=== PATIENT | female | born 1975 | race Hispanic/Latino ===

== ENCOUNTER → 2017-03-12 | Day surgery (SDC) | payer OTHER ==
[~2017-03-12] MED LIST: ACTOS15 MG PO; AMITRIPTYLINE100 MG PO; BENADRYL PO; BENADRYL25 M1 PO; CARAFATE1 GM PO; CARAFATE1 GM/10 ML PO; CLINDAMYCIN HC300 MG PO; COLACE100 MG PO; COLESTIPOL HCL1 GM PO; DIPHENHYDR12.5 MG/5 PO; ESTROGEL50 GM; FENTANYL CITRATE/PF 100MCG/2 ML INJ ONE; FLAGYL500 MG PO; GLIPIZIDE10 MG PO; GLIPIZIDE5 MG PO; HUMALOG100 UNITS/ SQ; HYDROCODON-ACE1 EAC3 PO; INSULIN REGULAR, HUMAN 100 UNIT/1 ML 3ML VIAL ONE; INVOKANA PO; JANUVIA100 MG PO; JARDANCE PO; JARDIANCE PO; LANTUS100 UNITS/ SC; LEVEMIR100 UNIT/1 SC; LEVEMIR100 UNIT/1 SQ; LIDOCAINE HCL 2% LOCAL INJ 5 ML SDV VIAL INJ ONE; LISINOPRIL10 MG PO; LYRICA75 MG PO; METFORMIN HCL500 MG PO; MIDAZOLAM HCL 2 MG/2 ML VIAL ONE; NORCO 7.5-3251 EACH PO; NOVOLOG100 UNITS/; PANTOPRAZOLE SO40 MG PO; PENTASA500 MG PO; PHENERGAN PO; PROMETHAZINE HC25 M1 PO; PROPOFOL IV EMULSION 10 MG/ML 50 ML VIAL ONE; PROTONIX40 MG PO; REGLAN10 MG PO; REGLAN5 MG PO; ROBAXIN500 MG PO; SPIRONOLACTONE100 MG PO; TOUJEO INJ; TOUJEO SC; TYLENOL # 31 EA PO; TYLENOL PM EX-1 EACH; TYLENOL PM EX-1 EACH PO; TYLENOL WITH C1 EACH PO; VICODIN HP 10-1 EACH PO; ZOFRAN ODT4 MG SL
--- NOTE | 2017-03-13 04:40 | Operative Report ---
DATE OF PROCEDURE: March 12, 2017 REFERRING PHYSICIAN: Dr. Jason Rolle PROCEDURES PERFORMED 1. Esophagogastroduodenoscopy with esophageal dilatation, polypectomy and biopsies. 2. Colonoscopy with polypectomy. INDICATIONS FOR EGD: Dysphagia to solids. INDICATIONS FOR COLONOSCOPY: History of ischemic colitis. MEDICATION: Patient was done under MAC. Please see anesthesiologist's note. PROCEDURE: With the patient in the left lateral decubitus position, the flexible fiberoptic Olympus gastroscope was introduced into the esophagus under direct visualization without any difficulty. The esophagus appeared to be within normal limits. There were some mild stricture noted at the GE junction that was dilated to size 52-[place] Citizen Fan. The scope was then advanced into the stomach, and mucosa overlying the antrum grossly appeared to be within normal limits. Mucosa overlying the body revealed some diffuse erythema and low-grade to moderate edema, and biopsies were obtained and sent to stain for H. pylori. Numerous polyps were noted in the body of the stomach. They were hyperplastic appearing. Approximately, 18 polyps were removed per snare electrocautery. Pylorus appeared to be within normal limits. The scope was then advanced with ease all the way to the 2nd portion of the duodenum. The scope was then withdrawn slowly. Mucosa overlying the proximal 2nd portion and the duodenal bulb appeared to be within normal limits. The scope was then withdrawn back into the stomach and retroflexed. The mucosa overlying the fundus and the cardia appeared to be within normal limits. The scope was then straightened out. The stomach was decompressed. The scope was subsequently withdrawn. Patient tolerated the procedure well. IMPRESSION 1. Normal esophagus. 2. Esophageal stricture at gastroesophageal junction dilated to a size 52-[place] Citizen Fan. 3. Gastric polyps, body, multiple, approximately 18 removed per snare electrocautery. 4. Gastritis, body. Biopsies obtained and sent to stain for Helicobacter pylori. PLAN: Follow up histology. Continue Protonix 40 mg 1 p.o. a.c. b.i.d. Add Carafate 1 g p.o. a.c. t.i.d. and at bedtime. Patient was then turned around. After adequate lubrication of the anal canal, a flexible fiberoptic Olympus colonoscope was inserted into the rectum with ease and advanced all the way to the cecum. Prep overall was suboptimal with retained stools in the cecum and ascending colon. Some scattered stool also. Whatever was visualized in the cecum, ascending, transverse, and descending appeared to be within normal limits. One minute polyp was hot biopsied from the sigmoid colon. There was some minimal diverticular disease noted in the descending and the sigmoid. Two polyps were hot biopsied from the sigmoid. Anastomosis was noted at approximately 20 cm from the anal verge. Rectum appeared to be within normal limits. The scope was then retroflexed into the distal rectum and small internal hemorrhoids were noted, none of which was actively bleeding. The scope was then straightened out. The rectosigmoid area, as well as the distal rectal area were decompressed. The scope was subsequently withdrawn. Patient tolerated the procedure well. IMPRESSION 1. Suboptimal prep. 2. Descending colon polyp, hot biopsied. 3. Diverticulosis. 4. Sigmoid colon polyps times 2, hot biopsied. 5. Internal hemorrhoids, none actively bleeding. PLAN: Follow up histology. Initiate high-fiber and low-fat diet. Initiate high-fiber supplement. Patient will need a followup colonoscopy in 3 years. Job#: [id number] RI cc:JASON ROLLE MD
== END | disposition home or self-care (01) ==
LOC: OR 09:44
PROVIDERS: ATTEND Internal Medicine Gastroenterology
DX: K22.2 Esophageal obstruction (principal); K63.5 Polyp of colon; K31.7 Polyp of stomach and duodenum; K29.70 Gastritis, unspecified, without bleeding; K63.89 Other specified diseases of intestine; K21.9 Gastro-esophageal reflux disease without esophagitis; K57.30 Diverticulosis of large intestine without perforation or abscess without bleeding; K64.8 Other hemorrhoids; K59.00 Constipation, unspecified; Z98.0 Intestinal bypass and anastomosis status; I10 Essential (primary) hypertension; E11.9 Type 2 diabetes mellitus without complications
CPT/HCPCS: 36415; 43251; 43450; 45384; 82948; J2001; J2250

== ENCOUNTER 2017-06-30 12:45 | Inpatient (IN) | payer OTHER ==
[~2017-06-30] VITALS: Ht 160 cm; Wt 93.9 kg
[~2017-06-30 12:45] MED LIST changes: -FENTANYL CITRATE/PF 100MCG/2 ML INJ ONE; -INSULIN REGULAR, HUMAN 100 UNIT/1 ML 3ML VIAL ONE; -LIDOCAINE HCL 2% LOCAL INJ 5 ML SDV VIAL INJ ONE; -MIDAZOLAM HCL 2 MG/2 ML VIAL ONE; -PROPOFOL IV EMULSION 10 MG/ML 50 ML VIAL ONE
--- OUTSIDE RECORDS SUMMARY | 2017-06-30 12:50 | XMS REPORT ---
Author Author [facility] Address Unknown Phone Unavailable Care Team Providers Care Plate Molder Name Role Phone THAI ROLLE Unavailable Unavailable BINA STEVENSON Unavailable Unavailable ALEC ROLLE Unavailable Unavailable Problems This patient has no known problems. Allergies, Adverse Reactions, Alerts This patient has no known allergies or adverse reactions. Medications This patient has no known medications. Results Test Description Test Time Test Comments Text Results Atomic Results Result Comments CT ABDOMEN/PELVIS W [place] [address] Patient Name: SAIRA DREW MR #: [id number] : 1975 Age/Sex: 41/F Req #: [id number] Adm Physician: THAI ROLLE MD Ordered by: VENTURA PICHARDO MD Report #: [id number] Location: [facility] Room/Bed: [place] [address] Procedure: [id number] CT/CT ABDOMEN/PELVIS W Exam Date: 12/11/16 Exam Time: 2100 REPORT STATUS: Signed EXAM: CT Abdomen and Pelvis WITH contrast INDICATION: Abdominal pain and rectal bleeding. COMPARISON: None. TECHNIQUE: Abdomen and pelvis were scanned utilizing a multidetector helical scanner from the lung base to the pubic symphysis after administration of IV contrast. Coronal and sagittal reformations were obtained. Routine protocol was performed. Scan was performed when during portal venous phase. IV CONTRAST: 100 mL of Isovue-370 ORAL CONTRAST: None RADIATION DOSE: Total DLP: 778.65 mGy*cm Estimated effective dose: (DLP x 0.015 x size factor) mSv COMPLICATIONS: None FINDINGS: LINES and TUBES: None. LOWER THORAX: Unremarkable HEPATOBILIARY: The liver is diffuse hypodense compared to the spleen, consistent with diffuse hepatic diffuse hepatic steatosis. No focal hepatic lesions. No biliary ductal dilation. GALLBLADDER: There are cholecystectomy clips. SPLEEN: No splenomegaly. PANCREAS: No focal masses or ductal dilatation. ADRENALS: No adrenal nodules KIDNEYS/URETERS: Kidneys enhance symmetrically. No hydronephrosis. No cystic or solid mass lesions. No stones. GI TRACT: No abnormal distention, wall thickening, or evidence of bowel obstruction. There are diverticula within the colon without evidence of diverticulitis. Appendix is not clearly identified. There is however no fat stranding or adenopathy in the right lower quadrant to suggest appendicitis. PELVIC ORGANS/BLADDER: Unremarkable. LYMPH NODES: No lymphadenopathy. VESSELS: Unremarkable. PERITONEUM / RETROPERITONEUM: No free air or fluid. BONES: Unremarkable. SOFT TISSUES: Unremarkable. IMPRESSION: 1. No acute intra-abdominal or pelvic abnormality. 2. Diffuse hepatic steatosis. 3. Cholecystectomy. Signed by: Dr. Vasquez Freeman M.D. on 2016 9:35 PM Dictated By: VASQUEZ RICH MD 34 COPY TO: VENTURA PICHARDO MD CT CHEST W [place] [address] Patient Name: SAIRA DREW MR #: [id number] : 1975 Age/Sex: 41/F Req #: [id number] Adm Physician: Ordered by: BINA STEVENSON MD Report #: [id number] Location: ER Room/Bed: Procedure: [id number] CT/CT CHEST W Exam Date: 12/11/16 Exam Time: 6 REPORT STATUS: Signed EXAM: CT Chest WITH contrast 2016 12:05 AM INDICATION: Shortness of breath, pulmonary embolism COMPARISON: None TECHNIQUE: Chest was scanned utilizing a multidetector helical scanner from the lung apex through the level of the adrenal glands without administration of IV contrast. Coronal and sagittal reformations were obtained. Routine protocol was performed. IV CONTRAST: 100 mL of Isovue-370 RADIATION DOSE: Total DLP: 482.19 mGy*cm Estimated effective dose: (DLP x 0.014 x size factor) mSv COMPLICATIONS: None FINDINGS: LINES/ TUBES: None. LUNGS AND AIRWAYS: The lungs are unremarkable. Airways are normal. PLEURA: The pleural spaces are clear. HEART AND MEDIASTINUM: The thyroid gland is normal. No mediastinal , hilar or axillary lymphadenopathy. The heart is normal in size.. There is no pericardial effusion. UPPER ABDOMEN: Limited non-contrast views of the upper abdomen show no abnormality within the visualized liver, spleen, pancreas, or kidneys. The adrenal glands are normal. Diffuse hepatic steatosis. Cholecystectomy clips are present BONES: The visualized bony thorax is within normal limits. SOFT TISSUES: Unremarkable. IMPRESSION : 1. No acute pulmonary embolism. 2. No evidence of acute intrathoracic abnormality. 3. Diffuse hepatic steatosis. Signed by: Dr. Vasquez Freeman M.D. on 2016 1:26 AM Dictated By: VASQUEZ RICH MD 5 Transcribed By: JUAQUIN on 12/11/16125 COPY TO: BINA STEVENSON MD GASTRIC EMPTYING [place] [address] Patient Name: SAIRA DREW MR #: [id number] : 1975 Age/Sex: 40/F Req #: [id number] Adm Physician: Ordered by: ALEC ROLLE MD Report #: [id number] Location: [place] Room/Bed: Procedure: [id number] NM/GASTRIC EMPTYING Exam Date: Exam Time: REPORT STATUS: Signed Solid-phase gastric emptying study Reason for examination: 40 F with dysphagia The protocol used for this study is based on the Consensus Recommendations for Gastric Scintigraphy by the [employer] Society and the Society of Nuclear Medicine. Clinical information: The patient is diabetic; blood glucose this morning was 158. The patient had colon reduction in 2009 for diverticulitis and cholecystectomy in 2009. The patient uses Reglan. The patient has been fasting for at least 6 hours prior to this exam. Radiopharmaceutical: Tc-99m sulfur colloid 1 mCi Report: The radiopharmaceutical was added to Ensure Enlive 8 ounces. The patient took the meal orally without difficulty. Images were obtained of the abdomen in the anterior and posterior projections at 10 minutes post the meal and at 1, 2, 3 , and 4 hours. Uptake was determined from the geometric mean of the anterior and posterior counts and the counts were corrected for decay of the radiolabel. The percent gastric retention of the labeled meal at: 1 hour was 58% (normal 30-90%) 2 hours was 35% (normal <60%) 3 hours was 27% (normal <30%) 4 hours was 14% (normal <10%) Impression: Mildly delayed gastric emptying at 4 hours. The findings support the clinical diagnosis of gastroparesis. Signed by: Dr. Alejandra Mcfarland M.D. on 2016 2:36 PM Dictated By: ALEJANDRA MCFARLAND MD 0060 Transcribed By: JUAQUIN on 12/07/16 1437 COPY TO: ALEC ROLLE MD
[2017-06-30 13:30] LABS: BASOPHILS % 0.4 % (0.0-1.0); EOSINOPHILS # (AUTO) 0.3 (0.0-0.4); EOSINOPHILS % 2.5 % (0.0-6.0); HEMATOCRIT 41.7 % (34.2-44.1); HEMOGLOBIN 14.4 g/dL (12.0-16.0); LYMPHOCYTES # (AUTO) 2.9 (1.0-3.2); LYMPHOCYTES % 28.3 % (18.0-39.1); MEAN CORPUSCULAR HEMOGLOBIN 26.4 pg (28-32); MEAN CORPUSCULAR HGB CONC 34.5 g/dL (31-35); MEAN CORPUSCULAR VOLUME 76.4 fL (81-99); MONOCYTES # (AUTO) 0.7 (0.2-0.8); MONOCYTES % 7.1 % (4.4-11.3); NEUTROPHILS # (AUTO) 6.2 (2.1-6.9); NEUTROPHILS % 61.3 % (38.7-80.0); PLATELET COUNT 222 x10e3/uL (140-360); RED BLOOD COUNT 5.46 x10e6/uL (3.6-5.1); RED CELL DISTRIBUTION WIDTH 14.4 % (11.7-14.4)
[2017-06-30 13:48] LABS: ALANINE AMINOTRANSFERASE 48 IU/L (0-55); ALBUMIN 4.1 g/dL (3.5-5.0); ALKALINE PHOSPHATASE 85 IU/L (40-150); BLOOD UREA NITROGEN 16 mg/dL (7-26); BUN/CREATININE RATIO 17 (6-25); CALCIUM 9.4 mg/dL (8.4-10.2); CARBON DIOXIDE 25 mmol/L (22-29); CHLORIDE 101 mmol/L (98-107); CREATINE KINASE 140 IU/L (29-168); CREATININE, SERUM 0.93 mg/dL (0.57-1.11); EST GLOMERULAR FILTRATION RATE > 60 ML/MIN (60-); GLUCOSE 169 mg/dL (74-118); SODIUM 137 mmol/L (136-145)
[2017-06-30] MEDS ORDERED: SODIUM CHLORIDE 0.9% 1000ML 1,000 ML IV STA (14:24)
[2017-06-30] MEDS: MORPHINE SULFATE 2 MG/ML SYR IV PRN ×3 (14:51→22:26)
[2017-06-30] MEDS: ONDANSETRON HCL INJ 2 MG/ML VIAL IV PRN ×2 (14:51→21:03)
--- NOTE | 2017-06-30 15:07 | Diagnostic Imaging Report ---
PROCEDURE: A single AP view of the chest. COMPARISON: Patients [facility], , CHEST 2 VIEWS, 05/16/2016, 11:42. INDICATIONS: CHEST PAIN, DIFFICULTY SWALLOWING FINDINGS: Lines/tubes: None. Lungs: The lungs are well inflated and grossly clear. There is no evidence of pneumonia or pulmonary edema. Pleura: There is no pleural effusion or pneumothorax. Heart and mediastinum: Cardiac silhouette is unremarkable. Pulmonary vasculature is normal. Bones: No acute bony abnormality. IMPRESSION: 1. No acute cardiopulmonary abnormalities. Michel Plunkett M.D. Dictated by: Michel Plunkett M.D. on 06/30/2017 at 15:08 Electronically approved by: Michel Plunkett M.D. on 06/30/2017 at 15:08
[2017-06-30 16:10] VITALS: BP 139/82
[2017-06-30] MEDS: SODIUM CHLORIDE 0.9% 1000ML 1,000 ML IV SCH ×2 (16:29→22:27)
[2017-06-30 16:36] VITALS: BP 139/82
[2017-06-30] MEDS ORDERED: DIPHENHYDRAMINE HCL 25 MG CAP PO PRN (17:30)
[2017-06-30] MEDS ORDERED: COLESTIPOL HCL 1 G TAB PO PRN (17:30)
[2017-06-30] MEDS ORDERED: NON-FORMULARY MEDICATION ([Phenergan] 25 MG) PO SCH (17:30)
[2017-06-30] MEDS ORDERED: DEXTROSE 50% SYRINGE 50 ML IV PRN (17:30)
[2017-06-30] MEDS ORDERED: COLESTIPOL HCL 1 G TAB PO SCH (17:30)
[2017-06-30] MEDS ORDERED: DIPHENHYDRAMINE HCL INJ 50 MG/ML VIAL IV PRN (17:45)
[2017-06-30] MEDS ORDERED: PROMETHAZINE HCL 25 MG TAB PO PRN (17:45)
[2017-06-30 20:00] VITALS: BP 112/68
[2017-06-30] MEDS: METOCLOPRAMIDE HCL 10 MG TAB PO SCH (21:00)
[2017-06-30] MEDS: INSULIN LISPRO 100 UNIT/1 ML 3ML VIAL SQ SCH (21:00)
[2017-06-30] MEDS: INSULIN DETEMIR 100 UNIT/ML PEN SQ SCH (21:00)
[2017-06-30] MEDS ORDERED: NON-FORMULARY MEDICATION (Amitriptyline Hcl 100 MG) PO SCH (21:00)
[2017-06-30] MEDS: AMITRIPTYLINE HCL 25 MG TAB PO SCH (21:00)
[2017-06-30] MEDS: LISINOPRIL 10 MG TAB PO SCH (21:00)
[2017-06-30] MEDS: METHOCARBAMOL 500 MG TAB PO SCH (21:00)
[2017-06-30 21:03] VITALS: BP 112/68
[2017-07-01] VITALS (7 sets, daily range): BP systolic 95–163; BP diastolic 57–86
[2017-07-01] MEDS: MORPHINE SULFATE 2 MG/ML SYR IV PRN ×2 (02:32→06:38)
[2017-07-01] MEDS: SODIUM CHLORIDE 0.9% 1000ML 1,000 ML IV SCH ×3 (02:32→22:28)
[2017-07-01] MEDS: ONDANSETRON HCL INJ 2 MG/ML VIAL IV PRN ×2 (02:32→06:38)
[2017-07-01] MEDS ORDERED: MORPHINE SULFATE 2 MG/ML SYR IV PRN (07:15)
[2017-07-01] MEDS: INSULIN LISPRO 100 UNIT/1 ML 3ML VIAL SQ SCH ×4 (07:30→21:00)
[2017-07-01] MEDS: GLIPIZIDE 5 MG TAB PO SCH ×2 (07:30→16:30)
[2017-07-01] MEDS: METOCLOPRAMIDE HCL 10 MG TAB PO SCH ×4 (07:30→21:13)
[2017-07-01] MEDS ORDERED: HYDROMORPHONE 2MG/ML INJ IV PRN (08:30)
[2017-07-01] MEDS: PANTOPRAZOLE 40 MG 10ML VIAL IV SCH (08:52)
[2017-07-01] MEDS: METHOCARBAMOL 500 MG TAB PO SCH ×3 (09:00→21:13)
[2017-07-01] MEDS: INSULIN DETEMIR 100 UNIT/ML PEN SQ SCH ×2 (09:00→16:34)
[2017-07-01] MEDS ORDERED: PANTOPRAZOLE SODIUM 40 MG SUSPDR.PKT PO SCH (09:00)
[2017-07-01] MEDS ORDERED: NON-FORMULARY MEDICATION (Glipizide 20 MG) PO SCH (09:00)
[2017-07-01] MEDS: HYDROMORPHONE 2MG/ML INJ IV PRN ×4 (10:00→22:28)
[2017-07-01] MEDS: SITAGLIPTIN 100 MG TAB PO SCH (10:33)
[2017-07-01] MEDS ORDERED: PANTOPRAZOLE 40 MG 10ML VIAL IV STA (13:22)
[2017-07-01] MEDS ORDERED: PANTOPRAZOLE INJ 40 MG in SODIUM CHLORIDE 0.9% 50ML 50 ML IV SCH (13:30)
[2017-07-01] MEDS: PROMETHAZINE 12.5MG/ NACL 0.9% 12.5 MG/50 ML BAG IV PRN ×2 (13:50→22:28)
[2017-07-01] MEDS: PANTOPRAZOL 40MG/SOD CHL 0.9% 50 ML IV SCH ×3 (13:50→23:30)
[2017-07-01] MEDS ORDERED: PROPOFOL IV EMULSION 10 MG/ML 50 ML VIAL ONE (15:07)
[2017-07-01] MEDS ORDERED: LIDOCAINE HCL 2% LOCAL INJ 5 ML SDV VIAL INJ ONE (15:07)
[2017-07-01] MEDS ORDERED: FENTANYL CITRATE/PF 100MCG/2 ML INJ ONE (15:27)
[2017-07-01] MEDS ORDERED: MIDAZOLAM HCL 2 MG/2 ML VIAL ONE (15:27)
[2017-07-01] MEDS: LISINOPRIL 10 MG TAB PO SCH (21:13)
[2017-07-01] MEDS: AMITRIPTYLINE HCL 25 MG TAB PO SCH (21:13)
[2017-07-02] VITALS (7 sets, daily range): BP systolic 102–124; BP diastolic 55–73
[2017-07-02] MEDS: PANTOPRAZOL 40MG/SOD CHL 0.9% 50 ML IV SCH ×3 (04:27→15:42)
[2017-07-02] MEDS: HYDROMORPHONE 2MG/ML INJ IV PRN ×3 (04:33→13:11)
[2017-07-02] MEDS: SODIUM CHLORIDE 0.9% 1000ML 1,000 ML IV SCH ×2 (06:06→15:42)
[2017-07-02] MEDS: GLIPIZIDE 5 MG TAB PO SCH (07:30)
[2017-07-02] MEDS: METOCLOPRAMIDE HCL 10 MG TAB PO SCH ×2 (07:30→11:30)
[2017-07-02] MEDS: INSULIN LISPRO 100 UNIT/1 ML 3ML VIAL SQ SCH ×2 (07:30→11:30)
[2017-07-02] MEDS: PROMETHAZINE 12.5MG/ NACL 0.9% 12.5 MG/50 ML BAG IV PRN (08:44)
[2017-07-02] MEDS: SITAGLIPTIN 100 MG TAB PO SCH (09:00)
[2017-07-02] MEDS: INSULIN DETEMIR 100 UNIT/ML PEN SQ SCH (09:00)
[2017-07-02] MEDS: METHOCARBAMOL 500 MG TAB PO SCH (09:00)
[2017-07-02] MEDS: PANTOPRAZOLE 40 MG 10ML VIAL IV SCH (09:00)
--- NOTE | 2017-07-02 13:01 | Operative Report ---
DATE OF PROCEDURE: July 01, 2017 PROCEDURE PERFORMED: Esophagogastroduodenoscopy with esophageal dilatation. REFERRING PHYSICIAN: Dr. Jason Rolle INDICATIONS FOR EGD: Dysphagia to solids. MEDICATION: Patient was done under MAC. Please see anesthesiologist note. PROCEDURE IN DETAIL: With the patient in left lateral decubitus position, the flexible fiberoptic Olympus gastroscope was introduced into the esophagus under direct visualization without any difficulty. There was some patchy erythema noted in distal esophagus. Mild stricture was noted at the GE junction that was dilated to size 56-[place] Fan. The scope was then advanced with ease into her stomach. Mucosa overlying the antrum and the body revealed some diffuse erythema, low-grade edema, and biopsies were obtained and sent to stain for H. pylori. Several hyperplastic-appearing polyps were noted in the body of the stomach and some were partially excised with the cold biopsy forceps. The pylorus was of normal contour and shape, was intubated with ease, and the scope was advanced all the way to the second portion of the duodenum. The scope was then withdrawn slowly. Mucosa overlying the proximal second portion and the duodenal bulb appeared to be within normal limits. The scope was then withdrawn back into the stomach and retroflexed, and the mucosa overlying the fundus and the cardia appeared to be within normal limits. The scope was then straightened out. The stomach was decompressed. The scope was subsequently withdrawn. Patient tolerated the procedure well. IMPRESSION: 1. Distal esophagitis. 2. Esophageal stricture, gastroesophageal junction, dilated to size 56-[place] Fan. 3. Gastritis, biopsied. Biopsy sent to stain for Helicobacter pylori. 4. Gastric polyps, hyperplastic appearing, some were partially excised with the cold biopsy forceps. PLAN: Follow up histology. Continue PPI therapy. Initiate full liquid diet. Job#: [id number] cc:JASON ROLLE MD
[2017-07-02] MEDS: ONDANSETRON HCL INJ 2 MG/ML VIAL IV PRN (13:11)
--- NOTE | 2017-07-02 15:07 | Progress Note ---
DATE: INTERNAL MEDICINE PROGRESS NOTE NO DICTATION, LENGTH 0:5 Job#: [id number] RI
--- NOTE | 2017-07-02 16:08 | Discharge Summary ---
A 41-year-old female with a history of gastroesophageal reflux disease, diabetes, rheumatoid arthritis, hypertension came with difficulty swallowing. Patient was seen by Dr. Evelio Olvera. He did an EGD and dilatation of the esophagus. The patient is feeling a lot better right now. She is going home if okay with Dr. Evelio Olvera. PHYSICAL EXAMINATION HEART: Shows regular rhythm. Normal S1 and S2 sounds. LUNGS: Clear bilaterally. ABDOMEN: Soft. EXTREMITIES: Shows no evidence of cyanosis or trauma. LABORATORY STUDIES: We have a BMP with a sodium of 137, potassium 4, chloride 101, CO2 25, BUN 16, creatinine 0.83, glucose 169. CBC showed a white blood count 10, hemoglobin 14.4, hematocrit 41.7, and platelet count 232,000. AST 29, ALT 48, total bilirubin 0.4, alkaline phosphatase 85. FINAL IMPRESSION 1. Esophageal stenosis. 2. Hypertension. 3. Diabetes. Patient going to be discharged home with: 1. Protonix 40 mg p.o. twice a day. 2. Lisinopril 5 mg daily. 3. Glipizide 20 mg twice a day. 4. Protonix 40 mg daily. 5. Colestipol 1 g daily. 6. Methocarbamol 500 mg 3 times a day. 7. Promethazine 25 mg q.6 h. as needed. 8. Levemir 30 units twice a day. 9. Metoclopramide 20 mg before meals. 10. Januvia 100 mg daily. 11. Elavil 100 mg daily. 12. Benadryl 25 mg q.4 h. as needed. ANNELIESE QUINN MD Job#: [id number] RI
== END 2017-07-02 15:42 | disposition home or self-care (01) | DRG 392 ==
LOC: ER 12:49 → ERHOLD 14:41 → MED/SURG 15:40
PROC: 0D748ZZ Dilation of Esophagogastric Junction, Via Natural or Artificial Opening Endoscopic (ICD-10-PCS; principal; 2017-07-01 16:30)
PROC: 0DB68ZX Excision of Stomach, Via Natural or Artificial Opening Endoscopic, Diagnostic (ICD-10-PCS; 2017-07-01 16:30)
DX: K22.2 Esophageal obstruction (principal); R13.14 Dysphagia, pharyngoesophageal phase; I10 Essential (primary) hypertension; K21.0 Gastro-esophageal reflux disease with esophagitis; K29.70 Gastritis, unspecified, without bleeding; K31.7 Polyp of stomach and duodenum; E11.9 Type 2 diabetes mellitus without complications; M06.9 Rheumatoid arthritis, unspecified; R07.9 Chest pain, unspecified; Z88.1 Allergy status to other antibiotic agents; Z88.2 Allergy status to sulfonamides; Z88.8 Allergy status to other drugs, medicaments and biological substances; F41.9 Anxiety disorder, unspecified
CPT/HCPCS: 36415; 43239; 43450; 71045; 80053; 82550; 82553; 82948; 84484; 85025; 88305; 88312; 93005; 99284; J1200; J2001; J2250; J2270; J2405; J2550; J7030

== ENCOUNTER → 2017-07-11 | Outpatient (CLI) | payer OTHER ==
[~2017-07-11] MED LIST changes: +DIATRIZOATE MEGL/DIATRIZOA SOD 30 ML BTL PO ONE; +IOPAMIDOL 370 MG/ML 200 ML INFUS..BTL INJ ONE; +SODIUM CHLORIDE 0.9% 50ML 50 ML ONE
[2017-07-11 18:26] LABS: CREATININE, SERUM 1.2 mg/dL (0.57-1.11)
--- NOTE | 2017-07-11 19:25 | Diagnostic Imaging Report ---
EXAM: CT Abdomen and Pelvis WITH contrast INDICATION: \[id number] \[id number] COMPARISON: 10/30/2009 TECHNIQUE: Abdomen and pelvis were scanned utilizing a multidetector helical scanner from the lung base to the pubic symphysis after administration of IV contrast. Coronal and sagittal reformations were obtained. Routine protocol was performed. Scan was performed when during portal venous phase. IV CONTRAST: 150 mL of Omnipaque 300 ORAL CONTRAST: Water COMPLICATIONS: None RADIATION DOSE: Total DLP: 747.9 mGy*cm Estimated effective dose: (DLP x 0.015 x size factor) mSv CTDIvol has been reviewed. It is below the limits set by the Radiation Protocol Committee (RPC). FINDINGS: LINES and TUBES: None. LOWER THORAX: Unremarkable HEPATOBILIARY: The liver is enlarged and diffuse hypodense compared to the spleen, consistent with diffuse hepatic diffuse hepatic steatosis. No focal hepatic lesions. No biliary ductal dilation. GALLBLADDER: There are cholecystectomy clips. SPLEEN: No splenomegaly. PANCREAS: No focal masses or ductal dilatation. ADRENALS: No adrenal nodules KIDNEYS/URETERS: Kidneys enhance symmetrically. No hydronephrosis. No cystic or solid mass lesions. No stones. GI TRACT: No abnormal distention, wall thickening, or evidence of bowel obstruction. There are diverticula within the colon without evidence of diverticulitis. Appendix is not clearly identified. There is however no fat stranding or adenopathy in the right lower quadrant to suggest appendicitis. PELVIC ORGANS/BLADDER: The uterus is absent. Bladder is unremarkable. LYMPH NODES: Nonspecific gisela hepatis lymph nodes measuring up to 1.4 cm. VESSELS: Unremarkable. PERITONEUM / RETROPERITONEUM: No free air or fluid. BONES: Unremarkable. SOFT TISSUES: Midline laparotomy scar. Foci of subcutaneous stranding in the anterior abdominal wall fat may be related to subcutaneous injections. IMPRESSION: 1. No acute abnormalities in the abdomen and pelvis. 2. Hepatic steatosis and hepatomegaly. 3. Cholecystectomy. Signed by: DR. Prashant Downs MD on 07/11/2017 7:21 PM
== END ==
LOC: CT 17:23
DX: R10.9 Unspecified abdominal pain (principal); K76.0 Fatty (change of) liver, not elsewhere classified; R16.0 Hepatomegaly, not elsewhere classified
CPT/HCPCS: 36415; 74177; 82565; 84520; Q9967

== ENCOUNTER 2017-10-17 05:28 | Observation (INO) | payer OTHER ==
[2017-10-11 09:15] LABS: BASOPHILS % 0.5 % (0.0-1.0); EOSINOPHILS # (AUTO) 0.4 (0.0-0.4); EOSINOPHILS % 4.2 % (0.0-6.0); HEMATOCRIT 43.3 % (34.2-44.1); HEMOGLOBIN 14.4 g/dL (12.0-16.0); LYMPHOCYTES # (AUTO) 2.6 (1.0-3.2); MEAN CORPUSCULAR HEMOGLOBIN 25.9 pg (28-32); MEAN CORPUSCULAR HGB CONC 33.3 g/dL (31-35); MEAN CORPUSCULAR VOLUME 77.9 fL (81-99); MONOCYTES # (AUTO) 0.7 (0.2-0.8); MONOCYTES % 7.5 % (4.4-11.3); NEUTROPHILS % 57.5 % (38.7-80.0); PLATELET COUNT 238 x10e3/uL (140-360); RED BLOOD COUNT 5.56 x10e6/uL (3.6-5.1); RED CELL DISTRIBUTION WIDTH 14.5 % (11.7-14.4)
[2017-10-11 09:31] LABS: ANION GAP 14.8 mmol/L (8-16); BLOOD UREA NITROGEN 16 mg/dL (7-26); BUN/CREATININE RATIO 20 (6-25); CALCIUM 9.4 mg/dL (8.4-10.2); CARBON DIOXIDE 27 mmol/L (22-29); CHLORIDE 102 mmol/L (98-107); CREATININE, SERUM 0.79 mg/dL (0.57-1.11); EST GLOMERULAR FILTRATION RATE > 60 ML/MIN (60-); GLUCOSE 201 mg/dL (74-118); POTASSIUM 3.8 mmol/L (3.5-5.1); SODIUM 140 mmol/L (136-145)
[~2017-10-17] VITALS: Ht 160 cm; Wt 93.9 kg
[2017-10-17 02:00] VITALS: BP 115/58
[~2017-10-17 05:28] MED LIST changes: -DIATRIZOATE MEGL/DIATRIZOA SOD 30 ML BTL PO ONE; -IOPAMIDOL 370 MG/ML 200 ML INFUS..BTL INJ ONE; +METOPROLOL SUCC25 MG PO; -SODIUM CHLORIDE 0.9% 50ML 50 ML ONE
[2017-10-17] MEDS ORDERED: TUJEO SQ (05:46)
[2017-10-17] MEDS ORDERED: BUPIVACAINE 0.25%/EPI 30ML SDV INJ ONE (08:09)
[2017-10-17] MEDS: SODIUM CHLORIDE 0.9% 1000ML 1,000 ML IV SCH (10:41)
[2017-10-17] MEDS: PANTOPRAZOLE 40 MG 10ML VIAL IV SCH (10:45)
[2017-10-17] MEDS ORDERED: KETOROLAC TROMETHAMINE 30 MG/ML VIAL IV PRN (10:45)
[2017-10-17] MEDS ORDERED: ACETAMINOPHEN 1000 MG/100 ML IV PRN (10:45)
[2017-10-17] MEDS ORDERED: ONDANSETRON HCL INJ 2 MG/ML VIAL IV PRN (10:45)
[2017-10-17] MEDS ORDERED: FENTANYL CITRATE/PF 100MCG/2 ML INJ ONE ×2 (11:11→14:52)
[2017-10-17] MEDS: INSULIN REGULAR, HUMAN 100 UNIT/1 ML 3ML VIAL SQ SCH ×2 (12:00→18:07)
--- NOTE | 2017-10-17 12:03 | Operative Report ---
DATE OF PROCEDURE: October 17, 2017 PREOPERATIVE DIAGNOSIS: Partial small bowel obstruction from adhesions. POSTOPERATIVE DIAGNOSIS: Partial small bowel obstruction from adhesions. OPERATION PERFORMED: Laparoscopic lysis of adhesions. ANESTHESIA: General. COMPLICATIONS: None. ESTIMATED BLOOD LOSS: Minimal. DESCRIPTION OF PROCEDURE: With the patient lying in bed in the supine position under good general endotracheal anesthesia, the abdomen was prepped with Betadine solution and draped in the usual manner. A Veress needle was introduced into the right upper quadrant and pneumoperitoneum was established without any difficulty. A 5 mm trocar was placed in the right subcostal region and a 5 mm video laparoscope was introduced into the intra-abdominal cavity. Video laparoscopy at this point immediately revealed extensive adhesions to the anterior abdominal wall. Another 5 mm trocar was then placed in the left upper quadrant and another 5 mm trocar was placed in the right subcostal region. We then slowly and carefully started taking down all of the extensive adhesions to the anterior abdominal wall from the patient's previous surgeries. We were slowly and carefully able to take them down all the way from the upper abdomen all the way down to the pelvis and all of the omentum was from the anterior abdominal wall and we were able to get a more free access to the intra-abdominal cavity. Laparoscopy also revealed the patient to have some fatty infiltration of the liver. There were some adhesions to the dome of the liver which were also slowly and carefully lysed. The bowel was then slowly and carefully run and all adhesions were taken down. Examination of the pelvis did not reveal any deep pelvic adhesions. There was however a small deposit consistent with endometriosis in the pelvis, which was resected. After the bowel was run and all of the adhesions were slowly and carefully taken down, the whole abdomen was then copiously irrigated and perfect hemostasis was ascertained. All of the excess fluid was aspirated. The only other positive finding was the colon was somewhat distended from feces. The pneumoperitoneum was evacuated and all the trocars were removed under direct vision. All of the 5 mm trocars sites were then closed with subcuticular 5-0 Vicryl. Benzoin, Steri-Strips and Band-Aids were applied. The sponge, lap and needle count was correct. The patient tolerated the procedure well and returned to the recovery room in stable condition. Job#: [id number] LUIS A
[2017-10-17] MEDS ORDERED: HYDROMORPHONE 2MG/ML 2 MG/ML ML ONE (12:41)
[2017-10-17 14:48] VITALS: BP 120/59
[2017-10-17] MEDS ORDERED: MIDAZOLAM HCL 2 MG/2 ML VIAL ONE (14:52)
[2017-10-17 16:03] VITALS: BP 120/59
[2017-10-17] MEDS: HYDROMORPHONE 1MG/1ML INJ IV PRN ×3 (16:08→22:15)
[2017-10-17] MEDS: METOPROLOL SUCCINATE 25 MG TAB XL PO SCH (17:12)
[2017-10-17 20:00] VITALS: BP 121/69
[2017-10-17] MEDS: LISINOPRIL 10 MG TAB PO SCH (20:29)
[2017-10-17] MEDS: DIPHENHYDRAMINE HCL INJ 50 MG/ML VIAL IV PRN (22:15)
[2017-10-18] VITALS (7 sets, daily range): BP systolic 97–123; BP diastolic 52–74
[2017-10-18] MEDS: INSULIN REGULAR, HUMAN 100 UNIT/1 ML 3ML VIAL SQ SCH ×4 (01:00→18:00)
[2017-10-18] MEDS: DIPHENHYDRAMINE HCL INJ 50 MG/ML VIAL IV PRN (01:20)
[2017-10-18] MEDS: HYDROMORPHONE 1MG/1ML INJ IV PRN ×5 (01:20→14:02)
[2017-10-18] MEDS: SODIUM CHLORIDE 0.9% 1000ML 1,000 ML IV SCH ×4 (01:44→23:30)
[2017-10-18 04:56] LABS: BASOPHILS % 0.3 % (0.0-1.0); EOSINOPHILS # (AUTO) 0.1 (0.0-0.4); EOSINOPHILS % 0.6 % (0.0-6.0); HEMATOCRIT 37.5 % (34.2-44.1); HEMOGLOBIN 12.5 g/dL (12.0-16.0); LYMPHOCYTES # (AUTO) 2.2 (1.0-3.2); LYMPHOCYTES % 18.4 % (18.0-39.1); MEAN CORPUSCULAR HEMOGLOBIN 25.8 pg (28-32); MEAN CORPUSCULAR HGB CONC 33.3 g/dL (31-35); MEAN CORPUSCULAR VOLUME 77.5 fL (81-99); MONOCYTES # (AUTO) 1.1 (0.2-0.8); MONOCYTES % 9.1 % (4.4-11.3); NEUTROPHILS # (AUTO) 8.6 (2.1-6.9); NEUTROPHILS % 71.3 % (38.7-80.0); PLATELET COUNT 210 x10e3/uL (140-360); RED BLOOD COUNT 4.84 x10e6/uL (3.6-5.1); RED CELL DISTRIBUTION WIDTH 14.7 % (11.7-14.4)
[2017-10-18 05:47] LABS: ANION GAP 13.3 mmol/L (8-16); BLOOD UREA NITROGEN 15 mg/dL (7-26); BUN/CREATININE RATIO 22 (6-25); CALCIUM 8.9 mg/dL (8.4-10.2); CARBON DIOXIDE 26 mmol/L (22-29); CHLORIDE 104 mmol/L (98-107); CREATININE, SERUM 0.69 mg/dL (0.57-1.11); EST GLOMERULAR FILTRATION RATE > 60 ML/MIN (60-); GLUCOSE 175 mg/dL (74-118); POTASSIUM 4.3 mmol/L (3.5-5.1); SODIUM 139 mmol/L (136-145)
[2017-10-18] MEDS: METOPROLOL SUCCINATE 25 MG TAB XL PO SCH ×2 (08:01→17:50)
[2017-10-18] MEDS: PANTOPRAZOLE 40 MG 10ML VIAL IV SCH (10:02)
[2017-10-18] MEDS ORDERED: LIDOCAINE HCL 2% LOCAL INJ 5 ML SDV VIAL INJ ONE (14:01)
[2017-10-18] MEDS ORDERED: ONDANSETRON HCL INJ 2 MG/ML VIAL IV ONE (14:01)
[2017-10-18] MEDS ORDERED: ROCURONIUM BROMIDE 10 MG/ML 5ML VIAL IV ONE (14:01)
[2017-10-18] MEDS ORDERED: NEOSTIGMINE 5 MG/5ML SYR IV ONE (14:01)
[2017-10-18] MEDS ORDERED: DEXAMETHASONE SOD PHOS INJ 4 MG/ML VIAL IV ONE (14:01)
[2017-10-18] MEDS ORDERED: LABETALOL HCL 5 MG/ML 20ML VIAL IV ONE (14:01)
[2017-10-18] MEDS ORDERED: SEVOFLURANE INHAL SOLN 250 ML PEN BTL INH ONE (14:01)
[2017-10-18] MEDS ORDERED: GLYCOPYRROLATE INJ 0.2 MG/ML VIAL IV ONE (14:01)
[2017-10-18] MEDS ORDERED: PROPOFOL IV EMULSION 10 MG/ML 20 ML VIAL IV ONE (14:01)
[2017-10-18] MEDS: HYDROCODONE/APAP 7.5MG-325MG 1 EA TAB PO PRN (20:11)
[2017-10-18] MEDS: BISACODYL 10 MG SUPP PR SCH (20:11)
[2017-10-18] MEDS: LISINOPRIL 10 MG TAB PO SCH (21:00)
[2017-10-19] VITALS: BP 100/56
[2017-10-19] MEDS: INSULIN REGULAR, HUMAN 100 UNIT/1 ML 3ML VIAL SQ SCH ×4 (00:28→16:58)
[2017-10-19] MEDS: HYDROCODONE/APAP 7.5MG-325MG 1 EA TAB PO PRN ×3 (05:11→16:26)
[2017-10-19 05:23] VITALS: BP 108/66
[2017-10-19 05:52] LABS: BASOPHILS % 0.4 % (0.0-1.0); EOSINOPHILS # (AUTO) 0.5 (0.0-0.4); EOSINOPHILS % 5.1 % (0.0-6.0); HEMATOCRIT 37.3 % (34.2-44.1); HEMOGLOBIN 12.4 g/dL (12.0-16.0); LYMPHOCYTES # (AUTO) 2.7 (1.0-3.2); LYMPHOCYTES % 25.3 % (18.0-39.1); MEAN CORPUSCULAR HEMOGLOBIN 26.1 pg (28-32); MEAN CORPUSCULAR HGB CONC 33.2 g/dL (31-35); MEAN CORPUSCULAR VOLUME 78.5 fL (81-99); MONOCYTES # (AUTO) 1.1 (0.2-0.8); MONOCYTES % 10.8 % (4.4-11.3); NEUTROPHILS # (AUTO) 6.1 (2.1-6.9); NEUTROPHILS % 57.9 % (38.7-80.0); PLATELET COUNT 198 x10e3/uL (140-360); RED BLOOD COUNT 4.75 x10e6/uL (3.6-5.1); RED CELL DISTRIBUTION WIDTH 14.9 % (11.7-14.4)
[2017-10-19 06:17] LABS: ANION GAP 12.9 mmol/L (8-16); BLOOD UREA NITROGEN 10 mg/dL (7-26); BUN/CREATININE RATIO 15 (6-25); CALCIUM 8.4 mg/dL (8.4-10.2); CARBON DIOXIDE 25 mmol/L (22-29); CHLORIDE 102 mmol/L (98-107); CREATININE, SERUM 0.66 mg/dL (0.57-1.11); EST GLOMERULAR FILTRATION RATE > 60 ML/MIN (60-); GLUCOSE 137 mg/dL (74-118); POTASSIUM 3.9 mmol/L (3.5-5.1); SODIUM 136 mmol/L (136-145)
[2017-10-19] MEDS: BISACODYL 10 MG SUPP PR SCH (08:00)
[2017-10-19 08:15] VITALS: BP 107/65
[2017-10-19 08:35] VITALS: BP 107/65
[2017-10-19] MEDS: METOPROLOL SUCCINATE 25 MG TAB XL PO SCH ×2 (09:28→16:21)
[2017-10-19] MEDS: PANTOPRAZOLE 40 MG 10ML VIAL IV SCH (09:34)
[2017-10-19] MEDS: SODIUM CHLORIDE 0.9% 1000ML 1,000 ML IV SCH (09:34)
[2017-10-19] MEDS: HYDROMORPHONE 1MG/1ML INJ IV PRN (11:28)
[2017-10-19 12:00] VITALS: BP 112/61
[2017-10-19 16:24] VITALS: BP 102/65
== END 2017-10-19 20:20 | disposition home or self-care (01) ==
LOC: OR 05:28 → PACU V 10:43 → MED/SURG 14:37
PROVIDERS: ADMIT Surgery; ATTEND Surgery
DX: K56.51 Intestinal adhesions [bands], with partial obstruction (principal); Z88.1 Allergy status to other antibiotic agents; Z88.0 Allergy status to penicillin; Z88.2 Allergy status to sulfonamides; Z88.8 Allergy status to other drugs, medicaments and biological substances; I10 Essential (primary) hypertension; K21.9 Gastro-esophageal reflux disease without esophagitis; K57.90 Diverticulosis of intestine, part unspecified, without perforation or abscess without bleeding; E11.9 Type 2 diabetes mellitus without complications
CPT/HCPCS: 36415 ×4; 44180; 80048 ×3; 82948 ×3; 85025 ×3; 93005; G0378 ×3; J1100; J1170 ×4; J1200 ×2; J2001; J2250; J2405; J3490; J7030 ×2

== ENCOUNTER → 2018-01-09 | Outpatient (CLI) | payer OTHER ==
[~2018-01-09] MED LIST changes: +TUJEO SQ
--- NOTE | 2018-01-25 08:45 | Diagnostic Imaging Report ---
#[id number] - [id number] #BILATERAL FIRST EVER DIGITAL SCREENING MAMMOGRAM WITH CAD: 01/09/2018 CLINICAL: Routine screening. Baseline examination. No prior exams were available for comparison. Current study contains 6 films. There are scattered fibroglandular elements in both breasts. Current study was also evaluated with a Computer Aided Detection (CAD) system. There are benign calcifications in both breasts. There also are benign lymph nodes in both breasts. No significant masses, calcifications, or other findings are seen in either breast. IMPRESSION: BENIGN There is no mammographic evidence of malignancy. A 1 year screening mammogram is recommended. The patient will be notified by letter of the results. Diego humphrey/peter:01/24/2018 13:09:02 Astrobiologist: Chloe GARCIA(R)(M), [facility] letter sent: Normal Exam Mammogram BI-RADS: 2 Benign
== END ==
LOC: MAMMO 09:52
PROVIDERS: ATTEND Obstetrics & Gynecology
DX: Z12.31 Encounter for screening mammogram for malignant neoplasm of breast (principal)
CPT/HCPCS: 77067

== ENCOUNTER 2018-01-12 15:58 | Observation (INO) | payer OTHER ==
[~2018-01-12] VITALS: Ht 160 cm; Wt 95.9 kg
--- OUTSIDE RECORDS SUMMARY | 2018-01-12 16:02 | XMS REPORT | Continuity of Care Document ---
Author Author [facility] Interface Address Unknown Phone Unavailable Problems Problem Status Onset Date Classification Date Reported Comments Source DYSPHAGIA Active 01/06/2017 [facility] TROUBLE SWALLOWING Active 01/06/2017 [facility] ESOPHAGEAL ISSUES Active 09/30/2016 [facility] UNK Active 09/29/2016 [facility] R10.12 - LEFT UPPER QUADRANT PAIN Active 02/10/2016 [facility] [place] [id number]/[id number] Active 01/17/2014 [facility] ABD PAIN Active 10/02/2012 [facility] Abdominal hernia Active Problem 10/05/2012 [facility] FH: Diabetes mellitus Active Problem 10/05/2012 [facility] HTN - Hypertension Active Problem 10/05/2012 [facility] Abdominal hernia Active Problem 01/11/2017 [facility] Diabetes mellitus Active Problem 01/11/2017 [facility] Dysphagia Active Problem 01/11/2017 [facility] FH: Diabetes mellitus Active Problem 01/11/2017 [facility] Diabetic gastroparesis Active Problem 01/11/2017 [facility] GERD - Gastro-esophageal reflux disease Resolved Problem 01/11/2017 [facility] Heartburn Active Problem 01/11/2017 [facility] HTN - Hypertension Active Problem 01/11/2017 [facility] Insomnia due to anxiety and fear Resolved Problem 01/11/2017 [facility] 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 [facility] Obesity Active Problem 01/11/2017 [facility] Osteoarthritis Active Problem 01/11/2017 [facility] RA (<span ID="[id number]">Confirmed</span>) Active Problem 01/11/2017 [facility] Heel spur Resolved Problem 01/11/2017 [facility] Acid reflux disease Resolved Problem 01/11/2017 [facility] Polyarthritis Active Diagnosis 10/28/2017 Jaquan Freedman DYSPHAGIA, UNSPECIFIED Active [facility] Medications Medication Details Route Status Patient Instructions Ordering Provider Order Date Source influenza virus vaccine, inactivated 0.5 mL, Route: IM, Drug Form: SUSP, Daily, Start date: 01/08/17 14:30:00 CDT, Duration: 1 doses or times, Stop date: 01/08/17 14:30:00 CDTNotes: (Same as: Fluzone Quadrivalent, Fluarix Quadrivalent) For 3 years of age and older (0.5 mL IM) Shake well before use Inactive 01/08/2017 [facility] Benadryl 25 mg, 1 cap, Route: PO, Drug form: CAP, Bedtime, Dosing Weight 95, kg, PRN Insomnia, Start date: 01/07/17 20:46:00 CDT, Duration: 30 day, Stop date: 02/06/17 20:45:00 CSTNotes: (Same as: Benadryl) No Longer Active 01/08/2017 [facility] Chloraseptic 1.4% spray 1 spray, Route: TOP, Daily, Drug form: SPRY, PRN Sore Throat, Start date: 01/07/17 20:46:00 CDT, Duration: 30 day, Stop date: 02/06/17 20:45:00 CSTNotes: Chloraseptic [place] (Same as: Chloraseptic, Sore Throat [place]) WASTE: F/P - Black; E - [employer] Trash Bin No Longer Active 01/08/2017 [facility] hydromorphone 0.5 mg, 0.25 mL, Route: IVP, Drug form: INJ, ONCE, Dosing Weight 95, kg, Priority: Routine, Start date: 01/07/17 13:03:00 CDT, Stop date: 01/07/17 13:03:00 CDTNotes: Same as: Dilaudid Inactive 01/07/2017 [facility] Phenergan 12.5 mg, 0.5 mL, Route: IVPB, Drug form: INJ, Q6H, Dosing Weight 95, kg, PRN Nausea & Vomiting, Start date: 01/07/17 9:58:00 CDT, Duration: 30 day, Stop date: 02/06/17 9:57:00 CSTNotes: Do not give IV push. (Same as: Phenergan) No Longer Active 01/07/2017 [facility] influenza virus vaccine, inactivated 0.5 mL, Route: IM, Drug Form: SUSP, Daily, Start date: 01/07/17 9:00:00 CDT, Duration: 1 doses or times, Stop date: 01/07/17 9:00:00 CDTNotes: (Same as: Fluzone Quadrivalent, Fluarix Quadrivalent) For 3 years of age and older (0.5 mL IM) Shake well before use No Longer Active 01/07/2017 [facility] Dextrose 50% Syringe 12.5 gm, 25 mL, Route: IVP, Drug Form: INJ, Dosing Weight 95, kg, PRN, PRN Blood Glucose Results, Start date: 01/07/17 6:54:00 CDT, Duration: 30 day, Stop date: 02/06/17 5:53:00 CLERICAL METHODS ANALYST No Longer Active 01/07/2017 [facility] glucagon 1 mg, Route: IM, Drug form: PDR/INJ, PRN, Dosing Weight 95, kg, PRN Blood Glucose Results, Start date: 01/07/17 6:54:00 CDT, Duration: 30 day, Stop date: 02/06/17 5:53:00 CLERICAL METHODS ANALYST No Longer Active 01/07/2017 [facility] insulin lispro 1 unit, 0.01 mL, Route: SUB-Q, Drug form: SOLN, TID-Before Meals, Dosing Weight 95, kg, PRN Blood Glucose Results, Start date: 01/07/17 6:54:00 CDT, Duration: 30 day, Stop date: 02/06/17 6:53:00 CSTN otes: (Same as: Humalog ) Roll in palms of hands gently; Do not shake `vigorously. "Single Patient Use Only " (Restricted to patients requiring a dose > 60 units) WASTE: F/P - Black; E - [employer] Trash Bin Stable for 28 days at room temperature. Expires in days from Date No Longer Active 01/07/2017 [facility] Phenergan 25 mg oral tablet 25 mg=1 tab, PO, Q6H, 0 Refill(s) Active 01/07/2017 [facility] Toujordan SoloStar 300 units/mL subcutaneous solution SUB- Q, Daily, 0 Refill(s) No Longer Active 01/07/2017 [facility] Dilaudid 0.5 mg, 0.25 mL, Route: IVP, Drug form: INJ, ONCE, Dosing Weight 95, kg, Priority: STAT, Start date: 01/07/17 6:28:00 CDT, Stop date: 01/07/17 6:28:00 CDTNotes: Same as: Dilaudid Inactive 01/07/2017 [facility] ondansetron 4 mg, 2 mL, Route: IVP, Drug form: INJ, ONCE, Dosing Weight 95, kg, Priority: STAT, Start date: 01/07/17 2:33:00 CDT, Stop date: 01/07/17 2:33:00 CDTNotes: (Same as: Zofran) MEDICATION WASTE Product Size: 4 mg Product Wasted: ___ mg Inactive 01/07/2017 [facility] ondansetron 4 mg, 2 mL, Route: IVP, Drug form: INJ, Q6H, Dosing Weight 95, kg, PRN Nausea & Vomiting, Start date: 01/07/17 1:50:00 CDT, Duration: 30 day, Stop date: 02/06/17 1:49:00 CSTNotes: (Same as: Zofran) MEDICATION WASTE Product Size: 4 mg Product Wasted: ___ mg No Longer Active 01/07/2017 [facility] docusate 100 mg, 1 cap, Route: PO, Drug form: CAP, BID, Dosing Weight 95, kg, PRN Constipation, Start date: 01/07/17 1:50:00 CDT, Duration: 30 day, Stop date: 02/06/17 1:49:00 CLERICAL METHODS ANALYST No Longer Active 01/07/2017 [facility] acetaminophen 650 mg, 2 tab, Route: PO, Drug form: TAB, Q4H, Dosing Weight 95, kg, PRN Pain 1-3/Temp > 100.4 F, Start date: 01/07/17 1:50:00 CDT, Duration: 30 day, Stop date: 02/06/17 1:49:00 CSTNotes: Do not exce ed 4 gm/day. (Same as: Tylenol) No Longer Active 01/07/2017 [facility] morphine Sulfate 6 mg, 1.5 mL, Route: IVP, Drug form: SOLN, ONCE, Dosing Weight 95, kg, Priority: STAT, Start date: 01/07/17 0:27:00 CDT, Stop date: 01/07/17 0:27:00 CDTNotes: (Same as:MORPhine Sulfate) Inactive 01/07/2017 [facility] Lactated Ringers 1,000 mL 1,000 mL, Rate: 100 ml/hr, Infuse over: 10 hr, Route: IV, Dosing Weight 95 kg, Total Volume: 1,000, Start date: 01/07/17 0:26:00 CDT, Duration: 30 day, Stop date: 02/06/17 0:25:00 CLERICAL METHODS ANALYST No Longer Active 01/07/2017 [facility] Sodium Chloride 0.9% (Bolus) IV 1,000 mL, 1000 ml/hr, Infuse Over: 1 hr, Route: IV, 1,000, Drug form: INJ, ONCE, Priority: STAT, Dosing Weight 95 kg, Start date: 01/06/17 22:06:00 CDT, Duration: 1 doses or times, Stop date: 01/06/17 22:06:00 CDT Inactive 01/07/2017 [facility] Phenergan 25 mg, 1 mL, Route: IVPB, Drug form: INJ, ONCE, Dosing Weight 95, kg, Priority: STAT, Start date: 01/06/17 21:52:00 CDT, Stop date: 01/06/17 21:52:00 CDTNotes: (Same as: Phenergan) Inactive 01/07/2017 [facility] hydromorphone 1 mg, 0.5 mL, Route: IVP, Drug form: INJ, ONCE, Dosing Weight 95, kg, Priority: STAT, Start date: 01/06/17 21:51:00 CDT, Stop date: 01/06/17 21:51:00 CDTNotes: Same as: Dilaudid Inactive 01/07/2017 [facility] Zofran 4 mg, Route: IVP, Drug form: INJ, ONCE, Dosing Weight 95, kg, Start date: 01/06/17 21:50:00 CDT, Stop date: 01/06/17 21:50:00 CDT Inactive 01/07/2017 [facility] morphine Sulfate 4 mg, Route: IVP, ONCE, Dosing Weight 95, kg, Start date: 01/06/17 21:50:00 CDT, Stop date: 01/06/17 21:50:00 CDT Inactive 01/07/2017 [facility] Omnipaque 350mg/ml 100 mL, Route: IVP, Drug Form: SOLN, Dosing Weight 95, kg, ONCALL, STAT, Start date: 01/06/17 20:53:00 CDT, Duration: 1 doses or times, Dose=2.2ml/kg, Max vscl=[id number] -- "To be infused by Radiology Staff ONLY"Notes: (same as:Omnipaque 350). WASTE: F/P - Black; E - [employer] Trash Bin Inactive 01/07/2017 [facility] dexamethasone 10 mg, 2.5 mL, Route: IVP, Drug form: INJ, ONCE, Dosing Weight 95, kg, Priority: STAT, Start date: 01/06/17 19:55:00 CDT, Stop date: 01/06/17 19:55:00 CDTNotes: Concentration: 4mg/ml No Longer Active 01/07/2017 [facility] clindamycin 600 mg, 4 mL, Route: IVPB, Drug form: INJ, ONCE, Dosing Weight 95, kg, Priority: STAT, Start date: 01/06/17 19:54:00 CDT, Duration: 1 doses or times, Stop date: 01/06/17 19:54:00 CDT, ABX Indication: Sk in/Soft Tissue InfectionNotes: (clindamycin 150 mg/1 ml (600 mg/4 ml VL) INJ) (Same As: Cleocin) No Longer Active 01/07/2017 [facility] Sodium Chloride 0.9% (Bolus) IV 1,000 mL, Infuse Over: 1 hr, Route: IV, ONCE, Priority: STAT, Dosing Weight 95 kg, Start date: 01/06/17 19:50:00 CDT, Duration: 1 doses or times, Stop date: 01/06/17 19:50:00 CDT Inactive 01/07/2017 [facility] Glipizide 10 MG Oral Tablet 20 mg=2 tab, PO, BID-Before Meals, # 180 tab, 1 Refill(s) Active 11/25/2016 [facility] sitagliptin 100 MG Oral Tablet [Januvia] 100 mg=1 tab, PO, Daily, # 30 tab, 0 Refill(s) Active 11/25/2016 [facility] canagliflozin 300 MG Oral Tablet [Invokana] 300 mg=1 tab, PO, Before Breakfast, # 30 tab, 5 Refill(s) Active 11/25/2016 [facility] 1.5 ML Insulin Glargine 300 UNT/ML Prefilled Syringe [Toujeo] 80 unit, SUB-Q, Bedtime, 0 Refill(s) Active 11/25/2016 [facility] Benadryl 50 mg, PO, Bedtime, 0 Refill(s) Active 01/22/2014 [facility] 3 ML Insulin Lispro 100 UNT/ML Prefilled Syringe [Humalog] 43 unit, SUB-Q, TID-Before Meals, 0 Refill(s) Active 01/22/2014 [facility] Amitriptyline 100 mg, PO, Bedtime, 0 Refill(s) Active 01/22/2014 [facility] insulin detemir 100 UNT/ML Injectable Solution [Levemir] 30 unit, SUB-Q, Daily, 0 Refill(s) Active 01/22/2014 [facility] lisinopril 10 mg oral tablet 10 mg=1 tab, PO, Daily, # 30 tab, 0 Refill(s) Active 01/22/2014 [facility] pantoprazole 40 MG Enteric Coated Tablet [Protonix] 40 mg=1 tab, PO, BID, # 30 tab, 0 Refill(s) Active 01/22/2014 [facility] Metoclopramide 10 MG Oral Tablet [Reglan] 20 mg=2 tab, PO, QID, # 360 tab, 0 Refill(s) Active 01/22/2014 [facility] Sucralfate 1000 MG Oral Tablet [Carafate] 1 gm=1 tab, PO, QID-Before Meals, # 120 tab, 0 Refill(s) Active 01/22/2014 [facility] Insulin regular 5 unit, Route: SUB-Q, ONCE, Dosing Weight 90.909, kg, Priority: STAT, Start date: 10/03/12 0:17:00, Stop date: 10/03/12 0:17:00 SUB-Q No Longer Active [place] 10/03/2012 [facility] Zofran 4 mg, Route: IVP, Drug form: INJ, ONCE, Dosing Weight 90.909, kg, Priority: STAT, Start date: 10/02/12 23:07:00, Stop date: 10/02/12 23:07:00 IVP No Longer Active [facility] 10/03/2012 [facility] morphine Sulfate 4 mg, Route: IVP, Drug form: INJ, ONCE, Dosing Weight 90.909, kg, Priority: STAT, Start date: 10/02/12 23:05:00, Stop date: 10/02/12 23:05:00 IVP No Longer Active [facility] 10/03/2012 [facility] Macrodantin 100 mg oral capsule 100 mg, 1 cap, PO, QID, 40 cap, Substitution Allowed, CAP PO Active [facility] 10/03/2012 [facility] Bentyl 10 mg oral capsule 10 mg, 1 cap, PO, QID, 28 cap, Substitution Allowed, CAP PO Active [facility] 10/03/2012 [facility] Zofran 4 mg oral tablet 4 mg, 1 tab, PO, BID, 10 tab, Substitution Allowed PO Active [facility] 10/03/2012 [facility] [place] 5/325 oral tablet 1-2 tab, PO, Q4-6H, PRN, 15 tab, Pain, Substitution Allowed, Maintenance PO Active [facility] 10/03/2012 [facility] NS (Bolus) IV 500 mL 500 mL, Rate: 500 ml/hr, Infuse over: 1 hr, Route: IV, Dosing Weight 90.909 kg, Total Volume: 500, Priority: STAT, Start date: 10/02/12 22:40:00, Duration: 1 doses or times, Stop date: 10/02/12 23:39:00, Bolus DoseBolus Dose IV No Longer Active [facility] 10/03/2012 [facility] Insulin regular 5 unit, Route: SUB-Q, ONCE, Dosing Weight 90.909, kg, Priority: STAT, Start date: 10/02/12 22:39:00, Stop date: 10/02/12 22:39:00 SUB-Q No Longer Active [facility] 10/03/2012 [facility] ceftriaxone + Sodium Chloride 0.9% IV 100 mL 1 gm, Route: IVPB, ONCE, Dosing Weight 90.909, kg, Priority: STAT, Start date: 10/02/12 21:13:00, Stop date: 10/02/12 21:13:00 IVPB No Longer Active [facility] 10/03/2012 [facility] NS 1,000 mL 1,000 mL, Rate: 150 ml/hr, Infuse over: 6.7 hr, Route: IV, Dosing Weight 90.909 kg, Total Volume: 1,000, Start date: 10/02/12 20:37:00, Duration: 30 day, Stop date: 11/01/12 20:36:00 IV No Longer Active [facility] 10/03/2012 [facility] NS (Bolus) IV 1000 mL 1,000 mL, Rate: 1,000 ml/hr, Infuse over: 1 hr, Route: IV, Dosing Weight 90.909 kg, Total Volume: 1,000, Priority: STAT, Start date: 10/02/12 20:37:00, Duration: 1 doses or times, Stop date: 10/02/12 21:36:00, Bolus DoseBolus Dose IV No Longer Active [facility] 10/03/2012 [facility] Saline Flush 0.9% 5 mL, Route: IVP, Drug Form: INJ, Dosing Weight 90.909, kg, PRN, PRN Line Flush, Start date: 10/02/12 20:24:00, Duration: 24 hr, Stop date: 10/03/12 20:23:00 IVP No Longer Active [facility] 10/03/2012 [facility] ondansetron 4 mg, 2 mL, Route: IVP, Drug form: INJ, ONCE, Dosing Weight 90.909, kg, Priority: STAT, Start date: 10/02/12 20:24:00, Stop date: 10/02/12 20:24:00 IVP No Longer Active [facility] 10/03/2012 [facility] morphine Sulfate 4 mg, 2 mL, Route: IVP, Drug form: INJ, ONCE, Dosing Weight 90.909, kg, Priority: STAT, Start date: 10/02/12 20:24:00, Stop date: 10/02/12 20:24:00 IVP No Longer Active [facility] 10/03/2012 [facility] Phenergan 1 tablet as needed Orally Active 12.5 MG Orally every 6 hrs Mari Jaquan Freedman Protonix 1 tablet Orally Active 40 MG Orally twice a day Mari Jaquan Freedman Toujeo SoloStar as directed Subcutaneous Active 300 UNIT/ML Subcutaneous Mari Jaquan Freedman Acetaminophen-Codeine #3 1 tablet as needed Orally Active 300- 30 MG Orally every 6 hrs Mari Jaquan Freedman GlipiZIDE 2 tablet Orally Active 10 MG Orally twice a day Mari Jaquan Freedman Reglan as directed Orally Active 5 MG Orally Mari Jaquan Freedman Januvia 1 tablet Orally Active 100 MG Orally Once a day Mari Jaquan Freedman Invokana 1 tablet Orally Active 100 MG Orally Once a day Mari Jaquan Freedman Allergies, Adverse Reactions, Alerts Substance Category Reaction Severity Reaction type Status Date Reported Comments Source tetracyclin Adverse Reaction swollen Adverse Reaction Active 10/10/2017 Jaquan Freedman bactrim Adverse Reaction rash Adverse Reaction Active 10/10/2017 Jaquan Freedman fentyl Adverse Reaction rash Adverse Reaction Active 10/10/2017 Jaquan Freedman levaquin Adverse Reaction rash,swell face Adverse Reaction Active 10/10/2017 Jaquan Freedman penicillin Adverse Reaction rash Adverse Reaction Active 10/10/2017 Jaquan Freedman Levaquin Assertion Drug allergy Active [facility] penicillins Assertion Drug allergy Active [facility] tetracyclines Assertion Drug allergy Active [facility] Bentyl<sup>1</sup> Assertion Drug allergy Active rash [facility] sulfa drugs<sup>2</sup> Assertion Drug allergy Active rash [facility] Immunizations Immunization Date Given Site Status Last Updated Comments Source influenza virus vaccine, inactivated 01/08/2017 Left deltoid completed Benim[facility] Results Order Name Results Value Reference Range Date Interpretation Comments Source CHEM PANEL Phosphorus 3.6 mg/dL 2.5 - 4.5 01/07/2017 [facility] CHEM PANEL B/C Ratio 15 6 - 25 01/07/2017 [facility] CHEM PANEL AGAP 13.0 meq/L 10.0 - 20.0 01/07/2017 [facility] CHEM PANEL Globulin 3.7 g/dL 2.7 - 4.2 01/07/2017 [facility] CHEM PANEL A/G Ratio 1.0 0.7 - 1.6 01/07/2017 [facility] CHEM PANEL Potassium Lvl 4.0 meq/L 3.5 - 5.1 01/07/2017 [facility] CHEM PANEL CO2 24 meq/L 24 - 32 01/07/2017 [facility] CHEM PANEL Chloride Lvl 105 meq/L 95 - 109 01/07/2017 [facility] CHEM PANEL Calcium Lvl 8.4 mg/dL 8.5 - 10.5 01/07/2017 [facility] CHEM PANEL Creatinine Lvl 0.89 mg/dL 0.50 - 1.40 01/07/2017 [facility] CHEM PANEL Sodium Lvl 138 meq/L 135 - 145 01/07/2017 [facility] CHEM PANEL BUN 13 mg/dL 7 - 22 01/07/2017 [facility] CHEM PANEL Glucose Lvl 170 mg/dL 70 - 99 01/07/2017 [facility] CHEM PANEL Albumin Lvl 3.7 g/dL 3.5 - 5.0 01/07/2017 [facility] CHEM PANEL Total Protein 7.4 g/dL 6.4 - 8.4 01/07/2017 [facility] CHEM PANEL Bili Total 0.4 mg/dL 0.2 - 1.3 01/07/2017 [facility] CHEM PANEL Alk Phos 65 unit/L 39 - 136 01/07/2017 [facility] CHEM PANEL AST 37 unit/L 0 - 37 01/07/2017 [facility] CHEM PANEL ALT 62 unit/L 0 - 65 01/07/2017 [facility] CHEM PANEL eGFR 82 mL/min/1.73m2 01/07/2017 Result Comment: The eGFR is calculated using the CKD-EPI formula. In most young, healthy individuals the eGFR will be >90 mL/min/1.73m2. The eGFR declines with age. An eGFR of 60-89 may be normal in some populations, particularly the elderly, for whom the CKD-EPI formula has not been extensively validated. Use of the eGFR is not recommended in the following populations: Individuals with unstable creatinine concentrations, including patients and those with serious co-morbid conditions. Patients with extremes in muscle mass or diet. The data above are obtained from the National Kidney Disease Education Program (NKDEP) which additionally recommends that when the eGFR is used in patients with extremes of body mass index for purposes of drug dosing, the eGFR should be multiplied by the estimated BMI. [facility] CHEM PANEL Magnesium Lvl 1.9 mg/dL 1.8 - 2.4 01/07/2017 [facility] CHEM PANEL Lactic Acid Lvl 1.0 mMol/L 0.5 - 2.2 01/07/2017 [facility] HEMATOLOGY Microcyte 1+ *ABN* (01/07/17 2:38 AM) None Seen 01/07/2017 [facility] HEMATOLOGY Monocytes 10.2 % 2.0 - 12.0 01/07/2017 [facility] HEMATOLOGY Lymphocytes 42.8 % 20.0 - 40.0 01/07/2017 [facility] HEMATOLOGY Basophils 0.7 % 0.0 - 1.0 01/07/2017 [facility] HEMATOLOGY Eosinophils 4.1 % 0.0 - 4.0 01/07/2017 [facility] HEMATOLOGY Segs 42.2 % 45.0 - 75.0 01/07/2017 [facility] HEMATOLOGY Eosinophils # 0.3 K/CMM 0.0 - 0.5 01/07/2017 [facility] HEMATOLOGY Monocytes # 0.8 K/CMM 0.0 - 0.8 01/07/2017 [facility] HEMATOLOGY Basophils # 0.1 K/CMM 0.0 - 0.2 01/07/2017 [facility] HEMATOLOGY Segs-Bands # 3.5 K/CMM 1.5 - 8.1 01/07/2017 [facility] HEMATOLOGY Lymphocytes # 3.5 K/CMM 1.0 - 5.5 01/07/2017 [facility] HEMATOLOGY MCHC 33.7 g/dL 32.0 - 36.0 01/07/2017 [facility] HEMATOLOGY Platelet 206 K/CMM 133 - 450 01/07/2017 [facility] HEMATOLOGY RDW 15.0 % 11.5 - 14.5 01/07/2017 [facility] HEMATOLOGY MPV 8.1 fL 7.4 - 10.4 01/07/2017 [facility] HEMATOLOGY MCH 25.6 pg 27.0 - 31.0 01/07/2017 [facility] HEMATOLOGY Hgb 13.0 g/dL 12.0 - 16.0 01/07/2017 [facility] HEMATOLOGY RBC 5.07 M/CMM 4.20 - 5.40 01/07/2017 [facility] HEMATOLOGY Hct 38.5 % 36.0 - 48.0 01/07/2017 [facility] HEMATOLOGY MCV 75.9 fL 80.0 - 98.0 01/07/2017 [facility] HEMATOLOGY WBC 8.2 K/CMM 3.7 - 10.4 01/07/2017 [facility] CARDIAC ENZYMES Troponin-I null 0.00 - 0.40 01/07/2017 [facility] CHEM PANEL Lactic Acid WB 2.5 mmol/L 0.5 - 2.2 01/07/2017 [facility] CHEM PANEL eGFR 78 mL/min/1.73m2 01/07/2017 Result Comment: The eGFR is calculated using the CKD-EPI formula. In most young, healthy individuals the eGFR will be >90 mL/min/1.73m2. The eGFR declines with age. An eGFR of 60-89 may be normal in some populations, particularly the elderly, for whom the CKD-EPI formula has not been extensively validated. Use of the eGFR is not recommended in the following populations: Individuals with unstable creatinine concentrations, including patients and those with serious co-morbid conditions. Patients with extremes in muscle mass or diet. The data above are obtained from the National Kidney Disease Education Program (NKDEP) which additionally recommends that when the eGFR is used in patients with extremes of body mass index for purposes of drug dosing, the eGFR should be multiplied by the estimated BMI. [facility] CHEM PANEL CO2 23 meq/L 24 - 32 01/07/2017 [facility] CHEM PANEL Calcium Lvl 9.2 mg/dL 8.5 - 10.5 01/07/2017 [facility] CHEM PANEL Chloride Lvl 100 meq/L 95 - 109 01/07/2017 [facility] CHEM PANEL Potassium Lvl 3.9 meq/L 3.5 - 5.1 01/07/2017 [facility] CHEM PANEL Sodium Lvl 137 meq/L 135 - 145 01/07/2017 [facility] CHEM PANEL Creatinine Lvl 0.93 mg/dL 0.50 - 1.40 01/07/2017 [facility] CHEM PANEL BUN 15 mg/dL 7 - 22 01/07/2017 [facility] CHEM PANEL Glucose Lvl 183 mg/dL 70 - 99 01/07/2017 [facility] CHEM PANEL AGAP 17.9 meq/L 10.0 - 20.0 01/07/2017 [facility] HEMATOLOGY MPV 8.7 fL 7.4 - 10.4 01/07/2017 [facility] HEMATOLOGY Platelet 235 K/CMM 133 - 450 01/07/2017 [facility] HEMATOLOGY RDW 15.2 % 11.5 - 14.5 01/07/2017 [facility] HEMATOLOGY MCHC 33.5 g/dL 32.0 - 36.0 01/07/2017 [facility] HEMATOLOGY MCH 25.6 pg 27.0 - 31.0 01/07/2017 [facility] HEMATOLOGY MCV 76.4 fL 80.0 - 98.0 01/07/2017 [facility] HEMATOLOGY Hct 43.2 % 36.0 - 48.0 01/07/2017 [facility] HEMATOLOGY WBC 9.6 K/CMM 3.7 - 10.4 01/07/2017 [facility] [facility] HEMATOLOGY RBC 5.65 M/CMM 4.20 - 5.40 01/07/2017 [facility] HEMATOLOGY Hgb 14.5 g/dL 12.0 - 16.0 01/07/2017 [facility] HEMATOLOGY Eosinophils 2.8 % 0.0 - 4.0 01/07/2017 [facility] HEMATOLOGY Microcyte 1+ *ABN* (01/06/17 7:55 PM) None Seen 01/07/2017 [facility] HEMATOLOGY Basophils # 0.1 K/CMM 0.0 - 0.2 01/07/2017 [facility] HEMATOLOGY Lymphocytes # 3.1 K/CMM 1.0 - 5.5 01/07/2017 [facility] HEMATOLOGY Monocytes # 1.0 K/CMM 0.0 - 0.8 01/07/2017 [facility] HEMATOLOGY Eosinophils # 0.3 K/CMM 0.0 - 0.5 01/07/2017 [facility] HEMATOLOGY Basophils 0.7 % 0.0 - 1.0 01/07/2017 [facility] HEMATOLOGY Segs-Bands # 5.1 K/CMM 1.5 - 8.1 01/07/2017 [facility] HEMATOLOGY Segs 53.3 % 45.0 - 75.0 01/07/2017 [facility] HEMATOLOGY Lymphocytes 32.7 % 20.0 - 40.0 01/07/2017 [facility] HEMATOLOGY Monocytes 10.5 % 2.0 - 12.0 01/07/2017 [facility] IMMUNOLOGY CDC HIV 4th GEN Negative *NA* (01/06/17 7:55 PM) Negative 01/07/2017 [facility] URINE AND STOOL UA Sq Epi Rare /LPF Few /LPF 01/07/2017 [facility] URINE AND STOOL UA WBC 0-2 /HPF None Seen /HPF 01/07/2017 [facility] URINE AND STOOL UA RBC None Seen (01/06/17 7:52 PM) 0 - 2 01/07/2017 [facility] URINE AND STOOL UA Nitrite Negative (01/06/17 7:52 PM) Negative 01/07/2017 [facility] URINE AND STOOL UA Leuk Est Negative (01/06/17 7:52 PM) Negative 01/07/2017 [facility] URINE AND STOOL UA Blood Negative (01/06/17 7:52 PM) Negative 01/07/2017 [facility] URINE AND STOOL UA Bili Negative *NA* (01/06/17 7:52 PM) Negative 01/07/2017 [facility] URINE AND STOOL UA Urobilinogen 0.2 EU/dL 0.1 - 1.0 01/07/2017 [facility] URINE AND STOOL UA Protein Negative (01/06/17 7:52 PM) Negative 01/07/2017 [facility] URINE AND STOOL UA pH 6.0 5.0 - 8.0 01/07/2017 [facility] URINE AND STOOL UA Ketones Negative *NA* (01/06/17 7:52 PM) Negative 01/07/2017 [facility] URINE AND STOOL UA Glucose >=1000 mg/dL Negative mg/dL 01/07/2017 [facility] URINE AND STOOL UA Turbidity Clear (01/06/17 7:52 PM) Clear 01/07/2017 [facility] URINE AND STOOL UA Spec Grav 1.020 <=1.030 01/07/2017 [facility] URINE AND STOOL UA Color Yellow *NA* (01/06/17 7:52 PM) Yellow 01/07/2017 [facility] URINE CHEM U Preg Negative (01/06/17 7:52 PM) Negative 01/07/2017 [facility] Neck soft tissue w contrast CT Neck soft tissue w contrast CT Exam: CT neck soft tissue with contrast. INDICATION: Evaluate for deep space neck abscess. COMPARISON: None. TECHNIQUE: Postcontrast axial imaging of the neck soft tissues is performed following the intravenous administration of 95 mL Omnipaque 350. Coronal and sagittal reconstructions are performed. Discussion: No drainable fluid collections are identified. No masses in the aerodigestive tract. Parotid and submandibular glands are unremarkable. Thyroid gland enhances homogeneously. Paranasal sinuses and mastoid air cells are clear. IMPRESSION: No abscess formation is identified. Unremarkable exam. 01/06/2017 - - Read by: Amanda Hughes MD Dictated Date/time: 01/07/17 00:02 Electronically Signed by: Amanda Hughes MD 01/07/17 00:06 FINAL REPORT [facility] BEDSIDE GLUCOSE TESTING Gluc POC Lifscn 309 mg/dL 70 - 99 10/03/2012 [place] 1Interpretive Data: Upper Reportable Limit: 200 mg/dL. [facility] BEDSIDE GLUCOSE TESTING Comment1 Notify MARCIANO 10/03/2012 [facility] BEDSIDE GLUCOSE TESTING Gluc POC Lifscn 325 mg/dL 70 - 99 10/03/2012 [place] 2Interpretive Data: Upper Reportable Limit: 200 mg/dL. [facility] BEDSIDE GLUCOSE TESTING Comment1 Notify MARCIANO 10/03/2012 NA [facility] BEDSIDE GLUCOSE TESTING Gluc POC Lifscn 309 mg/dL 70 - 99 10/03/2012 [place] 3Interpretive Data: Upper Reportable Limit: 200 mg/dL. [facility] CHEMISTRY Temp Michael 37.0 Khalida 10/03/2012 NA [facility] CHEMISTRY pO2 Michael 30 mm[Hg] 20 - 49 10/03/2012 Normal [facility] CHEMISTRY pH Michael 7.39 7.28 - 7.42 10/03/2012 Normal [facility] CHEMISTRY pCO2 Michael 48 mm[Hg] 38 - 52 10/03/2012 Normal [facility] CHEMISTRY BE Michael 3 mMol/L -2-2 - 2 10/03/2012 [facility] CHEMISTRY HCO3 Michael 29 mMol/L 22 - 26 10/03/2012 [facility] CHEMISTRY Site Michael Vein (10/02/2012 21:00:00) 10/03/2012 Normal [facility] CHEMISTRY O2 Sat Michael 56.6 % 40.0 - 70.0 10/03/2012 Normal [facility] URINALYSIS UA Urobilinogen <=1.0 mg/dL
*NA*
(10/02/2012 20:43:00) <sup> </sup> 0.1 - 1.0 10/03/2012 NA [facility] URINALYSIS UA Color Ltyellow 10/03/2012 [facility] URINALYSIS UA Bacteria Occasional /HPF *NA* (10/02/2012 20:43:00) None Seen 10/03/2012 [facility] URINALYSIS UA RBC 4 /HPF 0 - 2 10/03/2012 [facility] URINALYSIS UA Leuk Est Large *ABN* (10/02/2012 20:43:00) Negative 10/03/2012 ABN [facility] URINALYSIS UA WBC 84 /HPF 0 - 5 10/03/2012 [facility] URINALYSIS UA Nitrite Negative (10/02/2012 20:43:00) Negative 10/03/2012 Normal [facility] URINALYSIS UA Sq Epi Few /LPF *NA* (10/02/2012 20:43:00) Few 10/03/2012 [facility] URINALYSIS UA Turbidity Marked *ABN* (10/02/2012 20:43:00) Clear 10/03/2012 ABN [facility] URINALYSIS UA Spec Grav 1.016 <=1.030 10/03/2012 Normal [facility] URINALYSIS UA Protein Negative mg/dL (10/02/2012 20:43:00) Negative 10/03/2012 [facility] URINALYSIS UA pH 5.0 5.0 - 8.0 10/03/2012 Normal [facility] URINALYSIS UA Blood Small *ABN* (10/02/2012 20:43:00) Negative 10/03/2012 ABN [facility] URINALYSIS UA Bili Negative *NA* (10/02/2012 20:43:00) Negative 10/03/2012 [facility] URINALYSIS UA Glucose 500 mg/dL *ABN* (10/02/2012 20:43:00) Negative 10/03/2012 [facility] URINALYSIS UA Ketones Negative mg/dL *NA* (10/02/2012 20:43:00) Negative 10/03/2012 [facility] Microbiology Culture: Urine 10/03/2012 [facility] CHEMISTRY S Preg Negative *NA* (10/02/2012 20:41:00) Negative 10/03/2012 [facility] CHEMISTRY Phosphorus 3.1 mg/dL 2.5 - 4.5 10/03/2012 Normal [facility] CHEMISTRY Magnesium Lvl 1.8 mg/dL 1.8 - 2.4 10/03/2012 Normal [facility] CHEMISTRY Lipase Lvl 207 unit/L 73 - 393 10/03/2012 Normal [facility] CHEMISTRY eGFR 84 mL/min/1.73m2 10/03/2012 NA 4Result Comment: The eGFR is calculated using the CKD-EPI formula. In most young, healthy individuals the eGFR will be >90 mL/min/1.73m2. The eGFR declines with age. An eGFR of 60-89 may be normal in some populations, particularly the elderly, for whom the CKD-EPI formula has not been extensively validated. Use of the eGFR is not recommended in the following populations: Individuals with unstable creatinine concentrations, including patients and those with serious co-morbid conditions. Patients with extremes in muscle mass or diet. The data above are obtained from the National Kidney Disease Education Program (NKDEP) which additionally recommends that when the eGFR is used in patients with extremes of body mass index for purposes of drug dosing, the eGFR should be multiplied by the estimated BMI. [facility] CHEMISTRY Albumin Lvl 4.5 g/dL 3.5 - 5.0 10/03/2012 Normal [facility] CHEMISTRY Calcium Lvl 9.6 mg/dL 8.5 - 10.5 10/03/2012 Normal [facility] CHEMISTRY Total Protein 9.0 g/dL 6.4 - 8.4 10/03/2012 [facility] CHEMISTRY ALT 83 unit/L 0 - 65 10/03/2012 [facility] CHEMISTRY CO2 28 meq/L 24 - 32 10/03/2012 Normal [facility] CHEMISTRY Bili Total 0.5 mg/dL 0.2 - 1.3 10/03/2012 Normal [facility] CHEMISTRY AST 50 unit/L 0 - 37 10/03/2012 [facility] CHEMISTRY Alk Phos 95 unit/L 39 - 136 10/03/2012 Normal [facility] CHEMISTRY Chloride Lvl 99 meq/L 95 - 109 10/03/2012 Normal [facility] CHEMISTRY Potassium Lvl 4.0 meq/L 3.5 - 5.1 10/03/2012 Normal [facility] CHEMISTRY Sodium Lvl 136 meq/L 135 - 145 10/03/2012 Normal [facility] CHEMISTRY BUN 18 mg/dL 7 - 22 10/03/2012 Normal [facility] CHEMISTRY Creatinine Lvl 0.9 mg/dL 0.5 - 1.4 10/03/2012 Normal [facility] CHEMISTRY Glucose Lvl 353 mg/dL 70 - 99 10/03/2012 [place] 5Interpretive Data: Adult reference range values reflect the clinical guidelines of the [place] Diabetes Association. [facility] CHEMISTRY AGAP 13.0 meq/L 10.0 - 20.0 10/03/2012 Normal [facility] CHEMISTRY B/C Ratio 20 6 - 25 10/03/2012 Normal [facility] CHEMISTRY Globulin 4.5 g/dL 2.0 - 4.0 10/03/2012 [place] [facility] CHEMISTRY A/G Ratio 1.0 0.7 - 1.6 10/03/2012 Normal [facility] HEMATOLOGY Lymphocytes # 3.0 K/CMM 1.0 - 5.5 10/03/2012 Normal [facility] HEMATOLOGY Segs-Bands # 5.7 K/CMM 1.5 - 8.1 10/03/2012 Normal [facility] HEMATOLOGY Basophils # 0.0 K/CMM 0.0 - 0.2 10/03/2012 Normal [facility] HEMATOLOGY Eosinophils # 0.3 K/CMM 0.0 - 0.5 10/03/2012 Normal [facility] HEMATOLOGY Monocytes # 0.6 K/CMM 0.0 - 0.8 10/03/2012 Normal [facility] HEMATOLOGY Segs 59.4 % 45.0 - 75.0 10/03/2012 Normal [facility] HEMATOLOGY Basophils 0.3 % 0.0 - 1.0 10/03/2012 Normal [facility] HEMATOLOGY Eosinophils 3.5 % 0.0 - 4.0 10/03/2012 Normal [facility] HEMATOLOGY Monocytes 5.8 % 2.0 - 12.0 10/03/2012 Normal [facility] HEMATOLOGY Lymphocytes 31.0 % 20.0 - 40.0 10/03/2012 Normal [facility] HEMATOLOGY RBC 4.85 M/CMM 4.20 - 5.40 10/03/2012 Normal [facility] HEMATOLOGY Hct 37.3 % 36.0 - 48.0 10/03/2012 Normal [facility] HEMATOLOGY Hgb 12.5 g/dL 12.0 - 16.0 10/03/2012 Normal [facility] HEMATOLOGY MCH 25.7 pg 27.0 - 31.0 10/03/2012 LOW [facility] HEMATOLOGY RDW 14.3 % 11.5 - 14.5 10/03/2012 Normal [facility] HEMATOLOGY MCHC 33.4 g/dL 32.0 - 36.0 10/03/2012 Normal [facility] HEMATOLOGY MPV 9.0 fL 7.4 - 10.4 10/03/2012 Normal [facility] HEMATOLOGY Platelet 234 K/CMM 133 - 450 10/03/2012 Normal [facility] MCV 76.8 fL 81.0 - 99.0 10/03/2012 LOW [facility] WBC 9.7 K/CMM 3.7 - 10.4 10/03/2012 Normal [facility] PTT 31.6 s 22.9 - 35.8 10/03/2012 Normal 7Interpretive Data: Heparin Therapeutic Range: 57 - 92 Seconds [facility] PT 13.4 s 12.0 - 14.7 10/03/2012 Normal [facility] INR 1.00 0.85 - 1.17 10/03/2012 Normal 6Interpretive Data: RECOMMENDED RANGES FOR PROTIME INR: 2.0-3.0 for most medical and surgical thromboembolic states. 2.5-3.5 for artificial heart valves and recurrent embolism. INR SHOULD BE USED ONLY FOR PATIENTS ON STABLE ANTICOAGULANT THERAPY. [facility] BEDSIDE GLUCOSE TESTING Comment1 Notify RN/MD 10/02/2012 NA [facility] Abdomen/Pelvis w contrast CT Abdomen/Pelvis w contrast CT CT scan of the abdomen and pelvis with contrast: Exam reason: Abdominal pain, acute IV and Oral Contrast Multiple computerized axial tomograms of the abdomen and pelvis were obtained after administration of oral and intravenous contrast. Visualized lung bases are clear. Thoracic and lumbar spondylosis are noted associated with degenerative arthropathy of the lower lumbar apophyseal joints. Diffuse fatty infiltration of the liver is noted. Scattered colonic diverticula are noted associated with mild constipation. Focal areas of laxity and attenuation of the ventral abdominal wall are noted associated with multiple hernia defects. A small fat filled umbilical hernia is noted. Ventral right lateral hernia defect containing fat is noted. Liver, spleen, pancreas, kidneys and adrenal glands have an otherwise normal CT appearance. No adenopathy, abdominal mass or free fluid is noted. Postoperative changes are noted at the ventral abdominal wall in the midline at the pelvis. The uterus is surgically absent. Venous vascular calcifications are present. Mild constipation is noted at the pelvic colon. No free fluid is noted. There is no pneumoperitoneum noted. IMPRESSION: 1. 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 2. Status post cholecystectomy. 3. Diffuse fatty infiltration of the liver SL:10/02/2012 - - Read by: Oumar Banda Dictated Date/time: 07/22/13 22:04 Electronically Signed by: Oumar Banda MD 10/02/12 22:09 FINAL REPORT [facility] Vital Signs Vital Sign Value Date Comments Source Weight 210 10/10/2017 Jaquan Freedman Height 63 10/10/2017 Jaquan Freedman Temperature Oral (F) 98.8 F 10/10/2017 Jaquan Freedman Heart Rate 104 10/10/2017 Jaquan Freedman Diastolic (mm Hg) 62 10/10/2017 Jaquan Freedman Systolic (mm Hg) 108 10/10/2017 Jaquan Freedman Temperature Oral (F) 98 F 01/08/2017 [facility] Respitory Rate 18 01/08/2017 [facility] Systolic (mm Hg) 126 01/08/2017 [facility] Diastolic (mm Hg) 85 01/08/2017 [facility] Heart Rate 88 01/08/2017 [facility] Temperature Oral (F) 98.2 F 01/08/2017 [facility] Respitory Rate 18 01/08/2017 [facility] Heart Rate 92 01/08/2017 [facility] Systolic (mm Hg) 116 01/08/2017 [facility] Diastolic (mm Hg) 73 01/08/2017 [facility] Respitory Rate 18 01/08/2017 [facility] Heart Rate 90 01/08/2017 [facility] Temperature Oral (F) 97 F 01/08/2017 [facility] Systolic (mm Hg) 100 01/08/2017 [facility] Diastolic (mm Hg) 74 01/08/2017 [facility] BMI Calculated 37.1 01/07/2017 [facility] Weight 95 01/07/2017 [facility] Height 160.02 cm 01/07/2017 [facility] Height 160.02 cm 01/07/2017 [facility] Weight 95 01/07/2017 [facility] BMI Calculated 37.1 01/07/2017 [facility] Respitory Rate 16 12/20/2016 [facility] Systolic (mm Hg) 123 12/20/2016 [facility] Diastolic (mm Hg) 79 12/20/2016 [facility] BMI Calculated 37.1 12/20/2016 [facility] Weight 95 12/20/2016 [facility] Height 160.02 cm 12/20/2016 [facility] BMI Calculated 37.63 11/25/2016 [facility] Weight 96.364 11/25/2016 [facility] Height 160.02 cm 11/25/2016 [facility] Heart Rate 100 11/25/2016 [facility] Respitory Rate 16 11/25/2016 [facility] Systolic (mm Hg) 115 11/25/2016 [facility] Diastolic (mm Hg) 79 11/25/2016 [facility] Heart Rate 96 01/24/2014 [facility] Respitory Rate 18 01/24/2014 [facility] Systolic (mm Hg) 133 01/24/2014 [facility] Diastolic (mm Hg) 87 01/24/2014 [facility] Height 160.02 cm 01/22/2014 [facility] Weight 87.727 01/22/2014 [facility] BMI Calculated 34.26 01/22/2014 [facility] Weight 90.909 10/02/2012 [facility] Height 160.02 cm 10/02/2012 [facility] Encounters Location Location Details Encounter Type Encounter Number Reason For Visit Attending Provider ADM Date DC Date Status Source [facility] Emergency [id number] WILIAN DANIE 10/02/2012 10/03/2012 Active [facility] Bedded Outpatient [id number] Evelio Olvera 01/24/2014 01/24/2014 [facility] Bedded Outpatient [id number] Dru Pinon 11/25/2016 11/25/2016 [facility] Outpatient [id number] Vivek Peraza 12/20/2016 12/21/2016 [facility] [id number] Calvin Harris 01/07/2017 01/08/2017 [facility] Procedures Procedure Code Date Perfomer Comments Source Carpal tunnel release<sup>1</sup> [id number] 03/14/2016 bilateral 3 months apart [facility] Carpal tunnel release<sup>1</sup> [id number] 03/14/2016 bilateral 3 months apart [facility] Hysterectomy<sup>2</sup> [id number] 03/14/2012 also removal of abdominal scar tiissue with hyst [facility] Primary mesh repair of incisional hernia [id number] 03/14/2012 [facility] Hysterectomy<sup>2</sup> [id number] 03/14/2012 also removal of abdominal scar tiissue with hyst [facility] Primary mesh repair of incisional hernia [id number] 03/14/2012 [facility] Hysterectomy [id number] [facility] Tonsillectomy [id number] [facility] Appendectomy [id number] [facility] Esophagogastroduodenoscopy<sup>3</sup> [id number] with dilation of esophageal stricture [facility] Laparoscopic cholecystectomy [id number] [facility] Ligament repair<sup>4</sup> [id number] torn ligament repair of bilat ankles after a fall [facility] Operation<sup>5</sup> [id number] resection of colon for diverticulis [facility] Operation<sup>6</sup> [id number] heel spurs surgery, bilat [facility] Operation<sup>7</sup> [id number] removal of sweat glands from left armpit [facility] Operation<sup>8</sup> [id number] abdominal "repairs" x 3 [facility] Operation<sup>9</sup> [id number] removal of cyst from left upper thigh [facility] Appendectomy [id number] [facility] Esophagogastroduodenoscopy<sup>3</sup> [id number] with dilation of esophageal stricture [facility] Laparoscopic cholecystectomy [id number] [facility] Ligament repair<sup>4</sup> [id number] torn ligament repair of bilat ankles after a fall [facility] Operation<sup>5</sup> 737042971 resection of colon for diverticulis [facility] Operation<sup>6</sup> [id number] heel spurs surgery, bilat [facility] Operation<sup>7</sup> [id number] removal of sweat glands from left armpit [facility] Operation<sup>8</sup> [id number] abdominal "repairs" x 3 [facility] Operation<sup>9</sup> [id number] removal of cyst from left upper thigh [facility] Tonsillectomy [id number] [facility]
[2018-01-12] MEDS ORDERED: MORPHINE SULFATE 2 MG/ML SYR IV STA (17:03)
[2018-01-12] MEDS ORDERED: ONDANSETRON HCL INJ 2 MG/ML VIAL IV ONE (17:30)
[2018-01-12] MEDS ORDERED: MORPHINE SULFATE INJ 4 MG/ML INJ IV ONE (17:30)
[2018-01-12 17:31] LABS: BASOPHILS # (AUTO) 0.1 (0.0-0.1); BASOPHILS % 0.5 % (0.0-1.0); EOSINOPHILS # (AUTO) 0.4 (0.0-0.4); EOSINOPHILS % 3.1 % (0.0-6.0); HEMATOCRIT 43.5 % (34.2-44.1); HEMOGLOBIN 14.6 g/dL (12.0-16.0); LYMPHOCYTES # (AUTO) 3.5 (1.0-3.2); LYMPHOCYTES % 31.2 % (18.0-39.1); MEAN CORPUSCULAR HEMOGLOBIN 25.9 pg (28-32); MEAN CORPUSCULAR HGB CONC 33.6 g/dL (31-35); MEAN CORPUSCULAR VOLUME 77.1 fL (81-99); MONOCYTES % 8.9 % (4.4-11.3); NEUTROPHILS # (AUTO) 6.3 (2.1-6.9); NEUTROPHILS % 55.9 % (38.7-80.0); PLATELET COUNT 226 x10e3/uL (140-360); RED BLOOD COUNT 5.64 x10e6/uL (3.6-5.1); RED CELL DISTRIBUTION WIDTH 14.1 % (11.7-14.4)
[2018-01-12] MEDS ORDERED: SODIUM CHLORIDE 0.9% 1000ML 1,000 ML IV SCH (17:45)
[2018-01-12 17:59] LABS: ALANINE AMINOTRANSFERASE 77 IU/L (0-55); ALBUMIN 4.2 g/dL (3.5-5.0); ALBUMIN/GLOBULIN RATIO 1.1 (0.8-2.0); ALKALINE PHOSPHATASE 83 IU/L (40-150); ANION GAP 16.5 mmol/L (8-16); BLOOD UREA NITROGEN 13 mg/dL (7-26); BUN/CREATININE RATIO 18 (6-25); CALCIUM 9.7 mg/dL (8.4-10.2); CARBON DIOXIDE 25 mmol/L (22-29); CHLORIDE 100 mmol/L (98-107); CREATINE KINASE 307 IU/L (29-168); CREATININE, SERUM 0.72 mg/dL (0.57-1.11); EST GLOMERULAR FILTRATION RATE > 60 ML/MIN (60-); GLUCOSE 114 mg/dL (74-118); INR 0.9; POTASSIUM 3.5 mmol/L (3.5-5.1); SODIUM 138 mmol/L (136-145)
[2018-01-12] MEDS ORDERED: ONDANSETRON HCL INJ 2 MG/ML VIAL IV PRN (18:00)
[2018-01-12] MEDS ORDERED: HYDROMORPHONE 1MG/1ML INJ IV PRN (18:00)
[2018-01-12] MEDS: ONDANSETRON HCL INJ 2 MG/ML VIAL IV PRN ×2 (18:20→22:18)
[2018-01-12] MEDS: HYDROMORPHONE 2MG/ML 2 MG/ML ML IV PRN ×2 (18:22→22:18)
[2018-01-12 19:00] VITALS: BP 123/67
[2018-01-12] MEDS: SODIUM CHLORIDE 0.9% 1000ML 1,000 ML IV SCH (19:22)
[2018-01-13] VITALS (8 sets, daily range): BP systolic 113–139; BP diastolic 70–89
[2018-01-13] MEDS: SODIUM CHLORIDE 0.9% 1000ML 1,000 ML IV SCH ×3 (00:52→17:21)
[2018-01-13] MEDS: HYDROMORPHONE 2MG/ML 2 MG/ML ML IV PRN ×4 (02:12→22:59)
[2018-01-13] MEDS: ONDANSETRON HCL INJ 2 MG/ML VIAL IV PRN (02:13)
[2018-01-13] MEDS ORDERED: PANTOPRAZOLE 40 MG 10ML VIAL ONE ×2 (02:52→06:56)
[2018-01-13] MEDS ORDERED: PANTOPRAZOLE INJ 40 MG in SODIUM CHLORIDE 0.9% 50ML 50 ML IV SCH ×2 (03:00→08:15)
[2018-01-13] MEDS ORDERED: SODIUM CHLORIDE 0.9% 50ML 50 ML IV ONE (07:00)
[2018-01-13] MEDS ORDERED: DIPHENHYDRAMINE HCL INJ 50 MG/ML VIAL IV NR ×2 (07:15→08:00)
[2018-01-13] MEDS ORDERED: PROMETHAZINE 25MG/ NS 50ML (IV) IV PRN (07:45)
[2018-01-13] MEDS ORDERED: DEXTROSE 50% SYRINGE 50 ML IV PRN (11:45)
[2018-01-13] MEDS: METOCLOPRAMIDE HCL 10 MG/2ML VIAL IV SCH ×2 (12:20→17:23)
[2018-01-13] MEDS: PANTOPRAZOL 40MG/SOD CHL 0.9% 50 ML IV SCH ×2 (12:21→17:21)
[2018-01-13] MEDS: INSULIN LISPRO 100 UNIT/1 ML 3ML VIAL SQ SCH ×2 (16:30→20:12)
[2018-01-13] MEDS ORDERED: METOCLOPRAMIDE HCL 10 MG/2ML VIAL IV ONE (19:15)
[2018-01-13] MEDS ORDERED: FENTANYL CITRATE/PF 100MCG/2 ML INJ ONE ×2 (19:18→19:39)
[2018-01-13] MEDS ORDERED: MIDAZOLAM HCL 2 MG/2 ML VIAL ONE (19:18)
[2018-01-13] MEDS ORDERED: METOCLOPRAMIDE HCL 10 MG/2ML VIAL ONE (19:29)
[2018-01-13] MEDS ORDERED: LIDOCAINE HCL 2% LOCAL INJ 5 ML SDV VIAL INJ ONE (19:55)
[2018-01-13] MEDS ORDERED: PROPOFOL IV EMULSION 10 MG/ML 50 ML VIAL ONE (19:55)
[2018-01-13] MEDS ORDERED: GLYCOPYRROLATE INJ 1MG/ 5 ML SYR ONE (19:55)
[2018-01-13] MEDS: SUCRALFATE 1 GM TAB PO SCH (20:13)
[2018-01-14] VITALS: BP 124/63
[2018-01-14] MEDS ORDERED: METOCLOPRAMIDE HCL 10 MG/2ML VIAL IV SCH
[2018-01-14] MEDS ORDERED: METOCLOPRAMIDE HCL 10 MG/2ML VIAL ONE ×2 (00:18→12:06)
[2018-01-14] MEDS: SODIUM CHLORIDE 0.9% IV SCH ×3 (00:26→12:11)
[2018-01-14] MEDS: METOCLOPRAMIDE IV SCH ×3 (00:26→12:11)
[2018-01-14] MEDS: PANTOPRAZOL 40MG/SOD CHL 0.9% 50 ML IV SCH ×3 (01:26→12:11)
--- NOTE | 2018-01-14 01:29 | Operative Report ---
REFERRING PHYSICIAN: Lilliam Olvera MD INDICATIONS FOR ESOPHAGOGASTRODUODENOSCOPY: Dysphagia. MEDICATION: Patient was done under MAC. Please see anesthesiologist's note. PROCEDURE: With the patient in a left lateral decubitus position, the flexible fiberoptic Olympus gastroscope was introduced into the esophagus under direct visualization without any difficulty. There was some patchy erythema noted in distal esophagus. Questionable mild stricture noted at the GE junction that was dilated to size 56-Arabic Fan. The scope was then advanced with ease into the stomach. Mucosa overlying the antrum and the body revealed some patchy intense erythema, and there were some scattered polyps in the body of the stomach, hyperplastic appearing. Pylorus appeared to be of normal contour and shape, was intubated with ease and the scope was advanced all the way to the 2nd portion of the duodenum. The scope was then withdrawn slowly. Mucosa overlying the proximal 2nd portion and the duodenal bulb appeared to be within normal limits. The scope was then withdrawn back into the stomach and retroflexed. Mucosa overlying the fundus and the cardia revealed similar findings of inflammatory changes as the rest of the stomach. The scope was then straightened out. The scope was subsequently withdrawn. Patient tolerated the procedure well. IMPRESSION 1. Distal esophagitis. 2. Esophagus dilated to size 56-Arabic Fan. 3. Gastritis. 4. Gastric polyps. PLAN: Continue PPI therapy. Increase Reglan to 20 mg IV piggyback every 6 hours. Add Carafate 1 gm p.o. a.c. t.i.d. and q.h.s. Job#: [id number] RTY cc:Lilliam Olvera MD
[2018-01-14] MEDS ORDERED: DIPHENHYDRAMINE HCL INJ 50 MG/ML VIAL IV PRN (02:00)
[2018-01-14 04:00] VITALS: BP 125/75
[2018-01-14] MEDS: SODIUM CHLORIDE 0.9% 1000ML 1,000 ML IV SCH (05:10)
[2018-01-14] MEDS: INSULIN LISPRO 100 UNIT/1 ML 3ML VIAL SQ SCH ×2 (08:02→12:12)
[2018-01-14] MEDS: SUCRALFATE 1 GM TAB PO SCH ×2 (08:02→12:11)
[2018-01-14 08:15] VITALS: BP 118/70
[2018-01-14 11:48] VITALS: BP 131/71
--- NOTE | 2018-03-11 05:26 | Discharge Summary ---
CHIEF COMPLAINT: Esophageal stricture. FINAL DIAGNOSES 1. Dysphagia to solids and liquids. 2. Rheumatoid arthritis. 3. Esophageal stricture. PROCEDURE Esophagogastroduodenoscopy with dilatation. DISPOSITION: Home. HOSPITAL COURSE: A 42-year-old female with known history of rheumatoid arthritis, diabetes type 2, hypertension, hyperlipidemia, severe GERD, requiring frequent esophageal dilatations, brought to the ER with progressive dysphagia to solids and liquids for the last 1 to 2 weeks. Last EGD with dilatation was in November 2017. She underwent evaluation in the emergency room. She was demonstrating moderate epigastric tenderness and with further review, she was admitted to the facility for continued care regarding issues of dysphagia to solids and liquids, esophageal stricture, diabetes type 2, hypertension, rheumatoid arthritis. With admission, she will be placed NPO, requested GI review. She will be scheduled for an EGD with dilatation. Blood sugar has been monitored. With admission, she was seen by Dr. Evelio Olvera from a GI standpoint and with his review, his findings are history of dysphagia, history of EGD with dilatation; last procedure in November 2017. Patient will be scheduled for EGD with dilatation. With her early admission, she was noted to demonstrate the inability to swallow very well. Continued on the NPO status. She was started on PPIs. Given hydromorphone for pain management. She is being scheduled up for the EGD. Her laboratory studies were showing a borderline potassium of 3.5. Kidney functions stable. Glucose 114. CBC was showing a stable hemoglobin. White cell count of 11,000. She underwent the GI procedure, resting comfortably post procedure. Scheduled for discharge. Cleared for discharge by GI. She was able to be released home on January 14, 2018 in good condition. Procedure as mentioned was the EGD with dilatation, conducted on January 13, 2018. The preoperative diagnosis was dysphagia. Postoperative diagnosis was distal esophagitis. This was dilated with a 56-[place] using Fan dilators. Gastritis was also noted. Gastric nodules were noted, gastric polyps. She will continue on her PPI treatment. She will also be placed on Reglan 20 mg IV q.6 and also on Carafate. DISCHARGE INSTRUCTIONS: With discharge home, she will continue on her GI soft diet until cleared by Dr. Evelio Olvera, instructed to call on Tuesday at his office to schedule a followup appointment. No equipments or supplies necessary. No drains or Foleys needed. Activity level as directed by me as well as by Dr. Evelio Olvera. She will follow back up with me in my office within 2 to 3 weeks. She will continue on amitriptyline 150 mg at bedtime, glipizide 20 mg twice a day, Invokana 100 mg daily, lisinopril 5 mg at bedtime, Reglan 20 mg before meals and at bedtime, metoprolol succinate 25 mg twice a day, Protonix 40 mg twice a day, Phenergan 25 mg as needed, Januvia 100 mg daily, Toujeo 100 units subcutaneous a.m. Dictated By: LORENA Murillo Job#: [id number] ESTELLA
== END 2018-01-14 13:45 | disposition home or self-care (01) ==
LOC: ER 15:58 → ERHOLD 17:53 → IMCU 18:35
DX: K22.2 Esophageal obstruction (principal); R13.10 Dysphagia, unspecified; K21.0 Gastro-esophageal reflux disease with esophagitis; I10 Essential (primary) hypertension; E11.9 Type 2 diabetes mellitus without complications; E78.5 Hyperlipidemia, unspecified; M06.9 Rheumatoid arthritis, unspecified; E66.9 Obesity, unspecified; E78.00 Pure hypercholesterolemia, unspecified; K29.70 Gastritis, unspecified, without bleeding; K31.7 Polyp of stomach and duodenum; Z88.1 Allergy status to other antibiotic agents; Z88.0 Allergy status to penicillin; Z88.8 Allergy status to other drugs, medicaments and biological substances; Z68.37 Body mass index [BMI] 37.0-37.9, adult
CPT/HCPCS: 36415 ×3; 43249; 80053; 82550; 82553; 82948 ×3; 84484; 85025; 85610; 85730; 99284; G0378 ×3; J1170 ×2; J1200; J2001; J2250; J2270; J2405 ×2; J2550; J2765 ×2; J3490; J7030 ×3; 43450

== ENCOUNTER 2018-03-27 15:25 | Observation (INO) | payer OTHER ==
[~2018-03-27] VITALS: Ht 160 cm; Wt 92.5 kg
--- OUTSIDE RECORDS SUMMARY | 2018-03-27 15:30 | XMS REPORT | Continuity of Care Document ---
Author Author [facility] Interface Address Unknown Phone Unavailable Problems Problem Status Onset Date Classification Date Reported Comments Source DYSPHAGIA Active 01/06/2017 [facility] TROUBLE SWALLOWING Active 01/06/2017 [facility] ESOPHAGEAL ISSUES Active 09/30/2016 [facility] UNK Active 09/29/2016 [facility] R10.12 - LEFT UPPER QUADRANT PAIN Active 02/10/2016 [facility] [place] 787.20/789.07 Active 01/17/2014 [facility] ABD PAIN Active 10/02/2012 [facility] Abdominal hernia Active Problem 10/05/2012 [facility] FH: Diabetes mellitus Active Problem 10/05/2012 [facility] HTN - Hypertension Active Problem 10/05/2012 [facility] Abdominal hernia Active Problem 01/11/2017 [facility] Diabetes mellitus Active Problem 01/11/2017 [facility] Dysphagia Active Problem 01/11/2017 [facility] FH: Diabetes mellitus Active Problem 01/11/2017 [facility] Diabetic gastroparesis Active Problem 01/11/2017 [facility] GERD - Gastro-esophageal reflux disease Resolved Problem 01/11/2017 [facility] Heartburn Active Problem 01/11/2017 [facility] HTN - Hypertension Active Problem 01/11/2017 [facility] Insomnia due to anxiety and fear Resolved Problem 01/11/2017 [facility] 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 [facility] Obesity Active Problem 01/11/2017 [facility] Osteoarthritis Active Problem 01/11/[facility] RA (<span ID="[id number]">Confirmed</span>) Active Problem 01/11/2017 [facility] Heel spur Resolved Problem 01/11/2017 [facility] Acid reflux disease Resolved Problem 01/11/2017 [facility] Polyarthritis Active Diagnosis 10/28/2017 Jaquan Freedman DYSPHAGIA, UNSPECIFIED Active [facility] Medications Medication Details Route Status Patient Instructions Ordering Provider Order Date Source influenza virus vaccine, inactivated 0.5 mL, Route: IM, Drug Form: SUSP, Daily, Start date: 01/08/17 14:30:00 CDT, Duration: 1 doses or times, Stop date: 01/08/17 14:30:00 CDTNotes: (Same as: Fluzone Quadrivalent, Fluarix Quadrivalent) For 3 years of age and older (0.5 mL IM) Shake well before use Inactive 01/08/2017 [facility] Benadryl 25 mg, 1 cap, Route: PO, Drug form: CAP, Bedtime, Dosing Weight 95, kg, PRN Insomnia, Start date: 01/07/17 20:46:00 CDT, Duration: 30 day, Stop date: 02/06/17 20:45:00 CSTNotes: (Same as: Benadryl) No Longer Active 01/08/2017 [facility] Chloraseptic 1.4% spray 1 spray, Route: TOP, Daily, Drug form: SPRY, PRN Sore Throat, Start date: 01/07/17 20:46:00 CDT, Duration: 30 day, Stop date: 02/06/17 20:45:00 CSTNotes: Chloraseptic [place] (Same as: Chloraseptic, Sore Throat [place]) WASTE: F/P - Black; E - [email or web address] Trash Bin No Longer Active 01/08/2017 [facility] hydromorphone 0.5 mg, 0.25 mL, Route: IVP, Drug form: INJ, ONCE, Dosing Weight 95, kg, Priority: Routine, Start date: 01/07/17 13:03:00 CDT, Stop date: 01/07/17 13:03:00 CDTNotes: Same as: Dilaudid Inactive 01/07/2017 [facility] Phenergan 12.5 mg, 0.5 mL, Route: IVPB, Drug form: INJ, Q6H, Dosing Weight 95, kg, PRN Nausea & Vomiting, Start date: 01/07/17 9:58:00 CDT, Duration: 30 day, Stop date: 02/06/17 9:57:00 CSTNotes: Do not give IV push. (Same as: Phenergan) No Longer Active 01/07/2017 [facility] influenza virus vaccine, inactivated 0.5 mL, Route: IM, Drug Form: SUSP, Daily, Start date: 01/07/17 9:00:00 CDT, Duration: 1 doses or times, Stop date: 01/07/17 9:00:00 CDTNotes: (Same as: Fluzone Quadrivalent, Fluarix Quadrivalent) For 3 years of age and older (0.5 mL IM) Shake well before use No Longer Active 01/07/2017 [facility] Dextrose 50% Syringe 12.5 gm, 25 mL, Route: IVP, Drug Form: INJ, Dosing Weight 95, kg, PRN, PRN Blood Glucose Results, Start date: 01/07/17 6:54:00 CDT, Duration: 30 day, Stop date: 02/06/17 5:53:00 CAT SWAMPER No Longer Active 01/07/2017 [facility] glucagon 1 mg, Route: IM, Drug form: PDR/INJ, PRN, Dosing Weight 95, kg, PRN Blood Glucose Results, Start date: 01/07/17 6:54:00 CDT, Duration: 30 day, Stop date: 02/06/17 5:53:00 CAT SWAMPER No Longer Active 01/07/2017 [facility] insulin lispro 1 unit, 0.01 mL, [...] days from Date No Longer Active 01/07/2017 [facility] Phenergan 25 mg oral tablet 25 mg=1 tab, PO, Q6H, 0 Refill(s) Active 01/07/2017 [facility] Toujordan SoloStar 300 units/mL subcutaneous solution SUB- Q, Daily, 0 Refill(s) No Longer Active 01/07/2017 [facility] Dilaudid 0.5 mg, 0.25 mL, Route: IVP, Drug form: INJ, ONCE, Dosing Weight 95, kg, Priority: STAT, Start date: 01/07/17 6:28:00 CDT, Stop date: 01/07/17 6:28:00 CDTNotes: Same as: Dilaudid Inactive 01/07/2017 [facility] ondansetron 4 mg, 2 mL, Route: IVP, Drug form: INJ, ONCE, Dosing Weight 95, kg, Priority: STAT, Start date: 01/07/17 2:33:00 CDT, Stop date: 01/07/17 2:33:00 CDTNotes: (Same as: Zofran) MEDICATION WASTE Product Size: 4 mg Product Wasted: ___ mg Inactive 01/07/2017 [facility] ondansetron 4 mg, 2 mL, Route: IVP, Drug form: INJ, Q6H, Dosing Weight 95, kg, PRN Nausea & Vomiting, Start date: 01/07/17 1:50:00 CDT, Duration: 30 day, Stop date: 02/06/17 1:49:00 CSTNotes: (Same as: Zofran) MEDICATION WASTE Product Size: 4 mg Product Wasted: ___ mg No Longer Active 01/07/2017 [facility] docusate 100 mg, 1 cap, Route: PO, Drug form: CAP, BID, Dosing Weight 95, kg, PRN Constipation, Start date: 01/07/17 1:50:00 CDT, Duration: 30 day, Stop date: 02/06/17 1:49:00 CAT SWAMPER No Longer Active 01/07/2017 [facility] acetaminophen 650 mg, 2 tab, Route: PO, Drug form: TAB, Q4H, Dosing Weight 95, kg, PRN Pain 1-3/Temp > 100.4 F, Start date: 01/07/17 1:50:00 CDT, Duration: 30 day, Stop date: 02/06/17 1:49:00 CSTNotes: Do not exce ed 4 gm/day. (Same as: Tylenol) No Longer Active 01/07/2017 [facility] morphine Sulfate 6 mg, 1.5 mL, Route: IVP, Drug form: SOLN, ONCE, Dosing Weight 95, kg, Priority: STAT, Start date: 01/07/17 0:27:00 CDT, Stop date: 01/07/17 0:27:00 CDTNotes: (Same as:MORPhine Sulfate) Inactive 01/07/2017 [facility] Lactated Ringers 1,000 mL 1,000 mL, Rate: 100 ml/hr, Infuse over: 10 hr, Route: IV, Dosing Weight 95 kg, Total Volume: 1,000, Start date: 01/07/17 0:26:00 CDT, Duration: 30 day, Stop date: 02/06/17 0:25:00 CAT SWAMPER No Longer Active 01/07/2017 [facility] Sodium Chloride 0.9% (Bolus) IV 1,000 mL, 1000 ml/hr, Infuse Over: 1 hr, Route: IV, 1,000, Drug form: INJ, ONCE, Priority: STAT, Dosing Weight 95 kg, Start date: 01/06/17 22:06:00 CDT, Duration: 1 doses or times, Stop date: 01/06/17 22:06:00 CDT Inactive 01/07/2017 [facility] Phenergan 25 mg, 1 mL, Route: IVPB, Drug form: INJ, ONCE, Dosing Weight 95, kg, Priority: STAT, Start date: 01/06/17 21:52:00 CDT, Stop date: 01/06/17 21:52:00 CDTNotes: (Same as: Phenergan) Inactive 01/07/2017 [facility] hydromorphone 1 mg, 0.5 mL, Route: IVP, Drug form: INJ, ONCE, Dosing Weight 95, kg, Priority: STAT, Start date: 01/06/17 21:51:00 CDT, Stop date: 01/06/17 21:51:00 CDTNotes: Same as: Dilaudid Inactive 01/07/2017 [facility] Zofran 4 mg, Route: IVP, Drug form: INJ, ONCE, Dosing Weight 95, kg, Start date: 01/06/17 21:50:00 CDT, Stop date: 01/06/17 21:50:00 CDT Inactive 01/07/2017 [facility] morphine Sulfate 4 mg, Route: IVP, ONCE, Dosing Weight 95, kg, Start date: 01/06/17 21:50:00 CDT, Stop date: 01/06/17 21:50:00 CDT Inactive 01/07/2017 [facility] Omnipaque 350mg/ml 100 mL, Route: IVP, Drug Form: SOLN, Dosing Weight 95, kg, ONCALL, STAT, Start date: 01/06/17 20:53:00 CDT, Duration: 1 doses or times, Dose=2.2ml/kg, Max [id number] -- "To be infused by Radiology Staff ONLY"Notes: (same as:Omnipaque 350). WASTE: F/P - Black; E - [employer] Trash Bin Inactive 01/07/2017 [facility] dexamethasone 10 mg, 2.5 mL, Route: IVP, Drug form: INJ, ONCE, Dosing Weight 95, kg, Priority: STAT, Start date: 01/06/17 19:55:00 CDT, Stop date: 01/06/17 19:55:00 CDTNotes: Concentration: 4mg/ml No Longer Active 01/07/2017 [facility] clindamycin 600 mg, 4 mL, Route: IVPB, Drug form: INJ, ONCE, Dosing Weight 95, kg, Priority: STAT, Start date: 01/06/17 19:54:00 CDT, Duration: 1 doses or times, Stop date: 01/06/17 19:54:00 CDT, ABX Indication: Sk in/Soft Tissue InfectionNotes: (clindamycin 150 mg/1 ml (600 mg/4 ml VL) INJ) (Same As: Cleocin) No Longer Active 01/07/2017 [facility] Sodium Chloride 0.9% (Bolus) IV 1,000 mL, Infuse Over: 1 hr, Route: IV, ONCE, Priority: STAT, Dosing Weight 95 kg, Start date: 01/06/17 19:50:00 CDT, Duration: 1 doses or times, Stop date: 01/06/17 19:50:00 CDT Inactive 01/07/2017 [facility] Glipizide 10 MG Oral Tablet 20 mg=2 tab, PO, BID-Before Meals, # 180 tab, 1 Refill(s) Active 11/25/2016 [facility] sitagliptin 100 MG Oral Tablet [Januvia] 100 mg=1 tab, PO, Daily, # 30 tab, 0 Refill(s) Active 11/25/2016 [facility] canagliflozin 300 MG Oral Tablet [Invokana] 300 mg=1 tab, PO, Before Breakfast, # 30 tab, 5 Refill(s) Active 11/25/2016 [facility] 1.5 ML Insulin Glargine 300 UNT/ML Prefilled Syringe [Toujeo] 80 unit, SUB-Q, Bedtime, 0 Refill(s) Active 11/25/2016 [facility] Benadryl 50 mg, PO, Bedtime, 0 Refill(s) Active 01/22/2014 [facility] 3 ML Insulin Lispro 100 UNT/ML Prefilled Syringe [Humalog] 43 unit, SUB-Q, TID-Before Meals, 0 Refill(s) Active 01/22/2014 [facility] Amitriptyline 100 mg, PO, Bedtime, 0 Refill(s) Active 01/22/2014 [facility] insulin detemir 100 UNT/ML Injectable Solution [Levemir] 30 unit, SUB-Q, Daily, 0 Refill(s) Active 01/22/2014 [facility] lisinopril 10 mg oral tablet 10 mg=1 tab, PO, Daily, # 30 tab, 0 Refill(s) Active 01/22/2014 [facility] pantoprazole 40 MG Enteric Coated Tablet [Protonix] 40 mg=1 tab, PO, BID, # 30 tab, 0 Refill(s) Active 01/22/2014 [facility] Metoclopramide 10 MG Oral Tablet [Reglan] 20 mg=2 tab, PO, QID, # 360 tab, 0 Refill(s) Active 01/22/2014 [facility] Sucralfate 1000 MG Oral Tablet [Carafate] 1 gm=1 tab, PO, QID-Before Meals, # 120 tab, 0 Refill(s) Active 01/22/2014 [facility] Insulin regular 5 unit, Route: SUB-Q, ONCE, Dosing Weight 90.909, kg, Priority: STAT, Start date: 10/03/12 0:17:00, Stop date: 10/03/12 0:17:00 SUB-Q No Longer Active [place] 10/03/2012 [facility] Zofran 4 mg, Route: IVP, Drug form: INJ, ONCE, Dosing Weight 90.909, kg, Priority: STAT, Start date: 10/02/12 23:07:00, Stop date: 10/02/12 23:07:00 IVP No Longer Active [facility] 10/03/2012 [facility] morphine Sulfate 4 mg, Route: IVP, Drug form: INJ, ONCE, Dosing Weight 90.909, kg, Priority: STAT, Start date: 10/02/12 23:05:00, Stop date: 10/02/12 23:05:00 IVP No Longer Active [facility] 10/03/2012 [facility] Macrodantin 100 mg oral capsule 100 mg, 1 cap, PO, QID, 40 cap, Substitution Allowed, CAP PO Active [facility] 10/03/2012 [facility] Bentyl 10 mg oral capsule 10 mg, 1 cap, PO, QID, 28 cap, Substitution Allowed, CAP PO Active [facility] 10/03/2012 [facility] Zofran 4 mg oral tablet 4 mg, 1 tab, PO, BID, 10 tab, Substitution Allowed PO Active [facility] 10/03/2012 [facility] [place] 5/325 oral tablet 1-2 tab, PO, Q4-6H, PRN, 15 tab, Pain, Substitution Allowed, Maintenance PO Active [facility] 10/03/2012 [facility] NS (Bolus) IV 500 mL 500 mL, Rate: 500 ml/hr, Infuse over: 1 hr, Route: IV, Dosing Weight 90.909 kg, Total Volume: 500, Priority: STAT, Start date: 10/02/12 22:40:00, Duration: 1 doses or times, Stop date: 10/02/12 23:39:00, Bolus DoseBolus Dose IV No Longer Active [facility] 10/03/2012 [facility] Insulin regular 5 unit, Route: SUB-Q, ONCE, Dosing Weight 90.909, kg, Priority: STAT, Start date: 10/02/12 22:39:00, Stop date: 10/02/12 22:39:00 SUB-Q No Longer Active [facility] 10/03/2012 [facility] ceftriaxone + Sodium Chloride 0.9% IV 100 mL 1 gm, Route: IVPB, ONCE, Dosing Weight 90.909, kg, Priority: STAT, Start date: 10/02/12 21:13:00, Stop date: 10/02/12 21:13:00 IVPB No Longer Active [facility] 10/03/2012 [facility] NS 1,000 mL 1,000 mL, Rate: 150 ml/hr, Infuse over: 6.7 hr, Route: IV, Dosing Weight 90.909 kg, Total Volume: 1,000, Start date: 10/02/12 20:37:00, Duration: 30 day, Stop date: 11/01/12 20:36:00 IV No Longer Active [facility] 10/03/2012 [facility] NS (Bolus) IV 1000 mL 1,000 mL, Rate: 1,000 ml/hr, Infuse over: 1 hr, Route: IV, Dosing Weight 90.909 kg, Total Volume: 1,000, Priority: STAT, Start date: 10/02/12 20:37:00, Duration: 1 doses or times, Stop date: 10/02/12 21:36:00, Bolus DoseBolus Dose IV No Longer Active [facility] 10/03/2012 [facility] Saline Flush 0.9% 5 mL, Route: IVP, Drug Form: INJ, Dosing Weight 90.909, kg, PRN, PRN Line Flush, Start date: 10/02/12 20:24:00, Duration: 24 hr, Stop date: 10/03/12 20:23:00 IVP No Longer Active [facility] 10/03/2012 [facility] ondansetron 4 mg, 2 mL, Route: IVP, Drug form: INJ, ONCE, Dosing Weight 90.909, kg, Priority: STAT, Start date: 10/02/12 20:24:00, Stop date: 10/02/12 20:24:00 IVP No Longer Active [facility] 10/03/2012 [facility] morphine Sulfate 4 mg, 2 mL, Route: IVP, Drug form: INJ, ONCE, Dosing Weight 90.909, kg, Priority: STAT, Start date: 10/02/12 20:24:00, Stop date: 10/02/12 20:24:00 IVP No Longer Active [facility] 10/03/2012 [facility] Phenergan 1 tablet as needed Orally Active [...] Jaquan Freedman Levaquin Assertion Drug allergy Active [facility] penicillins Assertion Drug allergy Active [facility] tetracyclines Assertion Drug allergy Active [facility] Bentyl<sup>1</sup> Assertion Drug allergy Active rash [facility] sulfa drugs<sup>2</sup> Assertion Drug allergy Active rash [facility] Immunizations Immunization Date Given Site Status Last Updated Comments Source influenza virus vaccine, inactivated 01/08/2017 Left deltoid completed Benimana [facility] Results Order Name Results Value Reference Range Date Interpretation Comments Source CHEM PANEL Phosphorus 3.6 mg/dL 2.5 - 4.5 01/07/2017 [facility] CHEM PANEL B/C Ratio 15 6 - 25 01/07/2017 [facility] CHEM PANEL AGAP 13.0 meq/L 10.0 - 20.0 01/07/2017 [facility] CHEM PANEL Globulin 3.7 g/dL 2.7 - 4.2 01/07/2017 [facility] CHEM PANEL A/G Ratio 1.0 0.7 - 1.6 01/07/2017 [facility] CHEM PANEL Potassium Lvl 4.0 meq/L 3.5 - 5.1 01/07/2017 [facility] CHEM PANEL CO2 24 meq/L 24 - 32 01/07/2017 [facility] CHEM PANEL Chloride Lvl 105 meq/L 95 - 109 01/07/2017 [facility] CHEM PANEL Calcium Lvl 8.4 mg/dL 8.5 - 10.5 01/07/2017 [facility] CHEM PANEL Creatinine Lvl 0.89 mg/dL 0.50 - 1.40 01/07/2017 [facility] CHEM PANEL Sodium Lvl 138 meq/L 135 - 145 01/07/2017 [facility] CHEM PANEL BUN 13 mg/dL 7 - 22 01/07/2017 [facility] CHEM PANEL Glucose Lvl 170 mg/dL 70 - 99 01/07/2017 [facility] CHEM PANEL Albumin Lvl 3.7 g/dL 3.5 - 5.0 01/07/2017 [facility] CHEM PANEL Total Protein 7.4 g/dL 6.4 - 8.4 01/07/2017 [facility] CHEM PANEL Bili Total 0.4 mg/dL 0.2 - 1.3 01/07/2017 [facility] CHEM PANEL Alk Phos 65 unit/L 39 - 136 01/07/2017 [facility] CHEM PANEL AST 37 unit/L 0 - 37 01/07/2017 [facility] CHEM PANEL ALT 62 unit/L 0 - 65 01/07/2017 [facility] CHEM PANEL eGFR 82 mL/min/1.73m2 01/07/2017 [...] should be multiplied by the estimated BMI. [facility] CHEM PANEL Magnesium Lvl 1.9 mg/dL 1.8 - 2.4 01/07/2017 [facility] CHEM PANEL Lactic Acid Lvl 1.0 mMol/L 0.5 - 2.2 01/07/2017 [facility] HEMATOLOGY Microcyte 1+ *ABN* (01/07/17 2:38 AM) None Seen 01/07/2017 [facility] HEMATOLOGY Monocytes 10.2 % 2.0 - 12.0 01/07/2017 [facility] HEMATOLOGY Lymphocytes 42.8 % 20.0 - 40.0 01/07/2017 [facility] HEMATOLOGY Basophils 0.7 % 0.0 - 1.0 01/07/2017 [facility] HEMATOLOGY Eosinophils 4.1 % 0.0 - 4.0 01/07/2017 [facility] HEMATOLOGY Segs 42.2 % 45.0 - 75.0 01/07/2017 [facility] HEMATOLOGY Eosinophils # 0.3 K/CMM 0.0 - 0.5 01/07/2017 [facility] HEMATOLOGY Monocytes # 0.8 K/CMM 0.0 - 0.8 01/07/2017 [facility] HEMATOLOGY Basophils # 0.1 K/CMM 0.0 - 0.2 01/07/2017 [facility] HEMATOLOGY Segs-Bands # 3.5 K/CMM 1.5 - 8.1 01/07/2017 [facility] HEMATOLOGY Lymphocytes # 3.5 K/CMM 1.0 - 5.5 01/07/2017 [facility] HEMATOLOGY MCHC 33.7 g/dL 32.0 - 36.0 01/07/2017 [facility] HEMATOLOGY Platelet 206 K/CMM 133 - 450 01/07/2017 [facility] HEMATOLOGY RDW 15.0 % 11.5 - 14.5 01/07/2017 [facility] HEMATOLOGY MPV 8.1 fL 7.4 - 10.4 01/07/2017 [facility] HEMATOLOGY MCH 25.6 pg 27.0 - 31.0 01/07/2017 [facility] HEMATOLOGY Hgb 13.0 g/dL 12.0 - 16.0 01/07/2017 [facility] HEMATOLOGY RBC 5.07 M/CMM 4.20 - 5.40 01/07/2017 [facility] HEMATOLOGY Hct 38.5 % 36.0 - 48.0 01/07/2017 [facility] HEMATOLOGY MCV 75.9 fL 80.0 - 98.0 01/07/2017 [facility] HEMATOLOGY WBC 8.2 K/CMM 3.7 - 10.4 01/07/2017 [facility] CARDIAC ENZYMES Troponin-I null 0.00 - 0.40 01/07/2017 [facility] CHEM PANEL Lactic Acid WB 2.5 mmol/L 0.5 - 2.2 01/07/2017 [facility] CHEM PANEL eGFR 78 mL/min/1.73m2 01/07/2017 [...] should be multiplied by the estimated BMI. [facility] CHEM PANEL CO2 23 meq/L 24 - 32 01/07/2017 [facility] CHEM PANEL Calcium Lvl 9.2 mg/dL 8.5 - 10.5 01/07/2017 [facility] CHEM PANEL Chloride Lvl 100 meq/L 95 - 109 01/07/2017 [facility] CHEM PANEL Potassium Lvl 3.9 meq/L 3.5 - 5.1 01/07/2017 [facility] CHEM PANEL Sodium Lvl 137 meq/L 135 - 145 01/07/2017 [facility] CHEM PANEL Creatinine Lvl 0.93 mg/dL 0.50 - 1.40 01/07/2017 [facility] CHEM PANEL BUN 15 mg/dL 7 - 22 01/07/2017 [facility] CHEM PANEL Glucose Lvl 183 mg/dL 70 - 99 01/07/2017 [facility] CHEM PANEL AGAP 17.9 meq/L 10.0 - 20.0 01/07/2017 [facility] HEMATOLOGY MPV 8.7 fL 7.4 - 10.4 01/07/2017 [facility] HEMATOLOGY Platelet 235 K/CMM 133 - 450 01/07/2017 [facility] HEMATOLOGY RDW 15.2 % 11.5 - 14.5 01/07/2017 [facility] HEMATOLOGY MCHC 33.5 g/dL 32.0 - 36.0 01/07/2017 [facility] HEMATOLOGY MCH 25.6 pg 27.0 - 31.0 01/07/2017 [facility] HEMATOLOGY MCV 76.4 fL 80.0 - 98.0 01/07/2017 [facility] HEMATOLOGY Hct 43.2 % 36.0 - 48.0 01/07/2017 [facility] HEMATOLOGY WBC 9.6 K/CMM 3.7 - 10.4 01/07/2017 [facility] HEMATOLOGY RBC 5.65 M/CMM 4.20 - 5.40 01/07/2017 [facility] HEMATOLOGY Hgb 14.5 g/dL 12.0 - 16.0 01/07/2017 [facility] HEMATOLOGY Eosinophils 2.8 % 0.0 - 4.0 01/07/2017 [facility] HEMATOLOGY Microcyte 1+ *ABN* (01/06/17 7:55 PM) None Seen 01/07/2017 [facility] HEMATOLOGY Basophils # 0.1 K/CMM 0.0 - 0.2 01/07/2017 [facility] HEMATOLOGY Lymphocytes # 3.1 K/CMM 1.0 - 5.5 01/07/2017 [facility] HEMATOLOGY Monocytes # 1.0 K/CMM 0.0 - 0.8 01/07/2017 [facility] HEMATOLOGY Eosinophils # 0.3 K/CMM 0.0 - 0.5 01/07/2017 [facility] HEMATOLOGY Basophils 0.7 % 0.0 - 1.0 01/07/2017 [facility] HEMATOLOGY Segs-Bands # 5.1 K/CMM 1.5 - 8.1 01/07/2017 [facility] HEMATOLOGY Segs 53.3 % 45.0 - 75.0 01/07/2017 [facility] HEMATOLOGY Lymphocytes 32.7 % 20.0 - 40.0 01/07/2017 [facility] HEMATOLOGY Monocytes 10.5 % 2.0 - 12.0 01/07/2017 [facility] IMMUNOLOGY CDC HIV 4th GEN Negative *NA* (01/06/17 7:55 PM) Negative 01/07/2017 [facility] URINE AND STOOL UA Sq Epi Rare /LPF Few /LPF 01/07/2017 [facility] URINE AND STOOL UA WBC 0-2 /HPF None Seen /HPF 01/07/2017 [facility] URINE AND STOOL UA RBC None Seen (01/06/17 7:52 PM) 0 - 2 01/07/2017 [facility] URINE AND STOOL UA Nitrite Negative (01/06/17 7:52 PM) Negative 01/07/2017 [facility] URINE AND STOOL UA Leuk Est Negative (01/06/17 7:52 PM) Negative 01/07/2017 [facility] URINE AND STOOL UA Blood Negative (01/06/17 7:52 PM) Negative 01/07/2017 [facility] URINE AND STOOL UA Bili Negative *NA* (01/06/17 7:52 PM) Negative 01/07/2017 [facility] URINE AND STOOL UA Urobilinogen 0.2 EU/dL 0.1 - 1.0 01/07/2017 [facility] URINE AND STOOL UA Protein Negative (01/06/17 7:52 PM) Negative 01/07/2017 [facility] URINE AND STOOL UA pH 6.0 5.0 - 8.0 01/07/2017 [facility] URINE AND STOOL UA Ketones Negative *NA* (01/06/17 7:52 PM) Negative 01/07/2017 [facility] URINE AND STOOL UA Glucose >=1000 mg/dL Negative mg/dL 01/07/2017 [facility] URINE AND STOOL UA Turbidity Clear (01/06/17 7:52 PM) Clear 01/07/2017 [facility] URINE AND STOOL UA Spec Grav 1.020 <=1.030 01/07/2017 [facility] URINE AND STOOL UA Color Yellow *NA* (01/06/17 7:52 PM) Yellow 01/07/2017 [facility] URINE CHEM U Preg Negative (01/06/17 7:52 PM) Negative 01/07/2017 [facility] Neck soft tissue w contrast CT [...] Amanda Hughes MD 01/07/17 00:06 FINAL REPORT [facility] BEDSIDE GLUCOSE TESTING Gluc POC Lifscn 309 mg/dL 70 - 99 10/03/2012 [place] 1Interpretive Data: Upper Reportable Limit: 200 mg/dL. [facility] BEDSIDE GLUCOSE TESTING Comment1 Notify MARCIANO 10/03/2012 [facility] BEDSIDE GLUCOSE TESTING Gluc POC Lifscn 325 mg/dL 70 - 99 10/03/2012 [place] 2Interpretive Data: Upper Reportable Limit: 200 mg/dL. [facility] BEDSIDE GLUCOSE TESTING Comment1 Notify MARCIANO 10/03/2012 NA [facility] BEDSIDE GLUCOSE TESTING Gluc POC Lifscn 309 mg/dL 70 - 99 10/03/2012 [place] 3Interpretive Data: Upper Reportable Limit: 200 mg/dL. [facility] CHEMISTRY Temp Michael 37.0 Khalida 10/03/2012 NA [facility] CHEMISTRY pO2 Michael 30 mm[Hg] 20 - 49 10/03/2012 Normal [facility] CHEMISTRY pH Michael 7.39 7.28 - 7.42 10/03/2012 Normal [facility] CHEMISTRY pCO2 Michael 48 mm[Hg] 38 - 52 10/03/2012 Normal [facility] CHEMISTRY BE Michael 3 mMol/L -2-2 - 2 10/03/2012 [facility] CHEMISTRY HCO3 Michael 29 mMol/L 22 - 26 10/03/2012 [facility] CHEMISTRY Site Michael Vein (10/02/2012 21:00:00) 10/03/2012 Normal [facility] CHEMISTRY O2 Sat Michael 56.6 % 40.0 - 70.0 10/03/2012 Normal [facility] URINALYSIS UA Urobilinogen <=1.0 mg/dL
*NA*
(10/02/2012 [...] Few /LPF *NA* (10/02/2012 20:43:00) Few 10/03/2012 [facility] URINALYSIS UA Turbidity Marked *ABN* (10/02/2012 20:43:00) Clear 10/03/2012 ABN [facility] URINALYSIS UA Spec Grav 1.016 <=1.030 10/03/2012 Normal [facility] URINALYSIS UA Protein Negative mg/dL (10/02/2012 20:43:00) Negative 10/03/2012 Normal [facility] URINALYSIS UA pH 5.0 5.0 - 8.0 10/03/2012 Normal [facility] URINALYSIS UA Blood Small *ABN* (10/02/2012 20:43:00) Negative 10/03/2012 [facility]N [facility] URINALYSIS UA Bili Negative *NA* (10/02/2012 20:43:00) Negative 10/03/2012 [facility] URINALYSIS UA Glucose 500 mg/dL *ABN* (10/02/2012 20:43:00) Negative 10/03/2012 [facility] URINALYSIS UA Ketones Negative mg/dL *NA* (10/02/2012 20:43:00) Negative 10/03/2012 [facility] Microbiology Culture: Urine 10/03/2012 [facility] CHEMISTRY S Preg Negative *NA* (10/02/2012 20:41:00) Negative 10/03/2012 [facility] CHEMISTRY Phosphorus 3.1 mg/dL 2.5 - 4.5 10/03/2012 Normal [facility] CHEMISTRY Magnesium Lvl 1.8 mg/dL 1.8 - 2.4 10/03/2012 Normal [facility] CHEMISTRY Lipase Lvl 207 unit/L 73 - 393 10/03/2012 Normal [facility] CHEMISTRY eGFR 84 mL/min/1.73m2 10/03/2012 NA 4Result [...] should be multiplied by the estimated BMI. [facility] CHEMISTRY Albumin Lvl 4.5 g/dL 3.5 - 5.0 10/03/2012 Normal [facility] CHEMISTRY Calcium Lvl 9.6 mg/dL 8.5 - 10.5 10/03/2012 Normal [facility] CHEMISTRY Total Protein 9.0 g/dL 6.4 - 8.4 10/03/2012 [facility] CHEMISTRY ALT 83 unit/L 0 - 65 10/03/2012 [facility] CHEMISTRY CO2 28 meq/L 24 - 32 10/03/2012 Normal [facility] CHEMISTRY Bili Total 0.5 mg/dL 0.2 - 1.3 10/03/2012 Normal [facility] CHEMISTRY AST 50 unit/L 0 - 37 10/03/2012 [facility] CHEMISTRY Alk Phos 95 unit/L 39 - 136 10/03/2012 Normal [facility] CHEMISTRY Chloride Lvl 99 meq/L 95 - 109 10/03/2012 Normal [facility] CHEMISTRY Potassium Lvl 4.0 meq/L 3.5 - 5.1 10/03/2012 Normal [facility] CHEMISTRY Sodium Lvl 136 meq/L 135 - 145 10/03/2012 Normal [facility] CHEMISTRY BUN 18 mg/dL 7 - 22 10/03/2012 Normal [facility] CHEMISTRY Creatinine Lvl 0.9 mg/dL 0.5 - 1.4 10/03/2012 Normal [facility] CHEMISTRY Glucose Lvl 353 mg/dL 70 - 99 10/03/2012 [place] 5Interpretive Data: Adult reference range values reflect the clinical guidelines of the [place] [employer]. [facility] CHEMISTRY AGAP 13.0 meq/L 10.0 - 20.0 10/03/2012 Normal [facility] CHEMISTRY B/C Ratio 20 6 - 25 10/03/2012 Normal [facility] CHEMISTRY Globulin 4.5 g/dL 2.0 - 4.0 10/03/2012 HI [facility] CHEMISTRY A/G Ratio 1.0 0.7 - 1.6 10/03/2012 Normal [facility] HEMATOLOGY Lymphocytes # 3.0 K/CMM 1.0 - 5.5 10/03/2012 Normal [facility] HEMATOLOGY Segs-Bands # 5.7 K/CMM 1.5 - 8.1 10/03/2012 Normal [facility] HEMATOLOGY Basophils # 0.0 K/CMM 0.0 - 0.2 10/03/2012 Normal [facility] HEMATOLOGY Eosinophils # 0.3 K/CMM 0.0 - 0.5 10/03/2012 Normal [facility] HEMATOLOGY Monocytes # 0.6 K/CMM 0.0 - 0.8 10/03/2012 Normal [facility] HEMATOLOGY Segs 59.4 % 45.0 - 75.0 10/03/2012 Normal [facility] HEMATOLOGY Basophils 0.3 % 0.0 - 1.0 10/03/2012 Normal [facility] HEMATOLOGY Eosinophils 3.5 % 0.0 - 4.0 10/03/2012 Normal [facility] HEMATOLOGY Monocytes 5.8 % 2.0 - 12.0 10/03/2012 Normal [facility] HEMATOLOGY Lymphocytes 31.0 % 20.0 - 40.0 10/03/2012 Normal [facility] HEMATOLOGY RBC 4.85 M/CMM 4.20 - 5.40 10/03/2012 Normal [facility] HEMATOLOGY Hct 37.3 % 36.0 - 48.0 10/03/2012 Normal [facility] HEMATOLOGY Hgb 12.5 g/dL 12.0 - 16.0 10/03/2012 Normal [facility] HEMATOLOGY MCH 25.7 pg 27.0 - 31.0 10/03/2012 LOW [facility] HEMATOLOGY RDW 14.3 % 11.5 - 14.5 10/03/2012 Normal [facility] HEMATOLOGY MCHC 33.4 g/dL 32.0 - 36.0 10/03/2012 Normal [facility] HEMATOLOGY MPV 9.0 fL 7.4 - 10.4 10/03/2012 Normal [facility] HEMATOLOGY Platelet 234 K/CMM 133 - 450 10/03/2012 Normal [facility] MCV 76.8 fL 81.0 - 99.0 10/03/2012 LOW [facility] WBC 9.7 K/CMM 3.7 - 10.4 10/03/2012 Normal [facility] PTT 31.6 s 22.9 - 35.8 10/03/2012 Normal 7Interpretive Data: Heparin Therapeutic Range: 57 - 92 Seconds [facility] PT 13.4 s 12.0 - 14.7 10/03/2012 Normal [facility] INR 1.00 0.85 - 1.17 10/03/2012 Normal 6Interpretive Data: RECOMMENDED RANGES FOR PROTIME INR: 2.0-3.0 for most medical and surgical thromboembolic states. 2.5-3.5 for artificial heart valves and recurrent embolism. INR SHOULD BE USED ONLY FOR PATIENTS ON STABLE ANTICOAGULANT THERAPY. [facility] BEDSIDE GLUCOSE TESTING Comment1 Notify RN/MD 10/02/2012 NA [facility] Abdomen/Pelvis w contrast CT Abdomen/Pelvis w contrast [...] Oumar Banda MD 10/02/12 22:09 FINAL REPORT [facility] Vital Signs Vital Sign Value Date Comments Source Weight 210 10/10/2017 Jaquan Freedman Height 63 10/10/2017 Jaquan Freedman Temperature Oral (F) 98.8 F 10/10/2017 Jaquan Freedman Heart Rate 104 10/10/2017 Jaquan Freedman Diastolic (mm Hg) 62 10/10/2017 Jaqu[facility] Freedman Systolic (mm Hg) 108 10/10/2017 Jaquan Freedman Temperature Oral (F) 98 F 01/08/2017 [facility] Respitory Rate 18 01/08/2017 [facility] Systolic (mm Hg) 126 01/08/2017 [facility] Diastolic (mm Hg) 85 01/08/2017 [facility] Heart Rate 88 01/08/2017 [facility] Temperature Oral (F) 98.2 F 01/08/2017 [facility] Respitory Rate 18 01/08/2017 [facility] Heart Rate 92 01/08/2017 [facility] Systolic (mm Hg) 116 01/08/2017 [facility] Diastolic (mm Hg) 73 01/08/2017 [facility] Respitory Rate 18 01/08/2017 [facility] Heart Rate 90 01/08/2017 [facility] Temperature Oral (F) 97 F 01/08/2017 [facility] Systolic (mm Hg) 100 01/08/2017 [facility] Diastolic (mm Hg) 74 01/08/2017 [facility] BMI Calculated 37.1 01/07/2017 [facility] Weight 95 01/07/2017 [facility] Height 160.02 cm 01/07/2017 [facility] Height 160.02 cm 01/07/2017 [facility] Weight 95 01/07/2017 [facility] BMI Calculated 37.1 01/07/2017 [facility] Respitory Rate 16 12/20/2016 [facility] Systolic (mm Hg) 123 12/20/2016 [facility] Diastolic (mm Hg) 79 12/20/2016 [facility] BMI Calculated 37.1 12/20/2016 [facility] Weight 95 12/20/2016 [facility] Height 160.02 cm 12/20/2016 [facility] BMI Calculated 37.63 11/25/2016 [facility] Weight 96.364 11/25/2016 [facility] Height 160.02 cm 11/25/2016 [facility] Heart Rate 100 11/25/2016 [facility] Respitory Rate 16 11/25/2016 [facility] Systolic (mm Hg) 115 11/25/2016 [facility] Diastolic (mm Hg) 79 11/25/2016 [facility] Heart Rate 96 01/24/2014 [facility] Respitory Rate 18 01/24/2014 [facility] Systolic (mm Hg) 133 01/24/2014 [facility] Diastolic (mm Hg) 87 01/24/2014 [facility] Height 160.02 cm 01/22/2014 [facility] Weight 87.727 01/22/2014 [facility] BMI Calculated 34.26 01/22/2014 [facility] Weight 90.909 10/02/2012 [facility] Height 160.02 cm 10/02/2012 [facility] Encounters Location Location Details Encounter Type Encounter Number Reason For Visit Attending Provider ADM Date DC Date Status Source [facility] Emergency [id number] WILIAN DANIE 10/02/2012 10/03/2012 Active [facility] Bedded Outpatient [id number] Evelio Olvera 01/24/2014 01/24/2014 [facility] Bedded Outpatient [id number] Dru Pinon 11/25/2016 11/25/2016 [facility] Outpatient [id number] Vivek Peraza 12/20/2016 12/21/2016 [facility] Observation [id number] Calvin Harris 01/07/2017 01/08/2017 [facility] Procedures Procedure Code Date Perfomer Comments Source Carpal tunnel release<sup>1</sup> 53633221 03/14/2016 bilateral 3 months apart [facility] Carpal tunnel release<sup>1</sup> [id number] 03/14/2016 bilateral 3 months apart [facility] Hysterectomy<sup>2</sup> [id number] 03/14/2012 also removal of abdominal scar tiissue with hyst [facility] Primary mesh repair of incisional hernia [id number] 03/14/2012 [facility] Hysterectomy<sup>2</sup> [id number] 03/14/2012 also removal of abdominal scar tiissue with hyst [facility] Primary mesh repair of incisional hernia [id number] 03/14/2012 [facility] Tonsillectomy [id number] [facility] Hysterectomy [id number] [facility] Appendectomy [id number] [facility] Esophagogastroduodenoscopy<sup>3</sup> [id number] with dilation of esophageal stricture [facility] Laparoscopic cholecystectomy [id number] [facility] Ligament repair<sup>4</sup> [id number] torn ligament repair of bilat ankles after a fall [facility] Operation<sup>5</sup> [id number] resection of colon for diverticulis [facility] Operation<sup>6</sup> [id number] heel spurs surgery, bilat [facility] Operation<sup>7</sup> [id number] removal of sweat glands from left armpit [facility] Operation<sup>8</sup> [id number] abdominal "repairs" x 3 [facility] Operation<sup>9</sup> [id number] removal of cyst from left upper thigh [facility] Tonsillectomy [id number] [facility] Appendectomy [id number] [facility] Esophagogastroduodenoscopy<sup>3</sup> [id number] with dilation of esophageal stricture [facility] Laparoscopic cholecystectomy [id number] [facility] Ligament repair<sup>4</sup> 07480778 torn ligament repair of bilat ankles after a fall [facility] Operation<sup>5</sup> 893714107 resection of colon for diverticulis [facility] Operation<sup>6</sup> [id number] heel spurs surgery, bilat [facility] Operation<sup>7</sup> [id number] removal of sweat glands from left armpit [facility] Operation<sup>8</sup> 411147549 abdominal "repairs" x 3 [facility] Operation<sup>9</sup> [id number] removal of cyst from left upper thigh [facility]
[2018-03-27] MEDS ORDERED: SODIUM CHLORIDE 0.9% 1000ML 1,000 ML IV STA (15:38)
[2018-03-27] MEDS ORDERED: ONDANSETRON HCL INJ 2 MG/ML VIAL IV ONE (16:00)
[2018-03-27] MEDS ORDERED: PANTOPRAZOLE 40 MG 10ML VIAL IV ONE (16:00)
[2018-03-27 16:22] LABS: CLARITY,URINE SL CLOUDY (CLEAR); COLOR,URINE YELLOW (YELLOW)
[2018-03-27 16:23] LABS: BILIRUBIN,URINE NEGATIVE (NEGATIVE); KETONES,URINE NEGATIVE (NEGATIVE); LEUKOCYTE ESTERASE ,URINE TRACE (NEGATIVE); NITRITE,URINE NEGATIVE (NEGATIVE); PREGNANCY TEST, URINE NEGATIVE (NEGATIVE); PROTEIN,URINE DIPSTICK NEGATIVE (NEGATIVE); URINE UROBILINOGEN 0.2 mg/dL (0.2 - 1)
[2018-03-27 16:34] LABS: BACTERIA,URINE MODERATE /HPF; EPITHELIAL CELLS,URINE MANY /LPF
--- NOTE | 2018-03-27 16:42 | NUR ---
Pt reports taking "my protonix this morning, I generally take it twice a day."
[2018-03-27 16:50] LABS: BASOPHILS % 0.3 % (0.0-1.0); EOSINOPHILS # (AUTO) 0.2 (0.0-0.4); EOSINOPHILS % 1.6 % (0.0-6.0); HEMATOCRIT 41.8 % (34.2-44.1); HEMOGLOBIN 14.3 g/dL (12.0-16.0); LYMPHOCYTES # (AUTO) 2.9 (1.0-3.2); LYMPHOCYTES % 27.4 % (18.0-39.1); MEAN CORPUSCULAR HEMOGLOBIN 25.9 pg (28-32); MEAN CORPUSCULAR HGB CONC 34.2 g/dL (31-35); MEAN CORPUSCULAR VOLUME 75.7 fL (81-99); MONOCYTES # (AUTO) 1.1 (0.2-0.8); MONOCYTES % 10.1 % (4.4-11.3); NEUTROPHILS # (AUTO) 6.4 (2.1-6.9); NEUTROPHILS % 60.2 % (38.7-80.0); PLATELET COUNT 272 x10e3/uL (140-360); RED BLOOD COUNT 5.52 x10e6/uL (3.6-5.1); RED CELL DISTRIBUTION WIDTH 14.7 % (11.7-14.4)
[2018-03-27 17:08] LABS: ALANINE AMINOTRANSFERASE 57 IU/L (0-55); ALBUMIN 3.9 g/dL (3.5-5.0); ALBUMIN/GLOBULIN RATIO 1.2 (0.8-2.0); ALKALINE PHOSPHATASE 85 IU/L (40-150); BLOOD UREA NITROGEN 15 mg/dL (7-26); BUN/CREATININE RATIO 19 (6-25); CALCIUM 9.3 mg/dL (8.4-10.2); CARBON DIOXIDE 21 mmol/L (22-29); CHLORIDE 103 mmol/L (98-107); CREATININE, SERUM 0.79 mg/dL (0.57-1.11); EST GLOMERULAR FILTRATION RATE > 60 ML/MIN (60-); GLUCOSE 154 mg/dL (74-118); LIPASE 74 U/L (8-78); SODIUM 136 mmol/L (136-145)
[2018-03-27 17:24] LABS: PLATELET ESTIMATE ADEQUATE; PLATELET MORPHOLOGY COMMENT FEW EDTA CLUMPING; RBC MORPHOLOGY COMMENT NORMAL
[2018-03-27] MEDS ORDERED: MORPHINE SULFATE 2 MG/ML SYR IV PRN (19:15)
[2018-03-27] MEDS ORDERED: HYDROMORPHONE 2MG/ML 2 MG/ML ML IV ONE (19:15)
[2018-03-27] MEDS ORDERED: DEXTROSE 50% SYRINGE 50 ML IV PRN (19:15)
--- OUTSIDE RECORDS SUMMARY | 2018-03-27 19:28 | XMS REPORT | Continuity of Care Document ---
Author Author [facility] Interface Address Unknown Phone Unavailable Problems Problem Status Onset Date Classification Date Reported Comments Source TROUBLE SWALLOWING Active 01/06/2017 [facility] DYSPHAGIA Active 01/06/2017 [facility] ESOPHAGEAL ISSUES Active 09/30/2016 [facility] UNK Active 09/29/2016 [facility] R10.12 - LEFT UPPER QUADRANT PAIN Active 02/10/2016 [facility] [place] 787.20/789.07 Active 01/17/2014 [facility] ABD PAIN Active 10/02/2012 [facility] Abdominal hernia Active Problem 10/05/2012 [facility] FH: Diabetes mellitus Active Problem 10/05/2012 [facility] HTN - Hypertension Active Problem 10/05/2012 [facility] Abdominal hernia Active Problem 01/11/2017 [facility] Diabetes mellitus Active Problem 01/11/2017 [facility] Dysphagia Active Problem 01/11/2017 [facility] FH: Diabetes mellitus Active Problem 01/11/2017 [facility] Diabetic gastroparesis Active Problem 01/11/2017 [facility] GERD - Gastro-esophageal reflux disease Resolved Problem 01/11/2017 [facility] Heartburn Active Problem 01/11/2017 [facility] HTN - Hypertension Active Problem 01/11/2017 [facility] Insomnia due to anxiety and fear Resolved Problem 01/11/2017 [facility] 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 [facility] Obesity Active Problem 01/11/2017 [facility] Osteoarthritis Active Problem 01/11/2017 [facility] RA (<span ID="[id number]">Confirmed</span>) Active Problem 01/11/2017 [facility] Heel spur Resolved Problem 01/11/2017 [facility] Acid reflux disease Resolved Problem 01/11/2017 [facility] Polyarthritis Active Diagnosis 10/28/2017 Jaquan Freedman DYSPHAGIA, UNSPECIFIED Active [facility] Medications Medication Details Route Status Patient Instructions Ordering Provider Order Date Source influenza virus vaccine, inactivated 0.5 mL, Route: IM, Drug Form: SUSP, Daily, Start date: 01/08/17 14:30:00 CDT, Duration: 1 doses or times, Stop date: 01/08/17 14:30:00 CDTNotes: (Same as: Fluzone Quadrivalent, Fluarix Quadrivalent) For 3 years of age and older (0.5 mL IM) Shake well before use Inactive 01/08/2017 [facility] Benadryl 25 mg, 1 cap, Route: PO, Drug form: CAP, Bedtime, Dosing Weight 95, kg, PRN Insomnia, Start date: 01/07/17 20:46:00 CDT, Duration: 30 day, Stop date: 02/06/17 20:45:00 CSTNotes: (Same as: Benadryl) No Longer Active 01/08/2017 [facility] Chloraseptic 1.4% spray 1 spray, Route: TOP, Daily, Drug form: SPRY, PRN Sore Throat, Start date: 01/07/17 20:46:00 CDT, Duration: 30 day, Stop date: 02/06/17 20:45:00 CSTNotes: Chloraseptic [place] (Same as: Chloraseptic, Sore Throat [place]) WASTE: F/P - Black; E - [email or web address] Trash Bin No Longer Active 01/08/2017 [facility] hydromorphone 0.5 mg, 0.25 mL, Route: IVP, Drug form: INJ, ONCE, Dosing Weight 95, kg, Priority: Routine, Start date: 01/07/17 13:03:00 CDT, Stop date: 01/07/17 13:03:00 CDTNotes: Same as: Dilaudid Inactive 01/07/2017 [facility] Phenergan 12.5 mg, 0.5 mL, Route: IVPB, Drug form: INJ, Q6H, Dosing Weight 95, kg, PRN Nausea & Vomiting, Start date: 01/07/17 9:58:00 CDT, Duration: 30 day, Stop date: 02/06/17 9:57:00 CSTNotes: Do not give IV push. (Same as: Phenergan) No Longer Active 01/07/2017 [facility] influenza virus vaccine, inactivated 0.5 mL, Route: IM, Drug Form: SUSP, Daily, Start date: 01/07/17 9:00:00 CDT, Duration: 1 doses or times, Stop date: 01/07/17 9:00:00 CDTNotes: (Same as: Fluzone Quadrivalent, Fluarix Quadrivalent) For 3 years of age and older (0.5 mL IM) Shake well before use No Longer Active 01/07/2017 [facility] Dextrose 50% Syringe 12.5 gm, 25 mL, Route: IVP, Drug Form: INJ, Dosing Weight 95, kg, PRN, PRN Blood Glucose Results, Start date: 01/07/17 6:54:00 CDT, Duration: 30 day, Stop date: 02/06/17 5:53:[address] [employer] No Longer Active 01/07/2017 [facility] glucagon 1 mg, Route: IM, Drug form: PDR/INJ, PRN, Dosing Weight 95, kg, PRN Blood Glucose Results, Start date: 01/07/17 6:54:00 CDT, Duration: 30 day, Stop date: 02/06/17 5:53:[address] [employer] No Longer Active 01/07/2017 [facility] insulin lispro 1 unit, 0.01 mL, [...] days from Date No Longer Active 01/07/2017 [facility] Phenergan 25 mg oral tablet 25 mg=1 tab, PO, Q6H, 0 Refill(s) Active 01/07/2017 [facility] Toujordan SoloStar 300 units/mL subcutaneous solution SUB- Q, Daily, 0 Refill(s) No Longer Active 01/07/2017 [facility] Dilaudid 0.5 mg, 0.25 mL, Route: IVP, Drug form: INJ, ONCE, Dosing Weight 95, kg, Priority: STAT, Start date: 01/07/17 6:28:00 CDT, Stop date: 01/07/17 6:28:00 CDTNotes: Same as: Dilaudid Inactive 01/07/2017 [facility] ondansetron 4 mg, 2 mL, Route: IVP, Drug form: INJ, ONCE, Dosing Weight 95, kg, Priority: STAT, Start date: 01/07/17 2:33:00 CDT, Stop date: 01/07/17 2:33:00 CDTNotes: (Same as: Zofran) MEDICATION WASTE Product Size: 4 mg Product Wasted: ___ mg Inactive 01/07/2017 [facility] ondansetron 4 mg, 2 mL, Route: IVP, Drug form: INJ, Q6H, Dosing Weight 95, kg, PRN Nausea & Vomiting, Start date: 01/07/17 1:50:00 CDT, Duration: 30 day, Stop date: 02/06/17 1:49:00 CSTNotes: (Same as: Zofran) MEDICATION WASTE Product Size: 4 mg Product Wasted: ___ mg No Longer Active 01/07/2017 [facility] docusate 100 mg, 1 cap, Route: PO, Drug form: CAP, BID, Dosing Weight 95, kg, PRN Constipation, Start date: 01/07/17 1:50:00 CDT, Duration: 30 day, Stop date: 02/06/17 1:49:[address] [employer] No Longer Active 01/07/2017 [facility] acetaminophen 650 mg, 2 tab, Route: PO, Drug form: TAB, Q4H, Dosing Weight 95, kg, PRN Pain 1-3/Temp > 100.4 F, Start date: 01/07/17 1:50:00 CDT, Duration: 30 day, Stop date: 02/06/17 1:49:00 CSTNotes: Do not exce ed 4 gm/day. (Same as: Tylenol) No Longer Active 01/07/2017 [facility] morphine Sulfate 6 mg, 1.5 mL, Route: IVP, Drug form: SOLN, ONCE, Dosing Weight 95, kg, Priority: STAT, Start date: 01/07/17 0:27:00 CDT, Stop date: 01/07/17 0:27:00 CDTNotes: (Same as:MORPhine Sulfate) Inactive 01/07/2017 [facility] Lactated Ringers 1,000 mL 1,000 mL, Rate: 100 ml/hr, Infuse over: 10 hr, Route: IV, Dosing Weight 95 kg, Total Volume: 1,000, Start date: 01/07/17 0:26:00 CDT, Duration: 30 day, Stop date: 02/06/17 0:25:[address] [employer] No Longer Active 01/07/2017 [facility] Sodium Chloride 0.9% (Bolus) IV 1,000 mL, 1000 ml/hr, Infuse Over: 1 hr, Route: IV, 1,000, Drug form: INJ, ONCE, Priority: STAT, Dosing Weight 95 kg, Start date: 01/06/17 22:06:00 CDT, Duration: 1 doses or times, Stop date: 01/06/17 22:06:00 CDT Inactive 01/07/2017 [facility] Phenergan 25 mg, 1 mL, Route: IVPB, Drug form: INJ, ONCE, Dosing Weight 95, kg, Priority: STAT, Start date: 01/06/17 21:52:00 CDT, Stop date: 01/06/17 21:52:00 CDTNotes: (Same as: Phenergan) Inactive 01/07/2017 [facility] hydromorphone 1 mg, 0.5 mL, Route: IVP, Drug form: INJ, ONCE, Dosing Weight 95, kg, Priority: STAT, Start date: 01/06/17 21:51:00 CDT, Stop date: 01/06/17 21:51:00 CDTNotes: Same as: Dilaudid Inactive 01/07/2017 [facility] Zofran 4 mg, Route: IVP, Drug form: INJ, ONCE, Dosing Weight 95, kg, Start date: 01/06/17 21:50:00 CDT, Stop date: 01/06/17 21:50:00 CDT Inactive 01/07/2017 [facility] morphine Sulfate 4 mg, Route: IVP, ONCE, Dosing Weight 95, kg, Start date: 01/06/17 21:50:00 CDT, Stop date: 01/06/17 21:50:00 CDT Inactive 01/07/2017 [facility] Omnipaque 350mg/ml 100 mL, Route: IVP, Drug Form: SOLN, Dosing Weight 95, kg, ONCALL, STAT, Start date: 01/06/17 20:53:00 CDT, Duration: 1 doses or times, Dose=2.2ml/kg, Max emvp=957nf -- "To be infused by Radiology Staff ONLY"Notes: (same as:Omnipaque 350). WASTE: F/P - Black; E - [place] Trash Bin Inactive 01/07/2017 [facility] dexamethasone 10 mg, 2.5 mL, Route: IVP, Drug form: INJ, ONCE, Dosing Weight 95, kg, Priority: STAT, Start date: 01/06/17 19:55:00 CDT, Stop date: 01/06/17 19:55:00 CDTNotes: Concentration: 4mg/ml No Longer Active 01/07/2017 [facility] clindamycin 600 mg, 4 mL, Route: IVPB, Drug form: INJ, ONCE, Dosing Weight 95, kg, Priority: STAT, Start date: 01/06/17 19:54:00 CDT, Duration: 1 doses or times, Stop date: 01/06/17 19:54:00 CDT, ABX Indication: Sk in/Soft Tissue InfectionNotes: (clindamycin 150 mg/1 ml (600 mg/4 ml VL) INJ) (Same As: Cleocin) No Longer Active 01/07/2017 [facility] Sodium Chloride 0.9% (Bolus) IV 1,000 mL, Infuse Over: 1 hr, Route: IV, ONCE, Priority: STAT, Dosing Weight 95 kg, Start date: 01/06/17 19:50:00 CDT, Duration: 1 doses or times, Stop date: 01/06/17 19:50:00 CDT Inactive 01/07/2017 [facility] Glipizide 10 MG Oral Tablet 20 mg=2 tab, PO, BID-Before Meals, # 180 tab, 1 Refill(s) Active 11/25/2016 [facility] sitagliptin 100 MG Oral Tablet [Januvia] 100 mg=1 tab, PO, Daily, # 30 tab, 0 Refill(s) Active 11/25/2016 [facility] canagliflozin 300 MG Oral Tablet [Invokana] 300 mg=1 tab, PO, Before Breakfast, # 30 tab, 5 Refill(s) Active 11/25/2016 [facility] 1.5 ML Insulin Glargine 300 UNT/ML Prefilled Syringe [Toujeo] 80 unit, SUB-Q, Bedtime, 0 Refill(s) Active 11/25/2016 [facility] Benadryl 50 mg, PO, Bedtime, 0 Refill(s) Active 01/22/2014 [facility] 3 ML Insulin Lispro 100 UNT/ML Prefilled Syringe [Humalog] 43 unit, SUB-Q, TID-Before Meals, 0 Refill(s) Active 01/22/2014 [facility] Amitriptyline 100 mg, PO, Bedtime, 0 Refill(s) Active 01/22/2014 [facility] insulin detemir 100 UNT/ML Injectable Solution [Levemir] 30 unit, SUB-Q, Daily, 0 Refill(s) Active 01/22/2014 [facility] lisinopril 10 mg oral tablet 10 mg=1 tab, PO, Daily, # 30 tab, 0 Refill(s) Active 01/22/2014 [facility] pantoprazole 40 MG Enteric Coated Tablet [Protonix] 40 mg=1 tab, PO, BID, # 30 tab, 0 Refill(s) Active 01/22/2014 [facility] Metoclopramide 10 MG Oral Tablet [Reglan] 20 mg=2 tab, PO, QID, # 360 tab, 0 Refill(s) Active 01/22/2014 [facility] Sucralfate 1000 MG Oral Tablet [Carafate] 1 gm=1 tab, PO, QID-Before Meals, # 120 tab, 0 Refill(s) Active 01/22/2014 [facility] Insulin regular 5 unit, Route: SUB-Q, ONCE, Dosing Weight 90.909, kg, Priority: STAT, Start date: 10/03/12 0:17:00, Stop date: 10/03/12 0:17:00 SUB-Q No Longer Active [place] 10/03/2012 [facility] Zofran 4 mg, Route: IVP, Drug form: INJ, ONCE, Dosing Weight 90.909, kg, Priority: STAT, Start date: 10/02/12 23:07:00, Stop date: 10/02/12 23:07:00 IVP No Longer Active [facility] 10/03/2012 [facility] morphine Sulfate 4 mg, Route: IVP, Drug form: INJ, ONCE, Dosing Weight 90.909, kg, Priority: STAT, Start date: 10/02/12 23:05:00, Stop date: 10/02/12 23:05:00 IVP No Longer Active [facility] 10/03/2012 [facility] Macrodantin 100 mg oral capsule 100 mg, 1 cap, PO, QID, 40 cap, Substitution Allowed, CAP PO Active [facility] 10/03/2012 [facility] Bentyl 10 mg oral capsule 10 mg, 1 cap, PO, QID, 28 cap, Substitution Allowed, CAP PO Active [facility] 10/03/2012 [facility] Zofran 4 mg oral tablet 4 mg, 1 tab, PO, BID, 10 tab, Substitution Allowed PO Active [facility] 10/03/2012 [facility] Gridley 5/325 oral tablet 1-2 tab, PO, Q4-6H, PRN, 15 tab, Pain, Substitution Allowed, Maintenance PO Active [facility] 10/03/2012 [facility] NS (Bolus) IV 500 mL 500 mL, Rate: 500 ml/hr, Infuse over: 1 hr, Route: IV, Dosing Weight 90.909 kg, Total Volume: 500, Priority: STAT, Start date: 10/02/12 22:40:00, Duration: 1 doses or times, Stop date: 10/02/12 23:39:00, Bolus DoseBolus Dose IV No Longer Active [facility] 10/03/2012 [facility] Insulin regular 5 unit, Route: SUB-Q, ONCE, Dosing Weight 90.909, kg, Priority: STAT, Start date: 10/02/12 22:39:00, Stop date: 10/02/12 22:39:00 SUB-Q No Longer Active [facility] 10/03/2012 [facility] ceftriaxone + Sodium Chloride 0.9% IV 100 mL 1 gm, Route: IVPB, ONCE, Dosing Weight 90.909, kg, Priority: STAT, Start date: 10/02/12 21:13:00, Stop date: 10/02/12 21:13:00 IVPB No Longer Active [facility] 10/03/2012 [facility] NS 1,000 mL 1,000 mL, Rate: 150 ml/hr, Infuse over: 6.7 hr, Route: IV, Dosing Weight 90.909 kg, Total Volume: 1,000, Start date: 10/02/12 20:37:00, Duration: 30 day, Stop date: 11/01/12 20:36:00 IV No Longer Active [facility] 10/03/2012 [facility] NS (Bolus) IV 1000 mL 1,000 mL, Rate: 1,000 ml/hr, Infuse over: 1 hr, Route: IV, Dosing Weight 90.909 kg, Total Volume: 1,000, Priority: STAT, Start date: 10/02/12 20:37:00, Duration: 1 doses or times, Stop date: 10/02/12 21:36:00, Bolus DoseBolus Dose IV No Longer Active [facility] 10/03/2012 [facility] Saline Flush 0.9% 5 mL, Route: IVP, Drug Form: INJ, Dosing Weight 90.909, kg, PRN, PRN Line Flush, Start date: 10/02/12 20:24:00, Duration: 24 hr, Stop date: 10/03/12 20:23:00 IVP No Longer Active [facility] 10/03/2012 [facility] ondansetron 4 mg, 2 mL, Route: IVP, Drug form: INJ, ONCE, Dosing Weight 90.909, kg, Priority: STAT, Start date: 10/02/12 20:24:00, Stop date: 10/02/12 20:24:00 IVP No Longer Active [facility] 10/03/2012 [facility] morphine Sulfate 4 mg, 2 mL, Route: IVP, Drug form: INJ, ONCE, Dosing Weight 90.909, kg, Priority: STAT, Start date: 10/02/12 20:24:00, Stop date: 10/02/12 20:24:00 IVP No Longer Active [facility] 10/03/2012 [facility] Phenergan 1 tablet as needed Orally [...] Jaquan Freedman Levaquin Assertion Drug allergy Active [facility] penicillins Assertion Drug allergy Active [facility] tetracyclines Assertion Drug allergy Active [facility] Bentyl<sup>1</sup> Assertion Drug allergy Active rash [facility] sulfa drugs<sup>2</sup> Assertion Drug allergy Active rash [facility] Immunizations Immunization Date Given Site Status Last Updated Comments Source influenza virus vaccine, inactivated 01/08/2017 Left deltoid completed Benimana [facility] Results Order Name Results Value Reference Range Date Interpretation Comments Source CHEM PANEL Phosphorus 3.6 mg/dL 2.5 - 4.5 01/07/2017 [facility] CHEM PANEL B/C Ratio 15 6 - 25 01/07/2017 [facility] CHEM PANEL AGAP 13.0 meq/L 10.0 - 20.0 01/07/2017 [facility] CHEM PANEL Globulin 3.7 g/dL 2.7 - 4.2 01/07/2017 [facility] CHEM PANEL A/G Ratio 1.0 0.7 - 1.6 01/07/2017 [facility] CHEM PANEL Potassium Lvl 4.0 meq/L 3.5 - 5.1 01/07/2017 [facility] CHEM PANEL CO2 24 meq/L 24 - 32 01/07/2017 [facility] CHEM PANEL Chloride Lvl 105 meq/L 95 - 109 01/07/2017 [facility] CHEM PANEL Calcium Lvl 8.4 mg/dL 8.5 - 10.5 01/07/2017 [facility] CHEM PANEL Creatinine Lvl 0.89 mg/dL 0.50 - 1.40 01/07/2017 [facility] CHEM PANEL Sodium Lvl 138 meq/L 135 - 145 01/07/2017 [facility] CHEM PANEL BUN 13 mg/dL 7 - 22 01/07/2017 [facility] CHEM PANEL Glucose Lvl 170 mg/dL 70 - 99 01/07/2017 [facility] CHEM PANEL Albumin Lvl 3.7 g/dL 3.5 - 5.0 01/07/2017 [facility] CHEM PANEL Total Protein 7.4 g/dL 6.4 - 8.4 01/07/2017 [facility] CHEM PANEL Bili Total 0.4 mg/dL 0.2 - 1.3 01/07/2017 [facility] CHEM PANEL Alk Phos 65 unit/L 39 - 136 01/07/2017 [facility] CHEM PANEL AST 37 unit/L 0 - 37 01/07/2017 [facility] CHEM PANEL ALT 62 unit/L 0 - 65 01/07/2017 [facility] CHEM PANEL eGFR 82 mL/min/1.73m2 01/07/2017 [...] should be multiplied by the estimated BMI. [facility] CHEM PANEL Magnesium Lvl 1.9 mg/dL 1.8 - 2.4 01/07/2017 [facility] CHEM PANEL Lactic Acid Lvl 1.0 mMol/L 0.5 - 2.2 01/07/2017 [facility] HEMATOLOGY Microcyte 1+ *ABN* (01/07/17 2:38 AM) None Seen 01/07/2017 [facility] HEMATOLOGY Monocytes 10.2 % 2.0 - 12.0 01/07/2017 [facility] HEMATOLOGY Lymphocytes 42.8 % 20.0 - 40.0 01/07/2017 [facility] HEMATOLOGY Basophils 0.7 % 0.0 - 1.0 01/07/2017 [facility] HEMATOLOGY Eosinophils 4.1 % 0.0 - 4.0 01/07/2017 [facility] HEMATOLOGY Segs 42.2 % 45.0 - 75.0 01/07/2017 [facility] HEMATOLOGY Eosinophils # 0.3 K/CMM 0.0 - 0.5 01/07/2017 [facility] HEMATOLOGY Monocytes # 0.8 K/CMM 0.0 - 0.8 01/07/2017 [facility] HEMATOLOGY Basophils # 0.1 K/CMM 0.0 - 0.2 01/07/2017 [facility] HEMATOLOGY Segs-Bands # 3.5 K/CMM 1.5 - 8.1 01/07/2017 [facility] HEMATOLOGY Lymphocytes # 3.5 K/CMM 1.0 - 5.5 01/07/2017 [facility] HEMATOLOGY MCHC 33.7 g/dL 32.0 - 36.0 01/07/2017 [facility] HEMATOLOGY Platelet 206 K/CMM 133 - 450 01/07/2017 [facility] HEMATOLOGY RDW 15.0 % 11.5 - 14.5 01/07/2017 [facility] HEMATOLOGY MPV 8.1 fL 7.4 - 10.4 01/07/2017 [facility] HEMATOLOGY MCH 25.6 pg 27.0 - 31.0 01/07/2017 [facility] HEMATOLOGY Hgb 13.0 g/dL 12.0 - 16.0 01/07/2017 [facility] HEMATOLOGY RBC 5.07 M/CMM 4.20 - 5.40 01/07/2017 [facility] HEMATOLOGY Hct 38.5 % 36.0 - 48.0 01/07/2017 [facility] HEMATOLOGY MCV 75.9 fL 80.0 - 98.0 01/07/2017 [facility] HEMATOLOGY WBC 8.2 K/CMM 3.7 - 10.4 01/07/2017 [facility] CARDIAC ENZYMES Troponin-I null 0.00 - 0.40 01/07/2017 [facility] CHEM PANEL Lactic Acid WB 2.5 mmol/L 0.5 - 2.2 01/07/2017 [facility] CHEM PANEL eGFR 78 mL/min/1.73m2 01/07/2017 [...] should be multiplied by the estimated BMI. [facility] CHEM PANEL CO2 23 meq/L 24 - 32 01/07/2017 [facility] CHEM PANEL Calcium Lvl 9.2 mg/dL 8.5 - 10.5 01/07/2017 [facility] CHEM PANEL Chloride Lvl 100 meq/L 95 - 109 01/07/2017 [facility] CHEM PANEL Potassium Lvl 3.9 meq/L 3.5 - 5.1 01/07/2017 [facility] CHEM PANEL Sodium Lvl 137 meq/L 135 - 145 01/07/2017 [facility] CHEM PANEL Creatinine Lvl 0.93 mg/dL 0.50 - 1.40 01/07/2017 [facility] CHEM PANEL BUN 15 mg/dL 7 - 22 01/07/2017 [facility] CHEM PANEL Glucose Lvl 183 mg/dL 70 - 99 01/07/2017 [facility] CHEM PANEL AGAP 17.9 meq/L 10.0 - 20.0 01/07/2017 [facility] HEMATOLOGY MPV 8.7 fL 7.4 - 10.4 01/07/2017 [facility] HEMATOLOGY Platelet 235 K/CMM 133 - 450 01/07/2017 [facility] HEMATOLOGY RDW 15.2 % 11.5 - 14.5 01/07/2017 [facility] HEMATOLOGY MCHC 33.5 g/dL 32.0 - 36.0 01/07/2017 [facility] HEMATOLOGY MCH 25.6 pg 27.0 - 31.0 01/07/2017 [facility] HEMATOLOGY MCV 76.4 fL 80.0 - 98.0 01/07/2017 [facility] HEMATOLOGY Hct 43.2 % 36.0 - 48.0 01/07/2017 [facility] HEMATOLOGY WBC 9.6 K/CMM 3.7 - 10.4 01/07/2017 [facility] HEMATOLOGY RBC 5.65 M/CMM 4.20 - 5.40 01/07/2017 [facility] HEMATOLOGY Hgb 14.5 g/dL 12.0 - 16.0 01/07/2017 [facility] HEMATOLOGY Eosinophils 2.8 % 0.0 - 4.0 01/07/2017 [facility] HEMATOLOGY Microcyte 1+ *ABN* (01/06/17 7:55 PM) None Seen 01/07/2017 [facility] HEMATOLOGY Basophils # 0.1 K/CMM 0.0 - 0.2 01/07/2017 [facility] HEMATOLOGY Lymphocytes # 3.1 K/CMM 1.0 - 5.5 01/07/2017 [facility] HEMATOLOGY Monocytes # 1.0 K/CMM 0.0 - 0.8 01/07/2017 [facility] HEMATOLOGY Eosinophils # 0.3 K/CMM 0.0 - 0.5 01/07/2017 [facility] HEMATOLOGY Basophils 0.7 % 0.0 - 1.0 01/07/2017 [facility] HEMATOLOGY Segs-Bands # 5.1 K/CMM 1.5 - 8.1 01/07/2017 [facility] HEMATOLOGY Segs 53.3 % 45.0 - 75.0 01/07/2017 [facility] HEMATOLOGY Lymphocytes 32.7 % 20.0 - 40.0 01/07/2017 [facility] HEMATOLOGY Monocytes 10.5 % 2.0 - 12.0 01/07/2017 [facility] IMMUNOLOGY CDC HIV 4th GEN Negative *NA* (01/06/17 7:55 PM) Negative 01/07/2017 [facility] URINE AND STOOL UA Sq Epi Rare /LPF Few /LPF 01/07/2017 [facility] URINE AND STOOL UA WBC 0-2 /HPF None Seen /HPF 01/07/2017 [facility] URINE AND STOOL UA RBC None Seen (01/06/17 7:52 PM) 0 - 2 01/07/2017 [facility] URINE AND STOOL UA Nitrite Negative (01/06/17 7:52 PM) Negative 01/07/2017 [facility] URINE AND STOOL UA Leuk Est Negative (01/06/17 7:52 PM) Negative 01/07/2017 [facility] URINE AND STOOL UA Blood Negative (01/06/17 7:52 PM) Negative 01/07/2017 [facility] URINE AND STOOL UA Bili Negative *NA* (01/06/17 7:52 PM) Negative 01/07/2017 [facility] URINE AND STOOL UA Urobilinogen 0.2 EU/dL 0.1 - 1.0 01/07/2017 [facility] URINE AND STOOL UA Protein Negative (01/06/17 7:52 PM) Negative 01/07/2017 [facility] URINE AND STOOL UA pH 6.0 5.0 - 8.0 01/07/2017 [facility] URINE AND STOOL UA Ketones Negative *NA* (01/06/17 7:52 PM) Negative 01/07/2017 [facility] URINE AND STOOL UA Glucose >=1000 mg/dL Negative mg/dL 01/07/2017 [facility] URINE AND STOOL UA Turbidity Clear (01/06/17 7:52 PM) Clear 01/07/2017 [facility] URINE AND STOOL UA Spec Grav 1.020 <=1.030 01/07/2017 [facility] URINE AND STOOL UA Color Yellow *NA* (01/06/17 7:52 PM) Yellow 01/07/2017 [facility] URINE CHEM U Preg Negative (01/06/17 7:52 PM) Negative 01/07/2017 [facility] Neck soft tissue w contrast CT [...] Amanda Hughes MD 01/07/17 00:06 FINAL REPORT [facility] BEDSIDE GLUCOSE TESTING Gluc POC Lif[place]n 309 mg/dL 70 - 99 10/03/2012 [place] 1Interpretive Data: Upper Reportable Limit: 200 mg/dL. [facility] BEDSIDE GLUCOSE TESTING Comment1 Notify MARCIANO 10/03/2012 [facility] BEDSIDE GLUCOSE TESTING Gluc POC [place] 325 mg/dL 70 - 99 10/03/2012 [place] 2Interpretive Data: Upper Reportable Limit: 200 mg/dL. [facility] BEDSIDE GLUCOSE TESTING Comment1 Notify MARCIANO 10/03/2012 NA [facility] BEDSIDE GLUCOSE TESTING Gluc POC Lif[place]n 309 mg/dL 70 - 99 10/03/2012 [place] 3Interpretive Data: Upper Reportable Limit: 200 mg/dL. [facility] CHEMISTRY Temp Michael 37.0 Khalida 10/03/2012 NA [facility] CHEMISTRY pO2 Michael 30 mm[Hg] 20 - 49 10/03/2012 Normal [facility] CHEMISTRY pH Michael 7.39 7.28 - 7.42 10/03/2012 Normal [facility] CHEMISTRY pCO2 Michael 48 mm[Hg] 38 - 52 10/03/2012 Normal [facility] CHEMISTRY BE Michael 3 mMol/L -2-2 - 2 10/03/2012 [facility] CHEMISTRY HCO3 Michael 29 mMol/L 22 - 26 10/03/2012 [facility] CHEMISTRY Site Michael Vein (10/02/2012 21:00:00) 10/03/2012 Normal [facility] CHEMISTRY O2 Sat Michael 56.6 % 40.0 - 70.0 10/03/2012 Normal [facility] URINALYSIS UA Urobilinogen <=1.0 mg/dL
*NA*
[...] Few /LPF *NA* (10/02/2012 20:43:00) Few 10/03/2012 [facility] URINALYSIS UA Turbidity Marked *ABN* (10/02/2012 20:43:00) Clear 10/03/2012 ABN [facility] URINALYSIS UA Spec Grav 1.016 <=1.030 10/03/2012 Normal [facility] URINALYSIS UA Protein Negative mg/dL (10/02/2012 20:43:00) Negative 10/03/2012 Normal [facility] URINALYSIS UA pH 5.0 5.0 - 8.0 10/03/2012 Normal [facility] URINALYSIS UA Blood Small *ABN* (10/02/2012 20:43:00) Negative 10/03/2012 ABN [facility] URINALYSIS UA Bili Negative *NA* (10/02/2012 20:43:00) Negative 10/03/2012 [facility] URINALYSIS UA Glucose 500 mg/dL *ABN* (10/02/2012 20:43:00) Negative 10/03/2012 ABN [facility] URINALYSIS UA Ketones Negative mg/dL *NA* (10/02/2012 20:43:00) Negative 10/03/2012 [facility] Microbiology Culture: Urine 10/03/2012 [facility] CHEMISTRY S Preg Negative *NA* (10/02/2012 20:41:00) Negative 10/03/2012 [facility] CHEMISTRY Phosphorus 3.1 mg/dL 2.5 - 4.5 10/03/2012 Normal [facility] CHEMISTRY Magnesium Lvl 1.8 mg/dL 1.8 - 2.4 10/03/2012 Normal [facility] CHEMISTRY Lipase Lvl 207 unit/L 73 - 393 10/03/2012 Normal [facility] CHEMISTRY eGFR 84 mL/min/1.73m2 10/03/2012 NA [...] should be multiplied by the estimated BMI. [facility] CHEMISTRY Albumin Lvl 4.5 g/dL 3.5 - 5.0 10/03/2012 Normal [facility] CHEMISTRY Calcium Lvl 9.6 mg/dL 8.5 - 10.5 10/03/2012 Normal [facility] CHEMISTRY Total Protein 9.0 g/dL 6.4 - 8.4 10/03/2012 [facility] CHEMISTRY ALT 83 unit/L 0 - 65 10/03/2012 [facility] CHEMISTRY CO2 28 meq/L 24 - 32 10/03/2012 Normal [facility] CHEMISTRY Bili Total 0.5 mg/dL 0.2 - 1.3 10/03/2012 Normal [facility] CHEMISTRY AST 50 unit/L 0 - 37 10/03/2012 [facility] CHEMISTRY Alk Phos 95 unit/L 39 - 136 10/03/2012 Normal [facility] CHEMISTRY Chloride Lvl 99 meq/L 95 - 109 10/03/2012 Normal [facility] CHEMISTRY Potassium Lvl 4.0 meq/L 3.5 - 5.1 10/03/2012 Normal [facility] CHEMISTRY Sodium Lvl 136 meq/L 135 - 145 10/03/2012 Normal [facility] CHEMISTRY BUN 18 mg/dL 7 - 22 10/03/2012 Normal [facility] CHEMISTRY Creatinine Lvl 0.9 mg/dL 0.5 - 1.4 10/03/2012 Normal [facility] CHEMISTRY Glucose Lvl 353 mg/dL 70 - 99 10/03/2012 [place] 5Interpretive Data: Adult reference range values reflect the clinical guidelines of the [employer]. [facility] CHEMISTRY AGAP 13.0 meq/L 10.0 - 20.0 10/03/2012 Normal [facility] CHEMISTRY B/C Ratio 20 6 - 25 10/03/2012 Normal [facility] CHEMISTRY Globulin 4.5 g/dL 2.0 - 4.0 10/03/2012 HI [facility] CHEMISTRY A/G Ratio 1.0 0.7 - 1.6 10/03/2012 Normal [facility] HEMATOLOGY Lymphocytes # 3.0 K/CMM 1.0 - 5.5 10/03/2012 Normal [facility] HEMATOLOGY Segs-Bands # 5.7 K/CMM 1.5 - 8.1 10/03/2012 Normal [facility] HEMATOLOGY Basophils # 0.0 K/CMM 0.0 - 0.2 10/03/2012 Normal [facility] HEMATOLOGY Eosinophils # 0.3 K/CMM 0.0 - 0.5 10/03/2012 Normal [facility] HEMATOLOGY Monocytes # 0.6 K/CMM 0.0 - 0.8 10/03/2012 Normal [facility] HEMATOLOGY Segs 59.4 % 45.0 - 75.0 10/03/2012 Normal [facility] HEMATOLOGY Basophils 0.3 % 0.0 - 1.0 10/03/2012 Normal [facility] HEMATOLOGY Eosinophils 3.5 % 0.0 - 4.0 10/03/2012 Normal [facility] HEMATOLOGY Monocytes 5.8 % 2.0 - 12.0 10/03/2012 Normal [facility] HEMATOLOGY Lymphocytes 31.0 % 20.0 - 40.0 10/03/2012 Normal [facility] HEMATOLOGY RBC 4.85 M/CMM 4.20 - 5.40 10/03/2012 Normal [facility] HEMATOLOGY Hct 37.3 % 36.0 - 48.0 10/03/2012 Normal [facility] HEMATOLOGY Hgb 12.5 g/dL 12.0 - 16.0 10/03/2012 Normal [facility] HEMATOLOGY MCH 25.7 pg 27.0 - 31.0 10/03/2012 LOW [facility] HEMATOLOGY RDW 14.3 % 11.5 - 14.5 10/03/2012 Normal [facility] HEMATOLOGY MCHC 33.4 g/dL 32.0 - 36.0 10/03/2012 Normal [facility] HEMATOLOGY MPV 9.0 fL 7.4 - 10.4 10/03/2012 Normal [facility] HEMATOLOGY Platelet 234 K/CMM 133 - 450 10/03/2012 Normal [facility] MCV 76.8 fL 81.0 - 99.0 10/03/2012 LOW [facility] WBC 9.7 K/CMM 3.7 - 10.4 10/03/2012 Normal [facility] PTT 31.6 s 22.9 - 35.8 10/03/2012 Normal 7Interpretive Data: Heparin Therapeutic Range: 57 - 92 Seconds [facility] PT 13.4 s 12.0 - 14.7 10/03/2012 Normal [facility] INR 1.00 0.85 - 1.17 10/03/2012 Normal 6Interpretive Data: RECOMMENDED RANGES FOR PROTIME INR: 2.0-3.0 for most medical and surgical thromboembolic states. 2.5-3.5 for artificial heart valves and recurrent embolism. INR SHOULD BE USED ONLY FOR PATIENTS ON STABLE ANTICOAGULANT THERAPY. [facility] BEDSIDE GLUCOSE TESTING Comment1 Notify RN/MD 10/02/2012 NA [facility] Abdomen/Pelvis w contrast CT Abdomen/Pelvis w [...] Oumar Banda MD 10/02/12 22:09 FINAL REPORT [facility] Vital Signs Vital Sign Value Date Comments Source Weight 210 10/10/2017 Jaquan Freedman Height 63 10/10/2017 Jaquan Freedman Temperature Oral (F) 98.8 F 10/10/2017 Jaquan Freedman Heart Rate 104 10/10/2017 Jaquan Freedman Diastolic (mm Hg) 62 10/10/2017 Jaquan Freedman Systolic (mm Hg) 108 10/10/2017 Jaquan Freedman Temperature Oral (F) 98 F 01/08/2017 [facility] Respitory Rate 18 01/08/2017 [facility] Systolic (mm Hg) 126 01/08/2017 [facility] Diastolic (mm Hg) 85 01/08/2017 [facility] Heart Rate 88 01/08/2017 [facility] Temperature Oral (F) 98.2 F 01/08/2017 [facility] Respitory Rate 18 01/08/2017 [facility] Heart Rate 92 01/08/2017 [facility] Systolic (mm Hg) 116 01/08/2017 [facility] Diastolic (mm Hg) 73 01/08/2017 [facility] Respitory Rate 18 01/08/2017 [facility] Heart Rate 90 01/08/2017 [facility] Temperature Oral (F) 97 F 01/08/2017 [facility] Systolic (mm Hg) 100 01/08/2017 [facility] Diastolic (mm Hg) 74 01/08/2017 [facility] BMI Calculated 37.1 01/07/2017 [facility] Weight 95 01/07/2017 [facility] Height 160.02 cm 01/07/2017 [facility] Height 160.02 cm 01/07/2017 [facility] Weight 95 01/07/2017 [facility] BMI Calculated 37.1 01/07/2017 [facility] Respitory Rate 16 12/20/2016 [facility] Systolic (mm Hg) 123 12/20/2016 [facility] Diastolic (mm Hg) 79 12/20/2016 [facility] BMI Calculated 37.1 12/20/2016 [facility] Weight 95 12/20/2016 [facility] Height 160.02 cm 12/20/2016 [facility] BMI Calculated 37.63 11/25/2016 [facility] Weight 96.364 11/25/2016 [facility] Height 160.02 cm 11/25/2016 [facility] Heart Rate 100 11/25/2016 [facility] Respitory Rate 16 11/25/2016 [facility] Systolic (mm Hg) 115 11/25/2016 [facility] Diastolic (mm Hg) 79 11/25/2016 [facility] Heart Rate 96 01/24/2014 [facility] Respitory Rate 18 01/24/2014 [facility] Systolic (mm Hg) 133 01/24/2014 [facility] Diastolic (mm Hg) 87 01/24/2014 [facility] Height 160.02 cm 01/22/2014 [facility] Weight 87.727 01/22/2014 [facility] BMI Calculated 34.26 01/22/2014 [facility] Weight 90.909 10/02/2012 [facility] Height 160.02 cm 10/02/2012 [facility] Encounters Location Location Details Encounter Type Encounter Number Reason For Visit Attending Provider ADM Date DC Date Status Source [facility] Emergency [id number] WILIAN DANIE 10/02/2012 10/03/2012 Active [facility] Bedded Outpatient [id number] Evelio Olvera 01/24/2014 01/24/2014 [facility] Bedded Outpatient [id number] Dru Pinon 11/25/2016 11/25/2016 [facility] Outpatient [id number] Vivek Peraza 12/20/2016 12/21/2016 [facility] Observation [id number] Calvin Harris 01/07/2017 01/08/2017 [facility] Procedures Procedure Code Date Perfomer Comments Source Carpal tunnel release<sup>1</sup> [id number] 03/14/2016 bilateral 3 months apart [facility] Carpal tunnel release<sup>1</sup> [id number] 03/14/2016 bilateral 3 months apart [facility] Hysterectomy<sup>2</sup> [id number] 03/14/2012 also removal of abdominal scar tiissue with hyst [facility] Primary mesh repair of incisional hernia [id number] 03/14/2012 [facility] Hysterectomy<sup>2</sup> [id number] 03/14/2012 also removal of abdominal scar tiissue with hyst [facility] Primary mesh repair of incisional hernia [id number] 03/14/2012 [facility] Tonsillectomy [id number] [facility] Hysterectomy [id number] [facility] Appendectomy [id number] [facility] Esophagogastroduodenoscopy<sup>3</sup> [id number] with dilation of esophageal stricture [facility] Laparoscopic cholecystectomy [id number] [facility] Ligament repair<sup>4</sup> 12681774 torn ligament repair of bilat ankles after a fall [facility] Operation<sup>5</sup> [id number] resection of colon for diverticulis [facility] Operation<sup>6</sup> 544191284 heel spurs surgery, bilat [facility] Operation<sup>7</sup> [id number] removal of sweat glands from left armpit [facility] Operation<sup>8</sup> 668884995 abdominal "repairs" x 3 [facility] Operation<sup>9</sup> 793680650 removal of cyst from left upper thigh [facility] Appendectomy [id number] [facility] Esophagogastroduodenoscopy<sup>3</sup> [id number] with dilation of esophageal stricture [facility] Laparoscopic cholecystectomy [id number] [facility] Ligament repair<sup>4</sup> 01915094 torn ligament repair of bilat ankles after a fall [facility] Operation<sup>5</sup> 932612137 resection of colon for diverticulis [facility] Operation<sup>6</sup> [id number] heel spurs surgery, bilat [facility] Operation<sup>7</sup> 206204861 removal of sweat glands from left armpit [facility] Operation<sup>8</sup> 161752375 abdominal "repairs" x 3 [facility] Operation<sup>9</sup> 146791745 removal of cyst from left upper thigh [facility] Tonsillectomy [id number] [facility]
[2018-03-27] MEDS: SODIUM CHLORIDE 0.9% 1000ML 1,000 ML IV SCH (21:38)
[2018-03-27] MEDS: INSULIN REGULAR, HUMAN 100 UNIT/1 ML 3ML VIAL SQ SCH (22:52)
[2018-03-27 23:24] VITALS: BP 132/68
[2018-03-28] VITALS (7 sets, daily range): BP systolic 108–138; BP diastolic 60–80
[2018-03-28] MEDS: MORPHINE SULFATE INJ 4 MG/ML INJ IV PRN ×5 (00:23→22:51)
[2018-03-28] MEDS: ONDANSETRON HCL INJ 2 MG/ML VIAL IV PRN ×2 (00:23→05:00)
[2018-03-28] MEDS: INSULIN REGULAR, HUMAN 100 UNIT/1 ML 3ML VIAL SQ SCH ×4 (07:30→21:00)
[2018-03-28] MEDS ORDERED: PROMETHAZINE 25MG/ NS 50ML (IV) IV PRN (07:30)
--- NOTE | 2018-03-28 09:26 | NUR ---
SOCIAL WORK INITIAL ASSESSMENT Ash Collector to bedside to discuss plan of care with patient/family. CM/SW role and care transitions discussed. Anticipated discharge plan discussed along with duration of care. CM/SW discussed patients right to make decisions in care. CM/SW work hours given. 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 Name and number was also written on the patients whiteboard. Patient verbalized understanding of discussion. CM will follow-up with ongoing discharge and transition of care needs.
[2018-03-28] MEDS ORDERED: NON-FORMULARY MEDICATION ([Phenergan] 25 MG) PO SCH (11:00)
[2018-03-28] MEDS ORDERED: INSULIN GLARGINE SQ SCH (11:00)
--- NOTE | 2018-03-28 11:13 | Diagnostic Imaging Report ---
EXAM: Double contrast barium swallow INDICATION: Dysphagia, history of esophageal strictures status post multiple balloon dilatations, most recently in December 31, 2017 COMPARISON: None available. Technique: Effervescent crystals and barium were ingested by mouth and multiple fluoroscopic spot images of the esophagus and stomach were obtained. A solid barium tablet was administered at the conclusion of the examination. FINDINGS: ESOPHAGUS: Motility: Multiple tertiary nonperistaltic contractions incidentally noted. Mucosa: Unremarkable. Distensibility: Unremarkable. No distal esophageal stricture is appreciated. Brisk passage of liquid contrast material into the stomach. Solid barium tablet passed easily across the gastroesophageal junction. GASTROESOPHAGEAL JUNCTION: No evidence of hiatal hernia. GASTROESOPHAGEAL REFLUX: None observed. STOMACH: Limited views show unremarkable rugal pattern. The distal stomach is not included on the examination. Fluoroscopy Time: 0.7 minutes. Air Kerma: 93.5 mGy IMPRESSION: No evidence of recurrent esophageal stricture in this patient with reported history of multiple endoscopic balloon dilatation procedures. Signed by: Dr. Gilberto Álvarez M.D. on 03/28/2018 11:10 AM
[2018-03-28] MEDS: SODIUM CHLORIDE 0.9% 1000ML 1,000 ML IV SCH ×2 (11:19→22:39)
[2018-03-28] MEDS ORDERED: PROMETHAZINE HCL 25 MG TAB PO PRN (11:30)
[2018-03-28] MEDS: METOCLOPRAMIDE HCL 10 MG TAB PO SCH ×3 (11:30→22:32)
--- NOTE | 2018-03-28 13:54 | NUR ---
Call recvd from Dr Purnima Olvera to get consent for EGD this afternoon, On Consent patient refused to sign for Blood and blood product administration, Form for Refusal Blood and Blood product has signed by patient
--- NOTE | 2018-03-28 14:42 | NUR ---
PATIENT OFF THE UNIT FOR PROCEDURE , STABLE
[2018-03-28] MEDS ORDERED: SIMETHICONE 40 MG/0.6 ML BTL ONE (14:48)
--- NOTE | 2018-03-28 15:05 | NUR ---
Visit made by the Spiritual Care Department Pastoral Visitor, Viviana Flores. PV provided pastoral presence, hospitality, and supportive listening. Pastoral Visitor informed pt/family of the scope of [employer] and availability. FAYE MCGARRY Admissions Nurse Spiritual Care Department O: [phone] Pager: [phone] ([phone] number calling from)
[2018-03-28] MEDS ORDERED: PANTOPRAZOLE 40 MG 10ML VIAL IV NR (16:00)
--- NOTE | 2018-03-28 16:05 | NUR ---
Patient back to room from EGD, stable, vitals stable, no distress noted
--- NOTE | 2018-03-28 16:20 | Operative Report ---
DATE OF PROCEDURE: March 28, 2018 REFERRING PHYSICIAN: Dr. Jason Rolle PROCEDURE PERFORMED: Esophagogastroduodenoscopy with esophageal dilatation and biopsies. INDICATIONS FOR EGD: Dysphagia to solids. MEDICATION: Patient was done under MAC. Please see anesthesiologist's note. PROCEDURE: With the patient in the left lateral decubitus position, the flexible fiberoptic Olympus gastroscope was introduced into the esophagus under direct visualization without any difficulty. There is some patchy erythema noted in the distal esophagus. The esophagus was then dilated to a size 54-Welsh Fan. The scope was then advanced with ease into the stomach. Mucosa overlying the antrum and the body revealed some patchy intense erythema and moderate edema, and biopsies were obtained and sent to stain for Helicobacter pylori. Minute polyps were noted in the distal body and anterior wall, and some were partially excised with the cold biopsy forceps. Pylorus appeared to be of normal contour and shape. It was intubated with ease. The scope was advanced all the way to the 2nd portion of the duodenum. The scope was then withdrawn slowly. Mucosa overlying the proximal 2nd portion and the duodenal bulb grossly appeared to be within limits. The scope was then withdrawn back into the stomach and retroflexed. Mucosa overlying the fundus and the cardia appeared to be within normal limits. The scope was then straightened out. It was subsequently withdrawn. Patient tolerated the procedure well. IMPRESSION 1. Distal esophagitis. 2. Esophagus dilated to size 54-Welsh Fan. 3. Gastritis, biopsied. Biopsy sent to stain for Helicobacter pylori. 4. Gastric polyps, distal body, biopsied. PLAN: Follow up histology. Continue current therapy. Initiate full liquid diet. Job#: [id number] RI cc:JASON ROLLE MD
[2018-03-28] MEDS ORDERED: PANTOPRAZOLE SODIUM 40 MG SUSPDR.PKT PO SCH (17:00)
[2018-03-28] MEDS ORDERED: PANTOPRAZOLE SOD 40 MG TABEC PO SCH (17:00)
[2018-03-28] MEDS ORDERED: NON-FORMULARY MEDICATION (Glipizide 20 MG) PO SCH (17:00)
[2018-03-28] MEDS: GLIPIZIDE 5 MG TAB PO SCH (17:00)
[2018-03-28] MEDS: METOPROLOL SUCCINATE 25 MG TAB XL PO SCH (17:40)
[2018-03-28] MEDS: PANTOPRAZOL 40MG/SOD CHL 0.9% 50 ML IV SCH ×2 (17:41→22:51)
--- NOTE | 2018-03-28 18:38 | NUR ---
patient resting in bed, Alert with no distress, not in any pain, call light in reach, at bed side
[2018-03-28] MEDS ORDERED: FENTANYL CITRATE/PF 100MCG/2 ML INJ ONE (18:53)
[2018-03-28] MEDS ORDERED: MIDAZOLAM HCL 2 MG/2 ML VIAL ONE (18:53)
[2018-03-28] MEDS ORDERED: PROPOFOL IV EMULSION 10 MG/ML 20 ML VIAL ONE (19:37)
[2018-03-28] MEDS ORDERED: LIDOCAINE HCL 2% LOCAL INJ 5 ML SDV VIAL INJ ONE (19:37)
[2018-03-28] MEDS: LISINOPRIL 10 MG TAB PO SCH (21:00)
[2018-03-28] MEDS ORDERED: NON-FORMULARY MEDICATION (Amitriptyline Hcl 150 MG) PO SCH (21:00)
[2018-03-28] MEDS: AMITRIPTYLINE HCL 25 MG TAB PO SCH (22:32)
[2018-03-28] MEDS: DIPHENHYDRAMINE HCL INJ 50 MG/ML VIAL IV PRN (22:51)
[2018-03-29] VITALS (8 sets, daily range): BP systolic 99–116; BP diastolic 55–71
[2018-03-29] MEDS: PANTOPRAZOL 40MG/SOD CHL 0.9% 50 ML IV SCH ×5 (03:34→23:05)
[2018-03-29] MEDS: SODIUM CHLORIDE 0.9% 1000ML 1,000 ML IV SCH ×4 (03:34→22:07)
--- NOTE | 2018-03-29 07:08 | NUR ---
handoff report and walking rounds with outgoing night coordinator nurse.
[2018-03-29] MEDS: INSULIN REGULAR, HUMAN 100 UNIT/1 ML 3ML VIAL SQ SCH ×4 (07:30→21:00)
[2018-03-29] MEDS: SITAGLIPTIN 100 MG TAB PO SCH (08:15)
[2018-03-29] MEDS: CANAGLIFLOZIN 100 MG TABLET PO SCH (08:15)
[2018-03-29] MEDS: GLIPIZIDE 5 MG TAB PO SCH ×2 (08:15→17:00)
[2018-03-29] MEDS: METOCLOPRAMIDE HCL 10 MG TAB PO SCH ×4 (08:15→21:11)
[2018-03-29] MEDS: METOPROLOL SUCCINATE 25 MG TAB XL PO SCH ×2 (08:50→17:21)
[2018-03-29] MEDS ORDERED: INVOKANA 100 MG PO SCH (09:00)
[2018-03-29] MEDS: ONDANSETRON HCL INJ 2 MG/ML VIAL IV PRN ×2 (09:10→18:53)
[2018-03-29] MEDS: MORPHINE SULFATE INJ 4 MG/ML INJ IV PRN ×2 (09:10→18:30)
--- NOTE | 2018-03-29 11:45 | NUR ---
350mL of orange juice given to the patient for BSG 59.
[2018-03-29] MEDS: LISINOPRIL 10 MG TAB PO SCH (21:00)
[2018-03-29] MEDS: AMITRIPTYLINE HCL 25 MG TAB PO SCH (21:11)
[2018-03-29] MEDS: DIPHENHYDRAMINE HCL INJ 50 MG/ML VIAL IV PRN (22:27)
[2018-03-30] MEDS: MORPHINE SULFATE INJ 4 MG/ML INJ IV PRN ×2 (02:51→10:00)
[2018-03-30 03:12] VITALS: BP 112/63
[2018-03-30] MEDS: PANTOPRAZOL 40MG/SOD CHL 0.9% 50 ML IV SCH ×2 (04:02→10:00)
--- NOTE | 2018-03-30 07:10 | NUR ---
Pt alert resp even and unlabored at this time no distress noted, pt able to make needs known, no c/o pain when asked, call light in reach.
[2018-03-30] MEDS: INSULIN REGULAR, HUMAN 100 UNIT/1 ML 3ML VIAL SQ SCH ×2 (07:30→11:30)
[2018-03-30 08:00] VITALS: BP 120/65
[2018-03-30] MEDS: METOCLOPRAMIDE HCL 10 MG TAB PO SCH (08:00)
[2018-03-30] MEDS: GLIPIZIDE 5 MG TAB PO SCH (09:00)
[2018-03-30] MEDS: SITAGLIPTIN 100 MG TAB PO SCH (09:00)
[2018-03-30] MEDS: METOPROLOL SUCCINATE 25 MG TAB XL PO SCH (09:00)
[2018-03-30] MEDS: CANAGLIFLOZIN 100 MG TABLET PO SCH (09:00)
[2018-03-30] MEDS: ONDANSETRON HCL INJ 2 MG/ML VIAL IV PRN (10:00)
[2018-03-30 12:00] VITALS: BP 103/57
--- NOTE | 2018-03-30 13:00 | NUR ---
pt discharged home with no prescriptions at this time, pt was educated to cont to take her home medications, and to follow up with her PCP. pt iv site removed at this time. no swelling no redness to site.
== END 2018-03-30 13:01 | disposition home or self-care (01) ==
LOC: ER 15:25 → ERHOLD 19:23 → IMCU 23:07
DX: R13.14 Dysphagia, pharyngoesophageal phase (principal); R10.84 Generalized abdominal pain; I10 Essential (primary) hypertension; E11.9 Type 2 diabetes mellitus without complications; M19.90 Unspecified osteoarthritis, unspecified site; M06.9 Rheumatoid arthritis, unspecified; Z88.1 Allergy status to other antibiotic agents; Z88.0 Allergy status to penicillin; Z88.2 Allergy status to sulfonamides; Z88.8 Allergy status to other drugs, medicaments and biological substances; E78.5 Hyperlipidemia, unspecified; Z79.4 Long term (current) use of insulin; R19.7 Diarrhea, unspecified; K57.30 Diverticulosis of large intestine without perforation or abscess without bleeding; K20.9 Esophagitis, unspecified; K29.70 Gastritis, unspecified, without bleeding; K31.7 Polyp of stomach and duodenum
CPT/HCPCS: 36415 ×4; 43239; 43450; 74220; 80053; 81001; 81025; 82948 ×4; 83690; 85025; 87086; 87493; 88305; 88312; 99284; G0378 ×4; J1170; J1200 ×2; J2001; J2250; J2270 ×4; J2405 ×4; J2550; J2704; J7030 ×4

== ENCOUNTER → 2018-05-04 | Outpatient (CLI) | payer OTHER ==
[~2018-05-04] MED LIST changes: +DIATRIZOATE MEGL/DIATRIZOA SOD 30 ML BTL PO ONE; +IOPAMIDOL 370 MG/ML 200 ML INFUS..BTL INJ ONE; +SODIUM CHLORIDE 0.9% 50ML 50 ML ONE
[2018-05-04 08:02] LABS: BLOOD UREA NITROGEN 15 mg/dL (7-26); BUN/CREATININE RATIO 18 (6-25); CREATININE, SERUM 0.85 mg/dL (0.57-1.11); EST GLOMERULAR FILTRATION RATE > 60 ML/MIN (60-)
--- NOTE | 2018-05-04 09:32 | Diagnostic Imaging Report ---
EXAMINATION: CT of the abdomen and pelvis with contrast. TECHNIQUE: Spiral CT images of the abdomen and pelvis were performed from the lung bases to the lesser trochanters after the intravenous administration of 100 cc of Isovue-370 and the oral administration of Gastrografin. Coronal and sagittal reformatted images were obtained. COMPARISON: 07/11/2017 CLINICAL HISTORY:Lower abdominal pain DISCUSSION: ABDOMEN/PELVIS: LOWER THORAX:Unremarkable. HEPATOBILIARY: Hepatic parenchyma is diffusely hypoattenuating No intra-or extrahepatic biliary ductal dilation. The gallbladder has been removed. SPLEEN: No splenomegaly. PANCREAS: No focal masses or ductal dilatation. ADRENALS: No adrenal nodules. KIDNEYS/URETERS: No hydronephrosis, stones, or solid mass lesions. PELVIC ORGANS/BLADDER: Urinary bladder is unremarkable. Uterus is not identified and has presumably been removed. No adnexal mass. PERITONEUM/RETROPERITONEUM: No free air or fluid. LYMPH NODES: No pelvic sidewall, retroperitoneal, or mesenteric lymphadenopathy. Upper abdominal/gisela hepatis lymph nodes described on the comparison examination are less conspicuous on the current study. VESSELS: Abdominal aorta, major branch vessels, and iliac arterial systems are patent, without aneurysmal dilatation. Portal vein, splenic vein, and central superior mesenteric vein are patent. GI TRACT: The large bowel shows no evidence of distention or wall thickening. There are a few sigmoid diverticula without wall thickening or adjacent inflammation. Gas and fecal material are noted throughout the remainder of the large bowel. The appendix is normal. There is no small bowel dilatation to suggest obstruction. BONES AND SOFT TISSUE: No bony destructive lesions. Postsurgical changes of the anterior abdominal wall. Otherwise no focal soft tissue abnormalities. IMPRESSION: No acute intra-abdominal or pelvic CT abnormalities. No significant interval change relative to 07/11/2017. Persistent findings include hepatic steatosis and sigmoid diverticulosis without findings of diverticulitis. Signed by: Dr. Gilberto Álvarez M.D. on 05/04/2018 9:29 AM
== END ==
LOC: CT 07:22
PROVIDERS: ATTEND Internal Medicine Gastroenterology
DX: R10.30 Lower abdominal pain, unspecified (principal)
CPT/HCPCS: 36415; 74177; 82565; 84520; Q9967

== ENCOUNTER → 2018-06-01 | Day surgery (SDC) | payer OTHER ==
[~2018-06-01] MED LIST changes: -DIATRIZOATE MEGL/DIATRIZOA SOD 30 ML BTL PO ONE; +FENTANYL CITRATE/PF 100MCG/2 ML INJ ONE; -IOPAMIDOL 370 MG/ML 200 ML INFUS..BTL INJ ONE; +MIDAZOLAM HCL 2 MG/2 ML VIAL ONE; +PROPOFOL IV EMULSION 10 MG/ML 50 ML VIAL ONE; +ROBAXIN-750750 MG PO; -SODIUM CHLORIDE 0.9% 50ML 50 ML ONE
--- OUTSIDE RECORDS SUMMARY | 2018-06-01 05:54 | XMS REPORT | Continuity of Care Document ---
Author Author [facility] Interface Address Unknown Phone Unavailable Problems Problem Status Onset Date Classification Date Reported Comments Source TROUBLE SWALLOWING Active 01/06/2017 [facility] DYSPHAGIA Active 01/06/2017 [facility] ESOPHAGEAL ISSUES Active 09/30/2016 [facility] UNK Active 09/29/2016 [facility] R10.12 - LEFT UPPER QUADRANT PAIN Active 02/10/2016 [facility] [place] 787.20/789.07 Active 01/17/2014 [facility] ABD PAIN Active 10/02/2012 [facility] Abdominal hernia Active Problem 01/11/2017 [facility] Diabetes mellitus Active Problem 01/11/2017 [facility] Dysphagia Active Problem 01/11/2017 [facility] FH: Diabetes mellitus Active Problem 01/11/2017 [facility] Diabetic gastroparesis Active Problem 01/11/2017 [facility] GERD - Gastro-esophageal reflux disease Resolved Problem 01/11/2017 [facility] Heartburn Active Problem 01/11/2017 [facility] HTN - Hypertension Active Problem 01/11/2017 [facility] Insomnia due to anxiety and fear Resolved Problem 01/11/2017 [facility] 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 [facility] Obesity Active Problem 01/11/2017 [facility] Osteoarthritis Active Problem 01/11/2017 [facility] RA (<span ID="[id number]">Confirmed</span>) Active Problem 01/11/2017 [facility] Abdominal hernia Active Problem 10/05/2012 [facility] FH: Diabetes mellitus Active Problem 10/05/2012 [facility] HTN - Hypertension Active Problem 10/05/2012 [facility] Heel spur Resolved Problem 01/11/2017 [facility] Acid reflux disease Resolved Problem 01/11/2017 [facility] Polyarthritis Active Diagnosis 10/28/2017 Jaquan Freedman DYSPHAGIA, UNSPECIFIED Active [facility] Medications Medication Details Route Status Patient Instructions Ordering Provider Order Date Source influenza virus vaccine, inactivated 0.5 mL, Route: IM, Drug Form: SUSP, Daily, Start date: 01/08/17 14:30:00 CDT, Duration: 1 doses or times, Stop date: 01/08/17 14:30:00 CDTNotes: (Same as: Fluzone Quadrivalent, Fluarix Quadrivalent) For 3 years of age and older (0.5 mL IM) Shake well before use Inactive 01/08/2017 [facility] Benadryl 25 mg, 1 cap, Route: PO, Drug form: CAP, Bedtime, Dosing Weight 95, kg, PRN Insomnia, Start date: 01/07/17 20:46:00 CDT, Duration: 30 day, Stop date: 02/06/17 20:45:00 CSTNotes: (Same as: Benadryl) No Longer Active 01/08/2017 [facility] Chloraseptic 1.4% spray 1 spray, Route: TOP, Daily, Drug form: SPRY, PRN Sore Throat, Start date: 01/07/17 20:46:00 CDT, Duration: 30 day, Stop date: 02/06/17 20:45:00 CSTNotes: Chloraseptic [place] (Same as: Chloraseptic, Sore Throat [place]) WASTE: F/P - Black; E - [employer] Trash Bin No Longer Active 01/08/2017 [facility] hydromorphone 0.5 mg, 0.25 mL, Route: IVP, Drug form: INJ, ONCE, Dosing Weight 95, kg, Priority: Routine, Start date: 01/07/17 13:03:00 CDT, Stop date: 01/07/17 13:03:00 CDTNotes: Same as: Dilaudid Inactive 01/07/2017 [facility] Phenergan 12.5 mg, 0.5 mL, Route: IVPB, Drug form: INJ, Q6H, Dosing Weight 95, kg, PRN Nausea & Vomiting, Start date: 01/07/17 9:58:00 CDT, Duration: 30 day, Stop date: 02/06/17 9:57:00 CSTNotes: Do not give IV push. (Same as: Phenergan) No Longer Active 01/07/2017 [facility] influenza virus vaccine, inactivated 0.5 mL, Route: IM, Drug Form: SUSP, Daily, Start date: 01/07/17 9:00:00 CDT, Duration: 1 doses or times, Stop date: 01/07/17 9:00:00 CDTNotes: (Same as: Fluzone Quadrivalent, Fluarix Quadrivalent) For 3 years of age and older (0.5 mL IM) Shake well before use No Longer Active 01/07/2017 [facility] Dextrose 50% Syringe 12.5 gm, 25 mL, Route: IVP, Drug Form: INJ, Dosing Weight 95, kg, PRN, PRN Blood Glucose Results, Start date: 01/07/17 6:54:00 CDT, Duration: 30 day, Stop date: 02/06/17 5:53:00 [employer] No Longer Active 01/07/2017 [facility] glucagon 1 mg, Route: IM, Drug form: PDR/INJ, PRN, Dosing Weight 95, kg, PRN Blood Glucose Results, Start date: 01/07/17 6:54:00 CDT, Duration: 30 day, Stop date: 02/06/17 5:53:00 [employer] No Longer Active 01/07/2017 [facility] insulin lispro 1 unit, 0.01 [...] days from Date No Longer Active 01/07/2017 [facility] Phenergan 25 mg oral tablet 25 mg=1 tab, PO, Q6H, 0 Refill(s) Active 01/07/2017 [facility] Toujordan SoloStar 300 units/mL subcutaneous solution SUB- Q, Daily, 0 Refill(s) No Longer Active 01/07/2017 [facility] Dilaudid 0.5 mg, 0.25 mL, Route: IVP, Drug form: INJ, ONCE, Dosing Weight 95, kg, Priority: STAT, Start date: 01/07/17 6:28:00 CDT, Stop date: 01/07/17 6:28:00 CDTNotes: Same as: Dilaudid Inactive 01/07/2017 [facility] ondansetron 4 mg, 2 mL, Route: IVP, Drug form: INJ, ONCE, Dosing Weight 95, kg, Priority: STAT, Start date: 01/07/17 2:33:00 CDT, Stop date: 01/07/17 2:33:00 CDTNotes: (Same as: Zofran) MEDICATION WASTE Product Size: 4 mg Product Wasted: ___ mg Inactive 01/07/2017 [facility] ondansetron 4 mg, 2 mL, Route: IVP, Drug form: INJ, Q6H, Dosing Weight 95, kg, PRN Nausea & Vomiting, Start date: 01/07/17 1:50:00 CDT, Duration: 30 day, Stop date: 02/06/17 1:49:00 CSTNotes: (Same as: Zofran) MEDICATION WASTE Product Size: 4 mg Product Wasted: ___ mg No Longer Active 01/07/2017 [facility] docusate 100 mg, 1 cap, Route: PO, Drug form: CAP, BID, Dosing Weight 95, kg, PRN Constipation, Start date: 01/07/17 1:50:00 CDT, Duration: 30 day, Stop date: 02/06/17 1:49:00 [employer] No Longer Active 01/07/2017 [facility] acetaminophen 650 mg, 2 tab, Route: PO, Drug form: TAB, Q4H, Dosing Weight 95, kg, PRN Pain 1-3/Temp > 100.4 F, Start date: 01/07/17 1:50:00 CDT, Duration: 30 day, Stop date: 02/06/17 1:49:00 CSTNotes: Do not exce ed 4 gm/day. (Same as: Tylenol) No Longer Active 01/07/2017 [facility] morphine Sulfate 6 mg, 1.5 mL, Route: IVP, Drug form: SOLN, ONCE, Dosing Weight 95, kg, Priority: STAT, Start date: 01/07/17 0:27:00 CDT, Stop date: 01/07/17 0:27:00 CDTNotes: (Same as:MORPhine Sulfate) Inactive 01/07/2017 [facility] Lactated Ringers 1,000 mL 1,000 mL, Rate: 100 ml/hr, Infuse over: 10 hr, Route: IV, Dosing Weight 95 kg, Total Volume: 1,000, Start date: 01/07/17 0:26:00 CDT, Duration: 30 day, Stop date: 02/06/17 0:25:00 [employer] No Longer Active 01/07/2017 [facility] Sodium Chloride 0.9% (Bolus) IV 1,000 mL, 1000 ml/hr, Infuse Over: 1 hr, Route: IV, 1,000, Drug form: INJ, ONCE, Priority: STAT, Dosing Weight 95 kg, Start date: 01/06/17 22:06:00 CDT, Duration: 1 doses or times, Stop date: 01/06/17 22:06:00 CDT Inactive 01/07/2017 [facility] Phenergan 25 mg, 1 mL, Route: IVPB, Drug form: INJ, ONCE, Dosing Weight 95, kg, Priority: STAT, Start date: 01/06/17 21:52:00 CDT, Stop date: 01/06/17 21:52:00 CDTNotes: (Same as: Phenergan) Inactive 01/07/2017 [facility] hydromorphone 1 mg, 0.5 mL, Route: IVP, Drug form: INJ, ONCE, Dosing Weight 95, kg, Priority: STAT, Start date: 01/06/17 21:51:00 CDT, Stop date: 01/06/17 21:51:00 CDTNotes: Same as: Dilaudid Inactive 01/07/2017 [facility] Zofran 4 mg, Route: IVP, Drug form: INJ, ONCE, Dosing Weight 95, kg, Start date: 01/06/17 21:50:00 CDT, Stop date: 01/06/17 21:50:00 CDT Inactive 01/07/2017 [facility] morphine Sulfate 4 mg, Route: IVP, ONCE, Dosing Weight 95, kg, Start date: 01/06/17 21:50:00 CDT, Stop date: 01/06/17 21:50:00 CDT Inactive 01/07/2017 [facility] Omnipaque 350mg/ml 100 mL, Route: IVP, Drug Form: SOLN, Dosing Weight 95, kg, ONCALL, STAT, Start date: 01/06/17 20:53:00 CDT, Duration: 1 doses or times, Dose=2.2ml/kg, Max [id number]=[id number] -- "To be infused by Radiology Staff ONLY"Notes: (same as:Omnipaque 350). WASTE: F/P - Black; E - [employer]ash [employer] Inactive 01/07/2017 [facility] dexamethasone 10 mg, 2.5 mL, Route: IVP, Drug form: INJ, ONCE, Dosing Weight 95, kg, Priority: STAT, Start date: 01/06/17 19:55:00 CDT, Stop date: 01/06/17 19:55:00 CDTNotes: Concentration: 4mg/ml No Longer Active 01/07/2017 [facility] clindamycin 600 mg, 4 mL, Route: IVPB, Drug form: INJ, ONCE, Dosing Weight 95, kg, Priority: STAT, Start date: 01/06/17 19:54:00 CDT, Duration: 1 doses or times, Stop date: 01/06/17 19:54:00 CDT, ABX Indication: Sk in/Soft Tissue InfectionNotes: (clindamycin 150 mg/1 ml (600 mg/4 ml VL) INJ) (Same As: Cleocin) No Longer Active 01/07/2017 [facility] Sodium Chloride 0.9% (Bolus) IV 1,000 mL, Infuse Over: 1 hr, Route: IV, ONCE, Priority: STAT, Dosing Weight 95 kg, Start date: 01/06/17 19:50:00 CDT, Duration: 1 doses or times, Stop date: 01/06/17 19:50:00 CDT Inactive 01/07/2017 [facility] Glipizide 10 MG Oral Tablet 20 mg=2 tab, PO, BID-Before Meals, # 180 tab, 1 Refill(s) Active 11/25/2016 [facility] sitagliptin 100 MG Oral Tablet [Januvia] 100 mg=1 tab, PO, Daily, # 30 tab, 0 Refill(s) Active 11/25/2016 [facility] canagliflozin 300 MG Oral Tablet [Invokana] 300 mg=1 tab, PO, Before Breakfast, # 30 tab, 5 Refill(s) Active 11/25/2016 [facility] 1.5 ML Insulin Glargine 300 UNT/ML Prefilled Syringe [Toujeo] 80 unit, SUB-Q, Bedtime, 0 Refill(s) Active 11/25/2016 [facility] Benadryl 50 mg, PO, Bedtime, 0 Refill(s) Active 01/22/2014 [facility] 3 ML Insulin Lispro 100 UNT/ML Prefilled Syringe [Humalog] 43 unit, SUB-Q, TID-Before Meals, 0 Refill(s) Active 01/22/2014 [facility] Amitriptyline 100 mg, PO, Bedtime, 0 Refill(s) Active 01/22/2014 [facility] insulin detemir 100 UNT/ML Injectable Solution [Levemir] 30 unit, SUB-Q, Daily, 0 Refill(s) Active 01/22/2014 [facility] lisinopril 10 mg oral tablet 10 mg=1 tab, PO, Daily, # 30 tab, 0 Refill(s) Active 01/22/2014 [facility] pantoprazole 40 MG Enteric Coated Tablet [Protonix] 40 mg=1 tab, PO, BID, # 30 tab, 0 Refill(s) Active 01/22/2014 [facility] Metoclopramide 10 MG Oral Tablet [Reglan] 20 mg=2 tab, PO, QID, # 360 tab, 0 Refill(s) Active 01/22/2014 [facility] Sucralfate 1000 MG Oral Tablet [Carafate] 1 gm=1 tab, PO, QID-Before Meals, # 120 tab, 0 Refill(s) Active 01/22/2014 [facility] Insulin regular 5 unit, Route: SUB-Q, ONCE, Dosing Weight 90.909, kg, Priority: STAT, Start date: 10/03/12 0:17:00, Stop date: 10/03/12 0:17:00 SUB-Q No Longer Active [facility] 10/03/2012 [facility] Zofran 4 mg, Route: IVP, Drug form: INJ, ONCE, Dosing Weight 90.909, kg, Priority: STAT, Start date: 10/02/12 23:07:00, Stop date: 10/02/12 23:07:00 IVP No Longer Active [facility] 10/03/2012 [facility] morphine Sulfate 4 mg, Route: IVP, Drug form: INJ, ONCE, Dosing Weight 90.909, kg, Priority: STAT, Start date: 10/02/12 23:05:00, Stop date: 10/02/12 23:05:00 IVP No Longer Active [facility] 10/03/2012 [facility] Macrodantin 100 mg oral capsule 100 mg, 1 cap, PO, QID, 40 cap, Substitution Allowed, CAP PO Active [facility] 10/03/2012 [facility] Bentyl 10 mg oral capsule 10 mg, 1 cap, PO, QID, 28 cap, Substitution Allowed, CAP PO Active [facility] 10/03/2012 [facility] Zofran 4 mg oral tablet 4 mg, 1 tab, PO, BID, 10 tab, Substitution Allowed PO Active [facility] 10/03/2012 [facility] [place] 5/325 oral tablet 1-2 tab, PO, Q4-6H, PRN, 15 tab, Pain, Substitution Allowed, Maintenance PO Active [facility] 10/03/2012 [facility] NS (Bolus) IV 500 mL 500 mL, Rate: 500 ml/hr, Infuse over: 1 hr, Route: IV, Dosing Weight 90.909 kg, Total Volume: 500, Priority: STAT, Start date: 10/02/12 22:40:00, Duration: 1 doses or times, Stop date: 10/02/12 23:39:00, Bolus DoseBolus Dose IV No Longer Active [facility] 10/03/2012 [facility] Insulin regular 5 unit, Route: SUB-Q, ONCE, Dosing Weight 90.909, kg, Priority: STAT, Start date: 10/02/12 22:39:00, Stop date: 10/02/12 22:39:00 SUB-Q No Longer Active [facility] 10/03/2012 [facility] ceftriaxone + Sodium Chloride 0.9% IV 100 mL 1 gm, Route: IVPB, ONCE, Dosing Weight 90.909, kg, Priority: STAT, Start date: 10/02/12 21:13:00, Stop date: 10/02/12 21:13:00 IVPB No Longer Active [facility] 10/03/2012 [facility] NS 1,000 mL 1,000 mL, Rate: 150 ml/hr, Infuse over: 6.7 hr, Route: IV, Dosing Weight 90.909 kg, Total Volume: 1,000, Start date: 10/02/12 20:37:00, Duration: 30 day, Stop date: 11/01/12 20:36:00 IV No Longer Active [facility] 10/03/2012 [facility] NS (Bolus) IV 1000 mL 1,000 mL, Rate: 1,000 ml/hr, Infuse over: 1 hr, Route: IV, Dosing Weight 90.909 kg, Total Volume: 1,000, Priority: STAT, Start date: 10/02/12 20:37:00, Duration: 1 doses or times, Stop date: 10/02/12 21:36:00, Bolus DoseBolus Dose IV No Longer Active [facility] 10/03/2012 [facility] Saline Flush 0.9% 5 mL, Route: IVP, Drug Form: INJ, Dosing Weight 90.909, kg, PRN, PRN Line Flush, Start date: 10/02/12 20:24:00, Duration: 24 hr, Stop date: 10/03/12 20:23:00 IVP No Longer Active [facility] 10/03/2012 [facility] ondansetron 4 mg, 2 mL, Route: IVP, Drug form: INJ, ONCE, Dosing Weight 90.909, kg, Priority: STAT, Start date: 10/02/12 20:24:00, Stop date: 10/02/12 20:24:00 IVP No Longer Active [facility] 10/03/2012 [facility] morphine Sulfate 4 mg, 2 mL, Route: IVP, Drug form: INJ, ONCE, Dosing Weight 90.909, kg, Priority: STAT, Start date: 10/02/12 20:24:00, Stop date: 10/02/12 20:24:00 IVP No Longer Active [facility] 10/03/2012 [facility] Phenergan 1 tablet as needed Orally [...] MG Orally Once a day Mari Jaquan Rojaser Invokana 1 tablet Orally Active 100 MG [...] rash Adverse Reaction Active 10/10/2017 Jaquan Freedman Bentyl<sup>1</sup> Assertion Drug allergy Active rash [facility] Levaquin Assertion Drug allergy Active [facility] penicillins Assertion Drug allergy Active [facility] sulfa drugs<sup>2</sup> Assertion Drug allergy Active rash [facility] tetracyclines Assertion Drug allergy Active [facility] Immunizations Immunization Date Given Site Status Last Updated Comments Source influenza virus vaccine, inactivated 01/08/2017 Left deltoid completed Benimana [facility] Results Order Name Results Value Reference Range Date Interpretation Comments Source CHEM PANEL Phosphorus 3.6 mg/dL 2.5 - 4.5 01/07/2017 [facility] CHEM PANEL B/C Ratio 15 6 - 25 01/07/2017 [facility] CHEM PANEL AGAP 13.0 meq/L 10.0 - 20.0 01/07/2017 [facility] CHEM PANEL Globulin 3.7 g/dL 2.7 - 4.2 01/07/2017 [facility] CHEM PANEL A/G Ratio 1.0 0.7 - 1.6 01/07/2017 [facility] CHEM PANEL Potassium Lvl 4.0 meq/L 3.5 - 5.1 01/07/2017 [facility] CHEM PANEL CO2 24 meq/L 24 - 32 01/07/2017 [facility] CHEM PANEL Chloride Lvl 105 meq/L 95 - 109 01/07/2017 [facility] CHEM PANEL Calcium Lvl 8.4 mg/dL 8.5 - 10.5 01/07/2017 [facility] CHEM PANEL Creatinine Lvl 0.89 mg/dL 0.50 - 1.40 01/07/2017 [facility] CHEM PANEL Sodium Lvl 138 meq/L 135 - 145 01/07/2017 [facility] CHEM PANEL BUN 13 mg/dL 7 - 22 01/07/2017 [facility] CHEM PANEL Glucose Lvl 170 mg/dL 70 - 99 01/07/2017 [facility] CHEM PANEL Albumin Lvl 3.7 g/dL 3.5 - 5.0 01/07/2017 [facility] CHEM PANEL Total Protein 7.4 g/dL 6.4 - 8.4 01/07/2017 [facility] CHEM PANEL Bili Total 0.4 mg/dL 0.2 - 1.3 01/07/2017 [facility] CHEM PANEL Alk Phos 65 unit/L 39 - 136 01/07/2017 [facility] CHEM PANEL AST 37 unit/L 0 - 37 01/07/2017 [facility] CHEM PANEL ALT 62 unit/L 0 - 65 01/07/2017 [facility] CHEM PANEL eGFR 82 mL/min/1.73m2 [...] should be multiplied by the estimated BMI. [facility] CHEM PANEL Magnesium Lvl 1.9 mg/dL 1.8 - 2.4 01/07/2017 [facility] CHEM PANEL Lactic Acid Lvl 1.0 mMol/L 0.5 - 2.2 01/07/2017 [facility] HEMATOLOGY Microcyte 1+ *ABN* (01/07/17 2:38 AM) None Seen 01/07/2017 [facility] HEMATOLOGY Monocytes 10.2 % 2.0 - 12.0 01/07/2017 [facility] HEMATOLOGY Lymphocytes 42.8 % 20.0 - 40.0 01/07/2017 [facility] HEMATOLOGY Basophils 0.7 % 0.0 - 1.0 01/07/2017 [facility] HEMATOLOGY Eosinophils 4.1 % 0.0 - 4.0 01/07/2017 [facility] HEMATOLOGY Segs 42.2 % 45.0 - 75.0 01/07/2017 [facility] HEMATOLOGY Eosinophils # 0.3 K/CMM 0.0 - 0.5 01/07/2017 [facility] HEMATOLOGY Monocytes # 0.8 K/CMM 0.0 - 0.8 01/07/2017 [facility] HEMATOLOGY Basophils # 0.1 K/CMM 0.0 - 0.2 01/07/2017 [facility] HEMATOLOGY Segs-Bands # 3.5 K/CMM 1.5 - 8.1 01/07/2017 [facility] HEMATOLOGY Lymphocytes # 3.5 K/CMM 1.0 - 5.5 01/07/2017 [facility] HEMATOLOGY MCHC 33.7 g/dL 32.0 - 36.0 01/07/2017 [facility] HEMATOLOGY Platelet 206 K/CMM 133 - 450 01/07/2017 [facility] HEMATOLOGY RDW 15.0 % 11.5 - 14.5 01/07/2017 [facility] HEMATOLOGY MPV 8.1 fL 7.4 - 10.4 01/07/2017 [facility] HEMATOLOGY MCH 25.6 pg 27.0 - 31.0 01/07/2017 [facility] HEMATOLOGY Hgb 13.0 g/dL 12.0 - 16.0 01/07/2017 [facility] HEMATOLOGY RBC 5.07 M/CMM 4.20 - 5.40 01/07/2017 [facility] HEMATOLOGY Hct 38.5 % 36.0 - 48.0 01/07/2017 [facility] HEMATOLOGY MCV 75.9 fL 80.0 - 98.0 01/07/2017 [facility] HEMATOLOGY WBC 8.2 K/CMM 3.7 - 10.4 01/07/2017 [facility] CARDIAC ENZYMES Troponin-I null 0.00 - 0.40 01/07/2017 [facility] CHEM PANEL Lactic Acid WB 2.5 mmol/L 0.5 - 2.2 01/07/2017 [facility] CHEM PANEL eGFR 78 mL/min/1.73m2 [...] should be multiplied by the estimated BMI. [facility] CHEM PANEL CO2 23 meq/L 24 - 32 01/07/2017 [facility] CHEM PANEL Calcium Lvl 9.2 mg/dL 8.5 - 10.5 01/07/2017 [facility] CHEM PANEL Chloride Lvl 100 meq/L 95 - 109 01/07/2017 [facility] CHEM PANEL Potassium Lvl 3.9 meq/L 3.5 - 5.1 01/07/2017 [facility] CHEM PANEL Sodium Lvl 137 meq/L 135 - 145 01/07/2017 [facility] CHEM PANEL Creatinine Lvl 0.93 mg/dL 0.50 - 1.40 01/07/2017 [facility] CHEM PANEL BUN 15 mg/dL 7 - 22 01/07/2017 [facility] CHEM PANEL Glucose Lvl 183 mg/dL 70 - 99 01/07/2017 [facility] CHEM PANEL AGAP 17.9 meq/L 10.0 - 20.0 01/07/2017 [facility] HEMATOLOGY MPV 8.7 fL 7.4 - 10.4 01/07/2017 [facility] HEMATOLOGY Platelet 235 K/CMM 133 - 450 01/07/2017 [facility] HEMATOLOGY RDW 15.2 % 11.5 - 14.5 01/07/2017 [facility] HEMATOLOGY MCHC 33.5 g/dL 32.0 - 36.0 01/07/2017 [facility] HEMATOLOGY MCH 25.6 pg 27.0 - 31.0 01/07/2017 [facility] HEMATOLOGY MCV 76.4 fL 80.0 - 98.0 01/07/2017 [facility] HEMATOLOGY Hct 43.2 % 36.0 - 48.0 01/07/2017 [facility] HEMATOLOGY WBC 9.6 K/CMM 3.7 - 10.4 01/07/2017 [facility] HEMATOLOGY RBC 5.65 M/CMM 4.20 - 5.40 01/07/2017 [facility] HEMATOLOGY Hgb 14.5 g/dL 12.0 - 16.0 01/07/2017 [facility] HEMATOLOGY Eosinophils 2.8 % 0.0 - 4.0 01/07/2017 [facility] HEMATOLOGY Microcyte 1+ *ABN* (01/06/17 7:55 PM) None Seen 01/07/2017 [facility] HEMATOLOGY Basophils # 0.1 K/CMM 0.0 - 0.2 01/07/2017 [facility] HEMATOLOGY Lymphocytes # 3.1 K/CMM 1.0 - 5.5 01/07/2017 [facility] HEMATOLOGY Monocytes # 1.0 K/CMM 0.0 - 0.8 01/07/2017 [facility] HEMATOLOGY Eosinophils # 0.3 K/CMM 0.0 - 0.5 01/07/2017 [facility] HEMATOLOGY Basophils 0.7 % 0.0 - 1.0 01/07/2017 [facility] HEMATOLOGY Segs-Bands # 5.1 K/CMM 1.5 - 8.1 01/07/2017 [facility] HEMATOLOGY Segs 53.3 % 45.0 - 75.0 01/07/2017 [facility] HEMATOLOGY Lymphocytes 32.7 % 20.0 - 40.0 01/07/2017 [facility] HEMATOLOGY Monocytes 10.5 % 2.0 - 12.0 01/07/2017 [facility] IMMUNOLOGY CDC HIV 4th GEN Negative *NA* (01/06/17 7:55 PM) Negative 01/07/2017 [facility] URINE AND STOOL UA Sq Epi Rare /LPF Few /LPF 01/07/2017 [facility] URINE AND STOOL UA WBC 0-2 /HPF None Seen /HPF 01/07/2017 [facility] URINE AND STOOL UA RBC None Seen (01/06/17 7:52 PM) 0 - 2 01/07/2017 [facility] URINE AND STOOL UA Nitrite Negative (01/06/17 7:52 PM) Negative 01/07/2017 [facility] URINE AND STOOL UA Leuk Est Negative (01/06/17 7:52 PM) Negative 01/07/2017 [facility] URINE AND STOOL UA Blood Negative (01/06/17 7:52 PM) Negative 01/07/2017 [facility] URINE AND STOOL UA Bili Negative *NA* (01/06/17 7:52 PM) Negative 01/07/2017 [facility] URINE AND STOOL UA Urobilinogen 0.2 EU/dL 0.1 - 1.0 01/07/2017 [facility] URINE AND STOOL UA Protein Negative (01/06/17 7:52 PM) Negative 01/07/2017 [facility] URINE AND STOOL UA pH 6.0 5.0 - 8.0 01/07/2017 [facility] URINE AND STOOL UA Ketones Negative *NA* (01/06/17 7:52 PM) Negative 01/07/2017 [facility] URINE AND STOOL UA Glucose >=1000 mg/dL Negative mg/dL 01/07/2017 [facility] URINE AND STOOL UA Turbidity Clear (01/06/17 7:52 PM) Clear 01/07/2017 [facility] URINE AND STOOL UA Spec Grav 1.020 <=1.030 01/07/2017 [facility] URINE AND STOOL UA Color Yellow *NA* (01/06/17 7:52 PM) Yellow 01/07/2017 [facility] URINE CHEM U Preg Negative (01/06/17 7:52 PM) Negative 01/07/2017 [facility] Neck soft tissue w contrast [...] Amanda Hughes MD 01/07/17 00:06 FINAL REPORT [facility] BEDSIDE GLUCOSE TESTING Gluc POC Lif[place]n 309 mg/dL 70 - 99 10/03/2012 [place] 1Interpretive Data: Upper Reportable Limit: 200 mg/dL. [facility] BEDSIDE GLUCOSE TESTING Comment1 Notify MARCIANO 10/03/2012 [facility] BEDSIDE GLUCOSE TESTING Gluc POC Lifscn 325 mg/dL 70 - 99 10/03/2012 [place] 2Interpretive Data: Upper Reportable Limit: 200 mg/dL. [facility] BEDSIDE GLUCOSE TESTING Comment1 Notify MARCIANO 10/03/2012 NA [facility] BEDSIDE GLUCOSE TESTING Gluc POC [facility] 309 mg/dL 70 - 99 10/03/2012 IN 3Interpretive Data: Upper Reportable Limit: 200 mg/dL. [facility] CHEMISTRY Temp Michael 37.0 Khalida 10/03/2012 NA [facility] CHEMISTRY pO2 Michael 30 mm[Hg] 20 - 49 10/03/2012 Normal [facility] CHEMISTRY pH Mcihael 7.39 7.28 - 7.42 10/03/2012 Normal [facility] CHEMISTRY pCO2 Michael 48 mm[Hg] 38 - 52 10/03/2012 Normal [facility] CHEMISTRY BE Michael 3 mMol/L -2-2 - 2 10/03/2012 [facility] CHEMISTRY HCO3 Michael 29 mMol/L 22 - 26 10/03/2012 [facility] CHEMISTRY Site Michael Vein (10/02/2012 21:00:00) 10/03/2012 Normal [facility] CHEMISTRY O2 Sat Michael 56.6 % 40.0 - 70.0 10/03/2012 Normal [facility] URINALYSIS UA Urobilinogen <=1.0 mg/dL
*NA*
[...] Few /LPF *NA* (10/02/2012 20:43:00) Few 10/03/2012 [facility] URINALYSIS UA Turbidity Marked *ABN* (10/02/2012 20:43:00) Clear 10/03/2012 ABN [facility] URINALYSIS UA Spec Grav 1.016 <=1.030 10/03/2012 Normal [facility] URINALYSIS UA Protein Negative mg/dL (10/02/2012 20:43:00) Negative 10/03/2012 Normal [facility] URINALYSIS UA pH 5.0 5.0 - 8.0 10/03/2012 Normal [facility] URINALYSIS UA Blood Small *ABN* (10/02/2012 20:43:00) Negative 10/03/2012 ABN [facility] URINALYSIS UA Bili Negative *NA* (10/02/2012 20:43:00) Negative 10/03/2012 [facility] URINALYSIS UA Glucose 500 mg/dL *ABN* (10/02/2012 20:43:00) Negative 10/03/2012 ABN [facility] URINALYSIS UA Ketones Negative mg/dL *NA* (10/02/2012 20:43:00) Negative 10/03/2012 [facility] Microbiology Culture: Urine 10/03/2012 [facility] CHEMISTRY S Preg Negative *NA* (10/02/2012 20:41:00) Negative 10/03/2012 [facility] CHEMISTRY Phosphorus 3.1 mg/dL 2.5 - 4.5 10/03/2012 Normal [facility] CHEMISTRY Magnesium Lvl 1.8 mg/dL 1.8 - 2.4 10/03/2012 Normal [facility] CHEMISTRY Lipase Lvl 207 unit/L 73 - 393 10/03/2012 Normal [facility] CHEMISTRY eGFR 84 mL/min/1.73m2 10/03/2012 NA [...] should be multiplied by the estimated BMI. [facility] CHEMISTRY Albumin Lvl 4.5 g/dL 3.5 - 5.0 10/03/2012 Normal [facility] CHEMISTRY Calcium Lvl 9.6 mg/dL 8.5 - 10.5 10/03/2012 Normal [facility] CHEMISTRY Total Protein 9.0 g/dL 6.4 - 8.4 10/03/2012 [facility] CHEMISTRY ALT 83 unit/L 0 - 65 10/03/2012 [facility] CHEMISTRY CO2 28 meq/L 24 - 32 10/03/2012 Normal [facility] CHEMISTRY Bili Total 0.5 mg/dL 0.2 - 1.3 10/03/2012 Normal [facility] CHEMISTRY AST 50 unit/L 0 - 37 10/03/2012 [facility] CHEMISTRY Alk Phos 95 unit/L 39 - 136 10/03/2012 Normal [facility] CHEMISTRY Chloride Lvl 99 meq/L 95 - 109 10/03/2012 Normal [facility] CHEMISTRY Potassium Lvl 4.0 meq/L 3.5 - 5.1 10/03/2012 Normal [facility] CHEMISTRY Sodium Lvl 136 meq/L 135 - 145 10/03/2012 Normal [facility] CHEMISTRY BUN 18 mg/dL 7 - 22 10/03/2012 Normal [facility] CHEMISTRY Creatinine Lvl 0.9 mg/dL 0.5 - 1.4 10/03/2012 Normal [facility] CHEMISTRY Glucose Lvl 353 mg/dL 70 - 99 10/03/2012 [place] 5Interpretive Data: Adult reference range values reflect the clinical guidelines of the [place] [employer]. [facility] CHEMISTRY AGAP 13.0 meq/L 10.0 - 20.0 10/03/2012 Normal [facility] CHEMISTRY B/C Ratio 20 6 - 25 10/03/2012 Normal [facility] CHEMISTRY Globulin 4.5 g/dL 2.0 - 4.0 10/03/2012 HI [facility] CHEMISTRY A/G Ratio 1.0 0.7 - 1.6 10/03/2012 Normal [facility] HEMATOLOGY Lymphocytes # 3.0 K/CMM 1.0 - 5.5 10/03/2012 Normal [facility] HEMATOLOGY Segs-Bands # 5.7 K/CMM 1.5 - 8.1 10/03/2012 Normal [facility] HEMATOLOGY Basophils # 0.0 K/CMM 0.0 - 0.2 10/03/2012 Normal [facility] HEMATOLOGY Eosinophils # 0.3 K/CMM 0.0 - 0.5 10/03/2012 Normal [facility] HEMATOLOGY Monocytes # 0.6 K/CMM 0.0 - 0.8 10/03/2012 Normal [facility] HEMATOLOGY Segs 59.4 % 45.0 - 75.0 10/03/2012 Normal [facility] HEMATOLOGY Basophils 0.3 % 0.0 - 1.0 10/03/2012 Normal [facility] HEMATOLOGY Eosinophils 3.5 % 0.0 - 4.0 10/03/2012 Normal [facility] HEMATOLOGY Monocytes 5.8 % 2.0 - 12.0 10/03/2012 Normal [facility] HEMATOLOGY Lymphocytes 31.0 % 20.0 - 40.0 10/03/2012 Normal [facility] HEMATOLOGY RBC 4.85 M/CMM 4.20 - 5.40 10/03/2012 Normal [facility] HEMATOLOGY Hct 37.3 % 36.0 - 48.0 10/03/2012 Normal [facility] HEMATOLOGY Hgb 12.5 g/dL 12.0 - 16.0 10/03/2012 Normal [facility] HEMATOLOGY MCH 25.7 pg 27.0 - 31.0 10/03/2012 LOW [facility] HEMATOLOGY RDW 14.3 % 11.5 - 14.5 10/03/2012 Normal [facility] HEMATOLOGY MCHC 33.4 g/dL 32.0 - 36.0 10/03/2012 Normal [facility] HEMATOLOGY MPV 9.0 fL 7.4 - 10.4 10/03/2012 Normal [facility] HEMATOLOGY Platelet 234 K/CMM 133 - 450 10/03/2012 Normal [facility] MCV 76.8 fL 81.0 - 99.0 10/03/2012 LOW [facility] WBC 9.7 K/CMM 3.7 - 10.4 10/03/2012 Normal [facility] PTT 31.6 s 22.9 - 35.8 10/03/2012 Normal 7Interpretive Data: Heparin Therapeutic Range: 57 - 92 Seconds [facility] PT 13.4 s 12.0 - 14.7 10/03/2012 Normal [facility] INR 1.00 0.85 - 1.17 10/03/2012 Normal 6Interpretive Data: RECOMMENDED RANGES FOR PROTIME INR: 2.0-3.0 for most medical and surgical thromboembolic states. 2.5-3.5 for artificial heart valves and recurrent embolism. INR SHOULD BE USED ONLY FOR PATIENTS ON STABLE ANTICOAGULANT THERAPY. [facility] BEDSIDE GLUCOSE TESTING Comment1 Notify RN/MD 10/02/2012 NA [facility] Abdomen/Pelvis w contrast CT Abdomen/Pelvis w [...] Oumar Banda MD 10/02/12 22:09 FINAL REPORT [facility] Vital Signs Vital Sign Value Date Comments Source Weight 210 10/10/2017 Jaquan Freedman Height 63 10/10/2017 Jaquan Freedman Temperature Oral (F) 98.8 F 10/10/2017 Jaquan Freedman Heart Rate 104 10/10/2017 Jaquan Freedman Diastolic (mm Hg) 62 10/10/2017 Jaquan Freedman Systolic (mm Hg) 108 10/10/2017 Jaquan Freedman Temperature Oral (F) 98 F 01/08/2017 [facility] Respitory Rate 18 01/08/2017 [facility] Systolic (mm Hg) 126 01/08/2017 [facility] Diastolic (mm Hg) 85 01/08/2017 [facility] Heart Rate 88 01/08/2017 [facility] Temperature Oral (F) 98.2 F 01/08/2017 [facility] Respitory Rate 18 01/08/2017 [facility] Heart Rate 92 01/08/2017 [facility] Systolic (mm Hg) 116 01/08/2017 [facility] Diastolic (mm Hg) 73 01/08/2017 [facility] Respitory Rate 18 01/08/2017 [facility] Heart Rate 90 01/08/2017 [facility] Temperature Oral (F) 97 F 01/08/2017 [facility] Systolic (mm Hg) 100 01/08/2017 [facility] Diastolic (mm Hg) 74 01/08/2017 [facility] BMI Calculated 37.1 01/07/2017 [facility] Weight 95 01/07/2017 [facility] Height 160.02 cm 01/07/2017 [facility] Height 160.02 cm 01/07/2017 [facility] Weight 95 01/07/2017 [facility] BMI Calculated 37.1 01/07/2017 [facility] Respitory Rate 16 12/20/2016 [facility] Systolic (mm Hg) 123 12/20/2016 [facility] Diastolic (mm Hg) 79 12/20/2016 [facility] BMI Calculated 37.1 12/20/2016 [facility] Weight 95 12/20/2016 [facility] Height 160.02 cm 12/20/2016 [facility] BMI Calculated 37.63 11/25/2016 [facility] Weight 96.364 11/25/2016 [facility] Height 160.02 cm 11/25/2016 [facility] Heart Rate 100 11/25/2016 [facility] Respitory Rate 16 11/25/2016 [facility] Systolic (mm Hg) 115 11/25/2016 [facility] Diastolic (mm Hg) 79 11/25/2016 [facility] Heart Rate 96 01/24/2014 [facility] Respitory Rate 18 01/24/2014 [facility] Systolic (mm Hg) 133 01/24/2014 [facility] Diastolic (mm Hg) 87 01/24/2014 [facility] Height 160.02 cm 01/22/2014 [facility] Weight 87.727 01/22/2014 [facility] BMI Calculated 34.26 01/22/2014 [facility] Weight 90.909 10/02/2012 [facility] Height 160.02 cm 10/02/2012 [facility] Encounters Location Location Details Encounter Type Encounter Number Reason For Visit Attending Provider ADM Date DC Date Status Source [facility] Emergency [id number] WILIAN DANIE 10/02/2012 10/03/[address] [facility] Bedded Outpatient [id number] Evelio Olvera 01/24/2014 01/24/2014 [facility] Bedded Outpatient [id number] Dru Pinon 11/25/2016 11/25/2016 [facility] Outpatient [id number] Vivek Peraza 12/20/2016 12/21/2016 [facility] Observation [id number] Calvin Harris 01/07/2017 01/08/2017 [facility] Procedures Procedure Code Date Perfomer Comments Source Carpal tunnel release<sup>1</sup> [id number] 03/14/2016 bilateral 3 months apart [facility] Carpal tunnel release<sup>1</sup> 74995523 03/14/2016 bilateral 3 months apart [facility] Hysterectomy<sup>2</sup> [id number] 03/14/2012 also removal of abdominal scar tiissue with hyst [facility] Primary mesh repair of incisional hernia [id number] 03/14/2012 [facility] Hysterectomy<sup>2</sup> [id number] 03/14/2012 also removal of abdominal scar tiissue with hyst [facility] Primary mesh repair of incisional hernia [id number] 03/14/2012 [facility] Appendectomy [id number] [facility] Esophagogastroduodenoscopy<sup>3</sup> 56250478 with dilation of esophageal stricture [facility] Laparoscopic cholecystectomy [id number] [facility] Ligament repair<sup>4</sup> 84782830 torn ligament repair of bilat ankles after a fall [facility] Operation<sup>5</sup> 327082776 resection of colon for diverticulis [facility] Operation<sup>6</sup> 828830968 heel spurs surgery, bilat [facility] Operation<sup>7</sup> 857936056 removal of sweat glands from left armpit [facility] Operation<sup>8</sup> 979239861 abdominal "repairs" x 3 [facility] Operation<sup>9</sup> 568325063 removal of cyst from left upper thigh [facility] Tonsillectomy [id number] [facility] Appendectomy [id number] [facility] Esophagogastroduodenoscopy<sup>3</sup> 16178358 with dilation of esophageal stricture [facility] Laparoscopic cholecystectomy [id number] [facility] Ligament repair<sup>4</sup> 17199700 torn ligament repair of bilat ankles after a fall [facility] Operation<sup>5</sup> 296232439 resection of colon for diverticulis [facility] Operation<sup>6</sup> 910300580 heel spurs surgery, bilat [facility] Operation<sup>7</sup> 966258711 removal of sweat glands from left armpit [facility] Operation<sup>8</sup> 803065183 abdominal "repairs" x 3 [facility] Operation<sup>9</sup> 709415700 removal of cyst from left upper thigh [facility] Tonsillectomy [id number] [facility] Hysterectomy [id number] [facility]
--- NOTE | 2018-06-01 07:05 | NUR ---
SPIRITUAL CARE - Pre-Surgery Assessment: Pt in bed. Pt's at bedside. Pt reported supportive attention from family and friends. Intervention: I provided pastoral presence, hospitality, and sympathetic listening. I acquainted pt with availability of visual coordinator while hospitalized. Outcome: Pt expressed appreciation for visit. No need for follow up indicated at this time. FAYE [facility] Spiritual Care Department O: [phone] Pager: [phone] ([phone] number calling from)
[2018-06-01 09:20] VITALS: BP 110/74
--- NOTE | 2018-06-01 12:16 | Operative Report ---
DATE OF PROCEDURE: 06/01/2018 SURGEON: Evelio Olvera MD PROCEDURES: Esophagogastroduodenoscopy with biopsies and colonoscopy with biopsies. INDICATIONS FOR EGD: Dysphagia. INDICATIONS FOR COLONOSCOPY: Lower abdominal pain, history of colon polyps, suboptimal prep on previous colonoscopy. MEDICATIONS: The patient was done under MAC, please see anesthesiologist's note. PROCEDURE IN DETAIL: With the patient in left lateral decubitus position, a flexible fiberoptic Olympus gastroscope was introduced into the esophagus under direct visualization without any difficulty. There was some patchy erythema noted in distal esophagus. There was a mild stricture noted at the GE junction and that was dilated to size 56-[place] Fan. The scope was then advanced with ease into the stomach and mucosa overlying the antrum and the body revealed some patchy areas of erythema. Several hyperplastic-appearing polyps were noted in the body of the stomach and some were partially excised with cold biopsy forceps. Pylorus was of normal contour and shape, it was intubated with ease and the scope was advanced all the way to the second portion of the duodenum. The scope was then withdrawn slowly and mucosa overlying the proximal second portion as well as the duodenal bulb appeared to be within normal limits. The biopsies were obtained from the proximal second portion as well as from the duodenal bulb to rule out sprue. The scope was then withdrawn back into the stomach and retroflexed and mucosa overlying the fundus and the cardia appeared to be within normal limits. The scope was then straightened out. The stomach was decompressed. The scope was subsequently withdrawn. The patient tolerated procedure well. IMPRESSION: 1. Distal esophagitis, mild. 2. Esophageal stricture at GE junction dilated to size 56-[place] Fan. 3. Gastritis. 4. Gastric polyps, some partially excised with the cold biopsy forceps. 5. Rule out sprue. PLAN: Follow up histology. Add Carafate 1 g p.o. a.c. t.i.d. and q.h.s. Continue Protonix 40 mg one p.o. a.c. b.i.d. PROCEDURE IN DETAIL: The patient was then turned around. After adequate lubrication of the anal canal, a flexible fiberoptic Olympus colonoscope was inserted into the rectum with ease and advanced all the way to the cecum. It was then withdrawn slowly and mucosa overlying the cecum appeared to be within normal limits. The ileocecal valve could not be intubated despite multiple attempts. The mucosa overlying the ascending, transverse, descending, sigmoid, and rectum revealed some patchy mild inflammatory changes and multiple random biopsies were obtained. Diverticular disease was noted to involve the sigmoid colon. Anastomosis was noted approximately at 20 cm from the anal verge that was patent and intact. The scope was then retroflexed into the distal rectum and small internal hemorrhoids were noted, none of which was actively bleeding. The scope was then straightened out, it was subsequently withdrawn. The patient tolerated procedure well. IMPRESSION: 1. Patchy mild colitis. 2. Diverticulosis. 3. Anastomosis at approximately 20 cm from the anal verge, intact and patent. 4. Proctitis, mild. 5. Internal hemorrhoids, none actively bleeding. PLAN: Follow up histology. Initiate VSL#3 one p.o. daily. Check IBD panel, sedimentation rate and CRP. Evelio Olvera [place] [facility] [place] [place] /[id number] cc: Kobi Olvera MD
== END | disposition home or self-care (01) ==
LOC: OR 05:51
PROVIDERS: ATTEND Internal Medicine Gastroenterology
DX: K52.9 Noninfective gastroenteritis and colitis, unspecified (principal); K31.7 Polyp of stomach and duodenum; K29.70 Gastritis, unspecified, without bleeding; K22.2 Esophageal obstruction; K20.8 Other esophagitis; Z98.0 Intestinal bypass and anastomosis status; K62.89 Other specified diseases of anus and rectum; K57.30 Diverticulosis of large intestine without perforation or abscess without bleeding; K21.9 Gastro-esophageal reflux disease without esophagitis; K64.8 Other hemorrhoids; D72.820 Lymphocytosis (symptomatic); E11.9 Type 2 diabetes mellitus without complications; I10 Essential (primary) hypertension; M06.9 Rheumatoid arthritis, unspecified; E66.9 Obesity, unspecified; Z88.1 Allergy status to other antibiotic agents; Z88.0 Allergy status to penicillin; Z88.8 Allergy status to other drugs, medicaments and biological substances; Z01.810 Encounter for preprocedural cardiovascular examination; Z79.4 Long term (current) use of insulin; Z68.37 Body mass index [BMI] 37.0-37.9, adult
CPT/HCPCS: 36415; 43239; 43450; 45380; 82948; 85651; 86140; 86256; 86671; 93005; J2250; J2704

== ENCOUNTER → 2018-06-22 | Outpatient (CLI) | payer OTHER ==
[~2018-06-22] MED LIST changes: -FENTANYL CITRATE/PF 100MCG/2 ML INJ ONE; -MIDAZOLAM HCL 2 MG/2 ML VIAL ONE; -PROPOFOL IV EMULSION 10 MG/ML 50 ML VIAL ONE
--- NOTE | 2018-06-22 11:43 | Diagnostic Imaging Report ---
PROCEDURE: SMALL BOWEL SERIES COMPARISON: None. INDICATIONS: GASTROENTERITIS AND COLITIS FINDINGS: The patient was given barium to drink and sequential images of the abdomen were obtained through 2 hours. Spot images of the small bowel and terminal ileum were then obtained. The small bowel is predominantly on the left side of the abdomen and majority of the large bowel on the right side of the abdomen. The terminal ileum and cecum is in normal position. Small bowel motility and caliber are normal. There is no evidence of mass or mucosal abnormality. The terminal ileum is normal. Fluoroscopy time: 0.8 minutes Total dose: 134.28 mGy CONCLUSION: Normal small bowel follow-through. Diego Broussard D.O. Dictated by: Diego Broussard D.O. on 06/22/2018 at 11:43 Electronically approved by: Diego Broussard D.O. on 06/22/2018 at 11:43
== END ==
LOC: DX 07:28
PROVIDERS: ATTEND Internal Medicine Gastroenterology
DX: K52.89 Other specified noninfective gastroenteritis and colitis (principal)
CPT/HCPCS: 74250

== ENCOUNTER → 2018-09-30 | Day surgery (SDC) | payer OTHER ==
[~2018-09-30] MED LIST changes: +FENTANYL CITRATE/PF 100MCG/2 ML INJ ONE; +HUMALOG100 UNIT/1 SQ; +LIDOCAINE HCL 2% LOCAL INJ 5 ML SDV VIAL INJ ONE; +LIPITOR20 MG PO; +MIDAZOLAM HCL 2 MG/2 ML VIAL ONE; +PROPOFOL IV EMULSION 10 MG/ML 50 ML VIAL ONE
--- NOTE | 2018-09-30 19:53 | Operative Report ---
DATE OF PROCEDURE: 09/30/2018 SURGEON: Evelio Olvera MD PROCEDURE: EGD with esophageal dilatation. INDICATIONS FOR EGD: Dysphagia to solids. MEDICATION: The patient was done under MAC, please see anesthesiologist's note. PROCEDURE IN DETAIL: With the patient in left lateral decubitus position, a flexible fiberoptic Olympus gastroscope was introduced into the esophagus under direct visualization without any difficulty. There was some patchy erythema noted in distal esophagus. The scope was then advanced with ease into the stomach. Mucosa overlying the antrum and the body revealed some patchy erythema. There were also some scattered polyps, which were biopsied in the recent past and were positive for fundic gland polyps. The pylorus was of normal contour and shape, was intubated with ease and the scope was advanced all the way to the second portion of the duodenum. The scope was then withdrawn slowly and mucosa overlying the second portion and the duodenal bulb appeared to be within normal limits. The scope was then withdrawn back into the stomach and retroflexed and mucosa overlying the fundus and cardia appeared to be within normal limits. The scope was then straightened out, it was subsequently withdrawn. The esophagus was then dilated to a size 56-[place] Fan. The patient tolerated procedure well. IMPRESSION: 1. Mild distal esophagitis. Esophagus dilated to size 56-[place] Fan. 2. Gastritis. 3. Gastric polyps. Increase Protonix to 40 mg one p.o. a.c. b.i.d. Add Carafate 1 g p.o. a.c. t.i.d. and at bedtime. Evelio Olvera MD [facility] /[id number] cc: Kobi Olvera MD
--- OUTSIDE RECORDS SUMMARY | 2018-10-01 09:30 | XMS REPORT | Continuity of Care Document ---
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 Name Role Phone [employer] Information userADgents Unavailable Unavailable Problems Problem Status Onset Date Classification Date Reported Comments Source TROUBLE SWALLOWING Active 01/06/2017 [facility] DYSPHAGIA Active 01/06/2017 [facility] ESOPHAGEAL ISSUES Active 09/30/2016 [facility] UNK Active 09/29/2016 [facility] R10.12 - LEFT UPPER QUADRANT PAIN Active 02/10/2016 [facility] CARL[facility] Rose 787.20/789.07 Active 01/17/2014 [facility] ABD PAIN Active 10/02/2012 [facility] Abdominal hernia Active Problem 01/11/2017 [facility] Diabetes mellitus Active Problem 01/11/2017 [facility] Dysphagia Active Problem 01/11/2017 [facility] FH: Diabetes mellitus Active Problem 01/11/2017 [facility] Diabetic gastroparesis Active Problem 01/11/2017 [facility] GERD - Gastro-esophageal reflux disease Resolved Problem 01/11/2017 [facility] Heartburn Active Problem 01/11/2017 [facility] HTN - Hypertension Active Problem 01/11/2017 [facility] Insomnia due to anxiety and fear Resolved Problem 01/11/2017 [facility] 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 [facility] Obesity Active Problem 01/11/2017 [facility] Osteoarthritis Active Problem 01/11/2017 [facility] RA (Confirmed) Active Problem 01/11/2017 [facility] Heel spur Resolved Problem 01/11/2017 [facility] Acid reflux disease Resolved Problem 01/11/2017 [facility] Abdominal hernia Active Problem 10/05/2012 [facility] FH: Diabetes mellitus Active Problem 10/05/2012 [facility] HTN - Hypertension Active Problem 10/05/2012 [facility] Polyarthritis Active Diagnosis 10/28/2017 Jaquan Freedman DYSPHAGIA, UNSPECIFIED Active [facility] Medications Medication Details Route Status Patient Instructions Ordering Provider Order Date Source influenza virus vaccine, inactivated 0.5 mL, Route: IM, Drug Form: SUSP, Daily, Start date: 01/08/17 14:30:00 CDT, Duration: 1 doses or times, Stop date: 01/08/17 14:30:00 CDTNotes: (Same as: Fluzone Quadrivalent, Fluarix Quadrivalent) For 3 years of age and older (0.5 mL IM) Shake well before use Inactive 01/08/2017 [facility] Benadryl 25 mg, 1 cap, Route: PO, Drug form: CAP, Bedtime, Dosing Weight 95, kg, PRN Insomnia, Start date: 01/07/17 20:46:00 CDT, Duration: 30 day, Stop date: 02/06/17 20:45:00 CSTNotes: (Same as: Benadryl) No Longer Active 01/08/2017 [facility] Chloraseptic 1.4% spray 1 spray, Route: TOP, Daily, Drug form: SPRY, PRN Sore Throat, Start date: 01/07/17 20:46:00 CDT, Duration: 30 day, Stop date: 02/06/17 20:45:00 CSTNotes: Chloraseptic [place] (Same as: Chloraseptic, Sore Throat Stafford) WASTE: F/P - Black; E - 404 Found! Trash Bin No Longer Active 01/08/2017 [facility] hydromorphone 0.5 mg, 0.25 mL, Route: IVP, Drug form: INJ, ONCE, Dosing Weight 95, kg, Priority: Routine, Start date: 01/07/17 13:03:00 CDT, Stop date: 01/07/17 13:03:00 CDTNotes: Same as: Dilaudid Inactive 01/07/2017 [facility] Phenergan 12.5 mg, 0.5 mL, Route: IVPB, Drug form: INJ, Q6H, Dosing Weight 95, kg, PRN Nausea & Vomiting, Start date: 01/07/17 9:58:00 CDT, Duration: 30 day, Stop date: 02/06/17 9:57:00 CSTNotes: Do not give IV push. (Same as: Phenergan) No Longer Active 01/07/2017 [facility] influenza virus vaccine, inactivated 0.5 mL, Route: IM, Drug Form: SUSP, Daily, Start date: 01/07/17 9:00:00 CDT, Duration: 1 doses or times, Stop date: 01/07/17 9:00:00 CDTNotes: (Same as: Fluzone Quadrivalent, Fluarix Quadrivalent) For 3 years of age and older (0.5 mL IM) Shake well before use No Longer Active 01/07/2017 [facility] Dextrose 50% Syringe 12.5 gm, 25 mL, Route: IVP, Drug Form: INJ, Dosing Weight 95, kg, PRN, PRN Blood Glucose Results, Start date: 01/07/17 6:54:00 CDT, Duration: 30 day, Stop date: 02/06/17 5:53:00 [employer] No Longer Active 01/07/2017 [facility] glucagon 1 mg, Route: IM, Drug form: PDR/INJ, PRN, Dosing Weight 95, kg, PRN Blood Glucose Results, Start date: 01/07/17 6:54:00 CDT, Duration: 30 day, Stop date: 02/06/17 5:53:00 [employer] No Longer Active 01/07/2017 [facility] insulin lispro 1 unit, 0.01 mL, [...] days from Date No Longer Active 01/07/2017 [facility] Phenergan 25 mg oral tablet 25 mg=1 tab, PO, Q6H, 0 Refill(s) Active 01/07/2017 [facility] Toujeo SoloStar 300 units/mL subcutaneous solution SUB- Q, Daily, 0 Refill(s) No Longer Active 01/07/2017 [facility] Dilaudid 0.5 mg, 0.25 mL, Route: IVP, Drug form: INJ, ONCE, Dosing Weight 95, kg, Priority: STAT, Start date: 01/07/17 6:28:00 CDT, Stop date: 01/07/17 6:28:00 CDTNotes: Same as: Dilaudid Inactive 01/07/2017 [facility] ondansetron 4 mg, 2 mL, Route: IVP, Drug form: INJ, ONCE, Dosing Weight 95, kg, Priority: STAT, Start date: 01/07/17 2:33:00 CDT, Stop date: 01/07/17 2:33:00 CDTNotes: (Same as: Zofran) MEDICATION WASTE Product Size: 4 mg Product Wasted: ___ mg Inactive 01/07/2017 [facility] ondansetron 4 mg, 2 mL, Route: IVP, Drug form: INJ, Q6H, Dosing Weight 95, kg, PRN Nausea & Vomiting, Start date: 01/07/17 1:50:00 CDT, Duration: 30 day, Stop date: 02/06/17 1:49:00 CSTNotes: (Same as: Zofran) MEDICATION WASTE Product Size: 4 mg Product Wasted: ___ mg No Longer Active 01/07/2017 [facility] docusate 100 mg, 1 cap, Route: PO, Drug form: CAP, BID, Dosing Weight 95, kg, PRN Constipation, Start date: 01/07/17 1:50:00 CDT, Duration: 30 day, Stop date: 02/06/17 1:49:00 [employer] No Longer Active 01/07/2017 [facility] acetaminophen 650 mg, 2 tab, Route: PO, Drug form: TAB, Q4H, Dosing Weight 95, kg, PRN Pain 1-3/Temp > 100.4 F, Start date: 01/07/17 1:50:00 CDT, Duration: 30 day, Stop date: 02/06/17 1:49:00 CSTNotes: Do not exce ed 4 gm/day. (Same as: Tylenol) No Longer Active 01/07/2017 [facility] morphine Sulfate 6 mg, 1.5 mL, Route: IVP, Drug form: SOLN, ONCE, Dosing Weight 95, kg, Priority: STAT, Start date: 01/07/17 0:27:00 CDT, Stop date: 01/07/17 0:27:00 CDTNotes: (Same as:MORPhine Sulfate) Inactive 01/07/2017 [facility] Lactated Ringers 1,000 mL 1,000 mL, Rate: 100 ml/hr, Infuse over: 10 hr, Route: IV, Dosing Weight 95 kg, Total Volume: 1,000, Start date: 01/07/17 0:26:00 CDT, Duration: 30 day, Stop date: 02/06/17 0:25:00 [employer] No Longer Active 01/07/2017 [facility] Sodium Chloride 0.9% (Bolus) IV 1,000 mL, 1000 ml/hr, Infuse Over: 1 hr, Route: IV, 1,000, Drug form: INJ, ONCE, Priority: STAT, Dosing Weight 95 kg, Start date: 01/06/17 22:06:00 CDT, Duration: 1 doses or times, Stop date: 01/06/17 22:06:00 CDT Inactive 01/07/2017 [facility] Phenergan 25 mg, 1 mL, Route: IVPB, Drug form: INJ, ONCE, Dosing Weight 95, kg, Priority: STAT, Start date: 01/06/17 21:52:00 CDT, Stop date: 01/06/17 21:52:00 CDTNotes: (Same as: Phenergan) Inactive 01/07/2017 [facility] hydromorphone 1 mg, 0.5 mL, Route: IVP, Drug form: INJ, ONCE, Dosing Weight 95, kg, Priority: STAT, Start date: 01/06/17 21:51:00 CDT, Stop date: 01/06/17 21:51:00 CDTNotes: Same as: Dilaudid Inactive 01/07/2017 [facility] Zofran 4 mg, Route: IVP, Drug form: INJ, ONCE, Dosing Weight 95, kg, Start date: 01/06/17 21:50:00 CDT, Stop date: 01/06/17 21:50:00 CDT Inactive 01/07/2017 [facility] morphine Sulfate 4 mg, Route: IVP, ONCE, Dosing Weight 95, kg, Start date: 01/06/17 21:50:00 CDT, Stop date: 01/06/17 21:50:00 CDT Inactive 01/07/2017 [facility] Omnipaque 350mg/ml 100 mL, Route: IVP, Drug Form: SOLN, Dosing Weight 95, kg, ONCALL, STAT, Start date: 01/06/17 20:53:00 CDT, Duration: 1 doses or times, Dose=2.2ml/kg, Max opkl=[id number] -- "To be infused by Radiology Staff ONLY"Notes: (same as:Omnipaque 350). WASTE: F/P - Black; E - Municipal Trash Bin Inactive 01/07/2017 [facility] dexamethasone 10 mg, 2.5 mL, Route: IVP, Drug form: INJ, ONCE, Dosing Weight 95, kg, Priority: STAT, Start date: 01/06/17 19:55:00 CDT, Stop date: 01/06/17 19:55:00 CDTNotes: Concentration: 4mg/ml No Longer Active 01/07/2017 [facility] clindamycin 600 mg, 4 mL, Route: IVPB, Drug form: INJ, ONCE, Dosing Weight 95, kg, Priority: STAT, Start date: 01/06/17 19:54:00 CDT, Duration: 1 doses or times, Stop date: 01/06/17 19:54:00 CDT, ABX Indication: Sk in/Soft Tissue InfectionNotes: (clindamycin 150 mg/1 ml (600 mg/4 ml VL) INJ) (Same As: Cleocin) No Longer Active 01/07/2017 [facility] Sodium Chloride 0.9% (Bolus) IV 1,000 mL, Infuse Over: 1 hr, Route: IV, ONCE, Priority: STAT, Dosing Weight 95 kg, Start date: 01/06/17 19:50:00 CDT, Duration: 1 doses or times, Stop date: 01/06/17 19:50:00 CDT Inactive 01/07/2017 [facility] Glipizide 10 MG Oral Tablet 20 [...] date: 10/03/12 0:17:00 SUB-Q No Longer Active [facility] [place] 10/03/2012 [facility] Zofran 4 mg, Route: IVP, Drug form: INJ, ONCE, Dosing Weight 90.909, kg, Priority: STAT, Start date: 10/02/12 23:07:00, Stop date: 10/02/12 23:07:00 IVP No Longer Active [facility] [place] 10/03/2012 [facility] morphine Sulfate 4 mg, Route: IVP, Drug form: INJ, ONCE, Dosing Weight 90.909, kg, Priority: STAT, Start date: 10/02/12 23:05:00, Stop date: 10/02/12 23:05:00 IVP No Longer Active [facility] [place] 10/03/2012 [facility] Macrodantin 100 mg oral capsule 100 mg, 1 cap, PO, QID, 40 cap, Substitution Allowed, CAP PO Active [facility] [place] 10/03/2012 [facility] Bentyl 10 mg oral capsule 10 mg, 1 cap, PO, QID, 28 cap, Substitution Allowed, CAP PO Active [facility] [place] 10/03/2012 [facility] Zofran 4 mg oral tablet 4 mg, 1 tab, PO, BID, 10 tab, Substitution Allowed PO Active [facility] [place] 10/03/2012 [facility] [place] 5/325 oral tablet 1-2 tab, PO, Q4-6H, PRN, 15 tab, Pain, Substitution Allowed, Maintenance PO Active [facility] [place] 10/03/2012 [facility] NS (Bolus) IV 500 mL 500 mL, Rate: 500 ml/hr, Infuse over: 1 hr, Route: IV, Dosing Weight 90.909 kg, Total Volume: 500, Priority: STAT, Start date: 10/02/12 22:40:00, Duration: 1 doses or times, Stop date: 10/02/12 23:39:00, Bolus DoseBolus Dose IV No Longer Active [facility] [place] 10/03/2012 [facility] Insulin regular 5 unit, Route: SUB-Q, ONCE, Dosing Weight 90.909, kg, Priority: STAT, Start date: 10/02/12 22:39:00, Stop date: 10/02/12 22:39:00 SUB-Q No Longer Active [facility] [place] 10/03/2012 [facility] ceftriaxone + Sodium Chloride 0.9% IV 100 mL 1 gm, Route: IVPB, ONCE, Dosing Weight 90.909, kg, Priority: STAT, Start date: 10/02/12 21:13:00, Stop date: 10/02/12 21:13:00 IVPB No Longer Active [facility] [place] 10/03/2012 [facility] NS 1,000 mL 1,000 mL, Rate: 150 ml/hr, Infuse over: 6.7 hr, Route: IV, Dosing Weight 90.909 kg, Total Volume: 1,000, Start date: 10/02/12 20:37:00, Duration: 30 day, Stop date: 11/01/12 20:36:00 IV No Longer Active [facility] [place] 10/03/2012 [facility] NS (Bolus) IV 1000 mL 1,000 mL, Rate: 1,000 ml/hr, Infuse over: 1 hr, Route: IV, Dosing Weight 90.909 kg, Total Volume: 1,000, Priority: STAT, Start date: 10/02/12 20:37:00, Duration: 1 doses or times, Stop date: 10/02/12 21:36:00, Bolus DoseBolus Dose IV No Longer Active [facility] [place] 10/03/2012 [facility] Saline Flush 0.9% 5 mL, Route: IVP, Drug Form: INJ, Dosing Weight 90.909, kg, PRN, PRN Line Flush, Start date: 10/02/12 20:24:00, Duration: 24 hr, Stop date: 10/03/12 20:23:00 IVP No Longer Active [facility] [place] 10/03/2012 [facility] ondansetron 4 mg, 2 mL, Route: IVP, Drug form: INJ, ONCE, Dosing Weight 90.909, kg, Priority: STAT, Start date: 10/02/12 20:24:00, Stop date: 10/02/12 20:24:00 IVP No Longer Active [facility] [place] 10/03/2012 [facility] morphine Sulfate 4 mg, 2 mL, Route: IVP, Drug form: INJ, ONCE, Dosing Weight 90.909, kg, Priority: STAT, Start date: 10/02/12 20:24:00, Stop date: 10/02/12 20:24:00 IVP No Longer Active [facility] [place] 10/03/2012 [facility] Phenergan 1 tablet as needed Orally Active 12.5 MG Orally every 6 hrs Mari Jaquan Freedman Protonix 1 tablet Orally Active 40 MG Orally twice a day Mari Jaquan Pisanoujordan SoloStar as directed Subcutaneous Active 300 UNIT/ML Subcutaneous Mari Jaquan Freedman Acetaminophen-Codeine #3 1 tablet as needed Orally Active 300- 30 MG Orally every 6 hrs Mari Jaquan Rojaser GlipiZIDE 2 tablet Orally Active 10 MG Orally twice a day Mari Jaquan Freedman Reglan as directed Orally Active 5 MG Orally Mari Jaquan Rojaser Januvia 1 tablet Orally Active 100 MG Orally Once a day Mari Jaquan Freedman Invokana 1 tablet Orally Active 100 MG Orally Once a day Mari Jaquan Rojaser Allergies, Adverse Reactions, Alerts Substance Category Reaction Severity Reaction type Status Date Reported Comments Source tetracyclin Adverse Reaction swollen Adverse Reaction Active 10/10/2017 Jaquan Freedman bactrim Adverse Reaction rash Adverse Reaction Active 10/10/2017 Jaquan Jasmina fentyl Adverse Reaction rash Adverse Reaction Active 10/10/2017 Jaquan Rojaser levaquin Adverse Reaction rash,swell face Adverse Reaction Active 10/10/2017 Jaquan Freedman penicillin Adverse Reaction rash Adverse Reaction Active 10/10/2017 Jaquan Rojaser Bentyl<sup>1</sup> Assertion Drug allergy Active rash [facility] Levaquin Assertion Drug allergy Active [facility] penicillins Assertion Drug allergy Active [facility] sulfa drugs<sup>2</sup> Assertion Drug allergy Active rash [facility] tetracyclines Assertion Drug allergy Active [facility] Immunizations Immunization Date Given Site Status Last Updated Comments Source influenza virus vaccine, inactivated 01/08/2017 Left deltoid completed Benimana [facility] Results Order Name Results Value Reference Range Date Interpretation Comments Source CHEM PANEL Phosphorus 3.6 2.5 - 4.5 01/07/2017 [facility] CHEM PANEL B/C Ratio 15 6 - 25 01/07/2017 [facility] CHEM PANEL AGAP 13.0 10.0 - 20.0 01/07/2017 [facility] CHEM PANEL Globulin 3.7 2.7 - 4.2 01/07/2017 [facility] CHEM PANEL A/G Ratio 1.0 0.7 - 1.6 01/07/2017 [facility] CHEM PANEL Potassium Lvl 4.0 3.5 - 5.1 01/07/2017 [facility] CHEM PANEL CO2 24 24 - 32 01/07/2017 [facility] CHEM PANEL Chloride Lvl 105 95 - 109 01/07/2017 [facility] CHEM PANEL Calcium Lvl 8.4 8.5 - 10.5 01/07/2017 [facility] CHEM PANEL Creatinine Lvl 0.89 0.50 - 1.40 01/07/2017 [facility] CHEM PANEL Sodium Lvl 138 135 - 145 01/07/2017 [facility] CHEM PANEL BUN 13 7 - 22 01/07/2017 [facility] CHEM PANEL Glucose Lvl 170 70 - 99 01/07/2017 [facility] CHEM PANEL Albumin Lvl 3.7 3.5 - 5.0 01/07/2017 [facility] CHEM PANEL Total Protein 7.4 6.4 - 8.4 01/07/2017 [facility] CHEM PANEL Bili Total 0.4 0.2 - 1.3 01/07/2017 [facility] CHEM PANEL Alk Phos 65 39 - 136 01/07/2017 [facility] CHEM PANEL AST 37 0 - 37 01/07/2017 [facility] CHEM PANEL ALT 62 0 - 65 01/07/2017 [facility] CHEM PANEL eGFR 82 01/07/2017 Result Comment: The eGFR is calculated [...] should be multiplied by the estimated BMI. [facility] CHEM PANEL Magnesium Lvl 1.9 1.8 - 2.4 01/07/2017 [facility] CHEM PANEL Lactic Acid Lvl 1.0 0.5 - 2.2 01/07/2017 [facility] HEMATOLOGY Microcyte 1+ *ABN* (01/07/17 2:38 AM) None Seen 01/07/2017 [facility] HEMATOLOGY Monocytes 10.2 2.0 - 12.0 01/07/2017 [facility] HEMATOLOGY Lymphocytes 42.8 20.0 - 40.0 01/07/2017 [facility] HEMATOLOGY Basophils 0.7 0.0 - 1.0 01/07/2017 [facility] HEMATOLOGY Eosinophils 4.1 0.0 - 4.0 01/07/2017 [facility] HEMATOLOGY Segs 42.2 45.0 - 75.0 01/07/2017 [facility] HEMATOLOGY Eosinophils # 0.3 0.0 - 0.5 01/07/2017 [facility] HEMATOLOGY Monocytes # 0.8 0.0 - 0.8 01/07/2017 [facility] HEMATOLOGY Basophils # 0.1 0.0 - 0.2 01/07/2017 [facility] HEMATOLOGY Segs-Bands # 3.5 1.5 - 8.1 01/07/2017 [facility] HEMATOLOGY Lymphocytes # 3.5 1.0 - 5.5 01/07/2017 [facility] HEMATOLOGY MCHC 33.7 32.0 - 36.0 01/07/2017 [facility] HEMATOLOGY Platelet 206 133 - 450 01/07/2017 [facility] HEMATOLOGY RDW 15.0 11.5 - 14.5 01/07/2017 [facility] HEMATOLOGY MPV 8.1 7.4 - 10.4 01/07/2017 [facility] HEMATOLOGY MCH 25.6 27.0 - 31.0 01/07/2017 [facility] HEMATOLOGY Hgb 13.0 12.0 - 16.0 01/07/2017 [facility] HEMATOLOGY RBC 5.07 4.20 - 5.40 01/07/2017 [facility] HEMATOLOGY Hct 38.5 36.0 - 48.0 01/07/2017 [facility] HEMATOLOGY MCV 75.9 80.0 - 98.0 01/07/2017 [facility] HEMATOLOGY WBC 8.2 3.7 - 10.4 01/07/2017 [facility] CARDIAC ENZYMES Troponin-I <0.02 0.00 - 0.40 01/07/2017 [facility] CHEM PANEL Lactic Acid WB 2.5 0.5 - 2.2 01/07/2017 [facility] CHEM PANEL eGFR 78 01/07/2017 Result Comment: The eGFR is calculated [...] should be multiplied by the estimated BMI. [facility] CHEM PANEL CO2 23 24 - 32 01/07/2017 [facility] CHEM PANEL Calcium Lvl 9.2 8.5 - 10.5 01/07/2017 [facility] CHEM PANEL Chloride Lvl 100 95 - 109 01/07/2017 [facility] CHEM PANEL Potassium Lvl 3.9 3.5 - 5.1 01/07/2017 [facility] CHEM PANEL Sodium Lvl 137 135 - 145 01/07/2017 [facility] CHEM PANEL Creatinine Lvl 0.93 0.50 - 1.40 01/07/2017 [facility] CHEM PANEL BUN 15 7 - 22 01/07/2017 [facility] CHEM PANEL Glucose Lvl 183 70 - 99 01/07/2017 [facility] CHEM PANEL AGAP 17.9 10.0 - 20.0 01/07/2017 [facility] HEMATOLOGY MPV 8.7 7.4 - 10.4 01/07/2017 [facility] HEMATOLOGY Platelet 235 133 - 450 01/07/2017 [facility] HEMATOLOGY RDW 15.2 11.5 - 14.5 01/07/2017 [facility] HEMATOLOGY MCHC 33.5 32.0 - 36.0 01/07/2017 [facility] HEMATOLOGY MCH 25.6 27.0 - 31.0 01/07/2017 [facility] HEMATOLOGY MCV 76.4 80.0 - 98.0 01/07/2017 [facility] HEMATOLOGY Hct 43.2 36.0 - 48.0 01/07/2017 [facility] HEMATOLOGY WBC 9.6 3.7 - 10.4 01/07/2017 [facility] HEMATOLOGY RBC 5.65 4.20 - 5.40 01/07/2017 [facility] HEMATOLOGY Hgb 14.5 12.0 - 16.0 01/07/2017 [facility] HEMATOLOGY Eosinophils 2.8 0.0 - 4.0 01/07/2017 [facility] HEMATOLOGY Microcyte 1+ *ABN* (01/06/17 7:55 PM) None Seen 01/07/2017 [facility] HEMATOLOGY Basophils # 0.1 0.0 - 0.2 01/07/2017 [facility] HEMATOLOGY Lymphocytes # 3.1 1.0 - 5.5 01/07/2017 [facility] HEMATOLOGY Monocytes # 1.0 0.0 - 0.8 01/07/2017 [facility] HEMATOLOGY Eosinophils # 0.3 0.0 - 0.5 01/07/2017 [facility] HEMATOLOGY Basophils 0.7 0.0 - 1.0 01/07/2017 [facility] HEMATOLOGY Segs-Bands # 5.1 1.5 - 8.1 01/07/2017 [facility] HEMATOLOGY Segs 53.3 45.0 - 75.0 01/07/2017 [facility] HEMATOLOGY Lymphocytes 32.7 20.0 - 40.0 01/07/2017 [facility] HEMATOLOGY Monocytes 10.5 2.0 - 12.0 01/07/2017 [facility] IMMUNOLOGY CDC HIV 4th GEN Negative *NA* (01/06/17 7:55 PM) Negative 01/07/2017 [facility] URINE AND STOOL UA Sq Epi Rare /LPF Few /LPF 01/07/2017 [facility] URINE AND STOOL UA WBC 0-2 /HPF None Seen /HPF 01/07/2017 [facility] URINE AND STOOL UA RBC None Seen (01/06/17 7:52 PM) 0 - 2 01/07/2017 [facility] URINE AND STOOL UA Nitrite Negative (01/06/17 7:52 PM) Negative 01/07/2017 [facility] URINE AND STOOL UA Leuk Est Negative (01/06/17 7:52 PM) Negative 01/07/2017 [facility] URINE AND STOOL UA Blood Negative (01/06/17 7:52 PM) Negative 01/07/2017 [facility] URINE AND STOOL UA Bili Negative *NA* (01/06/17 7:52 PM) Negative 01/07/2017 [facility] URINE AND STOOL UA Urobilinogen 0.2 0.1 - 1.0 01/07/2017 [facility] URINE AND STOOL UA Protein Negative (01/06/17 7:52 PM) Negative 01/07/2017 [facility] URINE AND STOOL UA pH 6.0 5.0 - 8.0 01/07/2017 [facility] URINE AND STOOL UA Ketones Negative *NA* (01/06/17 7:52 PM) Negative 01/07/2017 [facility] URINE AND STOOL UA Glucose >=1000 mg/dL Negative mg/dL 01/07/2017 [facility] URINE AND STOOL UA Turbidity Clear (01/06/17 7:52 PM) Clear 01/07/2017 [facility] URINE AND STOOL UA Spec Grav 1.020 <=1.030 01/07/2017 [facility] URINE AND STOOL UA Color Yellow *NA* (01/06/17 7:52 PM) Yellow 01/07/2017 [facility] URINE CHEM U Preg Negative (01/06/17 7:52 PM) Negative 01/07/2017 [facility] BEDSIDE GLUCOSE TESTING Gluc POC Lifscn 309 70 99 10/03/2012 [place] <sup>1</sup>Interpretive Data: Upper Reportable Limit: 200 mg/dL. [facility] BEDSIDE GLUCOSE TESTING Comment1 Notify GUI/ 10/03/2012 NA [facility] BEDSIDE GLUCOSE TESTING Gluc POC Lifscn 325 70 99 10/03/2012 [place] <sup>2</sup>Interpretive Data: Upper Reportable Limit: 200 mg/dL. [facility] BEDSIDE GLUCOSE TESTING Comment1 Notify GUI/ 10/03/2012 NA [facility] BEDSIDE GLUCOSE TESTING Gluc POC Lifscn 309 70 99 10/03/2012 [place] <sup>3</sup>Interpretive Data: Upper Reportable Limit: 200 mg/dL. [facility] CHEMISTRY Temp Michael 37.0 10/03/2012 NA [facility] CHEMISTRY pO2 Michael 30 20 - 49 10/03/2012 Normal [facility] CHEMISTRY pH Michael 7.39 7.28 - 7.42 10/03/2012 Normal [facility] CHEMISTRY pCO2 Michael 48 38 - 52 10/03/2012 Normal [facility] CHEMISTRY BE Michael 3 -2-2 - 2 10/03/2012 [facility] CHEMISTRY HCO3 Michael 29 22 - 26 10/03/2012 [facility] CHEMISTRY Site Michael Vein (10/02/2012 21:00:00) 10/03/2012 Normal [facility] CHEMISTRY O2 Sat Michael 56.6 40.0 - 70.0 10/03/2012 Normal [facility] URINALYSIS UA Urobilinogen 0.1 - 1.0 10/03/2012 [facility] URINALYSIS UA Color Ltyellow 10/03/2012 NA [facility] URINALYSIS UA Bacteria Occasional /HPF *NA* (10/02/2012 20:43:00) None Seen 10/03/2012 [facility] URINALYSIS UA RBC 4 0 - 2 10/03/2012 [facility] URINALYSIS UA Leuk Est Large *ABN* (10/02/2012 20:43:00) Negative 10/03/2012 [facility] URINALYSIS UA WBC 84 0 - 5 10/03/2012 [facility] URINALYSIS UA Nitrite Negative (10/02/2012 20:43:00) Negative 10/03/2012 Normal [facility] URINALYSIS UA Sq Epi Few /LPF *NA* (10/02/2012 20:43:00) Few 10/03/2012 [facility] URINALYSIS UA Turbidity Marked *ABN* (10/02/2012 20:43:00) Clear 10/03/2012 [facility] URINALYSIS UA Spec Grav 1.016 <=1.030 10/03/2012 Normal [facility] URINALYSIS UA Protein Negative mg/dL (10/02/2012 20:43:00) Negative 10/03/2012 Normal [facility] URINALYSIS UA pH 5.0 5.0 - 8.0 10/03/2012 Normal [facility] URINALYSIS UA Blood Small *ABN* (10/02/2012 20:43:00) Negative 10/03/2012 [facility] URINALYSIS UA Bili Negative *NA* (10/02/2012 20:43:00) Negative 10/03/2012 [facility] URINALYSIS UA Glucose 500 mg/dL *ABN* (10/02/2012 20:43:00) Negative 10/03/2012 [facility] URINALYSIS UA Ketones Negative mg/dL *NA* (10/02/2012 20:43:00) Negative 10/03/2012 NA [facility] Microbiology Culture: Urine 10/03/2012 [facility] CHEMISTRY S Preg Negative *NA* (10/02/2012 20:41:00) Negative 10/03/2012 NA [facility] CHEMISTRY Phosphorus 3.1 2.5 - 4.5 10/03/2012 Normal [facility] CHEMISTRY Magnesium Lvl 1.8 1.8 - 2.4 10/03/2012 Normal [facility] CHEMISTRY Lipase Lvl 207 73 - 393 10/03/2012 Normal [facility] CHEMISTRY eGFR 84 10/03/2012 NA <sup>4</sup>Result Comment: The eGFR is calculated using the CKD-EPI formula. In most young, healthy individuals the eGFR will be >90 mL/min/1.73m2. The eGFR declines with age. An eGFR of 60-89 may be normal in some populations, particularly the elderly, for whom the CKD-EPI formula has not been extensively validated. Use of the eGFR is not recommended in the following populations:& lt;br/>
Individuals with unstable creatinine concentrations, including patients [...] [facility] CHEMISTRY Albumin Lvl 4.5 3.5 - 5.0 10/03/2012 Normal [facility] CHEMISTRY Calcium Lvl 9.6 8.5 - 10.5 10/03/2012 Normal [facility] CHEMISTRY Total Protein 9.0 6.4 - 8.4 10/03/2012 HI [facility] CHEMISTRY ALT 83 0 - 65 10/03/2012 [facility] CHEMISTRY CO2 28 24 - 32 10/03/2012 Normal [facility] CHEMISTRY Bili Total 0.5 0.2 - 1.3 10/03/2012 Normal [facility] CHEMISTRY AST 50 0 - 37 10/03/2012 [facility] CHEMISTRY Alk Phos 95 39 - 136 10/03/2012 Normal [facility] CHEMISTRY Chloride Lvl 99 95 - 109 10/03/2012 Normal [facility] CHEMISTRY Potassium Lvl 4.0 3.5 - 5.1 10/03/2012 Normal [facility] CHEMISTRY Sodium Lvl 136 135 - 145 10/03/2012 Normal [facility] CHEMISTRY BUN 18 7 - 22 10/03/2012 Normal [facility] CHEMISTRY Creatinine Lvl 0.9 0.5 - 1.4 10/03/2012 Normal [facility] CHEMISTRY Glucose Lvl 353 70 - 99 10/03/2012 HI <sup>5</sup>Interpretive Data: Adult reference range values reflect the clinical guidelines
of the [place] [employer]. [facility] CHEMISTRY AGAP 13.0 10.0 - 20.0 10/03/2012 Normal [facility] CHEMISTRY B/C Ratio 20 6 - 25 10/03/2012 Normal [facility] CHEMISTRY Globulin 4.5 2.0 - 4.0 10/03/2012 [facility] CHEMISTRY A/G Ratio 1.0 0.7 - 1.6 10/03/2012 Normal [facility] HEMATOLOGY Lymphocytes # 3.0 1.0 - 5.5 10/03/2012 Normal [facility] HEMATOLOGY Segs-Bands # 5.7 1.5 - 8.1 10/03/2012 Normal [facility] HEMATOLOGY Basophils # 0.0 0.0 - 0.2 10/03/2012 Normal [facility] HEMATOLOGY Eosinophils # 0.3 0.0 - 0.5 10/03/2012 Normal [facility] HEMATOLOGY Monocytes # 0.6 0.0 - 0.8 10/03/2012 Normal [facility] HEMATOLOGY Segs 59.4 45.0 - 75.0 10/03/2012 Normal [facility] HEMATOLOGY Basophils 0.3 0.0 - 1.0 10/03/2012 Normal [facility] HEMATOLOGY Eosinophils 3.5 0.0 - 4.0 10/03/2012 Normal [facility] HEMATOLOGY Monocytes 5.8 2.0 - 12.0 10/03/2012 Normal [facility] HEMATOLOGY Lymphocytes 31.0 20.0 - 40.0 10/03/2012 Normal [facility] HEMATOLOGY RBC 4.85 4.20 - 5.40 10/03/2012 Normal [facility] HEMATOLOGY Hct 37.3 36.0 - 48.0 10/03/2012 Normal [facility] HEMATOLOGY Hgb 12.5 12.0 - 16.0 10/03/2012 Normal [facility] HEMATOLOGY MCH 25.7 27.0 - 31.0 10/03/2012 LOW [facility] HEMATOLOGY RDW 14.3 11.5 - 14.5 10/03/2012 Normal [facility] MCHC 33.4 32.0 - 36.0 10/03/2012 Normal [facility] MPV 9.0 7.4 - 10.4 10/03/2012 Normal [facility] Platelet 234 133 - 450 10/03/2012 Normal [facility] MCV 76.8 81.0 - 99.0 10/03/2012 LOW [facility] WBC 9.7 3.7 - 10.4 10/03/2012 Normal [facility] PTT 31.6 22.9 - 35.8 10/03/2012 Normal <sup>7</sup>Interpretive Data: Heparin Therapeutic Range: 57 - 92 Seconds [facility] PT 13.4 12.0 - 14.7 10/03/2012 Normal [facility] INR 1.00 0.85 - 1.17 10/03/2012 Normal <sup>6</sup>Interpretive Data: RECOMMENDED RANGES FOR PROTIME INR:
2.0-3.0 for most medical and surgical thromboembolic states.
2.5-3.5 for artificial heart valves and recurrent embolism.

INR SHOULD BE USED ONLY FOR PATIENTS ON STABLE ANTICOAGULANT THERAPY. [facility] BEDSIDE GLUCOSE TESTING Comment1 Notify RN/MD 10/02/2012 NA [facility] Pathology Reports No Data Provided for This Section Diagnostic Reports Report Value Date Source Neck soft tissue w contrast CT Exam: [...] abscess formation is identified. Unremarkable exam. 01/06/2017 [facility] Abdomen/Pelvis w contrast CT CT scan of [...] 3. Diffuse fatty infiltration of the liver SL:14 10/02/2012 [facility] Consultation Notes No Data Provided for This Section Discharge Summaries No Data Provided for This Section History and Physicals No Data Provided for This Section Vital Signs Vital Sign Value Date Comments Source Weight 210 10/10/2017 Jaqu[facility] Freedman Height 63 10/10/2017 Jaqu[facility] Freed[facility] Temperature Oral (F) 98.8 F 10/10/2017 Jaqu[facility] Freedman Heart Rate 104 10/10/2017 Jaqu[facility] Freedman Diastolic (mm Hg) 62 10/10/2017 [facility] Systolic (mm Hg) 108 [facility] Temperature Oral (F) 98 F 01/08/2017 [facility] Respitory Rate 18 01/08/2017 [facility] Systolic (mm Hg) 126 01/08/2017 [facility] Diastolic (mm Hg) 85 01/08/2017 [facility] Heart Rate 88 01/08/2017 [facility] Temperature Oral (F) 98.2 F 01/08/2017 [facility] Respitory Rate 18 01/08/2017 [facility] Heart Rate 92 01/08/2017 [facility] Systolic (mm Hg) 116 01/08/2017 [facility] Diastolic (mm Hg) 73 01/08/2017 [facility] Respitory Rate 18 01/08/2017 [facility] Heart Rate 90 01/08/2017 [facility] Temperature Oral (F) 97 F 01/08/2017 [facility] Systolic (mm Hg) 100 01/08/2017 [facility] Diastolic (mm Hg) 74 01/08/2017 [facility] BMI Calculated 37.1 01/07/2017 [facility] Weight 95 01/07/2017 [facility] Height 160.02 cm 01/07/2017 [facility] Height 160.02 cm 01/07/2017 [facility] Weight 95 01/07/2017 [facility] BMI Calculated 37.1 01/07/2017 [facility] Respitory Rate 16 12/20/2016 [facility] Systolic (mm Hg) 123 12/20/2016 [facility] Diastolic (mm Hg) 79 12/20/2016 [facility] BMI Calculated 37.1 12/20/2016 [facility] Weight 95 12/20/2016 [facility] Height 160.02 cm 12/20/2016 [facility] BMI Calculated 37.63 11/25/2016 [facility] Weight 96.364 11/25/2016 [facility] Height 160.02 cm 11/25/2016 [facility] Heart Rate 100 11/25/2016 [facility] Respitory Rate 16 11/25/2016 [facility] Systolic (mm Hg) 115 11/25/2016 [facility] Diastolic (mm Hg) 79 11/25/2016 [facility] Heart Rate 96 01/24/2014 [facility] Respitory Rate 18 01/24/2014 [facility] [...] Date Status Source [facility] Emergency [id number] WILIAN HELTON 10/02/2012 10/03/[address] [facility] Bedded Outpatient [id number] Evelio Olvera 01/24/2014 01/24/[address] [facility] Bedded Outpatient [id number] Dru Pinon 11/25/2016 11/25/2016 [facility] [id number] Vivek Peraza 12/20/2016 12/21/2016 [facility] [id number] Calvin Harris 01/07/2017 01/08/2017 [facility] Procedures Procedure Code Date Perfomer Comments [facility] Carpal tunnel release<sup>1</sup> [id number] 03/14/2016 bilateral 3 months apart [facility] Carpal tunnel release<sup>1</sup> [id number] 03/14/2016 bilateral 3 months apart [facility] Hysterectomy<sup>2</sup> [id number] 03/14/2012 also removal of abdominal scar tiissue with hyst [facility] Primary mesh repair of incisional hernia [id number] 03/14/2012 [facility] Hysterectomy<sup>2</sup> [id number] 03/14/2012 also removal of abdominal scar tiissue with hyst [facility] Primary mesh repair of incisional hernia [id number] 03/14/2012 [facility] Appendectomy [id number] [facility] Esophagogastroduodenoscopy<sup>3</sup> [id number] with dilation of esophageal stricture [facility] Laparoscopic cholecystectomy [id number] [facility] Ligament repair<sup>4</sup> 71705516 torn ligament repair of bilat ankles after a fall [facility] Operation<sup>5</sup> 652778661 resection of colon for diverticulis [facility] Operation<sup>6</sup> [id number] heel spurs surgery, bilat [facility] Operation<sup>7</sup> 208862502 removal of sweat glands from left armpit [facility] Operation<sup>8</sup> [id number] abdominal "repairs" x 3 [facility] Operation<sup>9</sup> 252073542 removal of cyst from left upper thigh [facility] Tonsillectomy [id number] [facility] Appendectomy [id number] [facility] Esophagogastroduodenoscopy<sup>3</sup> 81424798 with dilation of esophageal stricture [facility] Laparoscopic cholecystectomy [id number] [facility] Ligament repair<sup>4</sup> 57306534 torn ligament repair of bilat ankles after a fall [facility] Operation<sup>5</sup> 791561674 resection of colon for diverticulis [facility] Operation<sup>6</sup> 341414148 heel spurs surgery, bilat [facility] Operation<sup>7</sup> 701213159 removal of sweat glands from left armpit [facility] Operation<sup>8</sup> 801560247 abdominal "repairs" x 3 [facility] Operation<sup>9</sup> 137620593 removal of cyst from left upper thigh [facility] Tonsillectomy [id number] [facility] Hysterectomy [id number] [facility] Assessment and Plan Assessment and Plan Date Source Extracted from:Title: GI Consultation Note Author: Colt Torres MD Date: 01/07/17 Patient: SAIRA MONTOYA Age: 41 years Sex: Female : 1975 Associated Diagnoses: None Author: Colt Torres MD Chief Complaint 01/07/2017 05:22 sore throat, horase voice, trouble swallow 01/06/2017 19:15 c/o sore throat, neck pain, hoarse voice and trouble swallowing. able to clear secretions. hx of nutcracker's esophagus, reflux, htn, ra History of Present Illness Ms. 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 Per the patient, she has dysphagia to solid (occasionally liquids) foods and has had this process for the last several years. The patient states that she has EGD with dilations every 2- 4 for the last two years with symptomatic improvement, but in the last year the relief from dilation has decreased in duration. The patient endorses a 20lb weight loss over the last few years, but this is a mixed picture as the patient is actively trying to lose weight, though she still has dysphagia. The patient states that she has difficulty swallowing whole foods and needs to chew them extensively to be able to swallow, additionally she reports chest pain while eating and feels nauseated at baseline. The patient endorses periodic regurgitation of her recent intake but denies hematemesis, hemathochezia, melena, etc. She endorses that her food feels like it is stuck in the middle of the chest. She was admitted overnight for EGD and POEM procedure. The patient has been evaluated with Dr. Peraza at GI clinic. Upon reviewing the patients manometry the patient does not meet the diagnostic criteria for Jackhammer (nutcracker esophagus). The patient did have mildly elevated esophageal pressures that warrant futher investigation. Review of Systems negative except HPI Health Status Allergies: Allergic Reactions (Selected) Severity Not Documented Bentyl- No reactions were documented. Levaquin- No reactions were documented. Penicillins- No reactions were documented. Sulfa drugs- No reactions were documented. Tetracyclines- No reactions were documented., Allergies (5) Active Reaction Bentyl None Documented Levaquin None Documented penicillins None Documented sulfa drugs None Documented tetracyclines None Documented Current medications: (Selected) Inpatient Medications Ordered Dextrose 50% Syringe: 12.5 gm, 25 mL, IVP, PRN, PRN: Blood Glucose Results Dextrose 50% Syringe: 25 gm, 50 mL, IVP, PRN, PRN: Blood Glucose Results Lactated Ringers 1,000 mL: 100 ml/hr, IV, Stop: 02/06/17 0:25:00 [employer] Phenergan: 12.5 mg, 0.5 mL, IVPB, Q6H, PRN: Nausea and Vomiting acetaminophen: 650 mg, 2 tab, PO, Q4H, PRN: Pain 1-3/Temp > 100.4 F docusate: 100 mg, 1 cap, PO, BID, PRN: Constipation glucagon: 1 mg, IM, PRN, PRN: Blood Glucose Results insulin lispro: 1 unit, 0.01 mL, SUB-Q, TID-Before Meals, PRN: Blood Glucose Results insulin lispro: 2 unit, 0.02 mL, SUB-Q, TID-Before Meals, PRN: Blood Glucose Results insulin lispro: 3 unit, 0.03 mL, SUB-Q, TID-Before Meals, PRN: Blood Glucose Results insulin lispro: 4 unit, 0.04 mL, SUB-Q, TID-Before Meals, PRN: Blood Glucose Results insulin lispro: 5 unit, 0.05 mL, SUB-Q, TID-Before Meals, PRN: Blood Glucose Results ondansetron: 4 mg, 2 mL, IVP, Q6H, PRN: Nausea and Vomiting Pending Complete influenza virus vaccine, inactivated: 0.5 mL, IM, Daily Documented Medications Documented Benadryl: 50 mg, PO, Bedtime Carafate 1 g oral tablet: 1 gm, 1 tab, PO, QID-Before Meals, 120 tab Invokana 300 mg oral tablet: 300 mg, 1 tab, PO, Before Breakfast, 30 tab, 5 Refill(s) Januvia 100 mg oral tablet: 100 mg, 1 tab, PO, Daily, 30 tab, 0 Refill(s) Phenergan 25 mg oral tablet: 25 mg, 1 tab, PO, Q6H, 0 Refill(s) Protonix 40 mg oral enteric coated tablet: 40 mg, 1 tab, PO, BID, 30 tab Reglan 10 mg oral tablet: 20 mg, 2 tab, PO, QID, 360 tab Toujeo SoloStar 300 units/mL subcutaneous solution: 80 unit, SUB-Q, Bedtime, 0 Refill(s) Toujeo SoloStar 300 units/mL subcutaneous solution: SUB-Q, Daily, 0 Refill(s) amitriptyline: 100 mg, PO, Bedtime glipiZIDE 10 mg oral tablet: 20 mg, 2 tab, PO, BID-Before Meals, 180 tab, 1 Refill(s) lisinopril 10 mg oral tablet: 10 mg, 1 tab, PO, Daily, 30 tab, Medications (13) Active Scheduled: (0) Continuous: (1) Lactated Ringers 1,000 mL 1,000 mL, IV, 100 ml/hr PRN: (12) acetaminophen 325 mg TABLET 650 mg 2 tab, PO, Q4H Dextrose 50% 50 ml INJ syringe 12.5 gm 25 mL, IVP, PRN Dextrose 50% 50 ml INJ syringe 25 gm 50 mL, IVP, PRN docusate sodium 100 mg CAP 100 mg 1 cap, PO, BID glucagon recombinant 1 mg PDR 1 mg, IM, PRN insulin lispro 100 unit/ml 3 ml Vial 1 unit 0.01 mL, SUB-Q, TID-Before Meals insulin lispro 100 unit/ml 3 ml Vial 2 unit 0.02 mL, SUB-Q, TID-Before Meals insulin lispro 100 unit/ml 3 ml Vial 3 unit 0.03 mL, SUB-Q, TID-Before Meals insulin lispro 100 unit/ml 3 ml Vial 4 unit 0.04 mL, SUB-Q, TID-Before Meals insulin lispro 100 unit/ml 3 ml Vial 5 unit 0.05 mL, SUB-Q, TID-Before Meals ondansetron 4 mg/2ml INJ VL 4 mg 2 mL, IVP, Q6H promethazine 25 mg/1 ml INJ 12.5 mg 0.5 mL, IVPB, Q6H Problem list: All Problems Abdominal hernia / SNOMED CT 922528814 / Confirmed Diabetes mellitus / SNOMED CT 986745534 / Confirmed Dysphagia / SNOMED CT 53017010 / Confirmed FH: Diabetes mellitus / SNOMED CT 173623842 / Confirmed Diabetic gastroparesis / SNOMED CT 0550348771 / Confirmed Heartburn / SNOMED CT 20612442 / Confirmed HTN - Hypertension / SNOMED CT 1455302536 / Confirmed Nutcracker esophagus / SNOMED CT 905267051 / Confirmed Obesity / SNOMED CT 4672080218 / Confirmed Osteoarthritis / SNOMED CT 7168534600 / Confirmed RA (rheumatoid arthritis) / SNOMED CT 035855505 / Confirmed, Active Problems (11) Abdominal hernia Diabetes mellitus Diabetic gastroparesis Dysphagia FH: Diabetes mellitus Heartburn HTN - Hypertension Nutcracker esophagus Obesity Osteoarthritis RA (rheumatoid arthritis) Histories Past Medical History: Active FH: Diabetes mellitus (070144812) HTN - Hypertension (8384350403) Abdominal hernia (307485140) RA (rheumatoid arthritis) (246694141) Osteoarthritis (1289222463) Resolved GERD - Gastro-esophageal reflux disease (4018193344): Resolved. 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 Nutcracker esophagus (883412074): Resolved. Acid reflux disease (121068297): Resolved. Heel spur (55150678): Resolved. Family History: High blood pressure Father Type 2 diabetes mellitus Mother CA - Cancer of stomach Grandparent Procedure history: Carpal tunnel release (328690329) in 2017 at 41 Years. Comments: 11/25/2016 14:50 - Sasha Camarillo RN bilateral 3 months apart Hysterectomy (070856205) in 2013 at 37 Years. Comments: 11/25/2016 14:52 - Sasha Camarillo RN also removal of abdominal scar tiissue with hyst Primary mesh repair of incisional hernia (723418382) in 2013 at 37 Years. Tonsillectomy (363148035). Esophagogastroduodenoscopy (306444447). Comments: 11/25/2016 14:49 - Sasha Camarillo RN with dilation of esophageal stricture Appendectomy (133051679). Laparoscopic cholecystectomy (93278374). Operation (0775908141). Comments: 11/25/2016 14:52 - Sasha Camarillo RN resection of colon for diverticulis Operation (5454487872). Comments: 11/25/2016 14:54 - Sasha Camarillo RN removal of cyst from left upper thigh Operation (9049695866). Comments: 11/25/2016 14:55 - Sasha Camarillo RN abdominal "repairs" x 3 Operation (7167712214). Comments: 11/25/2016 14:56 - Sasha Camarillo RN removal of sweat glands from left armpit Ligament repair (962037327). Comments: 11/25/2016 14:57 - Sasha Camarillo RN torn ligament repair of bilat ankles after a fall Operation (4305593985). Comments: 11/25/2016 14:58 - Sasha Camarillo RN heel spurs surgery, bilat Social History Social and Psychosocial Habits Alcohol 01/07/2017 Use: Never Tobacco 01/06/2017 Use: Never smoker Exposure to Tobacco Smoke None Cigarette Smoking Last 365 Days No Reg Smoking Cessation Counseling No . Physical Examination VS/Measurements Measurements from flowsheet : Measurements 01/07/2017 05:16 Heparin Dosing Weight (kg) 69.44 01/07/2017 05:15 Height 160.02 cm Height Collection Method Estimated Weight 95 kg Dosing Weight Difference Percent 0 % Dosing Weight Collection Method Estimated Body Surface Area 2.0549 m2 Body Mass Index 37.1 m2 01/06/2017 19:19 Heparin Dosing Weight (kg) 69.44 01/06/2017 19:15 Height 160.02 cm Height Collection Method Stated Weight 95 kg Dosing Weight Difference Percent 0 % Dosing Weight Collection Method Estimated Body Surface Area 2.0549 m2 Body Mass Index 37.1 m2 , Vital Signs (last 24 hrs) Last Charted Temp Oral 97.8 DegF (JAN 07:) Heart Rate Peripheral 98 bpm (JAN 07:34) Resp Rate 18 BRMIN (JAN 07:) SBP 137 mmHg (JAN 07:) DBP H 95mmHg (JAN 07:) SpO2 98 % (JAN 07:) Weight 95 kg (JAN 07:15) Height 160.02 cm (JAN 07:) BMI 37.1 (JAN 07:) General: Alert and oriented, No acute distress. Eye: Pupils are equal, round and reactive to light, Normal conjunctiva. HENT: Normocephalic, no cervical lymphadenopathy, patient voice sounds hoarse. Neck: Non-tender, No carotid bruit. Respiratory: Lungs are clear to auscultation, Respirations are non-labored, Breath sounds are equal. Cardiovascular: Normal rate, Regular rhythm, No murmur. Gastrointestinal: Non-tender, Non-distended, Normal bowel sounds, midline scar from prior surgeries . Musculoskeletal Normal range of motion. Normal strength. Integumentary: Dry, Intact, No rash. Neurologic: Alert, Oriented, No focal deficits. Cognition and Speech: Oriented, Speech clear and coherent, Functional cognition intact. Review / Management Results review: Labs (Last four charted values) WBC 8.2 (JAN 07) 9.6 (JAN 06) Hgb 13.0 (JAN 07) 14.5 (JAN 06) Hct 38.5 (JAN 07) 43.2 (JAN 06) Plt 206 (JAN 07) 235 (JAN 06) Na 138 (JAN 07) 137 (JAN 06) K 4.0 (JAN 07) 3.9 (JAN 06) CO2 24 (JAN 07) L 23 (JAN 06) Cl 105 (JAN 07) 100 (JAN 06) Cr 0.89 (JAN 07) 0.93 (JAN 06) BUN 13 (JAN 07) 15 (JAN 06) Glucose Random H 170 (JAN 07) H 183 (JAN 06) Mg 1.9 (JAN 07) Phos 3.6 (JAN 07) Ca L 8.4 (JAN 07) 9.2 (JAN 06) Troponin <0.02 (JAN 06) . Impression and Plan Ms. 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 Recommendations: -Upon reviewing the patients manometry the patient does not meet the diagnostic criteria for Jackhammer (nutcracker esophagus). The patient did have mildly elevated esophageal pressures that warrant futher investigation. -plan for EGD and Barium swallow afterwards -possible esophageal manometry depending on findings of prior exams -the plan was finalized with Dr. Peraza, however other members of the GI team were involved in the plan regarding this patient Addendum by Vivek Peraza MD on 01/09/2017 10:57 The patient was seen and reviewed with resident/fellow in the rounds on 01/07/2017. I agree with the history of presenting illness and physical exam. I have personally reviewed the lab results and radiology tests and discussed the findings with resident/fellow . We have formulated the assessment and plan together for this patient and I agree with the current recommendations. Thank you for the consult. Vivek Peraza MD, [facility] Wade Mccrary MD Chair in Gastroenterology, Hepatology and Inspector Subassemblies of Advanced Endoscopy, It Program Auditor [facility], [facility], [facility] [phone] (New Patient Referral) [phone] or [phone] (Office Phone, [facility], [facility] [place] [phone] (Office Fax, [facility] [place] [phone] (Administrative Office, [facility]) [phone] (Fax, Administrative Office, [email or web address] [facility]) [phone] (Pager) Extracted from:Title: History and Physical Author: Aiyana Medina DO Date: 01/07/17 Assessment/Plan 41-year-old woman with obesity, uncontrolled diabetes mellitus, prior remote history of diverticulitis, presumed chronic GERD, and history of esophageal disorder requiring frequent repeated "dilatations".[facility] GI has been performing repeated upper endoscopies with dilations 1.NO (nutcracker esophagus) 01/06/17 pt called GI clinic and told to present to ER plan for POEM procedure Maintain patient NPO for possible procedure Consult GI Supportive care 2.Dysphagia GI on board Plan for EGD in AM then POEM? NPO for now will obtain AFTERNOON NANNY eval once cleared to evaluate diet 3.Diabetes mellitus complicated with gastroparesis History of poorly controlled DM with diabetic gastroparesis Follow up A1C, sliding scale insulin pt NPO Will hold PO regimen for procedure 4.Diabetic gastroparesis Restart reglan post EGD/POEM Following appropriate instuctions of small meals and chewing carefully 5.Obesity Diet counseling performed 6.Heartburn Prophylaxis SCDs and early ambulation Disposition Pending EGD and POEM procedure with GI 01/08/2017 [facility] Plan of Care No Data Provided for This Section Social History Social History Date Source Social History TypeResponse Alcohol Never Smoking Status Never smoker; Exposure to Tobacco Smoke None; Cigarette Smoking Last 365 Days No; Reg Smoking Cessation Counseling No 01/07/2017 [facility] Social History TypeResponse Smoking Status Never smoker; Exposure to Tobacco Smoke None; Cigarette Smoking Last 365 Days No; Reg Smoking Cessation Counseling No 11/25/2016 [facility] Family History No Data Provided for This Section Advance Directives No Data Provided for This Section Functional Status No Data Provided for This Section
== END | disposition home or self-care (01) ==
LOC: OR 12:50
PROVIDERS: ATTEND Internal Medicine Gastroenterology
DX: K20.8 Other esophagitis (principal); D13.1 Benign neoplasm of stomach; K29.60 Other gastritis without bleeding; K21.9 Gastro-esophageal reflux disease without esophagitis; R19.7 Diarrhea, unspecified; E11.9 Type 2 diabetes mellitus without complications; I10 Essential (primary) hypertension; I47.1 Supraventricular tachycardia; E78.6 Lipoprotein deficiency; M06.9 Rheumatoid arthritis, unspecified; Z88.1 Allergy status to other antibiotic agents; Z88.0 Allergy status to penicillin; Z88.8 Allergy status to other drugs, medicaments and biological substances; Z01.810 Encounter for preprocedural cardiovascular examination; Z79.4 Long term (current) use of insulin; Z79.84 Long term (current) use of oral hypoglycemic drugs; Z68.38 Body mass index [BMI] 38.0-38.9, adult
CPT/HCPCS: 36415; 43235; 43450; 82948; 93005; J2001; J2250; J2704; J3010

== ENCOUNTER → 2019-04-21 | Day surgery (SDC) | payer OTHER ==
[~2019-04-21] MED LIST changes: +ACTOS30 MG PO; +BASAGLAR K100 UNIT/1 SQ; +PROPOFOL IV EMULSION 10 MG/ML 20 ML VIAL ONE; -PROPOFOL IV EMULSION 10 MG/ML 50 ML VIAL ONE
== END | disposition home or self-care (01) ==
LOC: OR 10:55
PROVIDERS: ATTEND Internal Medicine Gastroenterology
DX: K22.2 Esophageal obstruction (principal); K31.7 Polyp of stomach and duodenum; K29.60 Other gastritis without bleeding; K20.9 Esophagitis, unspecified; K21.9 Gastro-esophageal reflux disease without esophagitis; K58.9 Irritable bowel syndrome, unspecified; K57.90 Diverticulosis of intestine, part unspecified, without perforation or abscess without bleeding; E11.9 Type 2 diabetes mellitus without complications; I10 Essential (primary) hypertension; R00.0 Tachycardia, unspecified; M06.9 Rheumatoid arthritis, unspecified; Z88.1 Allergy status to other antibiotic agents; Z88.0 Allergy status to penicillin; Z88.8 Allergy status to other drugs, medicaments and biological substances; Z79.4 Long term (current) use of insulin; Z79.84 Long term (current) use of oral hypoglycemic drugs; Z68.36 Body mass index [BMI] 36.0-36.9, adult; Z86.010 Personal history of colon polyps
CPT/HCPCS: 36415; 43239; 43251; 43450; 82948; J2001; J2250; J2704; J3010

== ENCOUNTER 2019-08-03 15:25 | Observation (INO) | payer OTHER ==
[~2019-08-03] VITALS: Ht 160 cm; Wt 92.5 kg
[~2019-08-03 15:25] MED LIST changes: -FENTANYL CITRATE/PF 100MCG/2 ML INJ ONE; -LIDOCAINE HCL 2% LOCAL INJ 5 ML SDV VIAL INJ ONE; -MIDAZOLAM HCL 2 MG/2 ML VIAL ONE; -PROPOFOL IV EMULSION 10 MG/ML 20 ML VIAL ONE
--- OUTSIDE RECORDS SUMMARY | 2019-08-03 15:30 | XMS REPORT ---
Author Author [facility] t Organization [facility] t Address 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 Role Phone THAI ROLLE MD PCP DR ARIANNA LIRA Attphys Unavailable ROLLE, ALEC Attphys Unavailable ROLLE, SOUHEIL Attphys Unavailable ERICKSON CARR Attphys Unavailable Kirby Harris Attphys Bruce Peraza Attphys [phone] Rosa STEVENSON Attphys Unavailable Dashawn Pinon Attphys DR ARIANNA LIRA Admphys Unavailable ROLLE, SOUHEIL Admphys Unavailable Kirby Harris Admphys Dashawn Pinon Dru Admphys Payers Payer Name Policy Type Policy Number Effective Date Expiration Date Brian grullon [facility] [id number] 2015 00:00:00 [facility] [id number] 2015 00:00:00 [facility] [id number] 2015 00:00:00 [facility] Problems Condition Name Condition Details Condition Category Status Onset Date Resolution Date Last Treatment Date Treating Clinician Comments Source TROUBLE SWALLOWING TROU BLE SWALLOWING Active 01/06/2017 [facility] Diagnosis Active 2017-01-06 00:00:00 2017-01-07 04:03:[address] [facility] [address] DYSPHAGIA DYSP HAGIA Active 01/06/2017 [facility] Diagnosis Active 2017-01-06 00:00:00 2017-01-10 12:43:00 [facility] ESOPHAGEAL ISSUES ESOP HAGEAL ISSUES Active 09/30/2016 [facility] Diagnosis Active 2016-09-30 00:00:00 2016-12 14:36:00 [facility] UNK UNK Active 09/29/2016 [facility] Active 2016-09-29 00:00:00 2016-11-25 11:06:00 [facility] R10.12 - LEFT UPPER QUADRANT PAIN R10.12 - LEFT UPPER QUADRANT PAIN Active 02/10/2016 [facility] Diagnosis Active 2016-02-10 00:01:00 2016-03-18 16:21:00 [facility] Abdominal pain Abdominal pain Problem Active 2015-07-28 00:00:00 [facility] Hematochezia Blood in stool Problem Active 2015-06-01 00:00:00 [facility] Diverticulitis of intestine Diverticulitis Problem Active 2015-05 00:00:00 [facility] Stricture of esophagus Esophageal stricture Problem Active 07-23-08 00:00:00 [facility] Abdominal pain following cholangiogram Abdominal pain follow ing cholangiogram Problem Active 2014-02-19 00:00:00 [facility] Hyperglycemia without ketosis Hyperglycemia without ketosis Problem Active 2014-02-19 00:00:00 [facility] 787.20/789.07 787. 20/789.07 Active 01/17/2014 [facility] Diagnosis Active 2014-01-17 00:00:00 2014-01-24 06:26:00 [facility] Esophagitis Esophagitis Problem Active 2014-01-08 00:00:00 [facility] Gastritis Gastritis Problem Active 2014-01-08 00:00:00 [facility] Gastroesophageal reflux disease with esophagitis Reflux esophagi tis Problem Active 2014-01-08 00:00:00 [facility] Bile-induced gastritis Reflux gastritis Problem Active 2014-01-08 00:00 :00 [facility] Diabetes mellitus Diabetes Problem Active 2013-12-20 00:00:00 [facility] Urinary tract infection Urinary tract infection Problem Active 2013-12-20 00:00:00 [facility] ABD PAIN ABD PAIN Active 10/02/2012 [facility] Diagnosis Active 2012-10-02 00:00:00 2012-10-02 20:16:00 [facility] Pain Pain Problem Active [facility] Diarrhea Diarrhea Problem Active [facility] Dysphagia Dysphagia Problem Active [facility] Hernia of abdominal cavity (disorder) Hernia of abdominal cavity (disorder) Active Problem 01/11/2017 [facility] Problem Active 2017-01-11 00:34:59 [facility] Family history: Diabetes mellitus (context-dependent c ategory) Family history: Diabetes mellitus (context-dependent category) Active Problem 01/11/2017 [facility] Problem Active 2017-01-11 00:34:[address] [facility] [address], [facility] Gastroparesis due to diabetes mellitus (disorder) Gastroparesis due to diabetes mellitus (disorder) Active Problem 01/11/2017 [facility] Problem Active 2017-01-11 00:34:59 [facility] Gastroesophageal reflux disease (disorder) Gastroesophageal reflux disease (disorder) Resolved Problem 01/11/2017 [facility] Problem Resolved 2017-01-11 00:34:59 [facility], [facility] Heartburn (finding) Hear tburn (finding) Active Problem 01/11/2017 [facility] Problem Active 2017-01-11 00 :34:59 [facility] Hypertensive disorder, systemic arterial (disorder) Hypertensive disorder, systemic arterial (disorder) Active Problem 01/11/2017 [facility] Problem Active 2017-01-11 00:34:59 [facility] 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) Resolved Problem 01/11/2017 [facility] Problem Resolved 2017-01-11 00:34:59 [facility] 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 Problem 01/11/2017 [facility] Problem Active 2017-01-11 00:34:59 [facility] Obesity (disorder) Obes ity (disorder) Active Problem 01/11/2017 [facility] Problem Active 2017-01-11 00 :34:59 [facility] Osteoarthritis (disorder) Oste oarthritis (disorder) Active Problem 01/11/2017 [facility] Problem Active 2017-01-11 00:34:59 [facility], [facility] Rheumatoid arthritis (disorder) Rheumatoid arthritis (disorder) Active Problem 01/11/2017 [facility] Problem Active 2017-01-11 00:34:59 [facility] Abdominal hernia Abdo lj hernia Active Problem 10/05/2012 [facility] Problem Active 2012-10-05 21:56:35 [facility] FH: Diabetes mellitus FH: Diabetes mellitus Active Problem 10/05/2012 [facility] Problem Active 2012-10-05 21:56:3 5 [facility] HTN - Hypertension HTN - Hypertension Active Problem 10/05/2012 [facility] Problem Active 2012-10-05 21:56:35 [facility] Calcaneal spur (disorder) Calc aneal spur (disorder) Resolved Problem 01/11/2017 [facility] Problem Resolved 2017-01-11 00:34:59 [facility] [address] Polyarthritis Poly arthritis Active Diagnosis 10/28/2017 Jaquan Freedman Diagnosis Active 2017-10-28 02:47:33 Jaquan Freedman DYSPHAGIA, UNSPECIFIED DYSP HAGIA, UNSPECIFIED Active [facility] Diagnosis Active 2017-01-10 12:43:00 [facility] Allergies, Adverse Reactions, Alerts Allergy Name Allergy Type Status Severity Reaction(s) Onset Date Inacti ve Date Treating Clinician Comments Source Penicillin Allergy to Substance Active Mild RASH 2018-01-12 00:00:00 [facility] Tetracyclines Allergy to Substance Active Unknown SWELLING/THR OAT CLOSED 2018-01-12 00:00:00 [facility] Sulfamethoxazole Allergy to Substance Active Unknown RASH 2018-01-12 00:00:00 [facility] Trimethoprim Allergy to Substance Active Unknown 2018-01-12 00:00: 00 [facility] penicillin penicillin Active rash 2017-10-10 00:00:00 [facility] Bentyl<sup>1</sup> Bentyl<sup>1</sup> Active [facility] Levaquin Levaquin Active [facility] penicillins penicillins Active [facility] sulfa drugs<sup>2</sup> sulfa drugs<sup>2</sup> Active [facility] tetracyclines tetracyclines Active [facility] Social History Social Habit Start Date Stop Date Quantity Comments Source Social History 2017-01-07 10:29:05 2017-01-07 10:29:05 [facility] Smoking Status Start Date Stop Date Source Social History [facility] Medications Ordered Medication Name Filled Medication Name Start Date Stop Da te Current Medication? Ordering Clinician Indication Dosage Frequency Signature (SIG) Comments Components Source Phenergan 2017-10-28 02:47:33 Yes Wajeeha Mari 1 tablet as needed Jaquan Freedman Protonix 2017-10-28 02:47:33 Yes Wajeeha Mari 1 tablet Jaquan Freedman Toujeo SoloStar 2017-10-28 02:47:33 Yes Wajeeha Mari as directed Jaquan Freedman Acetaminophen-Codeine #3 2017-10-28 02:47:33 Yes Wajeeha Mari 1 tablet as needed Jaquan Freedman GlipiZIDE 2017-10-28 02:47:33 Yes Wajeeha Mari 2 tablet Jaquan Freedman Reglan 2017-10-28 02:47:33 Yes Wajeeha Mari as directed Jaquan Freedman Januvia 2017-10-28 02:47:33 Yes Wajeeha Mari 1 tablet Jaquan Freedman Invokana 2017-10-28 02:47:33 Yes Wajeeha Mari 1 tablet Jaquan Freedman influenza virus vaccine, inactivated 2017-01-08 19:30:00 No Notes: (Same as: Fluzone Quadrivalent, Fluarix Quadrivalent) For 3 years of age and older (0.5 mL IM) Shake well before use [facility] Benadryl 2017-01-08 01:46:00 No Notes: (Leonel e as: Benadryl) [facility] Chloraseptic 1.4% spray 2017-01-08 01:46:00 No Notes: Chloraseptic [place] (Same as: Chloraseptic, Sore Throat [place]) WASTE: F/P - Black; E - Municipal Trash Bin [facility] ter hydromorphone 2017-01-07 18:03:00 No Notes: Same as: Dilaudid [facility] Phenergan 2017-01-07 14:58:00 No Notes: Do not give IV push. (Same as: Phenergan) [facility] influenza virus vaccine, inactivated 2017-01-07 14:00:00 No Notes: (Same as: Fluzone Quadrivalent, Fluarix Quadrivalent) For 3 years of age and older (0.5 mL IM) Shake well before use [facility] Dextrose 50% Syringe 2017-01-07 11:54:00 No 12.5 gm, 25 mL, Route: IVP, Drug Form: INJ, Dosing Weight 95, kg, PRN, PRN Blood Glucose Results, Start date: 01/07/17 6:54:00 CDT, Duration: 30 day, Stop date: 02/06/17 5:53:00 LINER CHECKER [facility] glucagon 2017-01-07 11:54:00 No 1 mg, Route: IM, Drug form: PDR/INJ, PRN, Dosing Weight 95, kg, PRN Blood Glucose Results, Start date: 01/07/17 6:54:00 CDT, Duration: 30 day, Stop date: 02/06/17 5:53:00 LINER CHECKER [facility] insulin lispro 2017-01-07 11:54:00 No 60 units) WASTE: F/P - Black; E - Municipal Trash Bin Stable for 28 days at room temperature. Expires in days from Date [facility] Phenergan 25 mg oral tablet 2017-01-07 11:33:00 Yes 25 mg = 1 tab, PO, Q6H, 0 Refill(s) [facility] Toujeo SoloStar 300 units/mL subcutaneous solution 2016-12-13 11:33:00 No SUB-Q, Daily, 0 Refill(s) [facility] Dilaudid 2017-01-07 11:28:00 No Notes: Same as: Dilaudid [facility] ondansetron 2017-01-07 07:33:00 No Notes: (Same as: Anny) MEDICATION WASTE Product Size: 4 mg Product Wasted: ___ mg [facility] ondansetron 2017-01-07 06:50:00 No Notes: (Same as: Anny) MEDICATION WASTE Product Size: 4 mg Product Wasted: ___ mg [facility] docusate 2017-01-07 06:50:00 No 100 mg, 1 cap, Route: PO, Drug form: CAP, BID, Dosing Weight 95, kg, PRN Constipation, Start date: 01/07/17 1:50:00 CDT, Duration: 30 day, Stop date: 02/06/17 1:49:00 LINER CHECKER [facility] acetaminophen 2017-01-07 06:50:00 No Notes: Do not exceed 4 gm/day. (Same as: Tylenol) [facility] morphine Sulfate 2017-01-07 05:27:00 No Notes: (Same as:MORPhine Sulfate) [facility] Lactated Ringers 1,000 mL 2017-01-07 05:26:00 No 1,000 mL, Rate: 100 ml/hr, Infuse over: 10 hr, Route: IV, Dosing Weight 95 kg, Total Volume: 1,000, Start date: 01/07/17 0:26:00 CDT, Duration: 30 day, Stop date: 02/06/17 0:25:00 LINER CHECKER [facility] ter Sodium Chloride 0.9% (Bolus) IV 2017-01-07 03:06:00 No 1,000 mL, 1000 ml/hr, Infuse Over: 1 hr, Route: IV, 1,000, Drug form: INJ, ONCE, Priority: STAT, Dosing Weight 95 kg, Start date: 01/06/17 22:06:00 CDT, Duration: 1 doses or times, Stop date: 01/06/17 22:06:00 CDT [facility] Phenergan 2017-01-07 02:52:00 No Notes: (Sa me as: Phenergan) [facility] hydromorphone 2017-01-07 02:51:00 No Notes: Same as: Dilaudid [facility] Zofran 2017-01-07 02:50:00 No 4 mg, Route: IVP, Drug form: INJ, ONCE, Dosing Weight 95, kg, Start date: 01/06/17 21:50:00 CDT, Stop date: 01/06/17 21:50:00 CDT [facility] enter morphine Sulfate 2017-01-07 02:50:00 No 4 mg, Route: IVP, ONCE, Dosing Weight 95, kg, Start date: 01/06/17 21:50:00 CDT, Stop date: 01/06/17 21:50:00 CDT [facility] Omnipaque 350mg/ml 2017-01-07 01:53:00 No Notes: (same as:Omnipaque 350). WASTE: F/P - Black; E - Municipal Trash Bin [facility] dexamethasone 2017-01-07 00:55:00 No Notes: Concentration: 4mg/ml [facility] clindamycin 2017-01-07 00:54:00 No Notes: (clindamycin 150 mg/1 ml (600 mg/4 ml VL) INJ) (Same As: Cleocin) [facility] Sodium Chloride 0.9% (Bolus) IV 2017-01-07 00:50:00 No 1,000 mL, Infuse Over: 1 hr, Route: IV, ONCE, Priority: STAT, Dosing Weight 95 kg, Start date: 01/06/17 19:50:00 CDT, Duration: 1 doses or times, Stop date: 01/06/17 19:50:00 CDT [facility] Glipizide 10 MG Oral Tablet 2016-11-25 16:28:00 Yes 20 mg = 2 tab, PO, BID-Before Meals, # 180 tab, 1 Refill(s) [facility] sitagliptin 100 MG Oral Tablet [Januvia] 2016-11-25 16:28:00 Yes 100 mg = 1 tab, PO, Daily, # 30 tab, 0 Refill(s) [facility] canagliflozin 300 MG Oral Tablet [Invokana] 2016-11-25 16:27:00 Yes 300 mg = 1 tab, PO, Before Breakfast, # 30 tab, 5 Refill(s) [facility] 1.5 ML Insulin Glargine 300 UNT/ML Prefilled Syringe [Toujeo ] 2016-11-25 16:22:00 Yes 80 unit, SUB-Q, Bedtime, 0 Re fill(s) [facility] Benadryl 2014-01-22 23:21:00 Yes 50 mg, PO, Bedtime, 0 Refill(s) [facility] 3 ML Insulin Lispro 100 UNT/ML Prefilled Syringe [Humalog] 2014-01-22 23:20:00 Yes 43 unit, SUB-Q, TID-Before Meal s, 0 Refill(s) [facility] Amitriptyline 2014-01-22 23:18:00 Yes 100 mg, PO, Bedtime, 0 Refill(s) [facility] insulin detemir 100 UNT/ML Injectable Solution [Levemir] 2014-01-22 23:16:00 Yes 30 unit, SUB-Q, Daily, 0 Refill( s) [facility] lisinopril 10 mg oral tablet 2014-01-22 23:15:00 Yes 10 mg = 1 tab, PO, Daily, # 30 tab, 0 Refill(s) [facility] pantoprazole 40 MG Enteric Coated Tablet [Protonix] 2013-03 23:15:00 Yes 40 mg = 1 tab, PO, BID, # 30 tab, 0 Refi ll(s) [facility] Metoclopramide 10 MG Oral Tablet [Reglan] 2014-01-22 23:14:00 Yes 20 mg = 2 tab, PO, QID, # 360 tab, 0 Refill(s) [facility] Sucralfate 1000 MG Oral Tablet [Carafate] 2014-01-22 23:14:00 Yes 1 gm = 1 tab, PO, QID-Before Meals, # 120 tab, 0 Refill(s) [facility] Insulin regular 2012-10-03 05:17:00 No Guille Naidu 5 unit, Route: SUB-Q, ONCE, Dosing Weight 90.909, kg, Priority: STAT, Start date: 10/03/12 0:17:00, Stop date: 10/03/12 0:17:00 [facility] Zofran 2012-10-03 04:07:00 No Guille Naidu 4 mg, Route: IVP, Drug form: INJ, ONCE, Dosing Weight 90.909, kg, Priority: STAT, Start date: 10/02/12 23:07:00, Stop date: 10/02/12 23:07:00 [facility] morphine Sulfate 2012-10-03 04:05:00 No Guille Naidu 4 mg, Route: IVP, Drug form: INJ, ONCE, Dosing Weight 90.909, kg, Priority: STAT, Start date: 10/02/12 23:05:00, Stop date: 10/02/12 23:05:00 [facility] Macrodantin 100 mg oral capsule 2012-10-03 03:44:16 Yes Guille Naidu 100 mg, 1 cap, PO, QID, 40 cap, Substitution Allowed, CAP [facility] Bentyl 10 mg oral capsule 2012-10-03 03:43:26 Yes Guille Naidu 10 mg, 1 cap, PO, QID, 28 cap, Substitution Allowed, CAP [facility] Zofran 4 mg oral tablet 2012-10-03 03:42:25 Yes Guille Naidu 4 mg, 1 tab, PO, BID, 10 tab, Substitution Allowed [facility] [place] 5/325 oral tablet 2012-10-03 03:42:02 Yes Guille Naidu 1-2 tab, PO, Q4-6H, PRN, 15 tab, Pain, Substitution Allowed, Maintenance [facility] NS (Bolus) IV 500 mL 2012-10-03 03:40:00 No Guille Schulte Bra un 500 mL, Rate: 500 ml/hr, Infuse over: 1 hr, Route: IV, Dosing Weight 90.909 kg, Total Volume: 500, Priority: STAT, Start date: 10/02/12 22:40:00, Duration: 1 doses or times, Stop date: 10/02/12 23:39:00, Bolus DoseBolus Dose [facility] Insulin regular 2012-10-03 03:39:00 No Guille G Naidu 5 unit, Route: SUB-Q, ONCE, Dosing Weight 90.909, kg, Priority: STAT, Start date: 10/02/12 22:39:00, Stop date: 10/02/12 22:39:00 M [facility] ceftriaxone + Sodium Chloride 0.9% IV 100 mL 2012-10-03 02 :13:00 No Guille G Naidu 1 gm, Route: IVP B, ONCE, Dosing Weight 90.909, kg, Priority: STAT, Start date: 10/02/12 21:13:00, Stop date: 10/02/12 21:13:00 [facility] NS 1,000 mL 2012-10-03 01:37:00 No Guille G Naidu 1,000 mL, Rate: 150 ml/hr, Infuse over: 6.7 hr, Route: IV, Dosing Weight 90.909 kg, Total Volume: 1,000, Start date: 10/02/12 20:37:00, Duration: 30 day, Stop date: 11/01/12 20:36:00 [facility] NS (Bolus) IV 1000 mL 2012-10-03 01:37:00 No Guille Schulte Br aun 1,000 mL, Rate: 1,000 ml/hr, Infuse over: 1 hr, Route: IV, Dosing Weight 90.909 kg, Total Volume: 1,000, Priority: STAT, Start date: 10/02/12 20:37:00, Duration: 1 doses or times, Stop date: 10/02/12 21:36:00, Bolus DoseBolus Dose [facility] Saline Flush 0.9% 2012-10-03 01:24:00 No Guille G Naidu 5 mL, Route: IVP, Drug Form: INJ, Dosing Weight 90.909, kg, PRN, PRN Line Flush, Start date: 10/02/12 20:24:00, Duration: 24 hr, Stop date: 10/03/12 20:23:00 [facility] ondansetron 2012-10-03 01:24:00 No Guille Naidu 4 mg, 2 mL, Route: IVP, Drug form: INJ, ONCE, Dosing Weight 90.909, kg, Priority: STAT, Start date: 10/02/12 20:24:00, Stop date: 10/02/12 20:24:00 [facility] morphine Sulfate 2012-10-03 01:24:00 No Guille Naidu 4 mg, 2 mL, Route: IVP, Drug form: INJ, ONCE, Dosing Weight 90.909, kg, Priority: STAT, Start date: 10/02/12 20:24:00, Stop date: 10/02/12 20:24:00 [facility] Amitriptyline Hcl 100 Mg Tablet Amitriptyline Hcl 100 Mg Tablet Yes 150 Bedtime [facility] Glipizide 10 Mg Tablet Glipizide 10 Mg Tablet Yes 20 Twice A Day [facility] Invokana Invokana Yes 100 Daily [facility] Lisinopril 10 Mg Tablet Lisinopril 10 Mg Tablet Yes 5 Bedtime [facility] Metoclopramide Hcl (Reglan) 10 Mg Tablet Metoclopramid e Hcl (Reglan) 10 Mg Tablet Yes 20 Before Meals And At Bedtime [facility] Metoprolol Succinate 25 Mg Tab.er.24h Metoprolol Succinate 25 Mg Ta b.er.24h Yes 25 Twice A Day [facility] Pantoprazole Sodium (Protonix) 40 Mg Suspdr.pkt Pantop razole Sodium (Protonix) 40 Mg Suspdr.pkt Yes 40 Twice A Day [facility] Phenergan Phenergan Yes 25 As Needed [facility] Sitagliptin Phosphate (Januvia) 100 Mg Tablet Sitaglip tin Phosphate (Januvia) 100 Mg Tablet Yes 100 Daily [facility] Tujeo Tujeo Yes 100 Am [facility] Colestipol Hcl,Micronized (Colestipol Hcl) 1 Gm Tablet , 1 Gm Oral Colestipol Hcl,Micronized (Colestipol Hcl) 1 Gm Tablet, 1 Gm Oral 00:00:00 No 1 As Needed [facility] Acetaminophen/Codeine Phosphate (Tylenol # 3*) 1 Ea Ta b, Oral Acetaminophen/Codeine Phosphate (Tylenol # 3*) 1 Ea Tab, Oral 2017-10-11 00:00:00 No As Needed [facility] Diphenhydramine Hcl (Benadryl) 25 Mg Capsule, 50 Mg Or al Diphenhydramine Hcl (Benadryl) 25 Mg Capsule, 50 Mg Oral 2017-10-11 00:00:00 No 50 Hsprn [facility] Methocarbamol (Robaxin) 500 Mg Tablet, 500 Mg Oral Met hocarbamol (Robaxin) 500 Mg Tablet, 500 Mg Oral 2017-10-11 00:00:00 No 500 T hree Times A Day [facility] Toujeo , 100 Units Injection Toujeo , 100 Units Injection 2017-10-11 00:00:00 No 100 Bedtime [facility] Invokana , 300 Mg Oral Invokana , 300 Mg Oral 2017-06-30 00:00:0 0 No 300 Daily [facility] Pregabalin (Lyrica) 75 Mg Cap, 75 Mg Oral Pregabalin ( Lyrica) 75 Mg Cap, 75 Mg Oral 2017-03-10 00:00:00 No 75 Daily [facility] Pioglitazone Hcl (Actos*) 15 Mg Tablet, 15 Mg Oral Satish glitazone Hcl (Actos*) 15 Mg Tablet, 15 Mg Oral 2016-09-20 00:00:00 No 15 Da marcio [facility] Jardiance , 25 Mg Oral Jardiance , 25 Mg Oral 2016-05-16 00:00:00 No 25 Daily [facility] Diphenhydramine Hcl 12.5 Mg/5 Ml Elix, 50 Mg Oral Diph enhydramine Hcl 12.5 Mg/5 Ml Elix, 50 Mg Oral 2015-11-12 00:00:00 No 50 Bedtime as needed for Sleep [facility] Glipizide 5 Mg Tablet, 10 Mg Oral Glipizide 5 Mg Tablet, 10 Mg O ral 2015-11-12 00:00:00 No 10 Before Breakfast [facility] Glipizide 5 Mg Tablet, 20 Mg Oral Glipizide 5 Mg Tablet, 20 Mg O ral 2015-11-12 00:00:00 No 20 Before Supper [facility] Insulin Human Lispro (Humalog) 100 Units/Ml Ml, 25 Uni ts Sub-Q Insulin Human Lispro (Humalog) 100 Units/Ml Ml, 25 Units Sub-Q 2015-11-12 00:00:00 No 25 Three Times A Day [facility] Jardance , 25 Mg Oral Jardance , 25 Mg Oral 2015-11-12 00:00:00 No 25 Every Morning [facility] Mesalamine (Pentasa) 500 Mg Capcr, 500 Mg Oral Mesalam ine (Pentasa) 500 Mg Capcr, 500 Mg Oral 2015-11-12 00:00:00 No 500 Four Times Daily [facility] Metoclopramide Hcl (Reglan) 5 Mg Tablet, 10 Mg Oral Me toclopramide Hcl (Reglan) 5 Mg Tablet, 10 Mg Oral 2015-11-12 00:00:00 No 10 Four Times Daily [facility] Ondansetron (Zofran Odt) 4 Mg Tab.rapdis, 4 Mg Subling ual Ondansetron (Zofran Odt) 4 Mg Tab.rapdis, 4 Mg Sublingual 2015-11-12 00:00:00 No 4 Every 6 Hours [facility] Promethazine Hcl 25 Mg Tablet, 25 Mg Oral Promethazine Hcl 25 Mg Tablet, 25 Mg Oral 2015-11-12 00:00:00 No 25 Twic e A Day as needed for Nausea And Vomiting [facility] Toujeo , 100 Units Subcutaneously Toujeo , 100 Units Subcutaneou sly 2015-11-12 00:00:00 No 100 Bedtime [facility] Sucralfate (Carafate) 1 Gm/10 Ml Oral.susp, 1 Gm Oral Sucralfate (Carafate) 1 Gm/10 Ml Oral.susp, 1 Gm Oral 2015-10-24 00:00:00 No 1 Four Times Daily [facility] Insulin Detemir (Levemir) 100 Unit/1 Ml Vial, 30 Units Subcutaneously Insulin Detemir (Levemir) 100 Unit/1 Ml Vial, 30 Units Subcutaneously 2015-09-18 00:00:00 No 30 Before Breakfast [facility] Insulin Detemir (Levemir) 100 Unit/1 Ml Vial, 70 Units Subcutaneously Insulin Detemir (Levemir) 100 Unit/1 Ml Vial, 70 Units Subcutaneously 2015-09-18 00:00:00 No 70 Bedtime [facility] Insulin Detemir (Levemir) 100 Unit/1 Ml Vial, 40 Unit Sub-Q Insulin Detemir (Levemir) 100 Unit/1 Ml Vial, 40 Unit Sub-Q 2014-08-26 00:00:00 No 40 Before Breakfast [facility] [facility] Insulin Detemir (Levemir) 100 Unit/1 Ml Vial, 60 Units Sub-Q Insulin Detemir (Levemir) 100 Unit/1 Ml Vial, 60 Units Sub-Q 2014-08-26 00:00:00 No 60 Twice A Day [facility] Acetaminophen With Codeine (Tylenol With Codeine #3 Tablet) 1 Each Tablet, 300 Mg Oral Acetaminophen With Codeine (Tylenol With Codeine #3 Tablet) 1 Each Tablet, 300 Mg Oral 2014-08-25 00:00:00 No 300 Twice A Day as needed for Pain [facility] Acetaminophen/Diphenhydramine (Tylenol P m Ex-Strength Caplet) 1 Each Tablet, Oral Acetaminophen/Diphenhydramine (Tylenol P m Ex-Strength Caplet) 1 Each Tablet, Oral 2014-02-22 00:00:00 No As Needed [facility] Hydrocodone Bit/Acetaminophen (Hydrocodo n-Acetaminoph 7.5-500) 1 Each Tablet, 1 Tab Oral Hydrocodone Bit/Acetaminophen (Hydrocodo n-Acetaminoph 7.5-500) 1 Each Tablet, 1 Tab Oral 2013-12-20 00:00:00 No 1 Every 4 Hours as needed [facility] Sucralfate (Carafate) 1 Gm Tablet, 1 Oral Sucralfate (Carafate) 1 Gm Tablet, 1 Oral 2013-12-20 00:00:00 No 1 Three Times A Day [facility] Acetaminophen/Diphenhydramine (Tylenol Pm Ex-Strength Caplet) 1 Each Tablet, Acetaminophen/Diphenhydramine (Tylenol Pm Ex-Strength Caplet) 1 Each Tablet, 2013-01-19 00:00:00 No Bedtime as needed [facility] Docusate Sodium (Colace) 100 Mg Cap, Oral Docusate S odium (Colace) 100 Mg Cap, Oral 2013-01-19 00:00:00 No Twice A Day [facility] Estradiol (Estrogel) 50 Gm Gel.color paste mixer, Estradiol (Estrogel) 50 G m Gel.color paste mixer, 2013-01-19 00:00:00 No [facility] Hydrocodone Bit/Acetaminophen (Vicodin H p 10-660 Mg Tablet) 1 Each Tablet, Oral Hydrocodone Bit/Acetaminophen (Vicodin H p 10-660 Mg Tablet) 1 Each Tablet, Oral 2013-01-19 00:00:00 No Every 4 Hours as needed [facility] Insulin Detemir (Levemir) 100 Unit/1 Ml Vial, Subcut aneously Insulin Detemir (Levemir) 100 Unit/1 Ml Vial, Subcutaneously 2013-01-19 00:00:00 No [facility] Metformin Hcl 500 Mg Tablet, 500 Mg Oral Metformin Hcl 500 Mg Tablet, 500 Mg Oral 2013-01-19 00:00:00 No 500 Daily [facility] Spironolactone 100 Mg Tablet, 100 Mg Oral Spironolacto ne 100 Mg Tablet, 100 Mg Oral 2013-01-19 00:00:00 No 100 Daily [facility] Diphenhydramine Hcl (Benadryl) 25 Mg Capsule, Mg Oral Diphenhydramine Hcl (Benadryl) 25 Mg Capsule, Mg Oral 2012-08-08 00:00:00 No H as needed [facility] Hydrocodone Bit/Acetaminophen ([place]urn 7.5-325 Tablet) 1 Each Tablet, 1 Tab Oral Hydrocodone Bit/Acetaminophen ([place]uburn 7.5-325 Tablet) 1 Each Tablet, 1 Tab Oral 2012-08-08 00:00:00 No 1 Every 6 Hours as n eeded [facility] Pantoprazole Sodium (Protonix) 40 Mg Tablet.dr, 40 Mg Oral Pantoprazole Sodium (Protonix) 40 Mg Tablet.dr, 40 Mg Oral 2012-08-08 00:00:00 No 40 Every Morning [facility] Insulin Glargine (Lantus) 100 Units/Ml Ml, 50 Units Joy bcutaneously Insulin Glargine (Lantus) 100 Units/Ml Ml, 50 Units Subcutaneously 2012-07-13 00:00:00 No 50 Qhs [facility] Metronidazole (Flagyl) 500 Mg Tablet, 500 Mg Oral Metr onidazole (Flagyl) 500 Mg Tablet, 500 Mg Oral 2012-07-13 00:00:00 No 500 Thre e Times A Day [facility] Vital Signs Vital Name Observation Time Observation Value Comments Source Weight 2017-10-10 15:45:00 Jaquan Freedman Height 2017-10-10 15:45:00 Jaquan Freedman Temperature Oral (F) 2017-10-10 15:45:00 98.8 F Jaquan Freedman Heart Rate 2017-10-10 15:45:00 Jaquan Freedman Diastolic (mm Hg) 2017-10-10 15:45:00 Phi rudy Freedman Systolic (mm Hg) 2017-10-10 15:45:00 Vito Freedman Temperature Oral (F) 2017-01-08 16:08:00 98 F [facility] Respitory Rate 2017-01-08 16:08:00 [facility] Systolic (mm Hg) 2017-01-08 16:08:00 [facility] Diastolic (mm Hg) 2017-01-08 16:08:00 [facility] Heart Rate 2017-01-08 16:08:00 [facility] Temperature Oral (F) 2017-01-08 12:22:00 98.2 F [facility] Respitory Rate 2017-01-08 12:22:00 [facility] Heart Rate 2017-01-08 12:22:00 [facility] Systolic (mm Hg) 2017-01-08 12:22:00 [facility] Diastolic (mm Hg) 2017-01-08 12:22:00 [facility] Respitory Rate 2017-01-08 09:18:00 [facility] Heart Rate 2017-01-08 09:18:00 [facility] Temperature Oral (F) 2017-01-08 09:18:00 97 F [facility] Systolic (mm Hg) 2017-01-08 09:18:00 [facility] Diastolic (mm Hg) 2017-01-08 09:18:00 [facility] BMI Calculated 2017-01-07 10:15:00 [facility] Weight 2017-01-07 10:15:00 [facility] Height 2017-01-07 10:15:00 160.02 cm [facility] Height 2017-01-07 00:15:00 160.02 cm [facility] Weight 2017-01-07 00:15:00 [facility] BMI Calculated 2017-01-07 00:15:00 [facility] Respitory Rate 2016-12-20 19:33:00 [facility] Systolic (mm Hg) 2016-12-20 19:33:00 [facility] Diastolic (mm Hg) 2016-12-20 19:33:00 [facility] BMI Calculated 2016-12-20 19:33:00 [facility] Weight 2016-12-20 19:33:00 [facility] Height 2016-12-20 19:33:00 160.02 cm [facility] BMI Calculated 2016-11-25 16:29:00 [facility] Weight 2016-11-25 16:29:00 [facility] Height 2016-11-25 16:29:00 160.02 cm [facility] Heart Rate 2016-11-25 16:10:00 [facility] Respitory Rate 2016-11-25 16:10:00 [facility] Systolic (mm Hg) 2016-11-25 16:10:00 [facility] Diastolic (mm Hg) 2016-11-25 16:10:00 [facility] Heart Rate 2014-01-24 13:21:00 [facility] Respitory Rate 2014-01-24 13:21:00 [facility] Systolic (mm Hg) 2014-01-24 13:21:00 [facility] Diastolic (mm Hg) 2014-01-24 13:21:00 [facility] Height 2014-01-22 23:05:00 160.02 cm [facility] Weight 2014-01-22 23:05:00 [facility] BMI Calculated 2014-01-22 23:05:00 [facility] Weight 2012-10-02 23:09:00 [facility] Height 2012-10-02 23:09:00 160.02 cm [facility] Procedures Procedure Date / Time Performed Performing Clinician [facility] angelique EGD with biopsy 2018-03-31 00:00:00 ALEC ROLLE [facility] EGD with biopsy 2018-03-28 00:00:00 ALEC ROLLE [facility] ESOPH EGD DILATION <30 MM 2018-01-12 00:00:00 ALEC ROLLE CH, I [facility] EGD BIOPSY SINGLE/MULTIPLE 2017-11-16 00:00:00 ALEC ROLLE [facility] DILATE ESOPHAGUS 1/MULT PASS 2017-11-16 00:00:00 ALEC ROLLE [facility] LAP ENTEROLYSIS 2017-10-17 00:00:00 [place] LINO [facility] Computed tomography of abdomen and pelvis with contrast 2017 00:00:00 THAI ROLLE [facility] DILATION OF ESOPHAGOGASTRIC JUNCTION, ENDO 2017-07-01 00:00:00 ALEC [place] [facility] EXCISION OF STOMACH, ENDO, DIAGN 2017-07-01 00:00:00 TYLER ROLLE [facility] Carpal tunnel release<sup>1</sup> 2016-03-14 00:00:00 [facility] Hysterectomy<sup>2</sup> 2012-03-14 00:00:00 [facility] Primary mesh repair of incisional hernia 2012-03-14 00:00:00 [facility] Appendectomy [facility] Laparoscopic cholecystectomy [facility] Ligament repair<sup>4</sup> [facility], [facility] Operation<sup>5</sup> [facility] Tonsillectomy [facility] Hysterectomy [facility] Encounters Start Date/Time End Date/Time Encounter Type Admission Type Attendi [facility] Care Department Encounter ID Source 2019-05-25 03:54:00 2019-05-25 08:25:00 Outpatient ARIANNA VO [facility] [id number] [facility] 2018-03-27 19:23:00 2018-03-30 13:01:00 Discharged [facility] (obs[facility] [id number] [facility] 2018-01-12 17:53:00 2018-01-14 13:45:00 Discharged Inpatient (obs) [facility] [id number] [facility] 2018-01-09 09:52:00 2018-01-09 09:52:00 Registered Clinic 3 REICKSON CARR [facility] [id number] [facility] 2017-11-16 13:18:00 2017-11-16 13:18:00 Registered Surgical Day Care [facility] [id number] [facility] 2017-10-17 10:43:00 2017-10-19 20:20:00 Discharged Inpatient (obs) [facility] [id number] [facility] 2017-10-10 10:45:00 2017-10-10 10:45:00 Outpatient Pascual Freedman [place] [id number] Jaquan Freedman MD 2017-07-11 17:23:00 2017-07-11 17:23:00 Registered Clinic EL THAI ROLLE [facility] [id number] [facility] 2017-06-30 14:41:00 2017-07-02 15:42:00 Discharged Inpatient ER THAI ROLLE [facility] [id number] [facility] 2017-03-12 09:44:00 2017-03-12 09:44:00 Registered Surgical Day Care [facility] [id number] [facility] 2017-01-07 00:00:00 2017-01-08 19:58:00 Observation [facility] [id number] [facility] 2017-01-06 19:00:00 2017-01-08 14:58:00 Outpatient tSeven Calvin Orr [facility] [id number] 2016-12-20 19:27:00 2016-12-21 04:59:00 Outpatient [facility] [id number] [facility] 2016-12-20 14:27:00 2016-12-20 23:59:00 Outpatient Vivek Sun Bruce [facility] [id number] 2016-12-14 19:20:00 2016-12-16 15:25:00 [id number] 2016-12-10 21:41:00 2016 02:56:00 Departed Emergency Room ER BINA STEVENSON [facility] [id number] [facility] 2016-12-07 07:24:00 2016-12-07 07:24:00 Registered Clinic CISCO ROLLE, ALEC [facility] [id number] [facility] 2016-11-25 16:02:00 2016-11-25 17:16:00 Bedded Outpatient [facility] [id number] [facility] 2016-11-25 11:02:00 2016-11-25 12:16:00 Outpatient Dru Holliday [facility] [id number] 2016-09-24 10:25:00 2016-09-24 10:25:00 Registered Surgical Day Care [facility] [id number] [facility] 2014-01-24 12:24:00 2014-01-24 14:00:00 Bedded Outpatient MAHESH [facility] [id number] [facility] 2014-01-24 06:24:00 2014-01-24 08:00:00 [facility]patient [facility] [id number] 2012-10-02 18:09:00 2012-10-03 00:52:00 Emergency MHIEAL T [facility] [id number] [facility] Results Test Description Test Time Test Comments Results Result Comments Source GLUCOMETER GLUCOSE- LAB USE ONLY 2019-05-25 04:18:00 Test Item GLUCOMETER (test code = GMG) 159 mg/dL 70-100 H Meter ID: [id number]: 9140 AMEE FONTENOT SCR MAMM BILATERAL BAM CAD [id number] 10:42:08 - SCR MAMM BILATERAL BAM CAD DIGITALBILATERAL DIGITAL SCREENING MAMMOGRAM 3D/2D WITH CAD: 04/12/2019CLINICAL: Asymptomatic. Digital breast tomosynthesis was performed in addition to routine CC and MLO views. Current mammographic images were evaluated by either a [employer] M-Vu or a [employer] ImageChecker CAD (computer aided detection system). Comparison is made to exam dated 01/09/2018 mammogram - [facility]. There are scattered fibroglandular tissues in both breasts. There are benign calcifications in both breasts. There also are benign intramammary nodes in the right breast. No suspicious mass, chief architect ural distortion, malignant type calcification, or lymph node abnormality detecte d. Breast architecture is stable compared to prior exams.IMPRESSION: BENIGNTher e is no mammographic evidence of malignancy. Resume annual screening mammography in one year. Aleks simeon/peter:04/19/2019 10:42:08 Regino g Technologist: Gia JOHNSON, [facility]-FWletter sent: BIRADS 1-2 Normal Mammogram BI-RADS: 2 BenignSMALL BOWEL [id number] 11:43:00 [place] [address] Patient Name: SAIRA DREW MR #: [id number] : 1975 Age/Sex: 42/F Req #: [id number] Adm Physician: Ordered by: ALEC ROLLE MD Report #: [id number] Location: DX Room/Bed: Procedure: [id number] DX/S MALL BOWEL SERIES Exam Date: 06/22/18 Exam Time: 080 0 REPORT STATUS: Signed PROCEDUR E: SMALL BOWEL SERIES COMPARISON: None. INDICATIONS: GASTROENTERITIS AND COLITIS FINDINGS: The patient was given barium to drink and sequenti al images of the abdomen were obtained through 2 hours. Spot images of the s mall bowel and terminal ileum were then obtained. The small bowel is predominantly on the left side of the abdomen and majority of the large bowel on the right side of the abdomen. The terminal ileum and cecum is in normal position. Small bowel motility and caliber are normal. There is no evidence o f mass or mucosal abnormality. The terminal ileum is normal. Fluoroscop y time: 0.8 minutes Total dose: 134.28 mGy CONCLUSION: Normal small bowel follow-through. Michelle Hightower D.O. Dictated by: Michelle Hightower D.O. on 06/22/2018 at 11:43 Electronically approved by: Michelle larson D.O. on 06/22/2018 at 11:43 Dictated By: MICHELLE HIGHTOWER DO 1143 Transcribed By: JULIA on 06/22/18 1143 COPY TO: ALEC ROLLE MD CT ABDOMEN/PELVIS [id number] 09:18:00 [place] [address] Patient Name: SAIRA DREW MR #: [id number] : 1975 Age/Sex: 42/F Req #: [id number] Adm Physician: Ordered by: ALEC ROLLE MD Report #: [id number] Location: CT Room/Bed: Procedure: [id number] CT/C T ABDOMEN/PELVIS W Exam Date: 05/04/18 Exam Time: 08 45 REPORT STATUS: Signed EXAMINA TION: CT of the abdomen and pelvis with contrast. TECHNIQUE: Spiral CT i mages of the abdomen and pelvis were performed from the lung bases to the less er trochanters after the intravenous administration of 100 cc of Isovue-370 an d the oral administration of Gastrografin. Coronal and sagittal reformatted i mages were obtained. COMPARISON: 07/11/2017 CLINICAL HISTORY:Lower abdo lj pain DISCUSSION: ABDOMEN/PELVIS: LOWER THORAX:Unremark able. HEPATOBILIARY: Hepatic parenchyma is diffusely hypoattenuating No in tra-or extrahepatic biliary ductal dilation. The gallbladder has been removed . SPLEEN: No splenomegaly. PANCREAS: No focal masses or ductal dilata tion. ADRENALS: No adrenal nodules. KIDNEYS/URETERS: No hydronephrosi s, stones, or solid mass lesions. PELVIC ORGANS/BLADDER: Urinary bladder is unremarkable. Uterus is not identified and has presumably been removed. No ad nexal mass. PERITONEUM/RETROPERITONEUM: No free air or fluid. LYMPH NO ROAXNNE: No pelvic sidewall, retroperitoneal, or mesenteric lymphadenopathy. Upper abdominal/gisela hepatis lymph nodes described on the comparison examination a re less conspicuous on the current study. VESSELS: Abdominal aorta, major b ranch vessels, and iliac arterial systems are patent, without aneurysmal dilat ation. Portal vein, splenic vein, and central superior mesenteric vein are pat ent. GI TRACT: The large bowel shows no evidence of distention or wall thic kening. There are a few sigmoid diverticula without wall thickening or adjacen t inflammation. Gas and fecal material are noted throughout the remainder of t he large bowel. The appendix is normal. There is no small bowel dilatation to suggest obstruction. BONES AND SOFT TISSUE: No bony destructive lesions. Postsurgical changes of the anterior abdominal wall. Otherwise no focal sof t tissue abnormalities. IMPRESSION: No acute intra-abdominal or pelvi c CT abnormalities. No significant interval change relative to 07/11/2017. Persistent findings include hepatic steatosis and sigmoid diverticulosis with out findings of diverticulitis. Signed by: Dr. Lalo Álvarez M.D. on 2018 9:29 AM Dictated By: LALO ÁLVAREZ MD 8 Transcribed By: JUAQUIN on 05/04/18928 C OPY TO: ALEC ROLLE MD Bedside [id number] 12:00:00* Test Item Value Reference Range Interpretation Comments Bedside Glucose (test code = 97361-3) 103 70-120 Meter ID: [id number] [facility]AllenClostridium Difficile Toxin A & [id number] 07:30:00* Test Item Value Reference Range Interpretation Comments Clostridium Difficile Toxin A & B (test code = 150087841) NEGATIVE NEGATIVE Testing on stool aspirate specimens is outside longwall headgate operator claims since specime n type not validated on this assay.[facility] [id number] 11:06:00 [place] [address] Patient Name: SAIRA DREW MR #: [id number] : 1975 Age/Sex: 42/F Req #: [id number] Adm Physician: THAI ROLLE MD Ordered by: ABDIFATAH OLIVEIRA MAKEUP EDITOR Report #: [id number] Location: [facility] Room/Bed: [address] Procedure: [id number] D X/BARIUM SWALLOW Exam Date: 03/28/18 Exam Time: 1020 REPORT STATUS: Signed EXAM: Rowena ble contrast barium swallow INDICATION: Dysphagia, history of esophageal stri ctures status post multiple balloon dilatations, most recently in December 31, 2017 COMPARISON: None available. Technique: Effervescent crystals and ba rium were ingested by mouth and multiple fluoroscopic spot images of the esoph ena and stomach were obtained. A solid barium tablet was administered at the conclusion of the examination. FINDINGS: ESOPHAGUS: Motilit y: Multiple tertiary nonperistaltic contractions incidentally noted. Mu cosa: Unremarkable. Distensibility: Unremarkable. No distal esophageal str icture is appreciated. Brisk passage of liquid contrast material into the s tomach. Solid barium tablet passed easily across the gastroesophageal junction . GASTROESOPHAGEAL JUNCTION: No evidence of hiatal hernia. GASTROESOP HAGEAL REFLUX: None observed. STOMACH: Limited views show unremarkable ru gal pattern. The distal stomach is not included on the examination. Fluoroscopy Time: 0.7 minutes. Air Kerma: 93.5 mGy IMPRESSION: N o evidence of recurrent esophageal stricture in this patient with reported his tory of multiple endoscopic balloon dilatation procedures. Signed by: Dr. Lalo Álvarez M.D. on 03/28/2018 11:10 AM Dictated By: LALO URIOSTEGUI MD 1110 Transcribed By: JUAQUIN on 03/28/18 1110 COPY TO: ABDIFATAH OLIVEIRA MAKEUP EDITOR Platelet [id number] 17:24:00* Test Item Value Reference Range Interpretation Comments Platelet Estimate (test code = 91453-6) ADEQUATE [facility]Allen[facility]atelet Morphology [id number] 17:24:00* Test Item Value Reference Range Interpretation Comments Platelet Morphology Comment (test code = 41398-7) FEW EDTA CLUMPING [facility]AllenRed Cell Morphology [id number] 17:24:00* Test Item Value Reference Range Interpretation Comments Red Cell Morphology Comment (test code = 6742-1) NORMAL [facility]Allen[facility] Blood [id number] 17:23:00* Test Item Value Reference Range Interpretation Comments White Blood Count (test code = 6690-2) 10.53 4.8-10.8 [facility]Allen[facility] Blood [id number] 17:23:00* Test Item Value Reference Range Interpretation Comments Red Blood Count (test code = 789-8) 5.52 3.6-5.1 [facility]oglobin2019-01-14 17:23:00* Test Item Value Reference Range Interpretation Comments Hemoglobin (test code = 83642-3) 14.3 12.0-16.0 [facility]ematocrit2019-01-14 17:23:00* Test Item Value Reference Range Interpretation Comments Hematocrit (test code = 4544-3) 41.8 34.2-44.1 [facility]AllenMean Corpuscular [id number] 17:23:00* Test Item Value Reference Range Interpretation Comments Mean Corpuscular Volume (test code = 787-2) 75.7 81-99 [facility] Corpuscular [id number] 17:23:00* Test Item Value Reference Range Interpretation Comments Mean Corpuscular Hemoglobin (test code = 785-6) 25.9 28-32 [facility] Corpuscular Hemoglobin Concent 2018-03-27 17:23:00* Test Item Value Reference Range Interpretation Comments Mean Corpuscular Hemoglobin Concent (test code = 786-4) 34.2 31-35 [facility]AllenRed Cell Distribution [id number] 17:23:00* Test Item Value Reference Range Interpretation Comments Red Cell Distribution Width (test code = 02593-5) 14.7 11.7 -14.4 [facility]AllenPlatelet [id number] 17:23:00* Test Item Value Reference Range Interpretation Comments Platelet Count (test code = 777-3) 272 140-360 [facility]AllenNeutrophils (%) (Auto)2018-03-27 17:23:00 * Test Item Value Reference Range Interpretation Comments Neutrophils (%) (Auto) (test code = 90446-5) 60.2 38.7-80.0 [facility]AllenLymphocytes (%) (Auto)2018-03-27 17:23:00 * Test Item Value Reference Range Interpretation Comments Lymphocytes (%) (Auto) (test code = 736-9) 27.4 18.0-39.1 [facility]AllenMonocytes (%) (Auto)2018-03-27 17:23:00* Test Item Value Reference Range Interpretation Comments Monocytes (%) (Auto) (test code = 5905-5) 10.1 4.4-11.3 [facility]Allen[facility]osinophils (%) (Auto)2018-03-27 17:23:00 * Test Item Value Reference Range Interpretation Comments Eosinophils (%) (Auto) (test code = 713-8) 1.6 0.0-6.0 [facility]Allen[facility]ophils (%) (Auto)2018-03-27 17:23:00* Test Item Value Reference Range Interpretation Comments Basophils (%) (Auto) (test code = 706-2) 0.3 0.0-1.0 [facility]AllenIM GRANULOCYTES %2018-03-27 17:23:00* Test Item Value Reference Range Interpretation Comments IM GRANULOCYTES % (test code = IM GRANULOCYTES %) 0.4 0.0- 1.0 [facility]AllenNeutrophils # (Auto)2018-03-27 17:23:00* Test Item Value Reference Range Interpretation Comments Neutrophils # (Auto) (test code = 751-8) 6.4 2.1-6.9 [facility]AllenLymphocytes # (Auto)2018-03-27 17:23:00* Test Item Value Reference Range Interpretation Comments Lymphocytes # (Auto) (test code = 74091-3) 2.9 1.0-3.2 [facility]AllenMonocytes # (Auto)2018-03-27 17:23:00* Test Item Value Reference Range Interpretation Comments Monocytes # (Auto) (test code = 742-7) 1.1 0.2-0.8 [facility]AllenEosinophils # (Auto)2018-03-27 17:23:00* Test Item Value Reference Range Interpretation Comments Eosinophils # (Auto) (test code = 711-2) 0.2 0.0-0.4 [facility] # (Auto)2018-03-27 17:23:00* Test Item Value Reference Range Interpretation Comments Basophils # (Auto) (test code = 704-7) 0.0 0.0-0.1 [facility]AllenAbsolute Immature Granulocyte (auto 2018-03-27 17:23:00* Test Item Value Reference Range Interpretation Comments Absolute Immature Granulocyte (auto (kristyn t code = Absolute Immature Granulocyte (auto) 0.04 0-0.1 [facility] [id number] 17:10:00* Test Item Value Reference Range Interpretation Comments Sodium Level (test code = 2951-2) 136 136-145 [facility]AllenPotassium Mhokr3176-23-79 17:10:00* Test Item Value Reference Range Interpretation Comments Potassium Level (test code = 2823-3) 4.0 3.5-5.1 [facility]AllenChloride Hmwsi1006-83-82 17:10:00* Test Item Value Reference Range Interpretation Comments Chloride Level (test code = 2075-0) 103 98-107 [facility]AllenCarbon Dioxide Llbek1056-52-66 17:10:00* Test Item Value Reference Range Interpretation Comments Carbon Dioxide Level (test code = 2028-9) 21 22-29 [facility] McAllenAnion Dsy0164-50-54 17:10:00* Test Item Value Reference Range Interpretation Comments Anion Gap (test code = 10559-9) 16.0 8-16 [facility]AllenBlood Urea Wgizwpqv2795-08-27 17:10:00* Test Item Value Reference Range Interpretation Comments Blood Urea Nitrogen (test code = 3094-0) 15 7-26 [facility] McAllenCreatinine2019-01-14 17:10:00* Test Item Value Reference Range Interpretation Comments Creatinine (test code = 2160-0) 0.79 0.57-1.11 [facility]AllenBUN/Creatinine Ugfou3838-76-80 17:10:00* Test Item Value Reference Range Interpretation Comments BUN/Creatinine Ratio (test code = 3097-3) 19 6-25 [facility] McAllenEstimat Glomerular Filtration Rate 2018-03-27 17:10:00* Test Item Value Reference Range Interpretation Comments Estimat Glomerular Filtration Rate (test code = 298491284) > 60 >60 Ranges were taken from the National Kidney Disease Education Program and the [facility] literature.Reference ranges:60 or greater: Tlailu77-14 ( for 3 consecutive months): Chronic kidney disease 15 or less: Kidney failureSouth [facility] Health System McAllenGlucose Qootu2196-64-79 17:10:00* Test Item Value Reference Range Interpretation Comments Glucose Level (test code = AFK8117) 154 74-118 [facility] McAllenCalcium Ztidv8918-69-66 17:10:00* Test Item Value Reference Range Interpretation Comments Calcium Level (test code = 89515-0) 9.3 8.4-10.2 [facility] McAllenTotal Tuvzlqwnt5168-63-91 17:10:00* Test Item Value Reference Range Interpretation Comments Total Bilirubin (test code = 1975-2) 0.4 0.2-1.2 [facility] McAllenAspartate Amino Transf (AST/SGOT) 2018-03-27 17:10:00* Test Item Value Reference Range Interpretation Comments Aspartate Amino Transf (AST/SGOT) (test code = Aspartate Amino Transf (AST/SGOT)) 37 5-34 [facility] McAllenAlanine Aminotransferase (ALT/SGPT) 2018-03-27 17:10:00* Test Item Value Reference Range Interpretation Comments Alanine Aminotransferase (ALT/SGPT) (test code = 1742-6) 57 0-55 [facility]AllenTotal Msqmffl5644-83-86 17:10:00* Test Item Value Reference Range Interpretation Comments Total Protein (test code = 2885-2) 7.2 6.5-8.1 [facility]AllenAlbumin2019-01-14 17:10:00* Test Item Value Reference Range Interpretation Comments Albumin (test code = 1751-7) 3.9 3.5-5.0 [facility] McAllenGlobulin2019-01-14 17:10:00* Test Item Value Reference Range Interpretation Comments Globulin (test code = 66922-0) 3.3 2.3-3.5 [facility]AllenAlbumin/Globulin Ggfss4634-07-84 17:10:00 * Test Item Value Reference Range Interpretation Comments Albumin/Globulin Ratio (test code = 1759-0) 1.2 0.8-2.0 [facility] McAllenAlkaline Nctysulntmg9077-14-26 17:10:00* Test Item Value Reference Range Interpretation Comments Alkaline Phosphatase (test code = 6768-6) 85 40-150 [facility] McAllenLipase2019-01-14 17:10:00* Test Item Value Reference Range Interpretation Comments Lipase (test code = 3040-3) 74 8-78 [facility] McAllenUrine GFN9452-34-70 16:34:00* Test Item Value Reference Range Interpretation Comments Urine WBC (test code = 5821-4) 6-10 0-5 [facility] McAllenUrine BKL1745-73-19 16:34:00* Test Item Value Reference Range Interpretation Comments Urine RBC (test code = 05877-7) NONE 0-5 [facility]AllenUrine Mfissymz7238-88-95 16:34:00* Test Item Value Reference Range Interpretation Comments Urine Bacteria (test code = 89285-7) MODERATE NONE [facility]AllenUrine Epithelial Bygfl1497-75-79 16:34:00 * Test Item Value Reference Range Interpretation Comments Urine Epithelial Cells (test code = 13173-1) MANY NONE [facility]AllenUrine Mmgrc7101-51-22 16:23:00* Test Item Value Reference Range Interpretation Comments Urine Color (test code = 5778-6) YELLOW YELLOW [facility]AllenUrine Ypplazt9457-87-84 16:23:00* Test Item Value Reference Range Interpretation Comments Urine Clarity (test code = 34835-4) SL CLOUDY CLEAR [facility] McAllenUrine Specific Dmlbvds6876-69-09 16:23:00 * Test Item Value Reference Range Interpretation Comments Urine Specific [place] (test code = 5811-5) 1.005 1.010-1.02 5 [facility]AllenUrine cN5114-83-24 16:23:00* Test Item Value Reference Range Interpretation Comments Urine pH (test code = 29086-9) 6 5-7 [facility]AllenUrine Leukocyte Xziivzwh4723-28-35 16:23:00* Test Item Value Reference Range Interpretation Comments Urine Leukocyte Esterase (test code = 5799-2) TRACE NEGATIVE [facility]AllenUrine Kbwnofx1281-25-20 16:23:00* Test Item Value Reference Range Interpretation Comments Urine Nitrite (test code = 14502-9) NEGATIVE NEGATIVE [facility]AllenUrine Ndqqaxu7410-16-60 16:23:00* Test Item Value Reference Range Interpretation Comments Urine Protein (test code = 5804-0) NEGATIVE NEGATIVE [facility]AllenUrine Glucose (UA)2018-03-27 16:23:00* Test Item Value Reference Range Interpretation Comments Urine Glucose (UA) (test code = 2349-9) 3+ NEGATIVE [facility]AllenUrine Jcodinz5604-82-71 16:23:00* Test Item Value Reference Range Interpretation Comments Urine Ketones (test code = 75158-9) NEGATIVE NEGATIVE [facility] Eguuekinqwhm2937-96-43 16:23:00* Test Item Value Reference Range Interpretation Comments Urine Urobilinogen (test code = 49796-2) 0.2 0.2-1 [facility]AllenUrine Pxsebqjep3472-17-19 16:23:00* Test Item Value Reference Range Interpretation Comments Urine Bilirubin (test code = 1978-6) NEGATIVE NEGATIVE [facility]AllenUrine Uixlm1576-03-95 16:23:00* Test Item Value Reference Range Interpretation Comments Urine Blood (test code = 56844-9) NEGATIVE NEGATIVE [facility]AllenUrine Nkyq1838-36-79 16:23:00* Test Item Value Reference Range Interpretation Comments Urine Test (test code = 2106-3) NEGATIVE NEGATIVE [facility] McAllenCreatine Kinase GT8900-05-10 18:16:00* Test Item Value Reference Range Interpretation Comments Creatine Kinase MB (test code = 36096-8) 2.70 0-5.0 [facility] McAllenTroponin T7567-19-79 18:16:00* Test Item Value Reference Range Interpretation Comments Troponin I (test code = HYZ4086) 0.009 0-0.300 [facility]AllenCreatine Uzrpcx9365-65-13 18:02:00* Test Item Value Reference Range Interpretation Comments Creatine Kinase (test code = 2157-6) 307 29-168 [facility] McAllenProthrombin Ncbs6390-96-83 18:01:00* Test Item Value Reference Range Interpretation Comments Prothrombin Time (test code = 5902-2) 13.0 11.9-14.5 [facility] McAllenProthromb Time International Ratio 2018-01-12 18:01:00* Test Item Value Reference Range Interpretation Comments Prothromb Time International Ratio (test code = 6301-6) 0.90 Oral Anticoagulant Therapy INR Values:1. Low Intensity Therapy 1.5 - 2.02 . Moderate Intensity Therapy 2.0 - 3.03. High Intensity Therapy(1) 2.5 - 3. 54. High Intensity Therapy(2) 3.0 - 4.05. Panic Value INR > 5.0 [facility] McAllenActivated Partial Thromboplast Time 2018-01-12 17:58:00* Test Item Value Reference Range Interpretation Comments Activated Partial Thromboplast Time (test code = 92329-6) 31.0 23.8-35.5 [facility] McAllenMAMMOGRAPHY DIGITAL SCR NYXKC6035-09-24 10:37:00 [facility] [address] [address] Patient Name: SAIRA DREW MR #: [id number] : 1975 Age/Sex: 42/F Req #: [id number] Adm Physician: Ordered by: ERICKSON CARR MD Report #: [id number] Location: MAMMO Room/Bed: Procedure: [id number] MG/DEMARCO MOGRAPHY DIGITAL SCR BILAT Exam Date: 01/09/18 Exam Time: 1006 REPORT STATUS: Signed #[id number] - MGSCRBIL #BILATERAL FIRST EVER DIGITAL SCREENING MAMMOGRA M WITH CAD: 01/09/2018 CLINICAL: Routine screening. Baseline examination. No prior exams were available for comparison. Current study contains 6 films . There are scattered fibroglandular elements in both breasts. Current brian perkins was also evaluated with a Computer Aided Detection (CAD) system. There are benign calcifications in both breasts. There also are benign lymph nodes in both breasts. No significant masses, calcifications, or other findings a re seen in either breast. IMPRESSION: BENIGN There is no mammographic e vidence of malignancy. A 1 year screening mammogram is recommended. The tuan ent will be notified by letter of the results. Michelle humphrey/peter:01/24/2018 13:09:02 Fruit Gr[employer] Operator: Chloe GARCIA(R)(M), [facility] letter sent: Normal Exam Mammogram BI-RADS: 2 Benign Dictated By: MICHELLE HIGHTOWER DO 1309 Transcribed By: PETER on 01/24/18 1309 COPY TO: ERICKSON CARR MD CHEM ZKJWL3563-52-73 07:38:003.6MH[facility] ConroeCHEM UKWMZ9973-76-01 07:38:0015[facility]wayCHEM LZYJB8344-62-38 07:38:0013.0[facility] LakewayCHEM BRXQN4335-98-14 07:38:00 3.7[facility] LakewayCHEM LISTL6196-55-41 07:38:001.0[facility] LakewayCHEM LWLLM2030-22-17 07:38:004.0[facility] LakewayCHEM PANEL 2017-01-07 07:38:0024[facility] LakewayCHEM YFBEL1164-11-56 07:38:35722SOBaylor Scott & [facility] Center – LakewayCHEM JKJUY6285-18-65 07:38:008.4[facility] LakewayCHEM NGFME1923-87-37 07:38:000.89[facility] LakewayCHEM ZHTMR1173-58-05 07:38:00 138[facility] LakewayCHEM UXHYM2995-17-88 07:38:0013[facility] CHEM ZUJQS5291-46-40 07:38:80903ISBaylor Scott & [facility] Medical Center – LakewayCHEM NBDJF9620-88-97 07:38:003.7[facility] LakewayCHEM YEHVM8628-84-03 07:38:007.4[facility] LakewayCHEM LBJQE1555-09-13 07:38:000.4[facility] LakewayCHEM PANEL 2017-01-07 07:38:0065[facility] LakewayCHEM OIACH9331-96-88 07:38:0037[facility] LakewayCHEM SFSMH1958-95-67 07:38:0062[facility] LakewayCHEM SBDSK1701-82-40 07:38:0082[facility] LakewayCHEM XTFLA2121-35-00 07:38:00 1.9[facility] LakewayCHEM RVPLC3441-64-59 07:38:001.0[facility] LakewaySlmvkjRSBORIGZMH3965-26-99 07:38:001+ *ABN*(01/07/17 2:38 AM)[facility] LakewayAeyxywCKSZVNXZRF6754-63-59 07:38:[address] [place], [place] [address]HEMATOLOGY 2017-01-07 07:38:0042.8[facility] LakewayVglolxECWDDPYEQS1364-62-17 07:38:000.7[facility] LakewayBetgvqRUYQMHYQSR2671-10-43 07:38:[address] [place] [address] YRBUXLZNRZ5791-88-40 07:38:0042.2[facility] ConroeXkafmiUJRNQVGJES3912-94-23 07:38:000.3[facility] ConroePrqxbkHPGRMFTCAW6625-41-42 07:38:000.8[facility] LakewayLoafapRRRIHWDVVO7722-29-00 07:38:000.[address] [place], [place] [address]HEMATOLOGY 2017-01-07 07:38:003.5[facility] LakewayLbpyahRFGJEXZIED5831-29-68 07:38:003.5[facility] LakewayDotikkNPGRULCUAP3298-13-52 07:38:[address] [place] [address] DSFNFHCTPL2112-43-20 07:38:24581AOBaylor Scott & White Medical Center – LakewayJofubyRDNUKDTWFT2320-71-82 07:38:0015.0[facility] LakewayIvpncfPWECXSDXIM9350-82-69 07:38:[address] [place], [place] [address]VswxylEDQECEIDOY1702-32-41 07:38:00* Test Item Value Reference Range Interpretation Comments MCH (test code = MCH) 25.6 pg 27.0-31.0 [facility] LakewayMyhmirTCAVRZTTIG9716-43-37 07:38:0013.0[facility] VUVAUCCRZY4218-22-70 07:38:005.07[facility] LakewayYauuwwRQGDIHCOEN5011-80-63 07:38:0038.5[facility] LakewayRqaqfsOEZANZFVPC0264-62-82 07:38:0075.9[facility] LakewayZknddlTXTWTEGIMV4298-48-[address] 07:38:[address] [place], [place] [address]CARDIAC KGPNEVT3172-52-57 00:55:00<0.02[facility] LakewayCHEM EMBHD0798-98-10 00:55:002.5[facility] LakewayCHEM ILIPE3695-84-53 00:55:0078[facility] LakewayCHEM ZMTJW9572-04-65 00:55:0023[facility] LakewayCHEM PANEL 2017-01-07 00:55:009.[address] [place], [place] [address]CHEM UHTVR0246-67-00 00:55:92428FKBaylor Scott & White Medical Center – LakewayCHEM CNYPU8426-53-26 00:55:003.9[facility] LakewayCHEM PKAUX8770-28-72 00:55:92795TLBaylor Scott & White Medical Center – LakewayCHEM PCCFE7089-84-91 00:55:00 0.93[facility] LakewayCHEM VEJVY0290-49-20 00:55:0015[facility] LakewayCHEM EWLRN2093-78-21 00:55:29020GNBaylor Scott & White Medical Center – LakewayCHEM PANEL 2017-01-07 00:55:0017.9[facility] LakewaySmhpkhWWGOMJQTBR1307-43-31 00:55:008.7[facility] LakewayMezlcwCXZEPQVLUC4713-84-63 00:55:90325GPBaylor Scott & [facility] Medical Center – Lakeway FULTELSWIV3256-30-29 00:55:0015.2[facility] ConroeGsrfovFMQCBIQVWI5104-38-36 00:55:0033.5[facility] LakewayZacxfkAIRGOXMRBA1350-26-11 00:55:00* Test Item Value Reference Range Interpretation Comments MCH (test code = MCH) 25.6 pg 27.0-31.0 [facility] LakewayVjlfqgFQZGTRHILR2708-61-77 00:55:0076.4[facility] IMWVYFERSS5350-55-96 00:55:0043.2[facility] ConroeHfrogvBZKOIUOYIU6487-53-15 00:55:009.6[facility] ConroeDvsxgqDFARWCTCJY6505-40-92 00:55:005.65[facility] LakewayDvreigSRDOVQIVBG9915-08-56 00:55:0014.5[facility] LakewayHEMATOLOGY 2017-01-07 00:55:002.8[facility] LakewayThedihMSWKTGOWJQ7634-58-15 00:55:001+ *ABN*(01/06/17 7:55 PM)[facility] LakewayJjmifcTUCGVJRNTB4195-65-59 00:55:000.1[facility] ConroeOpxysjXOKPPUVROK5267-17-45 00:55:003.1[facility] KCIJFGOBSQ0968-13-10 00:55:001.0[facility] LakewayOluwwzAIGFDPEUEZ0073-64-05 00:55:000.3[facility] ConroeQqringZNWRTWUAAS4877-88-95 00:55:000.7[facility] LakewayNqshziJCVHCEDNWV9671-64-26 00:55:005.[address] [place], [place] [address]HEMATOLOGY 2017-01-07 00:55:0053.3[facility] ConroeRqspbhIKPIGHROYD1899-59-00 00:55:0032.7 [facility] LakewayIymtutTXWLFZROSN8935-75-25 00:55:0010.5[facility] UMEVWJBAIS3077-34-18 00:55:00Negative *NA*(01/06/17 7:55 PM)[facility] LakewayURINE AND QUGFV2529-61-20 00:52:00None Seen (01/06/17 7:52 PM)[facility] LakewayURINE AND GIQHA3513-73-55 00:52:00Negative (01/06/17 7:52 PM)[facility] LakewayURINE AND MJCSB3997-05-27 00:52:00Negative (01/06/17 7:52 PM)[facility]wayURINE AND WLHAX9157-52-51 00:52:00Negative (01/06/17 7:52 PM)[facility]wayURINE AND CFRHV2014-03-54 00:52:00Negative *NA*(01/06/17 7:52 PM)[facility]wayURINE AND KUJBK0755-22-40 00:52:00 0.2[facility] ConroeURINE AND OUKFI6420-17-56 00:52:00Negative (01/06/17 7:52 PM)[facility]wayUR[facility] AND UDXKL3151-23-92 00:52:00* Test Item Value Reference Range Interpretation Comments UA pH (test code = UA pH) 6.0 1 5.0-8.0 [facility] LakewayURINE AND MWEZE2390-42-14 00:52:00Negative *NA*(01/06/17 7:52 PM)[facility]wayUR[facility] AND ARUFR1339-38-83 00:52:00Clear (01/06/17 7:52 PM)[facility]wayUR[facility] AND BBUFJ5681-17-41 00:52:00* Test Item Value Reference Range Interpretation Comments UA Spec Grav (test code = UA Spec Grav) 1.020 1 [facility] LakewayURINE AND UOQGS6406-26-41 00:52:00Yellow *NA*(01/06/17 7:52 PM)[facility] LakewayURINE GUUK9252-23-27 00:52:00Negative (01/06/17 7:52 PM)[facility] GLUCOSE ZTETQAL5715-89-13 05:13:61706SJBoston [facility] GLUCOSE VBIVCLE4948-02-29 04:34:10751COBoston [facility] GLUCOSE JOCCZEC6535-89-96 03:35:97395OHAdams-Nervine AsylumSgugylzwoFDTAMVLKB3837-24-93 02:00:00 37.0[facility] AsylumHttlxxjpbLCRUJLHAR0602-68-53 02:00:0030[facility] AsylumHdlnhrhxaOLBPGCZLD0231-86-21 02:00:007.39[facility] AsylumAatyeuntlIPJKPDYBQ3984-71-38 02:00:0048[facility] 2012-10-03 02:00:003[facility] AsylumPmxaqhlgiEZFOXUDBB7768-65-84 02:00:0029[facility] LNUQLSLDS6834-88-58 02:00:00Vein (10/02/2012 21:00:00) [facility] 2012-10-03 02:00:0056.6MAt[facility] Health KannapolisOtgfceuhrVXNNXVGPOP3721-83-28 01:43:00Occasional /HPF *NA*(10/02/2012 20:43:00) [facility] CenterQqwvkymiyELLWEAPOPN2559-13-61 01:43:004[facility] CenterWhypwkbyhNNGVIZWYBA5990-08-95 01:43:00Large *ABN*(10/02/2012 20:43:00) [facility] CenterProghpkvtRBMVTECVHR6940-57-58 01:43:0084[facility] CenterUdebfhporNWQRZWAAEN3190-34-81 01:43:00Negative (10/02/2012 20:43:00) [facility] CenterEnpnobbkgETLYWPHGLZ2099-19-54 01:43:00Few /LPF *NA*(10/02/2012 20:43:00) [facility] CenterQywpvfkvrFEHALKSLAO1455-32-76 01:43:00Marked *ABN*(10/02/2012 20:43:00) [facility] CenterAszjdhgmnQOSSVZDMUN4602-69-28 01:43:001.016[facility] CenterCxarvdvfcSOIIESEHMA2676-82-95 01:43:00Negative mg/dL (10/02/2012 20:43:00) [facility] CenterYqrxvtcjtPXMYROQIIQ5207-54-45 01:43:005.0[facility] CenterALYS 2012-10-03 01:43:00Small *ABN*(10/02/2012 20:43:00) [facility] 2012-10-03 01:43:00Negative *NA*(10/02/2012 20:43:00) [facility] 2012-10-03 01:43:95354 mg/dL *ABN*(10/02/2012 20:43:00) [facility] 2012-10-03 01:43:00Negative mg/dL *NA*(10/02/2012 20:43:00) [facility] JOEVMUYFT9667-22-02 01:41:00Negative *NA*(10/02/2012 20:41:00) [facility] ZNJLTLUUQ7388-05-46 01:41:003.1MH PryjyytbrSXIGOBQDW1498-69-23 01:41:001.8 OetbylmvaZSQKXMROQ4114-41-71 01:41:14027UF LniwedpfvDUKPHZCIH9792-64-36 01:41:00 84 VdfnwaablFLKTHIXGP4046-78-69 01:41:004.5 JlypywyggCUVPFZFQM0448-04-00 01:41:009.6MH ZwwrkmwowBGHVNMMXM6962-88-09 01:41:009.0 SoutheastCHEMISTRY 2012-10-03 01:41:0083 BcfbtjyiuSTIVHXKIS6625-75-15 01:41:0028[facility] VAYPWBKJU9782-08-98 01:41:000.5 YkcczsmraDGUFAJQSR4945-72-28 01:41:0050 XtgefciplWDOQAQIJK6756-86-03 01:41:0095 JgwfaouotADMOBBUZR7997-84-29 01:41:00 99M RaksjdvuoORPPHTFPL4192-31-11 01:41:004.0 SmbctregpMGLIGMZGR3993-71-56 01:41:47832UJ DktgbsmwvMPSQPFFQH0488-79-45 01:41:0018 SoutheastCHEMISTRY 2012-10-03 01:41:000.9 NavuojnbqEFRSIKIDK9473-65-90 01:41:95861OK [facility] XXUGWCLCB5877-39-78 01:41:0013.0 ImdzpwfspWBZYTCDMT8137-46-29 01:41:0020 YksifqcxwLINIGPYIX8323-96-88 01:41:004.5 FybocpgsuNRVQJQIET4837-02-01 01:41:00 1.0MH EaigqdfhuOFSRFRPFVB2664-21-10 01:41:003.0 ZbkfldcsrDBEWGYXWZB6612-14-97 01:41:005.7 UxamcxpbaXOXJQPUNZH3252-04-25 01:41:000.0 SoutheastHEMATOLOGY 2012-10-03 01:41:000.3M FhdknuvatLRGRGYOHYA4022-09-28 01:41:000.6MH [facility] MMVQRWKHMV6617-08-85 01:41:0059.4 JhhtwpyqtIASOZQUITU9484-36-13 01:41:000.3M XwdkykdaaOAMBERVQNG1202-03-94 01:41:003.5 QaizxhbpwGRROIJRDPB7638-97-60 01:41:005.8 SykchlshdBWZYFWMHDC6354-37-76 01:41:0031.0 SoutheastHEMATOLOGY 2012-10-03 01:41:004.85 KslkspauaAZNXVBVCNU8847-85-34 01:41:0037.3[facility] TOAVBKBTAG2483-98-66 01:41:0012.5 ZunlpysivUBDXIAXYRX9238-74-78 01:41:00* Test Item Value Reference Range Interpretation Comments MCH (test code = MCH) 25.7 pg 27.0-31.0 L JzaiuchtcDWLXWMMAUF9632-49-94 01:41:0014.3M SsvcecrkuFKZOOATAPA0910-98-26 01:41:0033.4 RjwrkzxcpCLTXUUDNDG1447-03-96 01:41:009.0 [facility]HEMATOLOGY 2012-10-03 01:41:74875UJ UkxndpxraHXMLDIAHEA9292-42-11 01:41:0076.8[facility] ZNIQKHKXJZ2326-11-68 01:41:009.7 WxqbroxspNXBHBKJMOX3520-65-59 01:41:00* Test Item Value Reference Range Interpretation Comments PTT (test code = PTT) 31.6 s 22.9-35.8 N OjxehnacbOJWRSGQHDI6396-93-28 01:41:00* Test Item Value Reference Range Interpretation Comments PT (test code = PT) 13.4 s 12.0-14.7 N ZecuozmdhDTFXWYXSIS6917-01-27 01:41:001.00 SoutheastCT [facility]BDOMEN[facility]IS [address] [address] Patient Name: SAIRA DREW MR #: [id number] : Age/Sex: 41/F Req #: [id number] [facility] Physician: Ordered by: THAI ROLLE MD Report #: [id number] Location: CT Room/Bed: Procedure: [id number] CT/CT ABDOMEN/PELVIS W Exam Da te: 07/11/17 Exam Time: 1842 REPORT STATUS: Sig abdi EXAM: CT Abdomen and Pelvis WITH contrast INDICATION: C OMPARISON: 10/30/2009 TECHNIQUE: Abdomen and pelvis were scanned utilizing a mu ltidetector helical scanner from the lung base to the pubic symphysis after ad ministration of IV contrast. Coronal and sagittal reformations were obtained. Routine protocol was performed. Scan was performed when during portal venous p hase. IV CONTRAST: 150 mL of Omnipaque 300 ORAL CONTRAST: Wate r COMPLICATIONS: None RADIATION DOSE: Total DLP: 74 7.9 mGy*cm Estimated effective dose: (DLP x 0.015 x size factor) mSv CTDIvol has been reviewed. It is below the limits set by the Radiation Prot ocol Committee (RPC). FINDINGS: LINES and TUBES: None. LOWER THOR AX: Unremarkable HEPATOBILIARY: The liver is enlarged and diffuse hypodens e compared to the spleen, consistent with diffuse hepatic diffuse hepatic stea tosis. No focal hepatic lesions. No biliary ductal dilation. GALLBLADDE R: There are cholecystectomy clips. SPLEEN: No splenomegaly. PANCRE : No focal masses or ductal dilatation. ADRENALS: No adrenal nodules KIDNEYS/URETERS: Kidneys enhance symmetrically. No hydronephrosis. No cy stic or solid mass lesions. No stones. GI TRACT: No abnormal distention, wall thickening, or evidence of bowel obstruction. There are diverticula wit hin the colon without evidence of diverticulitis. Appendix is not clearly flip ntified. There is however no fat stranding or adenopathy in the right lower qu adrant to suggest appendicitis. PELVIC ORGANS/BLADDER: The uterus is absent . Bladder is unremarkable. LYMPH NODES: Nonspecific gisela hepatis lymph nod es measuring up to 1.4 cm. VESSELS: Unremarkable. PERITONEUM / RETROPE RITONEUM: No free air or fluid. BONES: Unremarkable. SOFT TISSUES: Mid line laparotomy scar. Foci of subcutaneous stranding in the anterior abdomin al wall fat may be related to subcutaneous injections. IMPRESSION: 1. No acute abnormalities in the abdomen and pelvis. 2. Hepatic steatosis a nd hepatomegaly. 3. Cholecystectomy. Signed by: DR. Prashant Buchanan MD on 07/11/2017 7:21 PM Dictated By: PRASHANT BUCHANAN MD 20 Transcribed By: JUAQUIN on 07/11/171920 COPY TO: THAI ROLLE MD CHEST SINGLE (PORTABLE) [place] [address] Patient Name: SAIRA DREW MR #: [id number] : 1975 Age/Sex: 41/F Req #: [id number] Adm Physician: THAI BIRMINGHAM MD Ordered by: LINDA ESPAÑA MD Report #: [id number] Loc ation: [facility] Room/Bed: [place] [address] Procedure: [id number] DX/CHEST SINGLE (PORTABLE) Exam Date: 06/30/17 Exam Time: 1430 REPORT STATUS: Signed PROCEDURE: A single AP view of the chest. COMPARISON: [facility], DX, CHEST 2 VIEWS, 05/16/2016, 11:42. INDICATIONS: CHEST PAIN, DIFFICULTY SWALLOWING FINDI NGS: Lines/tubes: None. Lungs: The lungs are well inflated and grossly clear. There is no evidence of pneumonia or pulmonary edema. Pleura: There is no pleural effusion or pneumothorax. Heart and mediastinum: Cardi ac silhouette is unremarkable. Pulmonary vasculature is normal. Bones: No acute bony abnormality. IMPRESSION: 1. No acute cardiopulmonar y abnormalities. Michel Rodriguez M.D. Dictated by: Michel vaughan M.D. on 06/30/2017 at 15:08 Electronically approved by: Michel Rodriguez M.D. on 06/30/2017 at 15:08 Dictated By: MICHEL RAYO MD 150 Transcribed By: JULIA on 06/30/17 1508 COPY TO: LINDA ESPAÑA MD CT ABDOMEN/PELVIS W [place] [address] Patient Name: SAIRA DREW MR #: [id number] : 1975 Age/Sex: 41/F Req #: [id number] Adm Physician: THAI ROLLE MD Ordered by: VENTURA PICHARDO MD Report #: [id number] Location: [facility] Room/Bed: [place] [address] Procedure: [id number] C T/CT ABDOMEN/PELVIS W Exam Date: 12/11/16 Exam Time: 2100 REPORT STATUS: Signed EXAM: CT Abdomen and Pelvis WITH contrast INDICATION: Abdominal pain and rectal bleeding. COMPARISON: None. TECHNIQ UE: Abdomen and pelvis were scanned utilizing a multidetector helical scanner from the lung base to the pubic symphysis after administration of IV contrast. Coronal and sagittal reformations were obtained. Routine protocol was perform ed. Scan was performed when during portal venous phase. IV CONTRAS T: 100 mL of Isovue-370 ORAL CONTRAST: None RADIATIO N DOSE: Total DLP: 778.65 mGy*cm Estimated effective dose: (DLP x 0.015 x size factor) mSv COMPLICATIONS: None FINDINGS: LINES and TUBES: None. LOWER THORAX: Unremarkable HEPATOBILIARY: The liver is diffuse hypodense compared to the spleen, consistent with diffuse hep atic diffuse hepatic steatosis. No focal hepatic lesions. No biliary ductal d ilation. GALLBLADDER: There are cholecystectomy clips. SPLEEN: N o splenomegaly. PANCREAS: No focal masses or ductal dilatation. ADR ENALS: No adrenal nodules KIDNEYS/URETERS: Kidneys enhance symmetricall y. No hydronephrosis. No cystic or solid mass lesions. No stones. GI TR ACT: No abnormal distention, wall thickening, or evidence of bowel obstruction . There are diverticula within the colon without evidence of diverticulitis. Appendix is not clearly identified. There is however no fat stranding or jerry opathy in the right lower quadrant to suggest appendicitis. PELVIC ORGANS/B LADDER: Unremarkable. LYMPH NODES: No lymphadenopathy. VESSELS: Unrema rkable. PERITONEUM / RETROPERITONEUM: No free air or fluid. BONES: Unr emarkable. SOFT TISSUES: Unremarkable. IMPRESSION: 1. No acute intra-abdominal or pelvic abnormality. 2. Diffuse hepatic steatosis. 3. Cholecystectomy. Signed by: Dr. Vasquez Freeman M.D. on 2016 9:35 PM Dictated By: VASQUEZ RICH MD 34 Transcribed By: JUAQUIN on 12/11/162134 COPY TO: VENTURA PICHARDO MD CT CHEST W [place] [address] Patient Name: SAIRA DREW MR #: [id number] : 1975 Age/Sex: 41/F Req #: [id number] Adm Physician: Ordered by: BINA STEVENSON MD Report #: [id number] Location: ER Room/Bed: Procedure: [id number] CT/CT CHEST W Exam Date: Exam Time: 6 REPORT STATUS: Signed EXA M: CT Chest WITH contrast 2016 12:05 AM INDICATION: Shortness of breath, pulmonary embolism COMPARISON: None TECHNIQUE: Chest was scanned [employer] a multidetector helical scanner from the lung apex through the level of the adrenal glands without administration of IV contrast. Coronal and sagittal ref ormations were obtained. Routine protocol was performed. IV CONTR AST: 100 mL of Isovue-370 RADIATION DOSE: Total DLP: 482.19 mGy*cm Estimated effective dose: (DLP x 0.014 x size factor) mSv COMPLICATIONS: None FINDINGS: LINES/ TUBES: None. LUNGS AND AIRWAYS: The lungs are unremarkable. Airways are normal. PLEURA: The pleu ral spaces are clear. HEART AND MEDIASTINUM: The thyroid gland is normal. No mediastinal, hilar or axillary lymphadenopathy. The heart is normal in siz e.. There is no pericardial effusion. UPPER ABDOMEN: Limited non-con trast views of the upper abdomen show no abnormality within the visualized xavier er, spleen, pancreas, or kidneys. The adrenal glands are normal. Diffuse hepat ic steatosis. Cholecystectomy clips are present BONES: The visualized bon y thorax is within normal limits. SOFT TISSUES: Unremarkable. IMPRESSI ON: 1. No acute pulmonary embolism. 2. No evidence of acute intrathoracic abnormality. 3. Diffuse hepatic steatosis. Signed by: Dr. Vasquez jolly M.D. on 2016 1:26 AM Dictated By: VASQUEZ RICH MD Electr onically Signed By: VASQUEZ RICH MD on 12/11/16125 Transcribed By: BEATRIZ SCHULZ on 12/11/16125 COPY TO: BINA STEVENSON MD GASTRIC EMPTYING [place] [id number] [place] [id number] Patient Name: SAIRA DREW MR #: [id number] : Age/Sex: 40/F Req #: [id number] Adm Physician: Ordered by: ALEC ROLLE MD Report #: [id number] Location: [place] Room/Bed: Procedure: NM/GASTRIC EMPTYING Exam Date: Exam Time: REPORT STATUS: Signed Solid-ph ase gastric emptying study Reason for examination: 40 F with dysphagia The protocol used for this study is based on the Consensus Recommendations for Gastric Scintigraphy by the [place] [employer] and the Society of Nuclear Medicine. Clinical information: The patient is diabetic; blood glucose this morning was 158. The patient had colon reduct ion in 2009 for diverticulitis and cholecystectomy in 2009. The patient uses Reglan. The patient has been fasting for at least 6 hours prior to this exam. Radiopharmaceutical: Tc-99m sulfur colloid 1 mCi Report: The radioph armaceutical was added to Ensure Enlive 8 ounces. The patient took the meal or ally without difficulty. Images were obtained of the abdomen in the anterior and posterior projections at 10 minutes post the meal and at 1, 2, 3, and 4 ho urs. Uptake was determined from the geometric mean of the anterior and gravel wheeler ior counts and the counts were corrected for decay of the radiolabel. The percent gastric retention of the labeled meal at: 1 hour was 58% (normal 30-90%) 2 hours was 35% (normal <60%) 3 hours was 27% (normal <30%) 4 hours was 14% (normal <10%) Impression: Mildly delayed gastric emptying at 4 hours. The findings support the clinical diagnosis of gastroparesis. Signed by: Dr. Chloe Lora M.D. on 12/07/2016 2:36 PM Dictated By: CHLOE LORA MD 1436 Transcribed By: JUAQUIN on 12/07/16 1436 COPY TO: ALEC ROLLE MD
--- OUTSIDE RECORDS SUMMARY | 2019-08-03 15:30 | XMS REPORT | Continuity of Care Document ---
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 Name Role Phone [facility] [employer] [facility] Unavailable Un available Problems Problem Status Onset Date Classification Date Reported Comments Source TROUBLE SWALLOWING Active 01/06/2017 [facility] DYSPHAGIA Active 01/06/2017 [facility] ESOPHAGEAL ISSUES Active 09/30/2016 [facility] UNK Active 0 09/29/2016 [facility] R10.12 - LEFT UPPER QUADRANT PAIN Active 02/10/2016 [facility] [place] 787.20/789.07 Active 01/17/2014 [facility] ABD PAIN Active 10/02/2012 [facility] Hernia of abdominal cavity (disorder) Active Problem [facility] Diabetes mellitus (disorder) A ctive Problem [facility] Dysphagia (disorder) Active Problem 01/11/2017 [facility] Family history: Diabetes mellitus (anson xt-dependent category) Active Prob ben 01/11/2017 [facility] Gastroparesis due to diabetes mellitus (disorder) Active Problem 01/11/2017 [facility] Gastroesophageal reflux disease (disorder) Resolved Problem 01/11/2017 [facility] Heartburn (finding) Active Problem 01/11/2017 [facility] Hypertensive disorder, systemic arterial (disorder) Active Problem 01/11/2017 [facility] 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) Resolved Problem 01/11/2017 [facility] Nutcracker esophagus (disorder) Active Problem [facility] Obesity (disorder) Active Problem 01/11/2017 [facility] Osteoarthritis (disorder) Acti ve Problem [facility] Rheumatoid arthritis (disorder) Active Problem [facility] Abdominal hernia Active Problem 10/05/2012 [facility] FH: Diabetes mellitus Active Problem 10/05/2012 [facility] HTN - Hypertension Active Problem 10/05/2012 [facility] Calcaneal spur (disorder) Reso lved Problem [facility] Polyarthritis Active Diagnosis 10/28/2017 Jaquan Freedman DYSPHAGIA, UNSPECIFIED Active [facility] Medications Medication Details Route Status Patient Instructions Ordering Provider Order Date Source influenza virus vaccine, inactivated Notes: (Same as: Fluzone Quadrivalent, Fluarix Quadrivalent) For 3 years of age and older (0.5 mL IM) Shake well before use Inactive 01/08/2017 [facility] nter Benadryl Notes: (Same as: Annamarie dryl) No Longer Active 01/08/2017 [facility] Chloraseptic 1.4% spray Notes: Chloraseptic [place] (Same as: Chloraseptic, Sore Throat [place]) WASTE: F/P - Black; E - Municipal Trash Bin No Longer Active 01/08/2017 [facility] hydromorphone Notes: Same as: Dilaudid Inactive 01/07/2017 [facility] Phenergan Notes: Do not give I V push. (Same as: Phenergan) No Longer Active 01/07/2017 [facility] influenza virus vaccine, inactivated Notes: (Same as: Fluzone Quadrivalent, Fluarix Quadrivalent) For 3 years of age and older (0.5 mL IM) Shake well before use N o Longer Active 01/07/2017 [facility] nter Dextrose 50% Syringe 12.5 gm, 25 mL, Route: IVP, Drug Form: INJ, Dosing Weight 95, kg, PRN, PRN Blood Glucose Results, Start date: 01/07/17 6:54:00 CDT, Duration: 30 day, Stop date: 02/06/17 5:53:00 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 No Longer Active 01/07/2017 [facility] glucagon 1 mg, Route: IM, Drug form: PDR/INJ, PRN, Dosing Weight 95, kg, PRN Blood Glucose Results, Start date: 01/07/17 6:54:00 CDT, Duration: 30 day, Stop date: 02/06/17 5:53:00 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 No Longer Active 01/07/2017 [facility] insulin lispro 60 units) [place] ALAN: F/P - Black; E - Municipal Trash Bin Stable for 28 days at room temperature. Expires in days from Date N o Longer Active 01/07/2017 [facility] ntsridevi Phenergan 25 mg oral tablet 25 mg = 1 tab, PO, Q6H, 0 Refill(s) Active 01/07/2017 [facility] Toujeo SoloStar 300 units/mL subcutaneous solution SUB- Q, Daily, 0 Refill(s) No Longe r Active 01/07/2017 [facility] nter Dilaudid Notes: Same as: Dilau did Inactive 01/07/2017 [facility] ondansetron Notes: (Same as: Mary Ellen ulrich) MEDICATION WASTE Product Size: 4 mg Product Wasted: ___ mg Inactive 01/07/2017 [facility] ondansetron Notes: (Same as: Mary Ellen ulrich) MEDICATION WASTE Product Size: 4 mg Product Wasted: ___ mg No Longer Active 01/07/2017 [facility] docusate 100 mg, 1 cap, Route: PO, Drug form: CAP, BID, Dosing Weight 95, kg, PRN Constipation, Start date: 01/07/17 1:50:00 CDT, Duration: 30 day, Stop date: 02/06/17 1:49:00 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 No Longer Active 01/07/2017 [facility] acetaminophen Notes: Do not ex ceed 4 gm/day. (Same as: Tylenol) No Longer Active 01/07/2017 [facility] morphine Sulfate Notes: (Same as:MORPhine Sulfate) Inactive 01/07/2017 [facility] Lactated Ringers 1,000 mL 1,00 0 mL, Rate: 100 ml/hr, Infuse over: 10 hr, Route: IV, Dosing Weight 95 kg, Total Volume: 1,000, Start date: 01/07/17 0:26:00 CDT, Duration: 30 day, Stop date: 02/06/17 0:25:00 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 No Longer Active 01/07/2017 [facility] Sodium Chloride 0.9% (Bolus) IV 1,000 mL, 1000 ml/hr, Infuse Over: 1 hr, Route: IV, 1,000, Drug form: INJ, ONCE, Priority: STAT, Dosing Weight 95 kg, Start date: 01/06/17 22:06:00 CDT, Duration: 1 doses or times, Stop date: 01/06/17 22:06:00 CDT Inactive 01/07/2017 [facility] nter Phenergan Notes: (Same as: Phe nergan) Inactive 01/07/2017 [facility] hydromorphone Notes: Same as: Dilaudid Inactive 01/07/2017 [facility] Zofran 4 mg, Route: IVP, Drug form: INJ, ONCE, Dosing Weight 95, kg, Start date: 01/06/17 21:50:00 CDT, Stop date: 01/06/17 21:50:00 CDT Inactive 01/07/2017 [facility] morphine Sulfate 4 mg, Route: IVP, ONCE, Dosing Weight 95, kg, Start date: 01/06/17 21:50:00 CDT, Stop date: 01/06/17 21:50:00 CDT Inactive 01/07/2017 [facility] Omnipaque 350mg/ml Notes: (igor e as:Omnipaque 350). WASTE: F/P - Black; E - Municipal Trash Bin Inactive 01/07/2017 [facility] nter dexamethasone Notes: Concentra tion: 4mg/ml No Longer Active 01/07/2017 [facility] clindamycin Notes: (clindamyci n 150 mg/1 ml (600 mg/4 ml VL) INJ) (Same As: Cleocin) N o Longer Active 01/07/2017 [facility] nter Sodium Chloride 0.9% (Bolus) IV 1,000 mL, Infuse Over: 1 hr, Route: IV, ONCE, Priority: STAT, Dosing Weight 95 kg, Start date: 01/06/17 19:50:00 CDT, Duration: 1 doses or times, Stop date: 01/06/17 19:50:00 CDT Inactive 01/07/2017 [facility] Glipizide 10 MG Oral Tablet 20 mg = 2 tab, PO, BID- Before Meals, # 180 tab, 1 Refill(s) Active 11/25/2016 [facility] sitagliptin 100 MG Oral Tablet [Januvia] 100 mg = 1 tab, PO, Daily, # 30 tab, 0 Refill(s) Active 11/25/2016 [facility] canagliflozin 300 MG Oral Tablet [Invokana] 300 mg = 1 tab, PO, Before Breakfast, # 30 tab, 5 Refill(s) Active 11/25/2016 [facility] 1.5 ML Insulin Glargine 300 UNT/ML Prefi lled Syringe [Toujeo] 80 unit, SUB-Q, Bedtime, 0 Refill(s) Active 11/25/2016 [facility] Benadryl 50 mg, PO, Bedtime, 0 Refill(s) Active 01/22/2014 [facility] 3 ML Insulin Lispro 100 UNT/ML Prefilled Syringe [Humalog] 43 unit, SUB-Q, TID-Before Meals, 0 Refill(s) Active 01/22/2014 [facility] Amitriptyline 100 mg, PO, Bedt mame, 0 Refill(s) Active 01/22/2014 [facility] insulin detemir 100 UNT/ML Injectable So lution [Levemir] 30 unit, SUB-Q, Daily, 0 Refill(s) Active 01/22/2014 [facility] lisinopril 10 mg oral tablet 1 0 mg = 1 tab, PO, Daily, # 30 tab, 0 Refill(s) Active 01/22/2014 [facility] pantoprazole 40 MG Enteric Coated Tablet [Protonix] 40 mg = 1 tab, PO, BID, # 30 tab, 0 Refill(s) Active 01/22/2014 [facility] Metoclopramide 10 MG Oral Tablet [Reglan] 20 mg = 2 tab, PO, QID, # 360 tab, 0 Refill(s) Active 01/22/2014 [facility] Sucralfate 1000 MG Oral Tablet [Carafate] 1 gm = 1 tab, PO, QID-Before Meals, # 120 tab, 0 Refill(s) Active 01/22/2014 [facility] Insulin regular 5 unit, Route: SUB-Q, ONCE, Dosing Weight 90.909, kg, Priority: STAT, Start date: 10/03/12 0:17:00, Stop date: 10/03/12 0:17:00 SUB-Q No Longer Active Naidu 10/03/2012 [facility] Zofran 4 mg, Route: IVP, Drug form: INJ, ONCE, Dosing Weight 90.909, kg, Priority: STAT, Start date: 10/02/12 23:07:00, Stop date: 10/02/12 23:07:00 IVP No Longer Active [facility] 10/03/2012 [facility] morphine Sulfate 4 mg, Route: IVP, Drug form: INJ, ONCE, Dosing Weight 90.909, kg, Priority: STAT, Start date: 10/02/12 23:05:00, Stop date: 10/02/12 23:05:00 IVP No Longer Active [facility] 10/03/2012 [facility] Macrodantin 100 mg oral capsule 100 mg, 1 cap, PO, QID, 40 cap, Substitution Allowed, CAP PO Active Brau n 10/03/2012 [facility] Bentyl 10 mg oral capsule 10 m g, 1 cap, PO, QID, 28 cap, Substitution Allowed, CAP PO Active [facility] 10/03/2012 [facility] Zofran 4 mg oral tablet 4 mg, 1 tab, PO, BID, 10 tab, Substitution Allowed PO Active [facility] 10/03/2012 [facility] [place] 5/325 oral tablet 1-2 ta b, PO, Q4-6H, PRN, 15 tab, Pain, Substitution Allowed, Maintenance PO Active Brau n 10/03/2012 [facility] NS (Bolus) IV 500 mL 500 mL, R ate: 500 ml/hr, Infuse over: 1 hr, Route: IV, Dosing Weight 90.909 kg, Total Volume: 500, Priority: STAT, Start date: 10/02/12 22:40:00, Duration: 1 doses or times, Stop date: 10/02/12 23:39:00, Bolus DoseBolus Dose IV No Longer Active [facility] 10/03/2012 [facility] Insulin regular 5 unit, Route: SUB-Q, ONCE, Dosing Weight 90.909, kg, Priority: STAT, Start date: 10/02/12 22:39:00, Stop date: 10/02/12 22:39:00 SUB-Q No Longer Active [facility] 10/03/2012 [facility] ceftriaxone + Sodium Chloride 0.9% IV 100 mL 1 gm, Route: IVPB, ONCE, Dosing Weight 90.909, kg, Priority: STAT, Start date: 10/02/12 21:13:00, Stop date: 10/02/12 21:13:00 IVPB No Longer Active [facility] 10/03/2012 [facility] NS 1,000 mL 1,000 mL, Rate: 15 0 ml/hr, Infuse over: 6.7 hr, Route: IV, Dosing Weight 90.909 kg, Total Volume: 1,000, Start date: 10/02/12 20:37:00, Duration: 30 day, Stop date: 11/01/12 20:36:00 IV No Longer Active [facility] 10/03/2012 [facility] NS (Bolus) IV 1000 mL 1,000 mL , Rate: 1,000 ml/hr, Infuse over: 1 hr, Route: IV, Dosing Weight 90.909 kg, Total Volume: 1,000, Priority: STAT, Start date: 10/02/12 20:37:00, Duration: 1 doses or times, Stop date: 10/02/12 21:36:00, Bolus DoseBolus Dose IV No Longer Active [facility] 10/03/2012 [facility] Saline Flush 0.9% 5 mL, Route: IVP, Drug Form: INJ, Dosing Weight 90.909, kg, PRN, PRN Line Flush, Start date: 10/02/12 20:24:00, Duration: 24 hr, Stop date: 10/03/12 20:23:00 IVP No Longer Active [facility] 10/03/2012 [facility] ondansetron 4 mg, 2 mL, Route: IVP, Drug form: INJ, ONCE, Dosing Weight 90.909, kg, Priority: STAT, Start date: 10/02/12 20:24:00, Stop date: 10/02/12 20:24:00 IVP No Longer Active [facility] 10/03/2012 [facility] morphine Sulfate 4 mg, 2 mL, R oute: IVP, Drug form: INJ, ONCE, Dosing Weight 90.909, kg, Priority: STAT, Start date: 10/02/12 20:24:00, Stop date: 10/02/12 20:24:00 IVP No Longer Active [facility] 10/03/2012 [facility] Phenergan 1 tablet as needed Orally Active 12.5 MG Orally every 6 hrs Mari Jaquan Freedman Protonix 1 tablet Orally Active 40 MG Orally twice a da y Mari Vito Freedman Toujeo SoloStar as directed Subcutaneous Active 300 UNIT/ML Subcutaneous Mari Jaquan Freedman Acetaminophen-Codeine #3 1 tab let as needed Orally Active 300-30 MG Orally every 6 hrs Mari Jaquan Freedman GlipiZIDE 2 tablet Orally Active 10 MG Orally twice a da y Mari Jaquan Freedman Reglan as directed Orally Active 5 MG Orally Mari Vito Freedman Januvia 1 tablet Orally Active 100 MG Orally Once a da y Mari Vito Freedman Invokana 1 tablet Orally Active 100 MG Orally Once a da y Mari Vito Freedman Allergies, Adverse Reactions, Alerts Substance Category [...] Freedman Bentyl<sup>1</sup> Assertion Drug allergy Active rash [facility] Levaquin Assertion Drug allergy Active [facility] penicillins Assertion Drug allergy Active [facility] sulfa drugs<sup>2</sup> Assert ion Drug aller gy Active rash [facility] tetracyclines Assertion Drug allergy Active [facility] Immunizations Immunization Date Given Site Status Last Updated Comments Source influenza virus vaccine, inactivated 01/08/2017 Left deltoid completed [place] [facility] Results Order Name Results Value Reference Range Date Interpretation Comments Source CHEM PANEL Phosphorus 3.6 2.5 - 4.5 01/07/2017 [facility] CHEM PANEL B/C Ratio 15 6 - 25 01/07/2017 [facility] CHEM PANEL AGAP 13.0 10.0 - 20.0 01/07/2017 [facility] CHEM PANEL Globulin 3.7 2.7 - 4.2 01/07/2017 [facility] CHEM PANEL A/G Ratio 1.0 0.7 - 1.6 01/07/2017 [facility] CHEM PANEL Potassium Lvl 4.0 3.5 - 5.1 01/07/2017 [facility] CHEM PANEL CO2 24 24 - 32 01/07/2017 [facility] CHEM PANEL Chloride Lvl 105 95 - 109 01/07/2017 [facility] CHEM PANEL Calcium Lvl 8.4 8.5 - 10.5 01/07/2017 [facility] CHEM PANEL Creatinine Lvl 0.89 0.50 - 1.40 01/07/2017 [facility] CHEM PANEL Sodium Lvl 138 135 - 145 01/07/2017 [facility] CHEM PANEL BUN 13 7 - 22 01/07/2017 [facility] CHEM PANEL Glucose Lvl 170 70 - 99 01/07/2017 [facility] CHEM PANEL Albumin Lvl 3.7 3.5 - 5.0 01/07/2017 [facility] CHEM PANEL Total Protein 7.4 6.4 - 8.4 01/07/2017 [facility] CHEM PANEL Bili Total 0.4 0.2 - 1.3 01/07/2017 [facility] CHEM PANEL Alk Phos 65 39 - 136 01/07/2017 [facility] CHEM PANEL AST 37 0 - 37 01/07/2017 [facility] CHEM PANEL ALT 62 0 - 65 01/07/2017 [facility] CHEM PANEL eGFR 82 01/07/2017 Result Comment: [...] should be multiplied by the estimated BMI. [facility] CHEM PANEL Magnesium Lvl 1.9 1.8 - 2.4 01/07/2017 [facility] CHEM PANEL Lactic Acid Lvl 1.0 0.5 - 2.2 01/07/2017 [facility] HEMATOLOGY Microcyte 1+ *ABN* (01/07/17 2:38 AM) None Seen 01/07/2017 [facility] HEMATOLOGY Monocytes 10.2 2.0 - 12.0 01/07/2017 [facility] HEMATOLOGY Lymphocytes 42.8 20.0 - 40.0 01/07/2017 [facility] HEMATOLOGY Basophils 0.7 0.0 - 1.0 01/07/2017 [facility] HEMATOLOGY Eosinophils 4.1 0.0 - 4.0 01/07/2017 [facility] HEMATOLOGY Segs 42.2 45.0 - 75.0 01/07/2017 [facility] HEMATOLOGY Eosinophils # 0.3 0.0 - 0.5 01/07/2017 [facility] HEMATOLOGY Monocytes # 0.8 0.0 - 0.8 01/07/2017 [facility] HEMATOLOGY Basophils # 0.1 0.0 - 0.2 01/07/2017 [facility] HEMATOLOGY Segs-Bands # 3.5 1.5 - 8.1 01/07/2017 [facility] HEMATOLOGY Lymphocytes # 3.5 1.0 - 5.5 01/07/2017 [facility] HEMATOLOGY MCHC 33.7 32.0 - 36.0 01/07/2017 [facility] HEMATOLOGY Platelet 206 133 - 450 01/07/2017 [facility] HEMATOLOGY RDW 15.0 11.5 - 14.5 01/07/2017 [facility] HEMATOLOGY MPV 8.1 7.4 - 10.4 01/07/2017 [facility] HEMATOLOGY MCH 25.6 27.0 - 31.0 01/07/2017 [facility] HEMATOLOGY Hgb 13.0 12.0 - 16.0 01/07/2017 [facility] HEMATOLOGY RBC 5.07 4.20 - 5.40 01/07/2017 [facility] HEMATOLOGY Hct 38.5 36.0 - 48.0 01/07/2017 [facility] HEMATOLOGY MCV 75.9 80.0 - 98.0 01/07/2017 [facility] HEMATOLOGY WBC 8.2 3.7 - 10.4 01/07/2017 [facility] CARDIAC ENZYMES Troponin-I <0.02 0.00 - 0.40 01/07/2017 [facility] CHEM PANEL Lactic Acid WB 2.5 0.5 - 2.2 01/07/2017 [facility] CHEM PANEL eGFR 78 01/07/2017 Result Comment: [...] should be multiplied by the estimated BMI. [facility] CHEM PANEL CO2 23 24 - 32 01/07/2017 [facility] CHEM PANEL Calcium Lvl 9.2 8.5 - 10.5 01/07/2017 [facility] CHEM PANEL Chloride Lvl 100 95 - 109 01/07/2017 [facility] CHEM PANEL Potassium Lvl 3.9 3.5 - 5.1 01/07/2017 [facility] CHEM PANEL Sodium Lvl 137 135 - 145 01/07/2017 [facility] CHEM PANEL Creatinine Lvl 0.93 0.50 - 1.40 01/07/2017 [facility] CHEM PANEL BUN 15 7 - 22 01/07/2017 [facility] CHEM PANEL Glucose Lvl 183 70 - 99 01/07/2017 [facility] CHEM PANEL AGAP 17.9 10.0 - 20.0 01/07/2017 [facility] HEMATOLOGY MPV 8.7 7.4 - 10.4 01/07/2017 [facility] HEMATOLOGY Platelet 235 133 - 450 01/07/2017 [facility] HEMATOLOGY RDW 15.2 11.5 - 14.5 01/07/2017 [facility] HEMATOLOGY MCHC 33.5 32.0 - 36.0 01/07/2017 [facility] HEMATOLOGY MCH 25.6 27.0 - 31.0 01/07/2017 [facility] HEMATOLOGY MCV 76.4 80.0 - 98.0 01/07/2017 [facility] HEMATOLOGY Hct 43.2 36.0 - 48.0 01/07/2017 [facility] HEMATOLOGY WBC 9.6 3.7 - 10.4 01/07/2017 [facility] HEMATOLOGY RBC 5.65 4.20 - 5.40 01/07/2017 [facility] HEMATOLOGY Hgb 14.5 12.0 - 16.0 01/07/2017 [facility] HEMATOLOGY Eosinophils 2.8 0.0 - 4.0 01/07/2017 [facility] HEMATOLOGY Microcyte 1+ *ABN* (01/06/17 7:55 PM) None Seen 01/07/2017 [facility] HEMATOLOGY Basophils # 0.1 0.0 - 0.2 01/07/2017 [facility] HEMATOLOGY Lymphocytes # 3.1 1.0 - 5.5 01/07/2017 [facility] HEMATOLOGY Monocytes # 1.0 0.0 - 0.8 01/07/2017 [facility] HEMATOLOGY Eosinophils # 0.3 0.0 - 0.5 01/07/2017 [facility] HEMATOLOGY Basophils 0.7 0.0 - 1.0 01/07/2017 [facility] HEMATOLOGY Segs-Bands # 5.1 1.5 - 8.1 01/07/2017 [facility] HEMATOLOGY Segs 53.3 45.0 - 75.0 01/07/2017 [facility] HEMATOLOGY Lymphocytes 32.7 20.0 - 40.0 01/07/2017 [facility] HEMATOLOGY Monocytes 10.5 2.0 - 12.0 01/07/2017 [facility] IMMUNOLOGY CDC HIV 4th GEN Negat jaelyn *NA* (01/06/17 7:55 PM) Negative 01/07/2017 [facility] URINE AND STOOL UA Sq Epi Rare /LPF Few /LPF 01/07/2017 [facility] URINE AND STOOL UA WBC 0-2 /HPF None Seen /HPF 01/07/2017 [facility] URINE AND STOOL UA RBC None Seen (01/06/17 7:52 PM) 0 - 2 01/07/2017 [facility] URINE AND STOOL UA Nitrite Negative (01/06/17 7:52 PM) Negative 01/07/2017 [facility] URINE AND STOOL UA Leuk Est Negative (01/06/17 7:52 PM) Negative 01/07/2017 [facility] URINE AND STOOL UA Blood Negative (01/06/17 7:52 PM) Negative 01/07/2017 [facility] URINE AND STOOL UA Bili Negative *NA* (01/06/17 7:52 PM) Negative 01/07/2017 [facility] URINE AND STOOL UA Urobilinogen 0.2 0.1 - 1.0 01/07/2017 [facility] URINE AND STOOL UA Protein Negative (01/06/17 7:52 PM) Negative 01/07/2017 [facility] URINE AND STOOL UA pH 6.0 5.0 - 8.0 01/07/2017 [facility] URINE AND STOOL UA Ketones Negative *NA* (01/06/17 7:52 PM) Negative 01/07/2017 [facility] URINE AND STOOL UA Glucose >=1000 mg/dL Negative mg/dL 01/07/2017 [facility] URINE AND STOOL UA Turbidity Clear (01/06/17 7:52 PM) Clear 01/07/2017 [facility] URINE AND STOOL UA Spec Grav 1.020 <=1.030 01/07/2017 [facility] URINE AND STOOL UA Color Yellow *NA* (01/06/17 7:52 PM) Yellow 01/07/2017 [facility] URINE CHEM U Preg Negat jaelyn (01/06/17 7:52 PM) Negative 01/07/2017 [facility] BEDSIDE GLUCOSE TESTING Gluc POC Lif scn 309 70 - 99 10/03/2012 [facility] <sup>1</sup>Interpretive Data: Upper Reportable Limit: 200 mg/dL. [facility] BEDSIDE GLUCOSE TESTING Comment1 Notify RN/ 10/03/2012 NA [facility] BEDSIDE GLUCOSE TESTING Gluc POC Lif scn 325 70 - 99 10/03/2012 [place] <sup>2</sup>Interpretive Data: Upper Reportable Limit: 200 mg/dL. [facility] BEDSIDE GLUCOSE TESTING Comment1 Notify RN/ 10/03/2012 NA [facility] BEDSIDE GLUCOSE TESTING Gluc POC Lif scn 309 70 - 99 10/03/2012 [place] <sup>3</sup>Interpretive Data: Upper Reportable Limit: 200 mg/dL. [facility] CHEMISTRY Temp Michael 37.0 10/03/2012 NA [facility] CHEMISTRY pO2 Michael 30 20 - 49 10/03/2012 Normal [facility] CHEMISTRY pH Michael 7.39 7.28 - 7.42 10/03/2012 Normal [facility] CHEMISTRY pCO2 Michael 48 38 - 52 10/03/2012 Normal [facility] CHEMISTRY BE Michael 3 -2-2 - 2 10/03/2012 [facility] CHEMISTRY HCO3 Michael 29 22 - 26 10/03/2012 [facility] CHEMISTRY Site Michael Vein (10/02/2012 21:00:00) 10/03/2012 Normal [facility] CHEMISTRY O2 Sat Michael 56.6 40.0 - 70.0 10/03/2012 Normal [facility] URINALYSIS UA Urobilinogen 0.1 - 1.0 10/03/2012 NA [facility] URINALYSIS UA Color Ltyellow 10/03/2012 NA [facility] URINALYSIS UA Bacteria Occas ional /HPF *NA* (10/02/2012 20:43:00) None S een 10/03/2012 [facility] URINALYSIS UA RBC 4 0 - 2 10/03/2012 [facility] URINALYSIS UA Leuk Est Large *ABN* (10/02/2012 20:43:00) Negati ve 10/03/2012 [facility] URINALYSIS UA WBC 84 0 - 5 10/03/2012 [facility] URINALYSIS UA Nitrite Negat jaelyn (10/02/2012 20:43:00) Negati ve 10/03/2012 Normal [facility] URINALYSIS UA Sq Epi Few / LPF *NA* (10/02/2012 20:43:00) Few 10/03/2012 [facility] URINALYSIS UA Turbidity Marke d *ABN* (10/02/2012 20:43:00) Clear 10/03/2012 [facility] URINALYSIS UA Spec Grav 1.016 <=1.030 10/03/2012 Normal [facility] URINALYSIS UA Protein Negat jaelyn mg/dL (10/02/2012 20:43:00) Negati ve 10/03/2012 Normal [facility] URINALYSIS UA pH 5.0 5.0 - 8.0 10/03/2012 Normal [facility] URINALYSIS UA Blood Small *ABN* (10/02/2012 20:43:00) Negati ve 10/03/2012 [facility] URINALYSIS UA Bili Negat jaelyn *NA* (10/02/2012 20:43:00) Negati ve 10/03/2012 [facility] URINALYSIS UA Glucose 500 m g/dL *ABN* (10/02/2012 20:43:00) Negati ve 10/03/2012 [facility] URINALYSIS UA Ketones Negat jaelyn mg/dL *NA* (10/02/2012 20:43:00) Negati ve 10/03/2012 NA [facility] Microbiology Culture: Urine 10/03/2012 [facility] CHEMISTRY S Preg Negati ve *NA* (10/02/2012 20:41:00) Negati ve 10/03/2012 NA [facility] CHEMISTRY Phosphorus 3.1 2.5 - 4.5 10/03/2012 Normal [facility] CHEMISTRY Magnesium Lvl 1.8 1.8 - 2.4 10/03/2012 Normal [facility] CHEMISTRY Lipase Lvl 207 73 - 393 10/03/2012 Normal [facility] CHEMISTRY eGFR 84 10/03/2012 NA <sup>4</sup>Result [...] should be multiplied by the estimated BMI. [facility] CHEMISTRY Albumin Lvl 4.5 3.5 - 5.0 10/03/2012 Normal [facility] CHEMISTRY Calcium Lvl 9.6 8.5 - 10.5 10/03/2012 Normal [facility] CHEMISTRY Total Protein 9.0 6.4 - 8.4 10/03/2012 [facility] CHEMISTRY ALT 83 0 - 65 10/03/2012 [facility] CHEMISTRY CO2 28 24 - 32 10/03/2012 Normal [facility] CHEMISTRY Bili Total 0.5 0.2 - 1.3 10/03/2012 Normal [facility] CHEMISTRY AST 50 0 - 37 10/03/2012 [facility] CHEMISTRY Alk Phos 95 39 - 136 10/03/2012 Normal [facility] CHEMISTRY Chloride Lvl 99 95 - 109 10/03/2012 Normal [facility] CHEMISTRY Potassium Lvl 4.0 3.5 - 5.1 10/03/2012 Normal [facility] CHEMISTRY Sodium Lvl 136 135 - 145 10/03/2012 Normal [facility] CHEMISTRY BUN 18 7 - 22 10/03/2012 Normal [facility] CHEMISTRY Creatinine Lvl 0.9 0.5 - 1.4 10/03/2012 Normal [facility] CHEMISTRY Glucose Lvl 353 70 - 99 10/03/2012 [place] <sup>5</sup>Interpretive Data: Adult ref erence range values reflect the clinical guidelines
of the [employer]. [facility] CHEMISTRY AGAP 13.0 10.0 - 20.0 10/03/2012 Normal [facility] CHEMISTRY B/C Ratio 20 6 - 25 10/03/2012 Normal [facility] CHEMISTRY Globulin 4.5 2.0 - 4.0 10/03/2012 [facility] CHEMISTRY A/G Ratio 1.0 0.7 - 1.6 10/03/2012 Normal [facility] HEMATOLOGY Lymphocytes # 3.0 1.0 - 5.5 10/03/2012 Normal [facility] HEMATOLOGY Segs-Bands # 5.7 1.5 - 8.1 10/03/2012 Normal [facility] HEMATOLOGY Basophils # 0.0 0.0 - 0.2 10/03/2012 Normal [facility] HEMATOLOGY Eosinophils # 0.3 0.0 - 0.5 10/03/2012 Normal [facility] HEMATOLOGY Monocytes # 0.6 0.0 - 0.8 10/03/2012 Normal [facility] HEMATOLOGY Segs 59.4 45.0 - 75.0 10/03/2012 Normal [facility] HEMATOLOGY Basophils 0.3 0.0 - 1.0 10/03/2012 Normal [facility] HEMATOLOGY Eosinophils 3.5 0.0 - 4.0 10/03/2012 Normal [facility] HEMATOLOGY Monocytes 5.8 2.0 - 12.0 10/03/2012 Normal [facility] HEMATOLOGY Lymphocytes 31.0 20.0 - 40.0 10/03/2012 Normal [facility] HEMATOLOGY RBC 4.85 4.20 - 5.40 10/03/2012 Normal [facility] HEMATOLOGY Hct 37.3 36.0 - 48.0 10/03/2012 Normal [facility] HEMATOLOGY Hgb 12.5 12.0 - 16.0 10/03/2012 Normal [facility] HEMATOLOGY MCH 25.7 27.0 - 31.0 10/03/2012 LOW [facility] HEMATOLOGY RDW 14.3 11.5 - 14.5 10/03/2012 Normal [facility] HEMATOLOGY MCHC 33.4 32.0 - 36.0 10/03/2012 Normal [facility] HEMATOLOGY MPV 9.0 7.4 - 10.4 10/03/2012 Normal [facility] Platelet 234 133 - 450 10/03/2012 Normal [facility] MCV 76.8 81.0 - 99.0 10/03/2012 LOW [facility] WBC 9.7 3.7 - 10.4 10/03/2012 Normal [facility] PTT 31.6 22.9 - 35.8 10/03/2012 Normal <sup>7</sup>Interpretive Data: Heparin T herapeutic Range: 57 - 92 Seconds [facility] PT 13.4 12.0 - 14.7 10/03/2012 Normal [facility] INR 1.00 0.85 - 1.17 10/03/2012 Normal <sup>6</sup>Interpretive Data: RECOMMEND ED RANGES FOR PROTIME INR:
2.0-3.0 for most medical and surgical thromboembolic states.
2.5-3.5 for artificial heart valves and recurrent embolism.

INR SHOULD BE USED ONLY FOR PATIENTS ON STABLE ANTICOAGULANT THERAPY. [facility] BEDSIDE GLUCOSE TESTING Comment1 Notify RN/MD 10/02/2012 NA [facility] Pathology Reports No Data Provided for [...] abscess formation is identified. Unremarkable exam. 01/06/2017 [facility] Abdomen/Pelvis w contrast CT C T scan of the abdomen and pelvis with [...] cholecystectomy. 3. Diffuse fatty infiltration of the xavier er SL:14 10/02/2012 [facility] Consultation Notes No Data Provided for This Section Discharge Summaries No Data Provided for This Section History and Physicals No Data Provided for This Section Vital Signs Vital Sign Value Date Comments Source Weight 210 10/10/2017 Jaquan Freedman Height 63 0 10/10/2017 Jaquan Freedman Temperature Oral (F) 98.8 F 10/10/2017 Jaquan Freedman Heart Rate 104 10/10/2017 Jaquan Freedman Diastolic (mm Hg) 62 10/10/2017 Jaquan Freedman Systolic (mm Hg) 108 10/10/2017 Jaquanmaryellen Freedman Temperature Oral (F) 98 F 01/08/2017 [facility] Respitory Rate 18 01/08/2017 [facility] Systolic (mm Hg) 126 01/08/2017 [facility] Diastolic (mm Hg) 85 01/08/2017 [facility] Heart Rate 88 01/08/2017 [facility] Temperature Oral (F) 98.2 F 01/08/2017 [facility] Respitory Rate 18 01/08/2017 [facility] Heart Rate 92 01/08/2017 [facility] Systolic (mm Hg) 116 01/08/2017 [facility] Diastolic (mm Hg) 73 01/08/2017 [facility] Respitory Rate 18 01/08/2017 [facility] Heart Rate 90 01/08/2017 [facility] Temperature Oral (F) 97 F 01/08/2017 [facility] Systolic (mm Hg) 100 01/08/2017 [facility] Diastolic (mm Hg) 74 01/08/2017 [facility] BMI Calculated 37.1 01/07/2017 [facility] Weight 95 1 [facility] Height 160.02 cm 01/07/2017 [facility] Height 160.02 cm 01/07/2017 [facility] Weight 95 1 [facility] BMI Calculated 37.1 01/07/2017 [facility] Respitory Rate 16 12/20/2016 [facility] Systolic (mm Hg) 123 12/20/2016 [facility] Diastolic (mm Hg) 79 12/20/2016 [facility] BMI Calculated 37.1 12/20/2016 [facility] Weight 95 1 [facility] Height 160.02 cm 12/20/2016 [facility] BMI Calculated 37.63 11/25/2016 [facility] Weight 96.364 11/25/2016 [facility] Height 160.02 cm 11/25/2016 [facility] Heart Rate 100 11/25/2016 [facility] Respitory Rate 16 11/25/2016 [facility] Systolic (mm Hg) 115 11/25/2016 [facility] Diastolic (mm Hg) 79 11/25/2016 [facility] Heart Rate 96 01/24/2014 [facility] Respitory Rate 18 01/24/2014 [facility] Systolic (mm Hg) 133 01/24/2014 [facility] Diastolic (mm Hg) 87 01/24/2014 [facility] Height 160.02 cm 01/22/2014 [facility] Weight 87.727 01/22/2014 [facility] BMI Calculated 34.26 01/22/2014 [facility] Weight 90.909 10/02/2012 [facility] Height 160.02 cm 10/02/2012 [facility] Encounters Location Location Details Encounter Type Encounter Number Reason For Visit Attending Provider ADM Date DC Date Status Source [facility] Emergency [id number] WILIAN HELTON 10/02/2012 10/03/2012 Discharged [facility] Bedded Outpatient [id number] Evelio Olvera 01/24/2014 01/24/2014 [facility] Bedded Outpatient [id number] Dru Pinon 11/25/2016 11/25/2016 [facility] Outpatient [id number] Vivek Peraza 12/20/2016 12/21/2016 [facility] Observation [id number] Calvin Harris 01/07/2017 01/08/2017 [facility] Procedures Procedure Code Date Perfomer Comments Source Carpal tunnel release<sup>1</sup> 32035372 03/14/2016 bilateral 3 months apart [facility] Hysterectomy<sup>2</sup> 37833 [id number] 03/14/2012 also removal of abdominal scar tiissue with hyst [facility] Primary mesh repair of incisional hernia [id number] 03/14/2012 [facility] Appendectomy [id number] [facility] Esophagogastroduodenoscopy<sup>3</sup> 23792800 with dilat ion of esophageal stricture [facility] Laparoscopic cholecystectomy 4 [id number] [facility] Ligament repair<sup>4</sup> 52 640085 torn ligam ent repair of bilat ankles after a fall [facility] Operation<sup>5</sup> 476774507 resection of colon for diverticulis [facility] Operation<sup>6</sup> 513696666 heel spurs surgery, bilat [facility] Operation<sup>7</sup> 393550649 removal of sweat glands from left armpit [facility] Operation<sup>8</sup> 810723885 abdominal "repairs" x 3 [facility] Operation<sup>9</sup> 025352648 removal of cyst from left upper thigh [facility] Tonsillectomy [id number] [facility] Hysterectomy [id number] [facility] Assessment and Plan Assessment and Plan Date Source Extracted from:Title: GI Consultation No te Author: Colt Torres MD Date: 01/07/17 Patient: [...] mL: 100 ml/hr, IV, Stop: 02/06/17 0:25:00 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: 12.5 mg, 0.5 mL, IVPB, Q6H, [...] All Problems Abdominal hernia / SNOMED CT 084982728 / Confirmed Diabetes mellitus / SNOMED CT 195134306 / Confirmed Dysphagia / SNOMED CT 85723745 / Confirmed FH: Diabetes mellitus / SNOMED CT 062493192 / Confirmed Diabetic gastroparesis / SNOMED CT 2704540118 / Confirmed Heartburn / SNOMED CT 40391617 / Confirmed HTN - Hypertension / SNOMED CT 8560800071 / Confirmed 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 Obesity / SNOMED CT 8214639217 / Confirmed Osteoarthritis / SNOMED CT 0707203899 / Confirmed RA (rheumatoid arthritis) / SNOMED CT 175854671 / Confirmed, Active Problems (11) Abdominal hernia Diabetes mellitus Diabetic gastroparesis Dysphagia FH: Diabetes mellitus Heartburn HTN - Hypertension Nutcracker esophagus Obesity Osteoarthritis RA (rheumatoid arthritis) Histories Past Medical History: Active FH: Diabetes mellitus (699593155) HTN - Hypertension (1014937947) Abdominal hernia (925078999) RA (rheumatoid arthritis) (887272230) Osteoarthritis (3932292712) Resolved GERD - Gastro-esophageal reflux disease (7287743816): Resolved. 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 Acid reflux disease (247788834): Resolved. Heel spur (53935744): Resolved. Family History: High blood pressure Father Type 2 diabetes mellitus Mother [place] - Cancer of stomach Grandparent Procedure history: Carpal tunnel release (219082265) in 2017 at 41 Years. Comments: 11/25/2016 14:50 - Sasha Camarillo RN bilateral 3 months apart Hysterectomy (288985880) in 2012 at 37 Years. Comments: 11/25/2016 14:52 - Sasha Camarillo RN also removal of abdominal scar tiissue with hyst Primary mesh repair of incisional hernia (075771102) in 2012 at 37 Years. Tonsillectomy (536443518). Esophagogastroduodenoscopy (611072623). Comments: 11/25/2016 14:49 - Sasha Camarillo RN with dilation of esophageal stricture Appendectomy (216429930). Laparoscopic cholecystectomy (97918780). Operation (4176808207). Comments: 11/25/2016 14:52 - Sasha Camarillo RN resection of colon for diverticulis Operation (9580739362). Comments: 11/25/2016 14:54 - Sasha Camarillo RN removal of cyst from left upper thigh Operation (2256302661). Comments: 11/25/2016 14:55 - Sasha Camarillo RN abdominal "repairs" x 3 Operation (0314809874). Comments: 11/25/2016 14:56 - Sasha Camarillo RN removal of sweat glands from left armpit Ligament repair (059565410). Comments: 11/25/2016 14:57 - Sasha Camarillo RN torn ligament repair of bilat ankles after a fall Operation (1935931502). Comments: 11/25/2016 14:58 - Sasha Camarillo RN [...] Last Charted Temp Oral 97.8 DegF (JAN 07 07:34) Heart Rate Peripheral 98 bpm (JAN 07:34) Resp Rate 18 BRMIN (JAN 07:34) SBP 137 mmHg (JAN 07 07:34) DBP H 95mmHg (JAN 07:34) SpO2 98 % (JAN 07:34) Weight 95 kg (JAN 07:15) Height 160.02 [...] dysphagia. Recommendations: -Upon reviewing the patients manometry t he patient does not meet the diagnostic criteria for [place] (nutcracker esophagus). The patient did have mildly elevated esophageal pressures that warrant futher investigation. -plan for EGD and Barium swallow afterwa rds -possible esophageal manometry depending on findings of prior exams -the plan was finalized with Dr. Peraza , however other members of the GI team [...] you for the consult. Vivek Peraza MD, [facility] Wade Mccrary MD Chair in Gastroenterology, Hepatology and Electronic Development Technician of Advanced Endoscopy, Switchboard And Control Room Operator [facility], [facility], [facility] [phone] (New Patient Referral) [phone] or [phone] (Office [place], [facility] [phone] (Office Fax, [facility]) [phone] (Administrative Office, [facility]) [phone] (Fax, Administrative Office , [facility]) [phone] (Pager) Extracted from:Title: History and Physical Author: Aiyana Medina DO Date: 01/07/17 Assessment/Plan 41-year-old woman with obesity, uncontro lled diabetes mellitus, prior remote history of diverticulitis, presumed chronic GERD, and history of esophageal disorder requiring frequent repeated "dilatations".[facility] has been performing repeated upper endoscopies with dilations 1.NO (nutcracker esophagus) 01/06/17 pt called GI clinic and told to present to ER plan for POEM procedure Maintain patient NPO for possible procedure Consult GI Supportive care 2.Dysphagia GI on board Plan for EGD in AM then POEM? 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 once cleared to evaluate diet 3.Diabetes [...] EGD and POEM procedure with GI 01/08/2017 [facility] Plan of Care No Data Provided for This Section Social History Social History Date Source Social History TypeResponse Alcohol Never Smoking Status Never smoker; Exposure to Tobacco Smoke None; Cigarette Smoking Last 365 Days No; Reg Smoking Cessation Counseling No 01/07/2017 [facility] Social History TypeResponse Smoking Status Never smoker; Exposure to Tobacco Smoke None; Cigarette Smoking Last 365 Days No; Reg Smoking Cessation Counseling No 11/25/2016 [facility] Family History No Data Provided for This Section Advance Directives No Data Provided for This Section Functional Status No Data Provided for This Section
[2019-08-03 16:05] LABS: BASOPHILS # (AUTO) 0.1 (0.0-0.1); BASOPHILS % 0.6 % (0.0-1.0); EOSINOPHILS # (AUTO) 0.3 (0.0-0.4); EOSINOPHILS % 2.3 % (0.0-6.0); HEMATOCRIT 42.1 % (34.2-44.1); LYMPHOCYTES # (AUTO) 2.7 (1.0-3.2); LYMPHOCYTES % 24.9 % (18.0-39.1); MEAN CORPUSCULAR HEMOGLOBIN 25.8 pg (28-32); MEAN CORPUSCULAR HGB CONC 33.3 g/dL (31-35); MEAN CORPUSCULAR VOLUME 77.5 fL (81-99); MONOCYTES # (AUTO) 0.8 (0.2-0.8); MONOCYTES % 7.3 % (4.4-11.3); NEUTROPHILS % 64.4 % (38.7-80.0); PLATELET COUNT 228 x10e3/uL (140-360); RED BLOOD COUNT 5.43 x10e6/uL (3.6-5.1)
[2019-08-03 17:00] LABS: ALANINE AMINOTRANSFERASE 41 IU/L (0-55); ALBUMIN 4.3 g/dL (3.5-5.0); ALBUMIN/GLOBULIN RATIO 1.1 (0.8-2.0); ALKALINE PHOSPHATASE 92 IU/L (40-150); ANION GAP 18.6 mmol/L (8-16); BLOOD UREA NITROGEN 21 mg/dL (7-26); BUN/CREATININE RATIO 27 (6-25); CALCIUM 9.6 mg/dL (8.4-10.2); CARBON DIOXIDE 23 mmol/L (22-29); CHLORIDE 100 mmol/L (98-107); CREATININE, SERUM 0.77 mg/dL (0.57-1.11); EST GLOMERULAR FILTRATION RATE > 60 ML/MIN (60-); GLUCOSE 176 mg/dL (74-118); POTASSIUM 3.6 mmol/L (3.5-5.1); SODIUM 138 mmol/L (136-145)
[2019-08-03] MEDS ORDERED: ONDANSETRON HCL INJ 2MG/ML 2ML 2 MG/ML VIAL IV STA (17:18)
--- NOTE | 2019-08-03 17:19 | NUR ---
PER KATELYN FLYNN ORDER 4 MG MORPHINE IV AND 4 MG ZOFRAN IV BOTH ONE TIME DOSES
[2019-08-03] MEDS ORDERED: MORPHINE SULFATE INJ 4 MG/ML INJ 1ML IV ONE (17:30)
[2019-08-03] MEDS ORDERED: MORPHINE SULFATE 5 MG/ML VIAL IV ONE (17:30)
--- NOTE | 2019-08-03 17:44 | Diagnostic Imaging Report ---
EXAMINATION: CT scan of the chest without contrast. TECHNIQUE: Spiral CT images of the chest were performed from the lung apices to the level of the adrenal glands. No intravenous contrast was administered per physician's request. Oral contrast was administered. Coronal and sagittal reformatted images were obtained. COMPARISON: CT abdomen and pelvis 05/04/2018 CLINICAL HISTORY:Trouble swallowing for a few days, evaluate for esophageal stricture DISCUSSION: ABSENCE OF INTRAVENOUS CONTRAST DECREASES SENSITIVITY FOR DETECTION OF FOCAL LESIONS AND VASCULAR PATHOLOGY. LINES/TUBES: None. LUNGS AND AIRWAYS: The lungs are grossly clear. No pulmonary nodules, masses or consolidation. The airways are clear, without endobronchial lesions. PLEURA: No pneumothorax or pleural effusions. HEART AND MEDIASTINUM: The thyroid gland is normal. Heart size is normal. No pericardial effusion. Aorta is not aneurysmal. Main pulmonary artery is normal in caliber. A small amount of contrast is noted in the mid and distal aspects of the esophagus, as well as the stomach. The esophagus is normal in caliber. No wall thickening or definite esophageal mass. No adjacent adenopathy. LYMPH NODES: There is no mediastinal, hilar or axillary lymphadenopathy. ABDOMEN: Limited unenhanced views of the upper abdomen show no abnormality within the visualized liver, spleen, pancreas, or kidneys. The adrenal glands are normal. BONES AND SOFT TISSUES: No aggressive lytic or suspicious sclerotic lesion. Soft tissues are grossly unremarkable. IMPRESSION: 1. Exam limited by lack of intravenous contrast. 2. Esophagus is normal in caliber. No wall thickening or definite esophageal mass, or adjacent adenopathy within the limitations of this noncontrast exam. No evidence of obstruction, as contrast is noted in the stomach. If there is a clinical question of an esophageal stricture, direct visualization with endoscopy should be performed. Signed by: Dr. Michel Plunkett M.D. on 08/03/2019 5:41 PM
[2019-08-03] MEDS ORDERED: MORPHINE SULFATE 2 MG/ML SYR 1ML IV PRN (18:30)
--- NOTE | 2019-08-03 18:32 | Emergency Department Note ---
History of Present Illnes History of Present Illness Chief Complaint: General Medicine Complaints History of Present Illness This is a 43 year old female . Historian: Patient Arrival Mode: Car Can Carrier Required: No Onset (how long ago): week(s) (2) Location: right side of neck Quality: sharp Radiation: non-radiation Severity: severe Onset quality: gradual Duration (how long): week(s) Timing of current episode: constant Progression: worsening Chronicity: recurrent Relieving factors: none Exacerbating factors: none Treatments prior to arrival: none (RINA CANALES NP) Past Medical/Family History Physician Review I have reviewed the patient's past medical and family history. Any updates have been documented here. (RINA CANALES NP) Past Medical History Recent Fever: No Clinical Suspicion of Infectio: No New/Unexplained Change in Ment: No Past Medical History: Hypertension, Diabetes, GERD, Hyperlipedemia, Chronic Back Pain, Osteoarthritis Other Medical History: RHEUMATOID ARTHRITIS OSTEOARTHRITIS ENDOMETRIOSIS DIVERTICULITIS CHRONS GERD CHRONIC ESOPHAGEAL PAIN ESOPHAGEAL STRICTURES nutcracker esophagus Past Surgical History: Cholecysctectomy, Appendectomy, Hysterectomy, T&A Other Surgery: LIGAMENT REPAIR TO BOTH ANKLES, SWEAT GLAND REMOVED FROM LEFT ARM PIT, LAPAROTOMY FOR INTESTINE REMOVAL d/t diverticulitis HERNIA REPAIRx3 ESOPHAGEAL DILATION EVERY 2-3 MONTHS CARPAL TUNNEL BILATERAL HANDS (RINA CANALES NP) Social History Smoking Cessation: Never Smoker Counseling Performed: No Alcohol Use: None Any Illegal Drug Use: No TB Exposure/Symptoms: No Physically hurt or threatened: No (RINA CANALES NP) Family History Family history of heart diseas: No (RINA CANALES NP) Other Last Tetanus: 2012 Any Pre-Existing Lines (PICC,: No Is patient up to date on immun: Yes Last Flu: UTD Last Pneumovax: UTD (RINA CANALES NP) Review of Systems ROS Narrative Patient is a 43 year old female that presents with difficulty swallowing x 2 weeks. patient states she has called Dr Fiona Olvera and medication was called in but nothing is working (RINA CANALES NP) Review of Systems Constitutional: no symptoms EENTM: throat pain Cardiovascular: no symptoms Respiratory: no symptoms Gastrointestinal: no symptoms Genitourinary: no symptoms Musculoskeletal: no symptoms Neurological: no symptoms Psychological: no symptoms Endocrine: no symptoms Hematological/Lymphatic: no symptoms Review of other systems All other systems reviewed and negative. (RINA CANALES NP) Physical Exam Related Data Allergies: Coded Allergies: Penicillins (Verified Allergy, Mild, RASH, 08/03/19) levofloxacin (Verified Allergy, Mild, SWELLING, 08/03/19) Tetracyclines (Verified Allergy, Unknown, SWELLING/THROAT CLOSED, 08/03/19) dicyclomine (Verified Allergy, Unknown, RASH, 08/03/19) sulfamethoxazole (Verified Allergy, Unknown, RASH, 08/03/19) trimethoprim (Verified Allergy, Unknown, 08/03/19) Triage Vital Signs Vital Signs Date Time Temp Pulse Resp B/P (MAP) Pulse Ox O2 Delivery O2 Flow Rate FiO2 08/03/19 15:35 99.2 109 18 162/95 100 Vital signs reviewed: Yes (RINA CANALES NP) Physical Exam CONSTITUTIONAL Constitutional: well-developed, well-nourished HENT HENT: normocephalic, atraumatic, nose normal, erythema HENT L/R: left ext ear normal, right ext ear normal EYES Eyes: PERRL, conjunctivae normal NECK Neck: ROM normal PULMONARY Pulmonary: effort normal, breath sounds normal CARDIOVASCULAR Cardiovascular: regular rhythm, heart sounds normal, capillary refill normal, normal rate GASTROINTESTINAL Abdominal: soft, nontender, bowel sounds normal GENITOURINARY Genitourinary: exam deferred SKIN Skin: warm, dry MUSCULOSKELETAL Musculoskeletal: ROM normal NEUROLOGICAL Neurological: alert, oriented x 3, no gross motor or sensory deficits PSYCHOLOGICAL Psychological: mood/affect normal, judgement normal (RINA CANALES NP) Critical Care Time Subsequent provider I assumed direction of critical care for this patient from another provider of my specialty. (RINA CANALES NP) Assessment & Plan Reassessment Reassessment 1550- Dr Fiona Olson called and discussed patient presentation,exama nd plan of care. Will call him back when results are back 0- awaiting CT results 1814- All results discussed with Dr Reid- Also spoke to Dr Fiona Olson and will admit (RINA CANALES NP) Assessment & Plan Final Impression: (1) Esophagitis Assessment & Plan 1550- Dr Fiona Olson called and discussed patient presentation,exama nd plan of care. Will call him back when results are back 1700- awaiting CT results 1814- All results discussed with Dr Reid- Also spoke to Dr Fiona Olson and will admit (RINA CANALES NP) Depart Disposition: ADMITTED Last Vital Signs Date Time Temp Pulse Resp B/P (MAP) Pulse Ox O2 Delivery O2 Flow Rate FiO2 08/03/19 15:49 109 20 143/98 99 08/03/19 15:35 99.2 (RINA CANALES NP) Home Meds Reported Medications Insulin Glargine,Hum.rec.anlog (Basaglar Kwikpen U-100) 100 Unit/1 Ml Insuln.pen, 100 UNITS SQ DAILY 04/18/19 Pioglitazone Hcl (ACTOS) 30 Mg Tablet, 30 MG PO DAILY, #30 TAB 04/18/19 Atorvastatin Calcium (LIPITOR) 20 Mg Tablet, 20 MG PO DAILY, #30 TAB 09/27/18 Insulin Lispro (HUMALOG) 100 Unit/1 Ml Cartridge, SQ PRN 09/27/18 Methocarbamol (ROBAXIN-750) 750 Mg Tablet, 500 MG PO PRN 05/22/18 Metoprolol Succinate (METOPROLOL SUCCINATE) 25 Mg Tab.er.24h, 25 MG PO BID 10/11/17 [Phenergan] No Conflict Check, 25 MG PO PRN 11/12/15 Metoclopramide Hcl (REGLAN) 10 Mg Tablet, 10 MG PO PRN 11/12/15 Pantoprazole Sodium (PROTONIX) 40 Mg Suspdr.pkt, 40 MG PO BID, #30 TAB 12/26/13 Amitriptyline Hcl (AMITRIPTYLINE HCL) 100 Mg Tablet, 150 MG PO HS 05/04/12 Medications in the ED IVF Morphine Zofran (RINA CANALES NP) Physician Attestation Provider Attestation The patient's history, exam findings, diagnostics, and a summary of any interventions or procedures was reviewed in detail with our DANIELLA. I personally interviewed and examined the patient, and I have reviewed and agree with the HPI andexam. My personal exam shows epigastric tenderness- CT findings c/w esophagitis. Pt admitted for dysphagia- Fiona Olvera consulted. I confirm the diagnosis as documented by the DANIELLA. I have reviewed and agree with the care plan articulated in the disposition section. (IRINA REID, DO) RINA CANALES NP August 03, 2019 16:02 IRINA REID DO August 03, 2019 18:48
[2019-08-03] MEDS: SODIUM CHLORIDE 0.9% 1000ML 1,000 ML IV SCH (18:49)
[2019-08-03] MEDS: ONDANSETRON HCL INJ 2MG/ML 2ML 2 MG/ML VIAL IV PRN ×2 (19:13→23:30)
[2019-08-03] MEDS: MORPHINE SULFATE INJ 4 MG/ML INJ 1ML IV PRN ×2 (19:13→23:30)
--- OUTSIDE RECORDS SUMMARY | 2019-08-03 19:32 | XMS REPORT | Continuity of Care Document ---
Author Author Moise Novede [employer]SAIRA [employer] Organization [employer] Address Unknown Phone Unavailable Care Team Providers Care Card Clothier Name Role Phone [employer] Unavailable Un available Problems Problem Status Onset Date Classification Date Reported Comments Source TROUBLE SWALLOWING Active 01/06/2017 [facility] DYSPHAGIA Active 01/06/2017 [facility] ESOPHAGEAL ISSUES Active 09/30/2016 [facility] UNK Active 0 09/29/2016 [facility] R10.12 - LEFT UPPER QUADRANT PAIN Active 02/10/2016 [facility] [place] 787.20/789.07 Active 01/17/2014 [facility] ABD PAIN Active 10/02/2012 [facility] Hernia of abdominal cavity (disorder) Active Problem [facility] Diabetes mellitus (disorder) A ctive Problem [facility] Dysphagia (disorder) Active Problem 01/11/2017 [facility] Family history: Diabetes mellitus (anson xt-dependent category) Active Prob ben 01/11/2017 [facility] Gastroparesis due to diabetes mellitus (disorder) Active Problem 01/11/2017 [facility] Gastroesophageal reflux disease (disorder) Resolved Problem 01/11/2017 [facility] Heartburn (finding) Active Problem 01/11/2017 [facility] Hypertensive disorder, systemic arterial (disorder) Active Problem 01/11/2017 [facility] 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) Resolved Problem 01/11/2017 [facility] Nutcracker esophagus (disorder) Active Problem [facility] Obesity (disorder) Active Problem 01/11/2017 [facility] Osteoarthritis (disorder) Acti ve Problem [facility] [place] Rheumatoid arthritis (disorder) Active Problem [facility] [place] Abdominal hernia Active Problem 10/05/2012 [facility] FH: Diabetes mellitus Active Problem 10/05/2012 [facility] HTN - Hypertension Active Problem 10/05/2012 [facility] Calcaneal spur (disorder) Reso lved Problem [facility] Polyarthritis Active Diagnosis 10/28/2017 Jaquan Freedman DYSPHAGIA, UNSPECIFIED Active [facility] Medications Medication Details Route Status Patient Instructions Ordering Provider Order Date Source influenza virus vaccine, inactivated Notes: (Same as: Fluzone Quadrivalent, Fluarix Quadrivalent) For 3 years of age and older (0.5 mL IM) Shake well before use Inactive 01/08/2017 [facility] nter Benadryl Notes: (Same as: Annamarie dryl) No Longer Active 01/08/2017 [facility] Chloraseptic 1.4% spray Notes: Chloraseptic Ranger (Same as: Chloraseptic, Sore Throat Ranger) WASTE: F/P - Black; E - Municipal Trash Bin No Longer Active 01/08/2017 [facility] hydromorphone Notes: Same as: Dilaudid Inactive 01/07/2017 [facility] Phenergan Notes: Do not give I V push. (Same as: Phenergan) No Longer Active 01/07/2017 [facility] influenza virus vaccine, inactivated Notes: (Same as: Fluzone Quadrivalent, Fluarix Quadrivalent) For 3 years of age and older (0.5 mL IM) Shake well before use N o Longer Active 01/07/2017 [facility] nter Dextrose 50% Syringe 12.5 gm, 25 mL, Route: IVP, Drug Form: INJ, Dosing Weight 95, kg, PRN, PRN Blood Glucose Results, Start date: 01/07/17 6:54:00 CDT, Duration: 30 day, Stop date: 02/06/17 5:53:00 [employer] No Longer Active 01/07/2017 [facility] glucagon 1 mg, Route: IM, Drug form: PDR/INJ, PRN, Dosing Weight 95, kg, PRN Blood Glucose Results, Start date: 01/07/17 6:54:00 CDT, Duration: 30 day, Stop date: 02/06/17 5:53:00 [employer]CH[employer] No Longer Active 01/07/2017 [facility] insulin lispro 60 units) [place] ALAN: F/P - Black; E - Municipal Trash Bin Stable for 28 days at room temperature. Expires in days from Date N o Longer Active 01/07/2017 [facility] ntsridevi Phenergan 25 mg oral tablet 25 mg = 1 tab, PO, Q6H, 0 Refill(s) Active 01/07/2017 [facility] Toujeo SoloStar 300 units/mL subcutaneous solution SUB- Q, Daily, 0 Refill(s) No Longe r Active 01/07/2017 [facility] nter Dilaudid Notes: Same as: Dilau did Inactive 01/07/2017 [facility] ondansetron Notes: (Same as: Mary Ellen ulrich) MEDICATION WASTE Product Size: 4 mg Product Wasted: ___ mg Inactive 01/07/2017 [facility] ondansetron Notes: (Same as: Mary Ellen ulrich) MEDICATION WASTE Product Size: 4 mg Product Wasted: ___ mg No Longer Active 01/07/2017 [facility] docusate 100 mg, 1 cap, Route: PO, Drug form: CAP, BID, Dosing Weight 95, kg, PRN Constipation, Start date: 01/07/17 1:50:00 CDT, Duration: 30 day, Stop date: 02/06/17 1:49:00 [employer] MECH[employer]IC No Longer Active 01/07/2017 [facility] acetaminophen Notes: Do not ex ceed 4 gm/day. (Same as: Tylenol) No Longer Active 01/07/2017 [facility] morphine Sulfate Notes: (Same as:MORPhine Sulfate) Inactive 01/07/2017 [facility] Lactated Ringers 1,000 mL 1,00 0 mL, Rate: 100 ml/hr, Infuse over: 10 hr, Route: IV, Dosing Weight 95 kg, Total Volume: 1,000, Start date: 01/07/17 0:26:00 CDT, Duration: 30 day, Stop date: 02/06/17 0:25:00 [employer] MECH[employer]IC No Longer Active 01/07/2017 [facility] Sodium Chloride 0.9% (Bolus) IV 1,000 mL, 1000 ml/hr, Infuse Over: 1 hr, Route: IV, 1,000, Drug form: INJ, ONCE, Priority: STAT, Dosing Weight 95 kg, Start date: 01/06/17 22:06:00 CDT, Duration: 1 doses or times, Stop date: 01/06/17 22:06:00 CDT Inactive 01/07/2017 [facility] nter Phenergan Notes: (Same as: Phe nergan) Inactive 01/07/2017 [facility] hydromorphone Notes: Same as: Dilaudid Inactive 01/07/2017 [facility] Zofran 4 mg, Route: IVP, Drug form: INJ, ONCE, Dosing Weight 95, kg, Start date: 01/06/17 21:50:00 CDT, Stop date: 01/06/17 21:50:00 CDT Inactive 01/07/2017 [facility] morphine Sulfate 4 mg, Route: IVP, ONCE, Dosing Weight 95, kg, Start date: 01/06/17 21:50:00 CDT, Stop date: 01/06/17 21:50:00 CDT Inactive 01/07/2017 [facility] Omnipaque 350mg/ml Notes: (igor e as:Omnipaque 350). WASTE: F/P - Black; E - Municipal Trash Bin Inactive 01/07/2017 [facility] nter dexamethasone Notes: Concentra tion: 4mg/ml No Longer Active 01/07/2017 [facility] clindamycin Notes: (clindamyci n 150 mg/1 ml (600 mg/4 ml VL) INJ) (Same As: Cleocin) N o Longer Active 01/07/2017 [facility] nter Sodium Chloride 0.9% (Bolus) IV 1,000 mL, Infuse Over: 1 hr, Route: IV, ONCE, Priority: STAT, Dosing Weight 95 kg, Start date: 01/06/17 19:50:00 CDT, Duration: 1 doses or times, Stop date: 01/06/17 19:50:00 CDT Inactive 01/07/2017 [facility] Glipizide 10 MG Oral Tablet 20 mg = 2 tab, PO, BID- Before Meals, # 180 tab, 1 Refill(s) Active 11/25/2016 [facility] sitagliptin 100 MG Oral Tablet [Januvia] 100 mg = 1 tab, PO, Daily, # 30 tab, 0 Refill(s) Active 11/25/2016 [facility] canagliflozin 300 MG Oral Tablet [Invokana] 300 mg = 1 tab, PO, Before Breakfast, # 30 tab, 5 Refill(s) Active 11/25/2016 [facility] 1.5 ML Insulin Glargine 300 UNT/ML Prefi lled Syringe [Toujeo] 80 unit, SUB-Q, Bedtime, 0 Refill(s) Active 11/25/2016 [facility] Benadryl 50 mg, PO, Bedtime, 0 Refill(s) Active 01/22/2014 [facility] 3 ML Insulin Lispro 100 UNT/ML Prefilled Syringe [Humalog] 43 unit, SUB-Q, TID-Before Meals, 0 Refill(s) Active 01/22/2014 [facility] Amitriptyline 100 mg, PO, Bedt mame, 0 Refill(s) Active 01/22/2014 [facility] insulin detemir 100 UNT/ML Injectable So lution [Levemir] 30 unit, SUB-Q, Daily, 0 Refill(s) Active 01/22/2014 [facility] lisinopril 10 mg oral tablet 1 0 mg = 1 tab, PO, Daily, # 30 tab, 0 Refill(s) Active 01/22/2014 [facility] pantoprazole 40 MG Enteric Coated Tablet [Protonix] 40 mg = 1 tab, PO, BID, # 30 tab, 0 Refill(s) Active 01/22/2014 [facility] Metoclopramide 10 MG Oral Tablet [Reglan] 20 mg = 2 tab, PO, QID, # 360 tab, 0 Refill(s) Active 01/22/2014 [facility] Sucralfate 1000 MG Oral Tablet [Carafate] 1 gm = 1 tab, PO, QID-Before Meals, # 120 tab, 0 Refill(s) Active 01/22/2014 [facility] Insulin regular 5 unit, Route: SUB-Q, ONCE, Dosing Weight 90.909, kg, Priority: STAT, Start date: 10/03/12 0:17:00, Stop date: 10/03/12 0:17:00 SUB-Q No Longer Active Naidu 10/03/2012 [facility] Zofran 4 mg, Route: IVP, Drug form: INJ, ONCE, Dosing Weight 90.909, kg, Priority: STAT, Start date: 10/02/12 23:07:00, Stop date: 10/02/12 23:07:00 IVP No Longer Active [facility] 10/03/2012 [facility] morphine Sulfate 4 mg, Route: IVP, Drug form: INJ, ONCE, Dosing Weight 90.909, kg, Priority: STAT, Start date: 10/02/12 23:05:00, Stop date: 10/02/12 23:05:00 IVP No Longer Active [facility] 10/03/2012 [facility] Macrodantin 100 mg oral capsule 100 mg, 1 cap, PO, QID, 40 cap, Substitution Allowed, CAP PO Active Brau n 10/03/2012 [facility] Bentyl 10 mg oral capsule 10 m g, 1 cap, PO, QID, 28 cap, Substitution Allowed, CAP PO Active [facility] 10/03/2012 [facility] Zofran 4 mg oral tablet 4 mg, 1 tab, PO, BID, 10 tab, Substitution Allowed PO Active [facility] 10/03/2012 [facility] [place] 5/325 oral tablet 1-2 ta b, PO, Q4-6H, PRN, 15 tab, Pain, Substitution Allowed, Maintenance PO Active Brau n 10/03/2012 [facility] NS (Bolus) IV 500 mL 500 mL, R ate: 500 ml/hr, Infuse over: 1 hr, Route: IV, Dosing Weight 90.909 kg, Total Volume: 500, Priority: STAT, Start date: 10/02/12 22:40:00, Duration: 1 doses or times, Stop date: 10/02/12 23:39:00, Bolus DoseBolus Dose IV No Longer Active [facility] 10/03/2012 [facility] Insulin regular 5 unit, Route: SUB-Q, ONCE, Dosing Weight 90.909, kg, Priority: STAT, Start date: 10/02/12 22:39:00, Stop date: 10/02/12 22:39:00 SUB-Q No Longer Active [facility] 10/03/2012 [facility] ceftriaxone + Sodium Chloride 0.9% IV 100 mL 1 gm, Route: IVPB, ONCE, Dosing Weight 90.909, kg, Priority: STAT, Start date: 10/02/12 21:13:00, Stop date: 10/02/12 21:13:00 IVPB No Longer Active [facility] 10/03/2012 [facility] NS 1,000 mL 1,000 mL, Rate: 15 0 ml/hr, Infuse over: 6.7 hr, Route: IV, Dosing Weight 90.909 kg, Total Volume: 1,000, Start date: 10/02/12 20:37:00, Duration: 30 day, Stop date: 11/01/12 20:36:00 IV No Longer Active [facility] 10/03/2012 [facility] NS (Bolus) IV 1000 mL 1,000 mL , Rate: 1,000 ml/hr, Infuse over: 1 hr, Route: IV, Dosing Weight 90.909 kg, Total Volume: 1,000, Priority: STAT, Start date: 10/02/12 20:37:00, Duration: 1 doses or times, Stop date: 10/02/12 21:36:00, Bolus DoseBolus Dose IV No Longer Active [facility] 10/03/2012 [facility] Saline Flush 0.9% 5 mL, Route: IVP, Drug Form: INJ, Dosing Weight 90.909, kg, PRN, PRN Line Flush, Start date: 10/02/12 20:24:00, Duration: 24 hr, Stop date: 10/03/12 20:23:00 IVP No Longer Active [facility] 10/03/2012 [facility] ondansetron 4 mg, 2 mL, Route: IVP, Drug form: INJ, ONCE, Dosing Weight 90.909, kg, Priority: STAT, Start date: 10/02/12 20:24:00, Stop date: 10/02/12 20:24:00 IVP No Longer Active [facility] 10/03/2012 [facility] morphine Sulfate 4 mg, 2 mL, R oute: IVP, Drug form: INJ, ONCE, Dosing Weight 90.909, kg, Priority: STAT, Start date: 10/02/12 20:24:00, Stop date: 10/02/12 20:24:00 IVP No Longer Active [facility] 10/03/2012 [facility] Phenergan 1 tablet as needed Orally Active 12.5 MG Orally every 6 hrs Mari Jaquan Freedman Protonix 1 tablet Orally Active 40 MG Orally twice a da y Mari Vito Freedman Toujeo SoloStar as directed Subcutaneous Active 300 UNIT/ML Subcutaneous Mair Jaquan Freedman Acetaminophen-Codeine #3 1 tab let [...] Adverse Reaction rash Adverse Reaction Active 10/10/2017 Jqauan Freedman Bentyl<sup>1</sup> Assertion Drug allergy Active rash [facility] Levaquin Assertion Drug allergy Active [facility] penicillins Assertion Drug allergy Active [facility] sulfa drugs<sup>2</sup> Assert ion Drug aller gy Active rash [facility] tetracyclines Assertion Drug allergy Active [facility] Immunizations Immunization Date Given Site Status Last Updated Comments Source influenza virus vaccine, inactivated 01/08/2017 Left deltoid completed Benimana [facility] Results Order Name Results Value Reference Range Date Interpretation Comments Source CHEM PANEL Phosphorus 3.6 2.5 - 4.5 01/07/2017 [facility] CHEM PANEL B/C Ratio 15 6 - 25 01/07/2017 [facility] CHEM PANEL AGAP 13.0 10.0 - 20.0 01/07/2017 [facility] CHEM PANEL Globulin 3.7 2.7 - 4.2 01/07/2017 [facility] CHEM PANEL A/G Ratio 1.0 0.7 - 1.6 01/07/2017 [facility] CHEM PANEL Potassium Lvl 4.0 3.5 - 5.1 01/07/2017 [facility] CHEM PANEL CO2 24 24 - 32 01/07/2017 [facility] CHEM PANEL Chloride Lvl 105 95 - 109 01/07/2017 [facility] CHEM PANEL Calcium Lvl 8.4 8.5 - 10.5 01/07/2017 [facility] CHEM PANEL Creatinine Lvl 0.89 0.50 - 1.40 01/07/2017 [facility] CHEM PANEL Sodium Lvl 138 135 - 145 01/07/2017 [facility] CHEM PANEL BUN 13 7 - 22 01/07/2017 [facility] CHEM PANEL Glucose Lvl 170 70 - 99 01/07/2017 [facility] CHEM PANEL Albumin Lvl 3.7 3.5 - 5.0 01/07/2017 [facility] CHEM PANEL Total Protein 7.4 6.4 - 8.4 01/07/2017 [facility] CHEM PANEL Bili Total 0.4 0.2 - 1.3 01/07/2017 [facility] CHEM PANEL Alk Phos 65 39 - 136 01/07/2017 [facility] CHEM PANEL AST 37 0 - 37 01/07/2017 [facility] CHEM PANEL ALT 62 0 - 65 01/07/2017 [facility] CHEM PANEL eGFR 82 01/07/2017 Result Comment: [...] should be multiplied by the estimated BMI. [facility] CHEM PANEL Magnesium Lvl 1.9 1.8 - 2.4 01/07/2017 [facility] CHEM PANEL Lactic Acid Lvl 1.0 0.5 - 2.2 01/07/2017 [facility] HEMATOLOGY Microcyte 1+ *ABN* (01/07/17 2:38 AM) None Seen 01/07/2017 [facility] HEMATOLOGY Monocytes 10.2 2.0 - 12.0 01/07/2017 [facility] HEMATOLOGY Lymphocytes 42.8 20.0 - 40.0 01/07/2017 [facility] HEMATOLOGY Basophils 0.7 0.0 - 1.0 01/07/2017 [facility] HEMATOLOGY Eosinophils 4.1 0.0 - 4.0 01/07/2017 [facility] HEMATOLOGY Segs 42.2 45.0 - 75.0 01/07/2017 [facility] HEMATOLOGY Eosinophils # 0.3 0.0 - 0.5 01/07/2017 [facility] HEMATOLOGY Monocytes # 0.8 0.0 - 0.8 01/07/2017 [facility] HEMATOLOGY Basophils # 0.1 0.0 - 0.2 01/07/2017 [facility] HEMATOLOGY Segs-Bands # 3.5 1.5 - 8.1 01/07/2017 [facility] HEMATOLOGY Lymphocytes # 3.5 1.0 - 5.5 01/07/2017 [facility] HEMATOLOGY MCHC 33.7 32.0 - 36.0 01/07/2017 [facility] HEMATOLOGY Platelet 206 133 - 450 01/07/2017 [facility] HEMATOLOGY RDW 15.0 11.5 - 14.5 01/07/2017 [facility] HEMATOLOGY MPV 8.1 7.4 - 10.4 01/07/2017 [facility] HEMATOLOGY MCH 25.6 27.0 - 31.0 01/07/2017 [facility] HEMATOLOGY Hgb 13.0 12.0 - 16.0 01/07/2017 [facility] HEMATOLOGY RBC 5.07 4.20 - 5.40 01/07/2017 [facility] HEMATOLOGY Hct 38.5 36.0 - 48.0 01/07/2017 [facility] HEMATOLOGY MCV 75.9 80.0 - 98.0 01/07/2017 [facility] HEMATOLOGY WBC 8.2 3.7 - 10.4 01/07/2017 [facility] CARDIAC ENZYMES Troponin-I <0.02 0.00 - 0.40 01/07/2017 [facility] CHEM PANEL Lactic Acid WB 2.5 0.5 - 2.2 01/07/2017 [facility] CHEM PANEL eGFR 78 01/07/2017 Result Comment: [...] should be multiplied by the estimated BMI. [facility] CHEM PANEL CO2 23 24 - 32 01/07/2017 [facility] CHEM PANEL Calcium Lvl 9.2 8.5 - 10.5 01/07/2017 [facility] CHEM PANEL Chloride Lvl 100 95 - 109 01/07/2017 [facility] CHEM PANEL Potassium Lvl 3.9 3.5 - 5.1 01/07/2017 [facility] CHEM PANEL Sodium Lvl 137 135 - 145 01/07/2017 [facility] CHEM PANEL Creatinine Lvl 0.93 0.50 - 1.40 01/07/2017 [facility] CHEM PANEL BUN 15 7 - 22 01/07/2017 [facility] CHEM PANEL Glucose Lvl 183 70 - 99 01/07/2017 [facility] CHEM PANEL AGAP 17.9 10.0 - 20.0 01/07/2017 [facility] HEMATOLOGY MPV 8.7 7.4 - 10.4 01/07/2017 [facility] HEMATOLOGY Platelet 235 133 - 450 01/07/2017 [facility] HEMATOLOGY RDW 15.2 11.5 - 14.5 01/07/2017 [facility] HEMATOLOGY MCHC 33.5 32.0 - 36.0 01/07/2017 [facility] HEMATOLOGY MCH 25.6 27.0 - 31.0 01/07/2017 [facility] HEMATOLOGY MCV 76.4 80.0 - 98.0 01/07/2017 [facility] HEMATOLOGY Hct 43.2 36.0 - 48.0 01/07/2017 [facility] HEMATOLOGY WBC 9.6 3.7 - 10.4 01/07/2017 [facility] HEMATOLOGY RBC 5.65 4.20 - 5.40 01/07/2017 [facility] HEMATOLOGY Hgb 14.5 12.0 - 16.0 01/07/2017 [facility] HEMATOLOGY Eosinophils 2.8 0.0 - 4.0 01/07/2017 [facility] HEMATOLOGY Microcyte 1+ *ABN* (01/06/17 7:55 PM) None Seen 01/07/2017 [facility] HEMATOLOGY Basophils # 0.1 0.0 - 0.2 01/07/2017 [facility] HEMATOLOGY Lymphocytes # 3.1 1.0 - 5.5 01/07/2017 [facility] HEMATOLOGY Monocytes # 1.0 0.0 - 0.8 01/07/2017 [facility] HEMATOLOGY Eosinophils # 0.3 0.0 - 0.5 01/07/2017 [facility] HEMATOLOGY Basophils 0.7 0.0 - 1.0 01/07/2017 [facility] HEMATOLOGY Segs-Bands # 5.1 1.5 - 8.1 01/07/2017 [facility] HEMATOLOGY Segs 53.3 45.0 - 75.0 01/07/2017 [facility] HEMATOLOGY Lymphocytes 32.7 20.0 - 40.0 01/07/2017 [facility] HEMATOLOGY Monocytes 10.5 2.0 - 12.0 01/07/2017 [facility] IMMUNOLOGY CDC HIV 4th GEN Negat jaelyn *NA* (01/06/17 7:55 PM) Negative 01/07/2017 [facility] URINE AND STOOL UA Sq Epi Rare /LPF Few /LPF 01/07/2017 [facility] URINE AND STOOL UA WBC 0-2 /HPF None Seen /HPF 01/07/2017 [facility] URINE AND STOOL UA RBC None Seen (01/06/17 7:52 PM) 0 - 2 01/07/2017 [facility] URINE AND STOOL UA Nitrite Negative (01/06/17 7:52 PM) Negative 01/07/2017 [facility] URINE AND STOOL UA Leuk Est Negative (01/06/17 7:52 PM) Negative 01/07/2017 [facility] URINE AND STOOL UA Blood Negative (01/06/17 7:52 PM) Negative 01/07/2017 [facility] URINE AND STOOL UA Bili Negative *NA* (01/06/17 7:52 PM) Negative 01/07/2017 [facility] URINE AND STOOL UA Urobilinogen 0.2 0.1 - 1.0 01/07/2017 [facility] URINE AND STOOL UA Protein Negative (01/06/17 7:52 PM) Negative 01/07/2017 [facility] URINE AND STOOL UA pH 6.0 5.0 - 8.0 01/07/2017 [facility] URINE AND STOOL UA Ketones Negative *NA* (01/06/17 7:52 PM) Negative 01/07/2017 [facility] URINE AND STOOL UA Glucose >=1000 mg/dL Negative mg/dL 01/07/2017 [facility] URINE AND STOOL UA Turbidity Clear (01/06/17 7:52 PM) Clear 01/07/2017 [facility] URINE AND STOOL UA Spec Grav 1.020 <=1.030 01/07/2017 [facility] URINE AND STOOL UA Color Yellow *NA* (01/06/17 7:52 PM) Yellow 01/07/2017 [facility] URINE CHEM U Preg Negat jaelyn (01/06/17 7:52 PM) Negative 01/07/2017 [facility] BEDSIDE GLUCOSE TESTING Gluc POC Lif scn 309 70 - 99 10/03/2012 HI <sup>1</sup>Interpretive Data: Upper Reportable Limit: 200 mg/dL. [facility] BEDSIDE GLUCOSE TESTING Comment1 Notify RN/ 10/03/2012 NA [facility] BEDSIDE GLUCOSE TESTING Gluc POC Lif scn 325 70 - 99 10/03/2012 [place] <sup>2</sup>Interpretive Data: Upper Reportable Limit: 200 mg/dL. [facility] BEDSIDE GLUCOSE TESTING Comment1 Notify RN/ 10/03/2012 NA [facility] BEDSIDE GLUCOSE TESTING Gluc POC Lif scn 309 70 - 99 10/03/2012 [place] <sup>3</sup>Interpretive Data: Upper Reportable Limit: 200 mg/dL. [facility] CHEMISTRY Temp Michael 37.0 10/03/2012 NA [facility] CHEMISTRY pO2 Michael 30 20 - 49 10/03/2012 Normal [facility] CHEMISTRY pH Michael 7.39 7.28 - 7.42 10/03/2012 Normal [facility] CHEMISTRY pCO2 Michael 48 38 - 52 10/03/2012 Normal [facility] CHEMISTRY BE Michael 3 -2-2 - 2 10/03/2012 [facility] CHEMISTRY HCO3 Michael 29 22 - 26 10/03/2012 [facility] CHEMISTRY Site Michael Vein (10/02/2012 21:00:00) 10/03/2012 Normal [facility] CHEMISTRY O2 Sat Michael 56.6 40.0 - 70.0 10/03/2012 [facility] URINALYSIS UA Urobilinogen 0.1 - 1.0 10/03/2012 NA [facility] URINALYSIS UA Color Ltyellow 10/03/2012 NA [facility] URINALYSIS UA Bacteria Occas ional /HPF *NA* (10/02/2012 20:43:00) None S een 10/03/2012 [facility] URINALYSIS UA RBC 4 0 - 2 10/03/2012 [facility] URINALYSIS UA Leuk Est Large *ABN* (10/02/2012 20:43:00) Negati ve 10/03/2012 ABN [facility] URINALYSIS UA WBC 84 0 - 5 10/03/2012 [facility] URINALYSIS UA Nitrite Negat jaelyn (10/02/2012 20:43:00) Negati ve 10/03/2012 [facility] URINALYSIS UA Sq Epi Few / LPF *NA* (10/02/2012 20:43:00) Few 10/03/2012 [facility] URINALYSIS UA Turbidity Marke d *ABN* [...] jaelyn *NA* (10/02/2012 20:43:00) Negati ve 10/03/2012 [facility] URINALYSIS UA Glucose 500 m g/dL *ABN* (10/02/2012 20:43:00) Negati ve 10/03/2012 ABN [facility] URINALYSIS UA Ketones Negat jaelyn mg/dL *NA* (10/02/2012 20:43:00) Negati ve 10/03/2012 NA [facility] Microbiology Culture: Urine 10/03/2012 [facility] CHEMISTRY S Preg Negati ve *NA* (10/02/2012 20:41:00) Negati ve 10/03/2012 NA [facility] CHEMISTRY Phosphorus 3.1 2.5 - 4.5 10/03/2012 Normal [facility] CHEMISTRY Magnesium Lvl 1.8 1.8 - 2.4 10/03/2012 Normal [facility] CHEMISTRY Lipase Lvl 207 73 - 393 10/03/2012 Normal [facility] CHEMISTRY eGFR 84 10/03/2012 NA <sup>4</sup>Result [...] should be multiplied by the estimated BMI. [facility] CHEMISTRY Albumin Lvl 4.5 3.5 - 5.0 10/03/2012 Normal [facility] CHEMISTRY Calcium Lvl 9.6 8.5 - 10.5 10/03/2012 Normal [facility] CHEMISTRY Total Protein 9.0 6.4 - 8.4 10/03/2012 [facility] CHEMISTRY ALT 83 0 - 65 10/03/2012 [facility] CHEMISTRY CO2 28 24 - 32 10/03/2012 Normal [facility] CHEMISTRY Bili Total 0.5 0.2 - 1.3 10/03/2012 Normal [facility] CHEMISTRY AST 50 0 - 37 10/03/2012 [facility] CHEMISTRY Alk Phos 95 39 - 136 10/03/2012 Normal [facility] CHEMISTRY Chloride Lvl 99 95 - 109 10/03/2012 Normal [facility] CHEMISTRY Potassium Lvl 4.0 3.5 - 5.1 10/03/2012 Normal [facility] CHEMISTRY Sodium Lvl 136 135 - 145 10/03/2012 Normal [facility] CHEMISTRY BUN 18 7 - 22 10/03/2012 Normal [facility] CHEMISTRY Creatinine Lvl 0.9 0.5 - 1.4 10/03/2012 Normal [facility] CHEMISTRY Glucose Lvl 353 70 - 99 10/03/2012 [facility] <sup>5</sup>Interpretive Data: Adult ref erence range values reflect the clinical guidelines
of the [employer]. [facility] CHEMISTRY AGAP 13.0 10.0 - 20.0 10/03/2012 Normal [facility] CHEMISTRY B/C Ratio 20 6 - 25 10/03/2012 Normal [facility] CHEMISTRY Globulin 4.5 2.0 - 4.0 10/03/2012 [facility] CHEMISTRY A/G Ratio 1.0 0.7 - 1.6 10/03/2012 Normal [facility] HEMATOLOGY Lymphocytes # 3.0 1.0 - 5.5 10/03/2012 Normal [facility] HEMATOLOGY Segs-Bands # 5.7 1.5 - 8.1 10/03/2012 Normal [facility] HEMATOLOGY Basophils # 0.0 0.0 - 0.2 10/03/2012 Normal [facility] HEMATOLOGY Eosinophils # 0.3 0.0 - 0.5 10/03/2012 Normal [facility] HEMATOLOGY Monocytes # 0.6 0.0 - 0.8 10/03/2012 Normal [facility] HEMATOLOGY Segs 59.4 45.0 - 75.0 10/03/2012 Normal [facility] HEMATOLOGY Basophils 0.3 0.0 - 1.0 10/03/2012 Normal [facility] HEMATOLOGY Eosinophils 3.5 0.0 - 4.0 10/03/2012 Normal [facility] HEMATOLOGY Monocytes 5.8 2.0 - 12.0 10/03/2012 Normal [facility] HEMATOLOGY Lymphocytes 31.0 20.0 - 40.0 10/03/2012 Normal [facility] HEMATOLOGY RBC 4.85 4.20 - 5.40 10/03/2012 Normal [facility] HEMATOLOGY Hct 37.3 36.0 - 48.0 10/03/2012 Normal [facility] HEMATOLOGY Hgb 12.5 12.0 - 16.0 10/03/2012 Normal [facility] HEMATOLOGY MCH 25.7 27.0 - 31.0 10/03/2012 LOW [facility] HEMATOLOGY RDW 14.3 11.5 - 14.5 10/03/2012 Normal [facility] HEMATOLOGY MCHC 33.4 32.0 - 36.0 10/03/2012 Normal [facility] HEMATOLOGY MPV 9.0 7.4 - 10.4 10/03/[address] [facility] Platelet 234 133 - 450 10/03/[address] [facility] MCV 76.8 81.0 - 99.0 10/03/[address] [facility] WBC 9.7 3.7 - 10.4 10/03/[address] [facility] PTT 31.6 22.9 - 35.8 10/03/2012 Normal <sup>7</sup>Interpretive Data: Heparin T herapeutic Range: 57 - [address] [facility] PT 13.4 12.0 - 14.7 10/03/[address] [facility] INR 1.00 0.85 - 1.17 10/03/2012 Normal <sup>6</sup>Interpretive Data: RECOMMEND ED RANGES FOR PROTIME INR:
2.0-3.0 for most medical and surgical thromboembolic states.
2.5-3.5 for artificial heart valves and recurrent embolism.

INR SHOULD BE USED ONLY FOR PATIENTS ON STABLE ANTICOAGULANT THERAPY. [facility] BEDSIDE GLUCOSE TESTING Comment1 Notify RN/MD 10/02/2012 NA [facility] Pathology Reports No Data Provided for [...] abscess formation is identified. Unremarkable exam. 01/06/2017 [facility] Abdomen/Pelvis w contrast CT C T scan [...] infiltration of the xavier er SL:14 10/02/2012 [facility] Consultation Notes No Data Provided for [...] [place] Temperature Oral (F) 98 F 01/08/2017 [facility] Respitory Rate 18 01/08/2017 [facility] Systolic (mm Hg) 126 01/08/2017 [facility] Diastolic (mm Hg) 85 01/08/2017 [facility] Heart Rate 88 01/08/2017 [facility] Temperature Oral (F) 98.2 F 01/08/2017 [facility] Respitory Rate 18 01/08/2017 [facility] Heart Rate 92 01/08/2017 [facility] Systolic (mm Hg) 116 01/08/2017 [facility] Diastolic (mm Hg) 73 01/08/2017 [facility] Respitory Rate 18 01/08/2017 [facility] Heart Rate 90 01/08/2017 [facility] Temperature Oral (F) 97 F 01/08/2017 [facility] Systolic (mm Hg) 100 01/08/2017 [facility] Diastolic (mm Hg) 74 01/08/2017 [facility] BMI Calculated 37.1 01/07/2017 [facility] Weight 95 1 [facility] Height 160.02 cm 01/07/2017 [facility] Height 160.02 cm 01/07/2017 [facility] Weight 95 1 [facility] BMI Calculated 37.1 01/07/2017 [facility] Respitory Rate 16 12/20/2016 [facility] Systolic (mm Hg) 123 12/20/2016 [facility] Diastolic (mm Hg) 79 12/20/2016 [facility] BMI Calculated 37.1 12/20/2016 [facility] Weight 95 1 [facility] Height 160.02 cm 12/20/2016 [facility] BMI Calculated 37.63 11/25/2016 [facility] Weight 96.364 11/25/2016 [facility] Height 160.02 cm 11/25/2016 [facility] Heart Rate 100 11/25/2016 [facility] Respitory Rate 16 11/25/2016 [facility] Systolic (mm Hg) 115 11/25/2016 [facility] Diastolic (mm Hg) 79 11/25/2016 [facility] Heart Rate 96 01/24/2014 [facility] Respitory Rate 18 01/24/2014 [facility] Systolic (mm Hg) 133 01/24/2014 [facility] Diastolic (mm Hg) 87 01/24/2014 [facility] Height 160.02 cm 01/22/2014 [facility] Weight 87.727 01/22/2014 [facility] BMI Calculated 34.26 01/22/2014 [facility] Weight 90.909 10/02/2012 [facility] Height 160.02 cm 10/02/2012 [facility] Encounters Location Location Details Encounter Type Encounter Number Reason For Visit Attending Provider ADM Date DC Date Status Source [facility] Emergency [id number] WILIAN HELTON 10/02/2012 10/03/2012 Discharged [facility] Bedded Outpatient [id number] Evelio Olvera 01/24/2014 01/24/2014 [facility] Bedded Outpatient [id number] Dru Pinon 11/25/2016 11/25/2016 [facility] Outpatient [id number] Vivek Peraza 12/20/2016 12/21/2016 [facility] Observation [id number] Calvin Harris 01/07/2017 01/08/2017 [facility] Procedures Procedure Code Date Perfomer Comments Source Carpal tunnel release<sup>1</sup> [id number] 03/14/2016 bilateral 3 months apart [facility] Hysterectomy<sup>2</sup> [id number] 03/14/2012 also removal of abdominal scar tiissue with hyst [facility] Primary mesh repair of incisional hernia [id number] 03/14/2012 [facility] Appendectomy [id number] [facility] Esophagogastroduodenoscopy<sup>3</sup> [id number] with dilat ion of esophageal stricture [facility] Laparoscopic cholecystectomy [id number] [facility] Ligament repair<sup>4</sup> 52 396865 torn ligam ent repair of bilat ankles after a fall [facility] Operation<sup>5</sup> [id number] resection of colon for diverticulis [facility] Operation<sup>6</sup> [id number] heel spurs surgery, bilat [facility] Operation<sup>7</sup> 102090411 removal of sweat glands from left armpit [facility] Operation<sup>8</sup> 609924249 abdominal "repairs" x 3 [facility] Operation<sup>9</sup> 505206941 removal of cyst from left upper thigh [facility] Tonsillectomy [id number] [facility] Hysterectomy [id number] [facility] Assessment and Plan Assessment and Plan [...] mL: 100 ml/hr, IV, Stop: 02/06/17 0:25:00 [employer] Phenergan: 12.5 mg, 0.5 mL, IVPB, Q6H, [...] All Problems Abdominal hernia / SNOMED CT 629723479 / Confirmed Diabetes mellitus / SNOMED CT 771714718 / Confirmed Dysphagia / SNOMED CT 59696314 / Confirmed FH: Diabetes mellitus / SNOMED CT 204481921 / Confirmed Diabetic gastroparesis / SNOMED CT 0313828939 / Confirmed Heartburn / SNOMED CT 04936310 / Confirmed HTN - Hypertension / SNOMED CT 7119952106 / Confirmed 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 Obesity / SNOMED CT 5770944361 / Confirmed Osteoarthritis / SNOMED CT 3358938363 / Confirmed RA (rheumatoid arthritis) / SNOMED CT 244274925 / Confirmed, Active Problems (11) Abdominal hernia Diabetes mellitus Diabetic gastroparesis Dysphagia FH: Diabetes mellitus Heartburn HTN - Hypertension Nutcracker esophagus Obesity Osteoarthritis RA (rheumatoid arthritis) Histories Past Medical History: Active FH: Diabetes mellitus (239216265) HTN - Hypertension (4537222345) Abdominal hernia (435791477) RA (rheumatoid arthritis) (502060145) Osteoarthritis (5095338807) Resolved GERD - Gastro-esophageal reflux disease (7969500018): Resolved. 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 Acid reflux disease (849073691): Resolved. Heel spur (49036252): Resolved. Family History: High blood pressure Father Type 2 diabetes mellitus Mother CA - Cancer of stomach Grandparent Procedure history: Carpal tunnel release (540902316) in 2017 at 41 Years. Comments: 11/25/2016 14:50 - Sasha Camarillo RN bilateral 3 months apart Hysterectomy (646121043) in 2012 at 37 Years. Comments: 11/25/2016 14:52 - Sasha Camarillo RN also removal of abdominal scar tiissue with hyst Primary mesh repair of incisional hernia (283562647) in 2012 at 37 Years. Tonsillectomy (467039470). Esophagogastroduodenoscopy (308817567). Comments: 11/25/2016 14:49 - Sasha aCmarillo RN with dilation of esophageal stricture Appendectomy (964888361). Laparoscopic cholecystectomy (25955534). Operation (4634485979). Comments: 11/25/2016 14:52 - Sasha Camarillo RN resection of colon for diverticulis Operation (5904085812). Comments: 11/25/2016 14:54 - Sasha Camarillo RN removal of cyst from left upper thigh Operation (3008570960). Comments: 11/25/2016 14:55 - Sasha Camarillo RN abdominal "repairs" x 3 Operation (4002763141). Comments: 11/25/2016 14:56 - Sasha Camarillo RN removal of sweat glands from left armpit Ligament repair (735882002). Comments: 11/25/2016 14:57 - Sasha Camarillo RN torn ligament repair of bilat ankles after a fall Operation (7055986770). Comments: 11/25/2016 14:58 - Sasha Camarillo RN [...] you for the consult. Vivek Peraza MD, [facility] Wade Mccrary MD Chair in Gastroenterology, Hepatology and Procurement Analyst of [facility], Lead Database Administrator [facility], [facility], [facility] [phone] (New Patient Referral) [phone] or [phone] (Office Blanca ne, [facility], [facility] [phone] (Office Fax, [facility], [facility]) [phone] (Administrative Office, [facility]) [phone] (Fax, Administrative Office , [facility]) [phone] (Pager) Extracted from:Title: History and Physical Author: [...] then POEM? 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 to evaluate diet 3.Diabetes [...] EGD and POEM procedure with GI 01/08/2017 [facility] Plan of Care No Data Provided for This Section Social History Social History Date Source Social History TypeResponse Alcohol Never Smoking Status Never smoker; Exposure to Tobacco Smoke None; Cigarette Smoking Last 365 Days No; Reg Smoking Cessation Counseling No 01/07/2017 [facility] Social History TypeResponse Smoking Status Never smoker; Exposure to Tobacco Smoke None; Cigarette Smoking Last 365 Days No; Reg Smoking Cessation Counseling No 11/25/2016 [facility] Family History No Data Provided for This Section Advance Directives No Data Provided for This Section Functional Status No Data Provided for This Section
--- OUTSIDE RECORDS SUMMARY | 2019-08-03 19:32 | XMS REPORT ---
Author Author [facility] t Organization [facility] t Address 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 Role Phone THAI ROLLE MD PCP Brian REID Attphys Unavailable DR ARIANNA LIRA Attphys Unavailable ROLLEALEC [facility] Attphys Unavailable THAI ROLLE Attphys Unavailable ERICKSON CARR Attphys Unavailable Kirby Harris Attphys Bruce Perazaav Attphys Rosa STEVENSON Attphys Unavailable Dashawn Pinon Attphys DR ARIANNA LIRA Admphys Unavailable ROLLE THAI Admphys Unavailable Kirby Harris Admphys Dashawn Pinon Admphys Payers Payer Name Policy Type Policy Number Effective Date Expiration Date Brian grullon [facility] [id number] 2015 00:00:00 [facility] [id number] 2015 00:00:00 [facility] [id number] 2015 00:00:00 [facility] Problems Condition Name Condition Details Condition Category Status Onset Date Resolution Date Last Treatment Date Treating Clinician Comments Source TROUBLE SWALLOWING TROU BLE SWALLOWING Active 01/06/2017 [facility] Diagnosis Active 2017-01-06 00:00:00 2017-01-07 04:03:00 [facility] ter DYSPHAGIA DYSP HAGIA Active 01/06/2017 [facility] Diagnosis Active 2017-01-06 00:00:00 2017-01-10 12:43:00 [facility] ESOPHAGEAL ISSUES ESOP HAGEAL ISSUES Active 09/30/2016 [facility] Diagnosis Active 2016-09-30 00:00:00 2016-12 14:36:00 [facility] UNK UNK Active 09/29/2016 [facility] Active 2016-09-29 00:00:00 2016-11-25 11:06:00 [facility] R10.12 - LEFT UPPER QUADRANT PAIN R10.12 - LEFT UPPER QUADRANT PAIN Active 02/10/2016 [facility] [place] Diagnosis Active 2016-02-10 00:01:00 2016-03-18 16:21:00 [facility] [place] Abdominal pain Abdominal pain Problem Active 2015-07-28 00:00:00 [facility] Hematochezia Blood in stool Problem Active 2015-06-01 00:00:00 [facility] Diverticulitis of intestine Diverticulitis Problem Active 2015-05 00:00:00 [facility] Stricture of esophagus Esophageal stricture Problem Active 07-23-08 00:00:00 [facility] Abdominal pain following cholangiogram Abdominal pain follow ing cholangiogram Problem Active 2014-02-19 00:00:00 [facility] Hyperglycemia without ketosis Hyperglycemia without ketosis Problem Active 2014-02-19 00:00:00 [facility] 787.20/789.07 787. 20/789.07 Active 01/17/2014 [facility] Active 2014-01-17 00:00:00 2014-01-24 06:26:00 [facility] Esophagitis Esophagitis Problem Active 2014-01-08 00:00:00 [facility] Gastritis Gastritis Problem Active 2014-01-08 00:00:00 [facility] Gastroesophageal reflux disease with esophagitis Reflux esophagi tis Problem Active 2014-01-08 00:00:00 [facility] Bile-induced gastritis Reflux gastritis Problem Active 2014-01-08 00:00 :00 [facility] Diabetes mellitus Diabetes Problem Active 2013-12-20 00:00:00 [facility] Urinary tract infection Urinary tract infection Problem Active 2013-12-20 00:00:00 [facility] ABD PAIN ABD PAIN Active 10/02/2012 [facility] Active 2012-10-02 00:00:00 2012-10-02 20:16:00 [facility] Pain Pain Problem Active [facility] Diarrhea Diarrhea Problem Active [facility] Dysphagia Dysphagia Problem Active [facility] Hernia of abdominal cavity (disorder) Hernia of abdominal cavity (disorder) Active Problem 01/11/2017 [facility] Problem Active 2017-01-11 00:34:59 [facility] Family history: Diabetes mellitus (context-dependent c ategory) Family history: Diabetes mellitus (context-dependent category) Active Problem 01/11/2017 [facility] Problem Active 2017-01-11 00:34:59 [facility] [address], [facility] Gastroparesis due to diabetes mellitus (disorder) Gastroparesis due to diabetes mellitus (disorder) Active Problem 01/11/2017 [facility] Problem Active 2017-01-11 00:34:59 [facility] Gastroesophageal reflux disease (disorder) Gastroesophageal reflux disease (disorder) Resolved Problem 01/11/2017 [facility] Problem Resolved 2017-01-11 00:34:59 [facility], [facility] Heartburn (finding) Hear tburn (finding) Active Problem 01/11/2017 [facility] Problem Active 2017-01-11 00 :34:59 [facility] Hypertensive disorder, systemic arterial (disorder) Hypertensive disorder, systemic arterial (disorder) Active Problem 01/11/2017 [facility] Problem Active 2017-01-11 00:34:59 [facility] 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) Resolved Problem 01/11/2017 [facility] Problem Resolved 2017-01-11 00:34:59 [facility] 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 Problem 01/11/2017 [facility] Problem Active 2017-01-11 00:34:59 [facility] Obesity (disorder) Obes ity (disorder) Active Problem 01/11/2017 [facility] Problem Active 2017-01-11 00 :34:59 [facility] Osteoarthritis (disorder) Oste oarthritis (disorder) Active Problem 01/11/2017 [facility] Problem Active 2017-01-11 00:34:59 [facility] Rheumatoid arthritis (disorder) Rheumatoid arthritis (disorder) Active Problem 01/11/2017 [facility] Problem Active 2017-01-11 00:34:59 [facility] Abdominal hernia Abdo lj hernia Active Problem 10/05/2012 [facility] Problem Active 2012-10-05 21:56:35 [facility] FH: Diabetes mellitus FH: Diabetes mellitus Active Problem 10/05/2012 [facility] Problem Active 2012-10-05 21:56:3 5 [facility] HTN - Hypertension HTN - Hypertension Active Problem 10/05/2012 [facility] Problem Active 2012-10-05 21:56:35 [facility] Calcaneal spur (disorder) Calc aneal spur (disorder) Resolved Problem 01/11/2017 [facility] Problem Resolved 2017-01-11 00:34:59 [facility] ter Polyarthritis Poly arthritis Active Diagnosis 10/28/2017 Jaquan Freedman Diagnosis Active 2017-10-28 02:47:33 Jaquan Freedman DYSPHAGIA, UNSPECIFIED DYSP HAGIA, UNSPECIFIED Active [facility] Diagnosis Active 2017-01-10 12:43:00 [facility] Allergies, Adverse Reactions, Alerts Allergy Name Allergy Type Status Severity Reaction(s) Onset Date Inacti ve Date Treating Clinician Comments Source Penicillin Allergy to Substance Active Mild RASH 2018-01-12 00:00:00 [facility] Tetracyclines Allergy to Substance Active Unknown SWELLING/THR OAT CLOSED 2018-01-12 00:00:00 [facility] Sulfamethoxazole Allergy to Substance Active Unknown RASH 2018-01-12 00:00:00 [facility] Trimethoprim Allergy to Substance Active Unknown 2018-01-12 00:00: 00 [facility] penicillin penicillin Active rash 2017-10-10 00:00:00 [facility] Bentyl<sup>1</sup> Bentyl<sup>1</sup> Active [facility] Levaquin Levaquin Active [facility] penicillins penicillins Active [facility] [...] Comments Components Source Phenergan 2017-10-28 02:47:33 Yes Joy Clarkf 1 tablet as needed Jaquan Freedman Protonix 2017-10-28 02:47:33 Yes Joy Clarkf 1 tablet Jaquan Freedman Toujeo SoloStar 2017-10-28 02:47:33 Yes Joy Clarkf as directed Jaquan Freedman Acetaminophen-Codeine #3 2017-10-28 [...] (0.5 mL IM) Shake well before use [facility] Benadryl 2017-01-08 01:46:00 No Notes: (Leonel e as: Benadryl) [facility] Chloraseptic 1.4% spray 2017-01-08 01:46:00 No Notes: Chloraseptic [place] (Same as: Chloraseptic, Sore Throat [place]) WASTE: F/P - Black; E - Municipal Trash [facility] ter hydromorphone 2017-01-07 18:03:00 No Notes: Same as: Dilaudid [facility] Phenergan 2017-01-07 14:58:00 No Notes: Do not give IV push. (Same as: Phenergan) [facility] ter influenza virus vaccine, inactivated 2017-01-07 14:00:00 No Notes: (Same as: Fluzone Quadrivalent, Fluarix Quadrivalent) For 3 years of age and older (0.5 mL IM) Shake well before use [facility] Dextrose 50% Syringe 2017-01-07 11:54:00 No 12.5 gm, 25 mL, Route: IVP, Drug Form: INJ, Dosing Weight 95, kg, PRN, PRN Blood Glucose Results, Start date: 01/07/17 6:54:00 CDT, Duration: 30 day, Stop date: 02/06/17 5:53:00 [employer] [employer] [facility] glucagon 2017-01-07 11:54:00 No 1 mg, Route: IM, Drug form: PDR/INJ, PRN, Dosing Weight 95, kg, PRN Blood Glucose Results, Start date: 01/07/17 6:54:00 CDT, Duration: 30 day, Stop date: 02/06/17 5:53:00 [employer] [facility] insulin lispro 2017-01-07 11:54:00 No 60 units) WASTE: F/P - Black; E - Municipal Trash [employer] Stable for 28 days at room temperature. Expires in days from Date [facility] Phenergan 25 mg oral tablet 2017-01-07 11:33:00 Yes 25 mg = 1 tab, PO, Q6H, 0 Refill(s) [facility] nter Norrisusandrao SoloStar 300 units/mL subcutaneous solution 2016-12-13 7 11:33:00 No SUB-Q, Daily, 0 Refill(s) [facility] Dilaudid 2017-01-07 11:28:00 No Notes: Same as: Dilaudid [facility] ondansetron 2017-01-07 07:33:00 No Notes: (Same as: Anny) MEDICATION WASTE Product Size: 4 mg Product Wasted: ___ mg [facility] ondansetron 2017-01-07 06:50:00 No Notes: (Same as: Anny) MEDICATION WASTE Product Size: 4 mg Product Wasted: ___ mg [facility] docusate 2017-01-07 06:50:00 No 100 mg, 1 cap, Route: PO, Drug form: CAP, BID, Dosing Weight 95, kg, PRN Constipation, Start date: 01/07/17 1:50:00 CDT, Duration: 30 day, Stop date: 02/06/17 1:49:00 [employer] [facility] acetaminophen 2017-01-07 06:50:00 No Notes: Do not exceed 4 gm/day. (Same as: Tylenol) [facility] ter morphine Sulfate 2017-01-07 05:27:00 No Notes: (Same as:MORPhine Sulfate) [facility] Lactated Ringers 1,000 mL 2017-01-07 05:26:00 No 1,000 mL, Rate: 100 ml/hr, Infuse over: 10 hr, Route: IV, Dosing Weight 95 kg, Total Volume: 1,000, Start date: 01/07/17 0:26:00 CDT, Duration: 30 day, Stop date: 02/06/17 0:25:00 [facility] [facility] ter Sodium Chloride 0.9% (Bolus) IV 2017-01-07 03:06:00 No 1,000 mL, 1000 ml/hr, Infuse Over: 1 hr, Route: IV, 1,000, Drug form: INJ, ONCE, Priority: STAT, Dosing Weight 95 kg, Start date: 01/06/17 22:06:00 CDT, Duration: 1 doses or times, Stop date: 01/06/17 22:06:00 CDT [facility] Phenergan 2017-01-07 02:52:00 No Notes: (Sa me as: Phenergan) [facility] hydromorphone 2017-01-07 02:51:00 No Notes: Same as: Dilaudid [facility] Zofran 2017-01-07 02:50:00 No 4 mg, Route: IVP, Drug form: INJ, ONCE, Dosing Weight 95, kg, Start date: 01/06/17 21:50:00 CDT, Stop date: 01/06/17 21:50:00 CDT [facility] enter morphine Sulfate 2017-01-07 02:50:00 No 4 mg, Route: IVP, ONCE, Dosing Weight 95, kg, Start date: 01/06/17 21:50:00 CDT, Stop date: 01/06/17 21:50:00 CDT [facility] ter Omnipaque 350mg/ml 2017-01-07 01:53:00 No Notes: (same as:Omnipaque 350). WASTE: F/P - Black; E - Municipal Trash [employer] [facility] dexamethasone 2017-01-07 00:55:00 No Notes: Concentration: 4mg/ml [facility] clindamycin 2017-01-07 00:54:00 No Notes: (clindamycin 150 mg/1 ml (600 mg/4 ml VL) INJ) (Same As: Cleocin) [facility] Sodium Chloride 0.9% (Bolus) IV 2017-01-07 00:50:00 No 1,000 mL, Infuse Over: 1 hr, Route: IV, ONCE, Priority: STAT, Dosing Weight 95 kg, Start date: 01/06/17 19:50:00 CDT, Duration: 1 doses or times, Stop date: 01/06/17 19:50:00 CDT [facility] Glipizide 10 MG Oral Tablet 2016-11-25 16:28:00 Yes 20 mg = 2 tab, PO, BID-Before Meals, # 180 tab, 1 Refill(s) [facility] sitagliptin 100 MG Oral Tablet [Januvia] 2016-11-25 16:28:00 Yes 100 mg = 1 tab, PO, Daily, # 30 tab, 0 Refill(s) [facility] canagliflozin 300 MG Oral Tablet [Invokana] 2016-11-25 16:27:00 Yes 300 mg = 1 tab, PO, Before Breakfast, # 30 tab, 5 Refill(s) [facility] 1.5 ML Insulin Glargine 300 UNT/ML Prefilled Syringe [Toujeo ] 2016-11-25 16:22:00 Yes 80 unit, SUB-Q, Bedtime, 0 Re fill(s) [facility] Benadryl 2014-01-22 23:21:00 Yes 50 mg, PO, Bedtime, 0 Refill(s) [facility] 3 ML Insulin Lispro 100 UNT/ML Prefilled Syringe [Humalog] 2014-01-22 23:20:00 Yes 43 unit, SUB-Q, TID-Before Meal s, 0 Refill(s) [facility] Amitriptyline 2014-01-22 23:18:00 Yes 100 mg, PO, Bedtime, 0 Refill(s) [facility] insulin detemir 100 UNT/ML Injectable Solution [Levemir] 2014-01-22 23:16:00 Yes 30 unit, SUB-Q, Daily, 0 Refill( s) [facility] lisinopril 10 mg oral tablet 2014-01-22 23:15:00 Yes 10 mg = 1 tab, PO, Daily, # 30 tab, 0 Refill(s) Orly hummel pantoprazole 40 MG Enteric Coated Tablet [Protonix] 2013-03 23:15:00 Yes 40 mg = 1 tab, PO, BID, # 30 tab, 0 Refi ll(s) [facility] Metoclopramide 10 MG Oral Tablet [Reglan] 2014-01-22 23:14:00 Yes 20 mg = 2 tab, PO, QID, # 360 tab, 0 Refill(s) [facility] Sucralfate 1000 MG Oral Tablet [Carafate] 2014-01-22 23:14:00 Yes 1 gm = 1 tab, PO, QID-Before Meals, # 120 tab, 0 Refill(s) [facility] Insulin regular 2012-10-03 05:17:00 No Guille Naidu 5 unit, Route: SUB-Q, ONCE, Dosing Weight 90.909, kg, Priority: STAT, Start date: 10/03/12 0:17:00, Stop date: 10/03/12 0:17:00 [facility] Zofran 2012-10-03 04:07:00 No Guille Schulte Naidu 4 mg, Route: IVP, Drug form: INJ, ONCE, Dosing Weight 90.909, kg, Priority: STAT, Start date: 10/02/12 23:07:00, Stop date: 10/02/12 23:07:00 [facility] morphine Sulfate 2012-10-03 04:05:00 No Guille Naidu 4 mg, Route: IVP, Drug form: INJ, ONCE, Dosing Weight 90.909, kg, Priority: STAT, Start date: 10/02/12 23:05:00, Stop date: 10/02/12 23:05:00 [facility] Macrodantin 100 mg oral capsule 2012-10-03 03:44:16 Yes Guille Franca Naidu 100 mg, 1 cap, PO, QID, 40 cap, Substitution Allowed, CAP [facility] Bentyl 10 mg oral capsule 2012-10-03 03:43:26 Yes Guille G Naidu 10 mg, 1 cap, PO, QID, 28 cap, Substitution Allowed, CAP [facility] Zofran 4 mg oral tablet 2012-10-03 03:42:25 Yes Guille G Naidu 4 mg, 1 tab, PO, BID, 10 tab, Substitution Allowed [facility] [place] 5/325 oral tablet 2012-10-03 03:42:02 Yes Guille G Naidu 1-2 tab, PO, Q4-6H, PRN, 15 tab, Pain, Substitution Allowed, Maintenance [facility] NS (Bolus) IV 500 mL 2012-10-03 03:40:00 No Guille Schulte Bra un 500 mL, Rate: 500 ml/hr, Infuse over: 1 hr, Route: IV, Dosing Weight 90.909 kg, Total Volume: 500, Priority: STAT, Start date: 10/02/12 22:40:00, Duration: 1 doses or times, Stop date: 10/02/12 23:39:00, Bolus DoseBolus Dose [facility] Insulin regular 2012-10-03 03:39:00 No Guille G Naidu 5 unit, Route: SUB-Q, ONCE, Dosing Weight 90.909, kg, Priority: STAT, Start date: 10/02/12 22:39:00, Stop date: 10/02/12 22:39:00 M [facility] ceftriaxone + Sodium Chloride 0.9% IV 100 mL 2012-10-03 02 :13:00 No Guille Franca Naidu 1 gm, Route: IVP B, ONCE, Dosing Weight 90.909, kg, Priority: STAT, Start date: 10/02/12 21:13:00, Stop date: 10/02/12 21:13:00 [facility] NS 1,000 mL 2012-10-03 01:37:00 No Guille G Naidu 1,000 mL, Rate: 150 ml/hr, Infuse over: 6.7 hr, Route: IV, Dosing Weight 90.909 kg, Total Volume: 1,000, Start date: 10/02/12 20:37:00, Duration: 30 day, Stop date: 11/01/12 20:36:00 [facility] NS (Bolus) IV 1000 mL 2012-10-03 01:37:00 No Guille Schulte Br aun 1,000 mL, Rate: 1,000 ml/hr, Infuse over: 1 hr, Route: IV, Dosing Weight 90.909 kg, Total Volume: 1,000, Priority: STAT, Start date: 10/02/12 20:37:00, Duration: 1 doses or times, Stop date: 10/02/12 21:36:00, Bolus DoseBolus Dose [facility] Saline Flush 0.9% 2012-10-03 01:24:00 No Guille G Naidu 5 mL, Route: IVP, Drug Form: INJ, Dosing Weight 90.909, kg, PRN, PRN Line Flush, Start date: 10/02/12 20:24:00, Duration: 24 hr, Stop date: 10/03/12 20:23:00 [facility] ondansetron 2012-10-03 01:24:00 No Guille Naidu 4 mg, 2 mL, Route: IVP, Drug form: INJ, ONCE, Dosing Weight 90.909, kg, Priority: STAT, Start date: 10/02/12 20:24:00, Stop date: 10/02/12 20:24:00 [facility] morphine Sulfate 2012-10-03 01:24:00 No Guille Naidu 4 mg, 2 mL, Route: IVP, Drug form: INJ, ONCE, Dosing Weight 90.909, kg, Priority: STAT, Start date: 10/02/12 20:24:00, Stop date: 10/02/12 20:24:00 [facility] Amitriptyline Hcl 100 Mg Tablet Amitriptyline Hcl 100 Mg Tablet Yes 150 Bedtime [facility] Glipizide 10 Mg Tablet Glipizide 10 Mg Tablet Yes 20 Twice A Day [facility] Invokana Invokana Yes 100 Daily [facility] Lisinopril 10 Mg Tablet Lisinopril 10 Mg Tablet Yes 5 Bedtime [facility] Metoclopramide Hcl (Reglan) 10 Mg Tablet Metoclopramid e Hcl (Reglan) 10 Mg Tablet Yes 20 Before Meals And At Bedtime [facility] Metoprolol Succinate 25 Mg Tab.er.24h Metoprolol Succinate 25 Mg Ta b.er.24h Yes 25 Twice A Day [facility] Pantoprazole Sodium (Protonix) 40 Mg Suspdr.pkt Pantop razole Sodium (Protonix) 40 Mg Suspdr.pkt Yes 40 Twice A Day [facility] Phenergan Phenergan Yes 25 As Needed [facility] Sitagliptin Phosphate (Januvia) 100 Mg Tablet [place]aglip tin Phosphate (Januvia) 100 Mg Tablet Yes 100 Daily [facility] Tujeo Tujeo Yes 100 Am [facility] Colestipol Hcl,Micronized (Colestipol Hcl) 1 Gm Tablet , 1 Gm Oral Colestipol Hcl,Micronized (Colestipol Hcl) 1 Gm Tablet, 1 Gm Oral 6 00:00:00 No 1 As Needed [facility] Acetaminophen/Codeine Phosphate (Tylenol # 3*) 1 Ea Ta b, Oral Acetaminophen/Codeine Phosphate (Tylenol # 3*) 1 Ea Tab, Oral 2017-10-11 00:00:00 No As Needed [facility] Diphenhydramine Hcl (Benadryl) 25 Mg Capsule, 50 Mg Or al Diphenhydramine Hcl (Benadryl) 25 Mg Capsule, 50 Mg Oral 2017-10-11 00:00:00 No 50 Hsprn [facility] Methocarbamol (Robaxin) 500 Mg Tablet, 500 Mg Oral Met hocarbamol (Robaxin) 500 Mg Tablet, 500 Mg Oral 2017-10-11 00:00:00 No 500 T hree Times A Day [facility] Toujeo , 100 Units Injection Toujeo , 100 Units Injection 2017-10-11 00:00:00 No 100 Bedtime [facility] Invokana , 300 Mg Oral Invokana , 300 Mg Oral 2017-06-30 00:00:0 0 No 300 Daily [facility] Pregabalin (Lyrica) 75 Mg Cap, 75 Mg Oral Pregabalin ( Lyrica) 75 Mg Cap, 75 Mg Oral 2017-03-10 00:00:00 No 75 Daily [facility] Pioglitazone Hcl (Actos*) 15 Mg Tablet, 15 Mg Oral Satish glitazone Hcl (Actos*) 15 Mg Tablet, 15 Mg Oral 2016-09-20 00:00:00 No 15 Da marcio [facility] Jardiance , 25 Mg Oral Jardiance , 25 Mg Oral 2016-05-16 00:00:00 No 25 Daily [facility] Diphenhydramine Hcl 12.5 Mg/5 Ml Elix, 50 Mg Oral Diph enhydramine Hcl 12.5 Mg/5 Ml Elix, 50 Mg Oral 2015-11-12 00:00:00 No 50 Bedtime as needed for Sleep [facility] Glipizide 5 Mg Tablet, 10 Mg Oral Glipizide 5 Mg Tablet, 10 Mg O ral 2015-11-12 00:00:00 No 10 Before Breakfast [facility] Glipizide 5 Mg Tablet, 20 Mg Oral Glipizide 5 Mg Tablet, 20 Mg O ral 2015-11-12 00:00:00 No 20 Before Supper [facility] Insulin Human Lispro (Humalog) 100 Units/Ml Ml, 25 Uni ts Sub-Q Insulin Human Lispro (Humalog) 100 Units/Ml Ml, 25 Units Sub-Q 2015-11-12 00:00:00 No 25 Three Times A Day [facility] Jardance , 25 Mg Oral Jardance , 25 Mg Oral 2015-11-12 00:00:00 No 25 Every Morning [facility] Mesalamine (Pentasa) 500 Mg Capcr, 500 Mg Oral Mesalam ine (Pentasa) 500 Mg Capcr, 500 Mg Oral 2015-11-12 00:00:00 No 500 Four Times Daily [facility] Metoclopramide Hcl (Reglan) 5 Mg Tablet, 10 Mg Oral Me toclopramide Hcl (Reglan) 5 Mg Tablet, 10 Mg Oral 2015-11-12 00:00:00 No 10 Four Times Daily [facility] Ondansetron (Zofran Odt) 4 Mg Tab.rapdis, 4 Mg Subling ual Ondansetron (Zofran Odt) 4 Mg Tab.rapdis, 4 Mg Sublingual 2015-11-12 00:00:00 No 4 Every 6 Hours [facility] Promethazine Hcl 25 Mg Tablet, 25 Mg Oral Promethazine Hcl 25 Mg Tablet, 25 Mg Oral 2015-11-12 00:00:00 No 25 Twic e A Day as needed for Nausea And Vomiting [facility] Toujeo , 100 Units Subcutaneously Toujeo , 100 Units Subcutaneou sly 2015-11-12 00:00:00 No 100 Bedtime [facility] Sucralfate (Carafate) 1 Gm/10 Ml Oral.susp, 1 Gm Oral Sucralfate (Carafate) 1 Gm/10 Ml Oral.susp, 1 Gm Oral 2015-10-24 00:00:00 No 1 Four Times Daily [facility] Insulin Detemir (Levemir) 100 Unit/1 Ml Vial, 30 Units Subcutaneously Insulin Detemir (Levemir) 100 Unit/1 Ml Vial, 30 Units Subcutaneously 2015-09-18 00:00:00 No 30 Before Breakfast [facility] Insulin Detemir (Levemir) 100 Unit/1 Ml Vial, 70 Units Subcutaneously Insulin Detemir (Levemir) 100 Unit/1 Ml Vial, 70 Units Subcutaneously 2015-09-18 00:00:00 No 70 Bedtime [facility] Insulin Detemir (Levemir) 100 Unit/1 Ml Vial, 40 Unit Sub-Q Insulin Detemir (Levemir) 100 Unit/1 Ml Vial, 40 Unit Sub-Q 2014-08-26 00:00:00 No 40 Before Breakfast [facility] Insulin Detemir (Levemir) 100 Unit/1 Ml Vial, 60 Units Sub-Q Insulin Detemir (Levemir) 100 Unit/1 Ml Vial, 60 Units Sub-Q 2014-08-26 00:00:00 No 60 Twice A Day [facility] Acetaminophen With Codeine (Tylenol With Codeine #3 Tablet) 1 Each Tablet, 300 Mg Oral Acetaminophen With Codeine (Tylenol With Codeine #3 Tablet) 1 Each Tablet, 300 Mg Oral 2014-08-25 00:00:00 No 300 Twice A Day as needed for Pain [facility] Acetaminophen/Diphenhydramine (Tylenol P m Ex-Strength Caplet) 1 Each Tablet, Oral Acetaminophen/Diphenhydramine (Tylenol P m Ex-Strength Caplet) 1 Each Tablet, Oral 2014-02-22 00:00:00 No As Needed [facility] Hydrocodone Bit/Acetaminophen (Hydrocodo n-Acetaminoph 7.5-500) 1 Each Tablet, 1 Tab Oral Hydrocodone Bit/Acetaminophen (Hydrocodo n-Acetaminoph 7.5-500) 1 Each Tablet, 1 Tab Oral 2013-12-20 00:00:00 No 1 Every 4 Hours as needed [facility] Sucralfate (Carafate) 1 Gm Tablet, 1 Oral Sucralfate (Carafate) 1 Gm Tablet, 1 Oral 2013-12-20 00:00:00 No 1 Three Times A Day [facility] Acetaminophen/Diphenhydramine (Tylenol Pm Ex-Strength Caplet) 1 Each Tablet, Acetaminophen/Diphenhydramine (Tylenol Pm Ex-Strength Caplet) 1 Each Tablet, 2013-01-19 00:00:00 No Bedtime as needed [facility] Docusate Sodium (Colace) 100 Mg Cap, Oral Docusate S odium (Colace) 100 Mg Cap, Oral 2013-01-19 00:00:00 No Twice A Day [facility] Estradiol (Estrogel) 50 Gm Gel.pest control technician, Estradiol (Estrogel) 50 G m Gel..pest control technician, 2013-01-19 00:00:00 No [facility] Hydrocodone Bit/Acetaminophen (Vicodin H p 10-660 Mg Tablet) 1 Each Tablet, Oral Hydrocodone Bit/Acetaminophen (Vicodin H p 10-660 Mg Tablet) 1 Each Tablet, Oral 2013-01-19 00:00:00 No Every 4 Hours as needed [facility] Insulin Detemir (Levemir) 100 Unit/1 Ml Vial, Subcut aneously Insulin Detemir (Levemir) 100 Unit/1 Ml Vial, Subcutaneously 2013-01-19 00:00:00 No [facility] Metformin Hcl 500 Mg Tablet, 500 Mg Oral Metformin Hcl 500 Mg Tablet, 500 Mg Oral 2013-01-19 00:00:00 No 500 Daily [facility] Spironolactone 100 Mg Tablet, 100 Mg Oral Spironolacto ne 100 Mg Tablet, 100 Mg Oral 2013-01-19 00:00:00 No 100 Daily [facility] Diphenhydramine Hcl (Benadryl) 25 Mg Capsule, Mg Oral Diphenhydramine Hcl (Benadryl) 25 Mg Capsule, Mg Oral 2012-08-08 00:00:00 No H as needed [facility] Hydrocodone Bit/Acetaminophen ([place] 7.5-325 Tablet) 1 Each Tablet, 1 Tab Oral Hydrocodone Bit/Acetaminophen ([place] 7.5-325 Tablet) 1 Each Tablet, 1 Tab Oral 2012-08-08 00:00:00 No 1 Every 6 Hours as n eeded [facility] Pantoprazole Sodium (Protonix) 40 Mg Tablet.dr, 40 Mg Oral Pantoprazole Sodium (Protonix) 40 Mg Tablet.dr, 40 Mg Oral 2012-08-08 00:00:00 No 40 Every Morning [facility] Insulin Glargine (Lantus) 100 Units/Ml Ml, 50 Units Joy bcutaneously Insulin Glargine (Lantus) 100 Units/Ml Ml, 50 Units Subcutaneously 2012-07-13 00:00:00 No 50 Qhs [facility] Metronidazole (Flagyl) 500 Mg Tablet, 500 Mg Oral Metr onidazole (Flagyl) 500 Mg Tablet, 500 Mg Oral 2012-07-13 00:00:00 No 500 Thre e Times A Day [facility] Vital Signs Vital Name Observation Time Observation Value Comments Source Weight 2017-10-10 15:45:00 Jaquan Freedman Height 2017-10-10 15:45:00 Jaquan Freedman Temperature Oral (F) 2017-10-10 15:45:00 98.8 F Jaquan Freedman Heart Rate 2017-10-10 15:45:00 Jaquan Freedman Diastolic (mm Hg) 2017-10-10 15:45:00 Phi rudy Freedman Systolic (mm Hg) 2017-10-10 15:45:00 Vito Freedman Temperature Oral (F) 2017-01-08 16:08:00 98 F [facility] Respitory Rate 2017-01-08 16:08:00 [facility] Systolic (mm Hg) 2017-01-08 16:08:00 [facility] Diastolic (mm Hg) 2017-01-08 16:08:00 [facility] Heart Rate 2017-01-08 16:08:00 [facility] Temperature Oral (F) 2017-01-08 12:22:00 98.2 F [facility] Respitory Rate 2017-01-08 12:22:00 [facility] Heart Rate 2017-01-08 12:22:00 [facility] Systolic (mm Hg) 2017-01-08 12:22:00 [facility] Diastolic (mm Hg) 2017-01-08 12:22:00 [facility] Respitory Rate 2017-01-08 09:18:00 [facility] Heart Rate 2017-01-08 09:18:00 [facility] Temperature Oral (F) 2017-01-08 09:18:00 97 F [facility] Systolic (mm Hg) 2017-01-08 09:18:00 [facility] Di[facility] (mm Hg[facility] 2017-01-08 09:18:00 [facility] BMI Calculated 2017-01-07 10:15:00 [facility] Weight 2017-01-07 10:15:00 [facility] Height 2017-01-07 10:15:00 160.02 cm [facility] Height 2017-01-07 00:15:00 160.02 cm [facility] Weight 2017-01-07 00:15:00 [facility] BMI Calculated 2017-01-07 00:15:00 [facility] Respitory Rate 2016-12-20 19:33:00 [facility] Systolic (mm Hg) 2016-12-20 19:33:[facility] Diastolic (mm Hg) 2016-12-20 19:33:00 [facility] BMI Calculated 2016-12-20 19:33:00 [facility] Weight 2016-12-20 19:33:00 [facility] Height 2016-12-20 19:33:00 160.02 cm [facility] BMI Calculated 2016-11-25 16:29:00 [facility] Weight 2016-11-25 16:29:00 [facility] Height 2016-11-25 16:29:00 160.02 cm [facility] Heart Rate 2016-11-25 16:10:00 [facility] Respitory Rate 2016-11-25 16:10:00 [facility] Systolic (mm Hg) 2016-11-25 16:10:00 [facility] Diastolic (mm Hg) 2016-11-25 16:10:00 [facility] Heart Rate 2014-01-24 13:21:00 [facility] Respitory Rate 2014-01-24 13:21:00 [facility] Systolic (mm Hg) 2014-01-24 13:21:00 [facility] Diastolic (mm Hg) 2014-01-24 13:21:00 [facility] Height 2014-01-22 23:05:00 160.02 cm [facility] Weight 2014-01-22 23:05:00 [facility] BMI Calculated 2014-01-22 23:05:00 [facility]ast Weight 2012-10-02 23:09:00 [facility] Height 2012-10-02 23:09:00 160.02 cm [facility] Procedures Procedure Date / Time Performed Performing Clinician [facility] e EGD with biopsy 2018-03-31 00:00:00 ALEC ROLLE [facility] EGD with biopsy 2018-03-28 00:00:00 ALEC ROLLE [facility] ESOPH EGD DILATION <30 MM 2018-01-12 00:00:00 ALEC ROLLE CH, I [facility] EGD BIOPSY SINGLE/MULTIPLE 2017-11-16 00:00:00 ALEC ROLLE [facility] DILATE ESOPHAGUS 1/MULT PASS 2017-11-16 00:00:00 ALEC ROLLE [facility] LAP ENTEROLYSIS 2017-10-17 00:00:00 [place] LINO [facility] Computed tomography of abdomen and pelvis with contrast 2017 00:00:00 THAI ROLLE [facility] DILATION OF ESOPHAGOGASTRIC JUNCTION, ENDO 2017-07-01 00:00:00 ALEC [place] [facility] EXCISION OF STOMACH, ENDO, DIAGN 2017-07-01 00:00:00 TYLER ROLLE [facility] Carpal tunnel release<sup>1</sup> 2016-03-14 00:00:00 [facility], [facility] Hysterectomy<sup>2</sup> 2012-03-14 00:00:00 [facility], [facility] Primary mesh repair of incisional hernia 2012-03-14 00:00:00 [facility], [facility] Appendectomy [facility], [facility] Laparoscopic cholecystectomy [facility], [facility] Ligament repair<sup>4</sup> [facility], [facility] Operation<sup>5</sup> [facility], [facility] Tonsillectomy [facility], [facility] Hysterectomy [facility] Encounters Start Date/Time End Date/Time Encounter Type Admission Type Att[facility] Care Department Encounter ID Source 2019-05-25 03:54:00 2019-05-25 08:25:00 Outpatient ARIANNA VO [facility] [id number] [facility] 2018-03-27 19:23:00 2018-03-30 13:01:00 Discharged Inpatient (obs) [address] [facility] [id number] [facility] 2018-01-12 17:53:00 2018-01-14 13:45:00 Discharged Inpatient (obs) [facility] [id number] [facility] 2018-01-09 09:52:00 2018-01-09 09:52:00 Registered Clinic [address] [facility] [id number] [facility] 2017-11-16 13:18:00 2017-11-16 13:18:00 Registered Surgical Day Care [facility] [id number] [facility] 2017-10-17 10:43:00 2017-10-19 20:20:00 Discharged Inpatient (obs) [facility] [id number] [facility] 2017-10-10 10:45:00 2017-10-10 10:45:00 Outpatient Pascual Freedman MD PA Pasc[place] MD [place] [id number] Jaquan Freedman MD 2017-07-11 17:23:00 2017-07-11 17:23:00 Registered Clinic [place], [facility] [id number] [facility] 2017-06-30 14:41:00 2017-07-02 15:42:00 Discharged Inpatient ER THAI ROLLE [facility] [id number] [facility] 2017-03-12 09:44:00 2017-03-12 09:44:00 Registered Surgical Day Care [facility] [id number] [facility] 2017-01-07 00:00:00 2017-01-08 19:58:00 Observation [facility] [id number] [facility] 2017-01-06 19:00:00 2017-01-08 14:58:00 Outpatient Steven Calvin Kirby [facility] [id number] 2016-12-20 19:27:00 2016-12-21 04:59:00 Outpatient [facility] [id number] [facility] 2016-12-20 14:27:00 2016-12-20 23:59:00 Outpatient Vinnie berkowitzSatya caiSelf [facility] [id number] 2016-12-14 19:20:00 2016-12-16 15:25:00 Discharged Inpatient ER CARLITA ROLLEHEIDI [facility] [id number] [facility] 2016-12-10 21:41:00 2016 02:56:00 Departed Emergency Room ER BINA STEVENSON [facility] [id number] [facility] 2016-12-07 07:24:00 2016-12-07 07:24:00 Registered Clinic ALEC JAMESON [facility] [id number] [facility] 2016-11-25 16:02:00 2016-11-25 17:16:00 Bedded Outpatient [facility] [id number] [facility] 2016-11-25 11:02:00 2016-11-25 12:16:00 Outpatient Yuanliana delgadoBurtonsp Tamez [facility] [id number] 2016-09-24 10:25:00 2016-09-24 10:25:00 Registered Surgical Day Care [facility] [id number] [facility] 2014-01-24 12:24:00 2014-01-24 14:00:[address] [facility] [id number] [facility] 2014-01-24 06:24:00 2014-01-24 08:00:00 Outpatient Dru Holliday Tamez [facility]Vinnie [facility] [id number] 2012-10-02 18:09:00 2012-10-03 00:52:00 Emergency IEAL [facility] [id number] [facility] Results Test Description Test Time Test Comments Results Result Comments Source CT CHEST WO 2019-08-03 17:35:00 [place] [address] Patient Name: SAIRA DREW MR #: [id number] : 1975 Age/Sex: 43/F Req #: [id number] Adm Physician: Ordered by: RINA CANALES FLIGHT ENGINEER HELICOPTER Report #: [id number] Location: ER Room/Bed: Procedure: [id number] CT/CT CHEST WO Exam Date: 08/03/19 Exam Time: 4901 REPORT STATUS: Signed EXAMINATION: CT scan of the chest without contrast. TECHNIQUE: Spiral CT images of the chest were performed from the lung apices to the level of the adrenal glands. No intravenous contrast was administered per physician's request. Oral contrast was administered. Coronal and sagittal reformatted images were obtained. COMPARISON: CT abdomen and pelvis 05/04/2018 CLINICAL HISTORY:Trouble swallowing for a few days, evaluate for esophageal stricture DISCUSSION: ABSENCE OF INTRAVENOUS CONTRAST DECREASES SENSITIVITY FOR DETECTION OF FOCAL LESIONS AND VASCULAR PATHOLOGY. LINES/TUBES: None. LUNGS AND AIRWAYS: The lungs are grossly clear. No pulmonary nodules, masses or consolidation. The airways are clear, without endobronchial lesions. PLEURA: No pneumothorax or pleural effusions. HEART AND MEDIASTINUM: The thyroid gland is normal. Heart size is normal. No pericardial effusion. Aorta is not aneurysmal. Main pulmonary artery is normal in caliber. A small amount of contrast is noted in the mid and distal aspects of the esophagus, as well as the stomach. The esophagus is normal in caliber. No wall thickening or definite esophageal mass. No adjacent adenopathy. LYMPH NODES: There is no mediastinal, hilar or axillary lymphadenopathy. ABDOMEN: Limited unenhanced views of the upper abdomen show no abnormality within the visualized liver, spleen, pancreas, or kidneys. The adrenal glands are normal. BONES AND SOFT TISSUES: No aggressive lytic or suspicious sclerotic lesion. Soft tissues are grossly unremarkable. IMPRESSION: 1. Exam limited by lack of intravenous contrast. 2. Esophagus is normal in caliber. No wall thickening or definite esophageal mass, or adjacent adenopathy within the limitations of this noncontrast exam. No evidence of obstruction, as contrast is noted in the stomach. If there is a clinical question of an esophageal stricture, direct visualization with endoscopy should be performed. Signed by: Dr. Michel Rodriguez M.D. on 08/03/2019 5:41 PM Dictated By: MICHEL RODRIGUEZ MD 42 Transcribed By: JUAQUIN on 08/03/191740 COPY TO: RINA CANALES NP GLUCOMETER GLUCOSE- LAB USE ONLY 2019-05-25 04:18:00 Test Item GLUCOMETER (test code = GMG) 159 mg/dL 70-100 H Meter ID: [id number]: 9140 AMEE PO SCR MAMM BILATERAL BAM CAD [id number] 10:42:08 - SCR MAMM BILATERAL BAM CAD DIGITALBILATERAL DIGITAL SCREENING MAMMOGRAM 3D/2D WITH CAD: 04/12/2019CLINICAL: Asymptomatic. Digital breast tomosynthesis was performed in addition to routine CC and MLO views. Current mammographic images were evaluated by either a [employer] M-Vu or a [employer] Digital ImageChecker CAD (computer aided detection system). Comparison is made to exam dated 01/09/2018 mammogram - [facility]. There are scattered fibroglandular tissues in both breasts. There are benign calcifications in both breasts. There also are benign intramammary nodes in the right breast. No suspicious mass, ssis architect ural distortion, malignant type calcification, or lymph node abnormality detecte d. Breast architecture is stable compared to prior exams.IMPRESSION: BENIGNTher e is no mammographic evidence of malignancy. Resume annual screening mammography in one year. Aleks simeon/peter:04/19/2019 10:42:08 Annelin g Technologist: Gia JOHNSON, [facility]-FWletter sent: BIRADS 1-2 Normal Mammogram BI-RADS: 2 BenignSMALL BOWEL [id number] 11:43:00 [place] [address] Patient Name: SAIRA DREW MR #: [id number] : 1975 Age/Sex: 42/F Req #: [id number] Adm Physician: Ordered by: ALEC ROLLE MD Report #: [id number] Location: DX Room/Bed: Procedure: [id number] DX/S MALL BOWEL SERIES Exam Date: 06/22/18 [...] COPY TO: ALEC ROLLE MD CT ABDOMEN/PELVIS [id number] 09:18:00 [place] [address] Patient Name: SAIRA DREW MR #: [id number] : 1975 Age/Sex: 42/F Req #: [id number] Adm Physician: Ordered by: ALEC ROLLE MD Report #: [id number] Location: CT Room/Bed: Procedure: [id number] CT/C T ABDOMEN/PELVIS W Exam Date: 05/04/18 [...] No free air or fluid. LYMPH NO ROXANNE: No pelvic sidewall, retroperitoneal, or mesenteric lymphadenopathy. [...] C OPY TO: ALEC ROLLE MD Bedside [id number] 12:00:00* Test Item Value Reference Range Interpretation Comments Bedside Glucose (test code = 53605-6) 103 70-120 Meter ID: [id number] [facility] T[facility] A & [id number] 07:30:00* Test Item Value Reference Range Interpretation Comments Clostridium Difficile Toxin A & B (test code = 389273544) NEGATIVE NEGATIVE Testing on stool aspirate specimens is outside solar sales manager claims since specime n type not validated on this assay.[facility] [id number] 11:06:00 [facility] [address] [place] [address] Patient Name: SAIRA DREW MR #: [id number] : 1975 Age/Sex: 42/F Req #: [id number] Adm Physician: THAI ROLLE MD Ordered by: ABDIFATAH OLIVEIRA FLIGHT ENGINEER HELICOPTER Report #: [id number] Location: [facility] Room/Bed: [place] [address] Procedure: [id number] D X/BARIUM SWALLOW Exam Date: 03/28/18 Exam [...] on 03/28/18 1110 COPY TO: ABDIFATAH OLIVEIRA NP Platelet [id number] 17:24:00* Test Item Value Reference Range Interpretation Comments Platelet Estimate (test code = 66990-9) ADEQUATE [facility] Morphology [id number] 17:24:00* Test Item Value Reference Range Interpretation Comments Platelet Morphology Comment (test code = 08719-4) FEW EDTA CLUMPING [facility]lakeRed Cell Morphology Ptwkfcx2319-78-17 17:24:00* Test Item Value Reference Range Interpretation Comments Red Cell Morphology Comment (test code = 6742-1) NORMAL [facility]lakeWhite Blood Tkoaa8828-68-18 17:23:00* Test Item Value Reference Range Interpretation Comments White Blood Count (test code = 6690-2) 10.53 4.8-10.8 [facility]lake[facility] Blood [id number] 17:23:00* Test Item Value Reference Range Interpretation Comments Red Blood Count (test code = 789-8) 5.52 3.6-5.1 [facility]lake[facility]emoglobin2019-01-14 17:23:00* Test Item Value Reference Range Interpretation Comments Hemoglobin (test code = 45243-6) 14.3 12.0-16.0 [facility]lake[facility]ematocrit2019-01-14 17:23:00* Test Item Value Reference Range Interpretation Comments Hematocrit (test code = 4544-3) 41.8 34.2-44.1 [facility]lakeMean Corpuscular Dpkzbf6380-95-80 17:23:00* Test Item Value Reference Range Interpretation Comments Mean Corpuscular Volume (test code = 787-2) 75.7 81-99 [facility]lakeMean Corpuscular Flaupuzinc1260-26-19 17:23:00* Test Item Value Reference Range Interpretation Comments Mean Corpuscular Hemoglobin (test code = 785-6) 25.9 28-32 [facility]lakeMean Corpuscular Hemoglobin Concent 2018-03-27 17:23:00* Test Item Value Reference Range Interpretation Comments Mean Corpuscular Hemoglobin Concent (test code = 786-4) 34.2 31-35 [facility]lakeRed Cell Distribution Zsdex8910-48-02 17:23:00* Test Item Value Reference Range Interpretation Comments Red Cell Distribution Width (test code = 29583-7) 14.7 11.7 -14.4 [facility]lakePlatelet Bidif6575-56-99 17:23:00* Test Item Value Reference Range Interpretation Comments Platelet Count (test code = 777-3) 272 140-360 [facility]lakeNeutrophils (%) (Auto)2018-03-27 17:23:00 * Test Item Value Reference Range Interpretation Comments Neutrophils (%) (Auto) (test code = 44371-4) 60.2 38.7-80.0 [facility]lakeLymphocytes (%) (Auto)2018-03-27 17:23:00 * Test Item Value Reference Range Interpretation Comments Lymphocytes (%) (Auto) (test code = 736-9) 27.4 18.0-39.1 [facility]lake[facility]ocytes (%) (Auto)2018-03-27 17:23:00* Test Item Value Reference Range Interpretation Comments Monocytes (%) (Auto) (test code = 5905-5) 10.1 4.4-11.3 [facility]lakeEosinophils (%) (Auto)2018-03-27 17:23:00 * Test Item Value Reference Range Interpretation Comments Eosinophils (%) (Auto) (test code = 713-8) 1.6 0.0-6.0 [facility]lakeBasophils (%) (Auto)2018-03-27 17:23:00* Test Item Value Reference Range Interpretation Comments Basophils (%) (Auto) (test code = 706-2) 0.3 0.0-1.0 [facility]lakeIM GRANULOCYTES %2018-03-27 17:23:00* Test Item Value Reference Range Interpretation Comments IM GRANULOCYTES % (test code = IM GRANULOCYTES %) 0.4 0.0- 1.0 [facility]lakeNeutrophils # (Auto)2018-03-27 17:23:00* Test Item Value Reference Range Interpretation Comments Neutrophils # (Auto) (test code = 751-8) 6.4 2.1-6.9 [facility]lakeLymphocytes # (Auto)2018-03-27 17:23:00* Test Item Value Reference Range Interpretation Comments Lymphocytes # (Auto) (test code = 67779-6) 2.9 1.0-3.2 [facility]lakeMonocytes # (Auto)2018-03-27 17:23:00* Test Item Value Reference Range Interpretation Comments Monocytes # (Auto) (test code = 742-7) 1.1 0.2-0.8 [facility]lakeEosinophils # (Auto)2018-03-27 17:23:00* Test Item Value Reference Range Interpretation Comments Eosinophils # (Auto) (test code = 711-2) 0.2 0.0-0.4 [facility]lakeBasophils # (Auto)2018-03-27 17:23:00* Test Item Value Reference Range Interpretation Comments Basophils # (Auto) (test code = 704-7) 0.0 0.0-0.1 [facility]lakeAbsolute Immature Granulocyte (auto 2018-03-27 17:23:00* Test Item Value Reference Range Interpretation Comments Absolute Immature Granulocyte (auto (kristyn t code = Absolute Immature Granulocyte (auto) 0.04 0-0.1 [facility] Lhyzy0372-16-88 17:10:00* Test Item Value Reference Range Interpretation Comments Sodium Level (test code = 2951-2) 136 136-145 [facility]lakePotassium Cnevm9415-52-28 17:10:00* Test Item Value Reference Range Interpretation Comments Potassium Level (test code = 2823-3) 4.0 3.5-5.1 [facility]lakeChloride Sfqqi7348-39-83 17:10:00* Test Item Value Reference Range Interpretation Comments Chloride Level (test code = 2075-0) 103 98-107 [facility] SouthlakeCarbon Dioxide Avnub3689-74-88 17:10:00* Test Item Value Reference Range Interpretation Comments Carbon Dioxide Level (test code = 2028-9) 21 22-29 [facility] SouthlakeAnion Ltp0376-06-52 17:10:00* Test Item Value Reference Range Interpretation Comments Anion Gap (test code = 24274-2) 16.0 8-16 [facility]lakeBlood Urea Utdcgrif7043-86-91 17:10:00* Test Item Value Reference Range Interpretation Comments Blood Urea Nitrogen (test code = 3094-0) 15 7-26 [facility]lakeCreatinine2019-01-14 17:10:00* Test Item Value Reference Range Interpretation Comments Creatinine (test code = 2160-0) 0.79 0.57-1.11 [facility]lakeBUN/Creatinine Smivk7746-98-15 17:10:00* Test Item Value Reference Range Interpretation Comments BUN/Creatinine Ratio (test code = 3097-3) 19 6-25 [facility] SouthlakeEstimat Glomerular Filtration Rate 2018-03-27 17:10:00* Test Item Value Reference Range Interpretation Comments Estimat Glomerular Filtration Rate (test code = 983659126) > 60 >60 Ranges were taken from the National Kidney Disease Education Program and the [facility] [employer] literature.Reference ranges:60 or greater: Lujxwh41-60 ( for 3 consecutive months): Chronic kidney disease 15 or less: Kidney failureTexas [facility] SouthlakeGlucose Vvdxw5983-15-34 17:10:00* Test Item Value Reference Range Interpretation Comments Glucose Level (test code = PAC9271) 154 74-118 [facility]lakeCalcium Fwsoa3423-74-46 17:10:00* Test Item Value Reference Range Interpretation Comments Calcium Level (test code = 50171-0) 9.3 8.4-10.2 [facility]lakeTotal Kecjinjgq3948-83-75 17:10:00* Test Item Value Reference Range Interpretation Comments Total Bilirubin (test code = 1975-2) 0.4 0.2-1.2 [facility] SouthlakeAspartate Amino Transf (AST/SGOT) 2018-03-27 17:10:00* Test Item Value Reference Range Interpretation Comments Aspartate Amino Transf (AST/SGOT) (test code = Aspartate Amino Transf (AST/SGOT)) 37 5-34 [facility] SouthlakeAlanine Aminotransferase (ALT/SGPT) 2018-03-27 17:10:00* Test Item Value Reference Range Interpretation Comments Alanine Aminotransferase (ALT/SGPT) (test code = 1742-6) 57 0-55 [facility] SouthlakeTotal Avxetuk6007-70-79 17:10:00* Test Item Value Reference Range Interpretation Comments Total Protein (test code = 2885-2) 7.2 6.5-8.1 [facility] SouthlakeAlbumin2019-01-14 17:10:00* Test Item Value Reference Range Interpretation Comments Albumin (test code = 1751-7) 3.9 3.5-5.0 [facility] SouthlakeGlobulin2019-01-14 17:10:00* Test Item Value Reference Range Interpretation Comments Globulin (test code = 64528-8) 3.3 2.3-3.5 [facility]lakeAlbumin/Globulin Pppci3894-04-18 17:10:00 * Test Item Value Reference Range Interpretation Comments Albumin/Globulin Ratio (test code = 1759-0) 1.2 0.8-2.0 [facility] SouthlakeAlkaline Qtvhfdvkrdz9205-40-74 17:10:00* Test Item Value Reference Range Interpretation Comments Alkaline Phosphatase (test code = 6768-6) 85 40-150 [facility] SouthlakeLipase2019-01-14 17:10:00* Test Item Value Reference Range Interpretation Comments Lipase (test code = 3040-3) 74 8-78 [facility] SouthlakeUrine WDS9960-13-04 16:34:00* Test Item Value Reference Range Interpretation Comments Urine WBC (test code = 5821-4) 6-10 0-5 [facility] SouthlakeUrine AKF7381-90-09 16:34:00* Test Item Value Reference Range Interpretation Comments Urine RBC (test code = 35514-3) NONE 0-5 [facility]lakeUrine Yiyptnyr1370-38-10 16:34:00* Test Item Value Reference Range Interpretation Comments Urine Bacteria (test code = 72860-8) MODERATE NONE [facility] SouthlakeUrine Epithelial Mvokh4439-04-60 16:34:00 * Test Item Value Reference Range Interpretation Comments Urine Epithelial Cells (test code = 80889-9) MANY NONE [facility] SouthlakeUrine Ftpzh1069-11-56 16:23:00* Test Item Value Reference Range Interpretation Comments Urine Color (test code = 5778-6) YELLOW YELLOW [facility] SouthlakeUrine Xddsuhf6643-10-12 16:23:00* Test Item Value Reference Range Interpretation Comments Urine Clarity (test code = 28368-2) SL CLOUDY CLEAR [facility] SouthlakeUrine Specific Gofyfir6265-91-01 16:23:00 * Test Item Value Reference Range Interpretation Comments Urine Specific [place] (test code = 5811-5) 1.005 1.010-1.02 5 [facility] SouthlakeUrine xK6466-83-27 16:23:00* Test Item Value Reference Range Interpretation Comments Urine pH (test code = 38718-1) 6 5-7 [facility] SouthlakeUrine Leukocyte Qsjlpuar1606-35-72 16:23:00* Test Item Value Reference Range Interpretation Comments Urine Leukocyte Esterase (test code = 5799-2) TRACE NEGATIVE [facility] SouthlakeUrine Ihvkjiq0361-54-45 16:23:00* Test Item Value Reference Range Interpretation Comments Urine Nitrite (test code = 59010-1) NEGATIVE NEGATIVE [facility] SouthlakeUrine Eiwizim0331-33-77 16:23:00* Test Item Value Reference Range Interpretation Comments Urine Protein (test code = 5804-0) NEGATIVE NEGATIVE [facility] SouthlakeUrine Glucose (UA)2018-03-27 16:23:00* Test Item Value Reference Range Interpretation Comments Urine Glucose (UA) (test code = 2349-9) 3+ NEGATIVE [facility] SouthlakeUrine Phhfjzd0596-32-03 16:23:00* Test Item Value Reference Range Interpretation Comments Urine Ketones (test code = 97043-6) NEGATIVE NEGATIVE [facility] SouthlakeUrine Xoggseesklhf3689-66-33 16:23:00* Test Item Value Reference Range Interpretation Comments Urine Urobilinogen (test code = 55370-7) 0.2 0.2-1 [facility]lakeUrine Mjndghpdn3359-29-90 16:23:00* Test Item Value Reference Range Interpretation Comments Urine Bilirubin (test code = 1978-6) NEGATIVE NEGATIVE [facility] SouthlakeUrine Frnin5407-89-97 16:23:00* Test Item Value Reference Range Interpretation Comments Urine Blood (test code = 13783-0) NEGATIVE NEGATIVE [facility] SouthlakeUrine Wbys4161-92-07 16:23:00* Test Item Value Reference Range Interpretation Comments Urine Test (test code = 2106-3) NEGATIVE NEGATIVE [facility] SouthlakeCreatine Kinase KC9972-96-11 18:16:00* Test Item Value Reference Range Interpretation Comments Creatine Kinase MB (test code = 37584-0) 2.70 0-5.0 [facility] SouthlakeTroponin S3450-70-11 18:16:00* Test Item Value Reference Range Interpretation Comments Troponin I (test code = MFW1694) 0.009 0-0.300 [facility] SouthlakeCreatine Jrfcbe8747-65-36 18:02:00* Test Item Value Reference Range Interpretation Comments Creatine Kinase (test code = 2157-6) 307 29-168 [facility] SouthlakeProthrombin Ezez6435-06-86 18:01:00* Test Item Value Reference Range Interpretation Comments Prothrombin Time (test code = 5902-2) 13.0 11.9-14.5 [facility] SouthlakeProthromb Time International Ratio 2018-01-12 18:01:00* Test Item Value Reference Range Interpretation Comments Prothromb Time International Ratio (test code = 6301-6) 0.90 Oral Anticoagulant Therapy INR Values:1. Low Intensity Therapy 1.5 - 2.02 . Moderate Intensity Therapy 2.0 - 3.03. High Intensity Therapy(1) 2.5 - 3. 54. High Intensity Therapy(2) 3.0 - 4.05. Panic Value INR > 5.0 [facility] SouthlakeActivated Partial Thromboplast Time 2018-01-12 17:58:00* Test Item Value Reference Range Interpretation Comments Activated Partial Thromboplast Time (test code = 65737-1) 31.0 23.8-35.5 [facility] SouthlakeMAMMOGRAPHY DIGITAL SCR AKWOP8147-78-11 10:37:00 [place] [address] Patient Name: SAIRA DREW MR #: [id number] : 1975 Age/Sex: 42/F Req #: [id number] [facility] Physician: Ordered by: ERICKSON CARR MD Report #: [id number] Location: [facility] Room/Bed: Procedure: [id number] MG/DEMARCO MOGRAPHY DIGITAL SCR BILAT Exam Date: 01/09/18 Exam Time: 1006 REPORT STATUS: Signed #[id number] - MGSCRBIL #BILATERAL FIRST EVER DIGITAL SCREENING [...] letter of the results. Michelle humphrey/peter:01/24/2018 13:09:02 Process Manager: Chloe GARCIA(R)(M), [facility] letter sent: Normal Exam Mammogram BI-RADS: 2 Benign Dictated By: MICHELLE HIGHTOWER DO 1309 Transcribed By: PETER on 01/24/18 1309 COPY TO: ERICKSON CARR MD CHEM PCIIQ9196-53-42 07:38:003.6[facility] AreaCHEM TRKQP5899-85-75 07:38:0015[facility] HospitalCHE[facility] EAZLL3864-50-25 07:38:0013.0[facility] HospitalCHEM BTHDZ8796-97-79 07:38:00 3.7[facility] HospitalCHEM QWBHL0454-38-03 07:38:001.0[facility] HospitalCHEM CCEMX8295-18-20 07:38:004.0[facility] HospitalCHEM PANEL 2017-01-07 07:38:0024[facility] HospitalCHEM XCEPZ6534-49-22 07:38:91043MGMedical Arts HospitalCHEM KWJFO9679-12-98 07:38:008.4[facility] HospitalCHEM LFNGE6851-34-47 07:38:000.89[facility] HospitalCHEM UAXIT7304-15-60 07:38:00 138[facility] HospitalCHEM NPTTZ9081-07-33 07:38:0013[facility] CHEM IAWBL2952-63-86 07:38:57354JAMedical Arts HospitalCHEM VXWDX8948-98-35 07:38:003.7[facility] HospitalCHEM XQEKX4329-47-64 07:38:007.4[facility] HospitalCHEM GJJKS7359-59-68 07:38:000.4[facility] HospitalCHEM PANEL 2017-01-07 07:38:0065[facility] HospitalCHEM OWVXU5948-91-61 07:38:0037[facility] HospitalCHEM YWPJQ2665-26-72 07:38:0062[facility] HospitalCHEM KQUHK3367-57-14 07:38:0082[facility] HospitalCHEM SQKIS8912-21-95 07:38:00 1.9[facility] HospitalCHEM BUFOC5393-14-41 07:38:001.0[facility] HospitalRdwcgmFODYMVBRWL2695-40-81 07:38:001+ *ABN*(01/07/17 2:38 AM)[facility] HospitalUhneozYWCHLXHGMX9203-25-30 07:38:0010.2[facility] HospitalHEMATOLOGY 2017-01-07 07:38:0042.8[facility] HospitalYnzuqiMJSIJFLKDV8903-60-75 07:38:000.7[facility] HospitalNrcinpGLWYZQTKKT3724-36-67 07:38:004.[address] [place] [address] QLLGDETQAD0133-52-47 07:38:0042.2[facility] HospitalKjyopcUOLIUDKAIX3659-87-25 07:38:000.3[facility] HospitalDhdwbmVJJCSXPLCV0244-40-52 07:38:000.8[facility] HospitalBdohbvJJZKARJEME6110-98-64 07:38:000.[address] [place], [place] [address]HEMATOLOGY 2017-01-07 07:38:003.5[facility] HospitalVmprsaEIKMMKTYAJ2260-59-60 07:38:003.5[facility] HospitalGofkkbWNDGWJTKVU4506-24-94 07:38:0033.7[facility] EWGPEHKXVE2080-44-04 07:38:26601IJMedical Arts HospitalDlqohtFIEOMEBVJE5744-06-29 07:38:0015.0[facility] HospitalUjhrdkQGOSZGENRG0406-35-46 07:38:[address] [place], [place] [address]LsoezzKNAULIBAXJ7981-83-98 07:38:00* Test Item Value Reference Range Interpretation Comments MCH (test code = MCH) 25.6 pg 27.0-31.0 [facility] HospitalGmaoebLIWAXEWDYP8591-61-28 07:38:0013.0[facility] UTYNKOIHWE4556-94-30 07:38:005.07[facility] HospitalQbnrcuIVGQXOHOVU9051-50-99 07:38:0038.5[facility] HospitalVssznfBGWLFDXKJX9286-16-88 07:38:0075.9[facility] HospitalTqjgqtEIADKQPIOW7127-01-86 07:38:008.[address] [place], [place] [address]CARDIAC VGIOQVK2148-84-79 00:55:00<0.02[facility] HospitalCHEM XGNKG7587-25-39 00:55:002.5[facility] HospitalCHEM WZQKY3025-71-28 00:55:0078[facility] HospitalCHEM CPSVE4866-95-97 00:55:0023[facility] HospitalCHEM PANEL 2017-01-07 00:55:009.[address] [place], [place] [address]CHEM YVZRO9811-65-16 00:55:84155SFMedical Arts HospitalCHEM QYNIR2740-93-51 00:55:003.9[facility] HospitalCHEM NXTAB2898-80-22 00:55:77580EFMedical Arts HospitalCHEM UVTUI5297-23-14 00:55:00 0.93[facility] HospitalCHEM GQCAA3100-01-05 00:55:0015[facility] HospitalCHEM ASOXX3313-42-88 00:55:74978UXMedical Arts HospitalCHEM PANEL 2017-01-07 00:55:0017.9[facility] HospitalRxguwaAEWPQDNSKW1341-65-46 00:55:008.7[facility] HospitalWlzdwkNVXSMKLDKZ5943-09-24 00:55:11982LLMedical Arts Hospital RIPFLJUJMG3528-74-93 00:55:0015[address] [place], [place] [address]VlaefeSBLEIFZXSM8059-73-18 00:55:0033.5[facility] HospitalUudeujWTXOKZLWIL8598-90-82 00:55:00* Test Item Value Reference Range Interpretation Comments MCH (test code = MCH) 25.6 pg 27.0-31.0 [facility] HospitalNvhudfGOJDJFICPX7870-77-24 00:55:0076.4[facility] FZCPGXKPEB6746-78-14 00:55:[address]43.[address] [place], [place] [address]LhwjjhWNWYLYCNJQ4805-12-49 00:55:009.6[facility] HospitalEtschsSMOWXYDLOG7090-19-81 00:55:005.65[facility] HospitalTzypufYLVTUFKIOD5846-05-01 00:55:0014.5[facility] HospitalHEMATOLOGY 2017-01-07 00:55:002.8[facility] HospitalKemtgfYWTJZEKNEE4183-48-08 00:55:001+ *ABN*(01/06/17 7:55 PM)[facility] HospitalYpnkyfPLNYBHQLRF6495-05-21 00:55:000.1[facility] HospitalHainhiPDBQWIWJXU4626-24-18 00:55:003.1[facility] NHNFYXBVZK4636-77-70 00:55:001.0[facility] HospitalGvkspnWXPUOCJZCE0567-13-16 00:55:000.3[facility] HospitalGiolcuWKJFERJWWH2855-49-96 00:55:000.7[facility] HospitalHxghvrGLSFSPRRRH1257-51-04 00:55:005.1[facility] HospitalHEMATOLOGY 2017-01-07 00:55:0053.3[facility] HospitalYhkhjiCYKRZIAZZP5197-17-31 00:55:0032.7 [facility] HospitalBgjihlOCUSRGDKMN4768-52-81 00:55:0010.5[facility] BPVSGBENHJ8338-89-91 00:55:00Negative *NA*(01/06/17 7:55 PM)[facility] HospitalURINE AND ZMFAK3916-17-65 00:52:00None Seen (01/06/17 7:52 PM)[facility] HospitalURINE AND HBOMK8391-87-08 00:52:00Negative (01/06/17 7:52 PM)[facility] HospitalUR[facility] AND INQTH1485-39-93 00:52:00Negative (01/06/17 7:52 PM)[facility] HospitalURINE AND IBVUA1246-12-44 00:52:00Negative (01/06/17 7:52 PM)[facility] HospitalURINE AND FYAYG5012-87-67 00:52:00Negative *NA*(01/06/17 7:52 PM)[facility] HospitalURINE AND JKCDA5496-02-63 00:52:00 0.2[facility] HospitalURINE AND IKRKN6889-95-10 00:52:00Negative (01/06/17 7:52 PM)[facility] HospitalUR[facility] AND SQRKK4434-14-26 00:52:00* Test Item Value Reference Range Interpretation Comments UA pH (test code = UA pH) 6.0 1 5.0-8.0 [facility] HospitalURINE AND DOMSL6758-64-68 00:52:00Negative *NA*(01/06/17 7:52 PM)[facility] HospitalUR[facility] AND NQETG5894-90-30 00:52:00Clear (01/06/17 7:52 PM)[facility] HospitalURINE AND IXXTE6201-61-27 00:52:00* Test Item Value Reference Range Interpretation Comments UA Spec Grav (test code = UA Spec Grav) 1.020 1 [facility] HospitalURINE AND LDLZD2437-55-21 00:52:00Yellow *NA*(01/06/17 7:52 PM)[facility] HospitalURINE SVKK0438-63-90 00:52:00Negative (01/06/17 7:52 PM)[facility] CenterS[facility] GLUCOSE CNKNXFT9494-39-42 05:13:00612ITUnion [facility] GLUCOSE KSOMAYK9292-42-86 04:34:58064WAUnion Hospital GLUCOSE KJHXHLJ4383-85-83 03:35:06021NAEncompass Health Rehabilitation Hospital of New EnglandIzuwwjnjjCKMTBHQJN3688-39-24 02:00:00 37.0[facility] EnglandQvobpwpevJKTUVLTKW0376-18-66 02:00:0030[facility] EnglandZahvuwrvrPDFNFOWPC6999-76-65 02:00:007.39[facility] EnglandRlvbmcnooMTJCDLSFN4971-77-67 02:00:0048 SoutheastCHEMISTRY 2012-10-03 02:00:003 DyiygxzqfQTRTODMLK3962-68-45 02:00:0029[facility] HSRYHOZMT1002-16-93 02:00:00Vein (10/02/2012 21:00:00) SoutheastCHEMISTRY 2012-10-03 02:00:0056.6MBaystate Noble HospitalKpndevyktPDBADIPFKA8409-50-55 01:43:00Occasional /HPF *NA*(10/02/2012 20:43:00) ValcebiemOMCHQJTKNQ3403-49-78 01:43:004[facility] EnglandTelltmfmdWVCZYWURAY9567-16-63 01:43:00Large *ABN*(10/02/2012 20:43:00) NgqqciijvYFVBWTQBQH0378-16-41 01:43:0084[facility] New EnglandArzvnzlqmGSPEOLANIH1325-46-11 01:43:00Negative (10/02/2012 20:43:00) [facility] EnglandUddrnrwowAESCHFSOFO5170-44-50 01:43:00Few /LPF *NA*(10/02/2012 20:43:00) [facility] EnglandOzokedmxzJXXHMOLPMO4855-09-90 01:43:00Marked *ABN*(10/02/2012 20:43:00) [facility] EnglandKcwejnxyjPNDDIKXVVK3482-83-14 01:43:001.016[facility] New EnglandIjsqxjmduPDSUMRUZXA7303-39-07 01:43:00Negative mg/dL (10/02/2012 20:43:00) [facility] EnglandTmpvlgjrmJFJIHAYIQS6553-86-95 01:43:005.0[facility] EnglandURINALYSIS 2012-10-03 01:43:00Small *ABN*(10/02/2012 20:43:00) [facility] EnglandURINALYSIS 2012-10-03 01:43:00Negative *NA*(10/02/2012 20:43:00) [facility] EnglandURINALYSIS 2012-10-03 01:43:72344 mg/dL *ABN*(10/02/2012 20:43:00) [facility] EnglandURINALYSIS 2012-10-03 01:43:00Negative mg/dL *NA*(10/02/2012 20:43:00) [facility] DZFGTXVSF9350-49-55 01:41:00Negative *NA*(10/02/2012 20:41:00) [facility] WKISQXNGE6744-12-42 01:41:003.1M PacevyafsYIJHGJXPJ2594-52-56 01:41:001.8[facility] New EnglandDbviglfwaARDXXIQZT2671-88-81 01:41:03181PGEncompass Health Rehabilitation Hospital of New EnglandWeplkrpczXWHIITGSL2026-94-11 01:41:00 84 ChviweeirKNOFBPCVK0240-67-47 01:41:004.5[facility] New EnglandRlquowoeyDZELRCIWR0095-08-42 01:41:009.6M OlcmcefidHJBYKDRKH9061-28-76 01:41:009.0 [facility]CHE[facility]ANT[facility] 2012-10-03 01:41:0083 LwxubbmyuYYQCXTCZX8632-08-15 01:41:0028[facility] ELKWNNRVK6804-97-78 01:41:000.5 JfdcicvxiBFMVSSVCJ7855-77-66 01:41:0050 RrkruuemvBECAGBYDP2632-37-20 01:41:0095 FjbjronbmXZEYYQIIE5766-34-95 01:41:00 99MH PgekqglmiAPRKXPTTX6421-76-78 01:41:004.0 PnvnnwyimIEYZMAXRX6506-84-33 01:41:14610LP WsniilcagOQSABXXCO6814-96-37 01:41:0018 SoutheastCHEMISTRY 2012-10-03 01:41:000.9 KpwgcekkcGVQDDCSRP2232-53-74 01:41:26391GM [facility] PNZESYFBL0957-85-49 01:41:0013.0 EdmqyzcxlOGMVZPXLH1249-36-05 01:41:0020 GymeaijczJSWXGQKHH7279-32-69 01:41:004.5 DvaozabbwMGHVGDCAP0114-07-88 01:41:00 1.0 NfgmsildqAIDXABSQUU4201-82-33 01:41:003.0 BnaiknwyqWFZNVYELQK0139-32-76 01:41:005.7 HaiwzijqaZUMWFLMNEL4130-07-35 01:41:000.0 SoutheastHEMATOLOGY 2012-10-03 01:41:000.3M IkcvmrvqkPAGPXJKVGE3959-18-98 01:41:000.6MH [facility] XMKNZWOACZ6980-99-89 01:41:0059.4 GjefonjurCVQIHBAYWH1363-18-57 01:41:000.3M YramtveksLBMSASAZUH9513-87-62 01:41:003.5 SvyyptsldZOFRPMSGYP6358-59-60 01:41:005.8 WxsvnkfuvXDERIAXMWJ7904-14-76 01:41:0031.0 SoutheastHEMATOLOGY 2012-10-03 01:41:004.85 KrpqleegoZRZLUPOKKM5936-76-05 01:41:0037.3M [facility] NPDKHTPQXV2145-65-70 01:41:0012.5 ArqfyynscTFWKQKMYHI2497-48-22 01:41:00* Test Item Value Reference Range Interpretation Comments MCH (test code = MCH) 25.7 pg 27.0-31.0 L MiheeegwnZINAHYMWKA0129-36-41 01:41:0014.3M MdzecufweKAZVKGJONY0890-83-12 01:41:0033.4MH WibserzlcHJXKXKHUWK1040-60-63 01:41:009.0[facility] CenterAT[facility] 2012-10-03 01:41:99506KCEncompass Health Rehabilitation Hospital of New EnglandLtdraspyaMXHDDAYJQR7816-22-80 01:41:0076.8[facility][note 3]2013-07-23 01:41:009.7[facility] CenterOcwjvwilmCAADVMIWDY3515-45-26 01:41:00* Test Item Value Reference Range Interpretation Comments PTT (test code = PTT) 31.6 s 22.9-35.8 N [facility] CenterKgrajcnyhESOIZRHWDC1536-03-07 01:41:00* Test Item Value Reference Range Interpretation Comments PT (test code = PT) 13.4 s 12.0-14.7 N [facility] CenterOwmzlatztLTDSDNECMK3338-34-34 01:41:001.00[facility] ABDOMEN/PELVIS W [place] [address] Patient Name: SAIRA DREW MR #: [id number] : Age/Sex: 41/F Req #: [id number] Adm Physician: Ordered by: THAI ROLLE MD Report #: [id number] Location: CT Room/Bed: Procedure: [id number] CT/CT ABDOMEN/PELVIS W Exam Da te: 07/11/17 Exam Time: 1842 REPORT STATUS: Sig abdi EXAM: CT Abdomen and Pelvis WITH contrast INDICATION: C OMPARISON: 10/30/2009 TECHNIQUE: Abdomen and pelvis were scanned utilizing a ltidetector helical scanner from the lung base [...] TO: THAI ROLLE MD CHEST SINGLE (PORTABLE) [place] [address] Patient Name: SAIRA DREW MR #: [id number] : 1975 Age/Sex: 41/F Req #: [id number] Adm Physician: THAI BIRMINGHAM MD Ordered by: LINDA ESPAÑA MD Report #: [id number] Loc ation: [facility] Room/Bed: [facility]-9 Procedure: [id number] DX/CHEST SINGLE (PORTABLE) Exam Date: 06/30/17 Exam Time: 1430 REPORT STATUS: Signed PROCEDURE: A single AP view of the chest. COMPARISON: Patients [facility], DX, CHEST 2 VIEWS, 05/16/2016, 11:42. INDICATIONS: [...] at 15:08 Dictated By: MICHEL RAYO MD 1508 Transcribed By: JULIA on 06/30/17 1508 COPY TO: LINDA ESPAÑA MD CT ABDOMEN/PELVIS W [place] [address] Patient Name: SAIRA DREW MR #: [id number] : 1975 Age/Sex: 41/F Req #: [id number] Adm Physician: THAI ROLLE MD Ordered by: VENTURA PICHARDO MD Report #: [id number] Location: [facility] Room/Bed: [facility] Procedure: [id number] C T/CT ABDOMEN/PELVIS W Exam Date: 12/11/16 [...] TO: VENTURA PICHARDO MD CT CHEST W [place] [address] Patient Name: SAIRA DREW MR #: [id number] : 1975 Age/Sex: 41/F Req #: [id number] Adm Physician: Ordered by: BINA STEVENSON MD Report #: [id number] Location: ER Room/Bed: Procedure: [id number] CT/CT CHEST W Exam Date: Exam Time: 6 REPORT STATUS: Signed EXA M: CT Chest WITH contrast 2016 12:05 AM INDICATION: Shortness of breath, pulmonary embolism COMPARISON: None TECHNIQUE: Chest was scanned [employer] a multidetector helical scanner from the [...] COPY TO: BINA STEVENSON MD GASTRIC EMPTYING [place] [address] Patient Name: SAIRA DREW MR #: [id number] : Age/Sex: 40/F Req #: [id number] Adm Physician: Ordered by: ALEC ROLLE MD Report #: [id number] Location: [place] Room/Bed: Procedure: [id number] NM/GASTRIC EMPTYING Exam Date: Exam Time: REPORT STATUS: Signed [facility] emptying study Reason for examination: 40 F with dysphagia The protocol used for this study is based on the Consensus Recommendations for Gastric Scintigraphy by the [employer] y and the [...] the geometric mean of the anterior and fiberglass tube molder ior counts and the counts were corrected [...] 2:36 PM Dictated By: CHLOE LORA MD 1431 Transcribed By: JUAQUIN on 12/07/16 1431 COPY TO: ALEC ROLLE MD
[2019-08-03] MEDS ORDERED: FENTANYL CITRATE/PF 100MCG/2 ML INJ ONE (19:54)
[2019-08-03] MEDS ORDERED: KETAMINE HCL INJ 50 MG/ML 10 ML VIAL ONE (19:54)
--- NOTE | 2019-08-03 19:55 | NUR ---
Received report on patient to come from ER. No inquiries at this time, awaiting patient consult. 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 Combs will be called to see if Dr. Purnima Olvera Can be on the case as a consult per patient req.
[2019-08-03] MEDS ORDERED: AMBIEN10 MG PO (22:25)
[2019-08-03] MEDS ORDERED: PROMETHAZINE HC25 M1 PO (23:00)
[2019-08-03] MEDS ORDERED: DEXTROSE 50% SYRINGE 50 ML IV PRN (23:15)
[2019-08-03] MEDS ORDERED: PROMETHAZINE HCL 25 MG TAB PO PRN (23:15)
[2019-08-03] MEDS ORDERED: INFLUENZA VIRUS VAC SPLIT INJ 0.5 ML SYR IM SCH (23:43)
[2019-08-03] MEDS ORDERED: PNEUMOCOCCAL VACCINE POLYVALENT 23 MCG/0.5 ML VIAL IM SCH (23:43)
[2019-08-03 23:46] VITALS: BP 140/84
[2019-08-04] VITALS (11 sets, daily range): BP systolic 124–166; BP diastolic 75–95
[2019-08-04] MEDS: ZOLPIDEM TARTRATE 10 MG TAB PO PRN ×2 (00:30→22:52)
[2019-08-04] MEDS: MORPHINE SULFATE INJ 4 MG/ML INJ 1ML IV PRN ×4 (04:30→19:30)
[2019-08-04 05:52] LABS: BASOPHILS % 0.4 % (0.0-1.0); EOSINOPHILS # (AUTO) 0.3 (0.0-0.4); EOSINOPHILS % 3.6 % (0.0-6.0); HEMATOCRIT 40.4 % (34.2-44.1); HEMOGLOBIN 13.1 g/dL (12.0-16.0); LYMPHOCYTES # (AUTO) 2.8 (1.0-3.2); LYMPHOCYTES % 36.4 % (18.0-39.1); MEAN CORPUSCULAR HEMOGLOBIN 25.9 pg (28-32); MEAN CORPUSCULAR HGB CONC 32.4 g/dL (31-35); MEAN CORPUSCULAR VOLUME 79.8 fL (81-99); MONOCYTES # (AUTO) 0.8 (0.2-0.8); MONOCYTES % 10.2 % (4.4-11.3); NEUTROPHILS # (AUTO) 3.8 (2.1-6.9); PLATELET COUNT 204 x10e3/uL (140-360); RED BLOOD COUNT 5.06 x10e6/uL (3.6-5.1); RED CELL DISTRIBUTION WIDTH 15.1 % (11.7-14.4)
[2019-08-04 06:25] LABS: BLOOD UREA NITROGEN 14 mg/dL (7-26); BUN/CREATININE RATIO 20 (6-25); CALCIUM 8.8 mg/dL (8.4-10.2); CARBON DIOXIDE 26 mmol/L (22-29); CHLORIDE 104 mmol/L (98-107); CREATININE, SERUM 0.69 mg/dL (0.57-1.11); EST GLOMERULAR FILTRATION RATE > 60 ML/MIN (60-); GLUCOSE 115 mg/dL (74-118); SODIUM 140 mmol/L (136-145)
--- NOTE | 2019-08-04 06:37 | Diagnostic Imaging Report ---
EXAMINATION: CHEST SINGLE (PORTABLE) INDICATION: POSSIBLE SX COMPARISON: CT chest without contrast 08-03-2019. FINDINGS: TUBES and LINES: None. LUNGS: Lungs are well inflated. There is no evidence of pneumonia or pulmonary edema. Minimal patchy right basilar opacity, likely atelectasis. PLEURA: No pleural effusion or pneumothorax. HEART AND MEDIASTINUM: The cardiomediastinal silhouette is unremarkable. BONES AND SOFT TISSUES: No acute osseous lesion. Soft tissues are unremarkable. UPPER ABDOMEN: No free air under the diaphragm. IMPRESSION: No acute thoracic abnormality. Signed by: Dr. Abdirahman Ward MD on 08/04/2019 6:34 AM
[2019-08-04] MEDS: SODIUM CHLORIDE 0.9% 1000ML 1,000 ML IV SCH ×2 (06:38→18:27)
[2019-08-04] MEDS: INSULIN LISPRO 100 UNIT/1 ML 3ML VIAL SQ SCH ×4 (07:30→20:46)
[2019-08-04] MEDS ORDERED: PIOGLITAZONE HCL 15 MG TAB PO SCH (08:00)
[2019-08-04] MEDS ORDERED: INSULIN LISPRO 100 UNIT/1 ML 3ML VIAL SQ SCH (08:00)
[2019-08-04] MEDS: ONDANSETRON HCL INJ 2MG/ML 2ML 2 MG/ML VIAL IV PRN ×2 (08:34→13:13)
[2019-08-04] MEDS ORDERED: INSULIN GLARGINE 100 UNITS/ML VIAL SQ SCH (09:00)
[2019-08-04] MEDS ORDERED: ATORVASTATIN 20 MG TAB PO SCH (09:00)
[2019-08-04] MEDS ORDERED: PANTOPRAZOLE SODIUM 40 MG SUSPDR.PKT PO SCH (09:00)
--- NOTE | 2019-08-04 10:45 | NUR ---
Surgery called to check if patient is ready for surgery, spoke to the patient and asked her three times to have her possessions taken by security to ensure that she does not loose her money, mobile phone, credit cards and identification; patient stated, "That's okay it will be fine in my purse here."
[2019-08-04] MEDS ORDERED: PANTOPRAZOLE 40 MG 10ML VIAL IV STA (12:06)
[2019-08-04] MEDS ORDERED: PANTOPRAZOLE 40 MG 10ML VIAL ONE (12:15)
[2019-08-04] MEDS ORDERED: METOCLOPRAMIDE HCL 10 MG/2ML VIAL ONE ×2 (12:23→19:22)
[2019-08-04] MEDS ORDERED: PANTOPRAZOL 40MG/SOD CHL 0.9% 50 ML IV SCH (12:30)
--- NOTE | 2019-08-04 12:58 | Operative Report ---
DATE OF PROCEDURE: 08/04/2019 SURGEON: Evelio Olvera MD PROCEDURES: Colonoscopy with polypectomy and esophageal dilatation. INDICATIONS FOR EGD: Dysphagia. MEDICATIONS: The patient was done under MAC, please see anesthesiologist's note. PROCEDURE IN DETAIL: With the patient in the left lateral decubitus position, a flexible fiberoptic Olympus gastroscope was introduced into the esophagus under direct visualization without any difficulty. There was some patchy erythema noted in distal esophagus. A mild stricture was noted at the GE junction and the esophagus was then dilated to size 60-Kazakh Fan. The scope was then advanced with ease into the stomach. Mucosa overlying the antrum and the body revealed some diffuse erythema. Pylorus was of normal contour and shape, was intubated with ease and the scope was advanced all the way to the second portion of the duodenum. The scope was then withdrawn slowly, mucosa overlying the proximal second portion and the duodenal bulb appeared to be within normal limits. The scope was then withdrawn back into the stomach and retroflexed, mucosa overlying the fundus and the cardia appeared to be within normal limits. The scope was then straightened out. Several hyperplastic-appearing polyps were noted in the body of the stomach and some were partially excised with the cold biopsy forceps. The scope was subsequently withdrawn and the patient tolerated the procedure well. IMPRESSION: 1. Esophageal stricture dilated to size 60-Kazakh Fan. 2. Gastritis, mild. 3. Gastric polyps, body, hyperplastic-appearing, some partially excised with the cold biopsy forceps. PLAN: Follow up histology. Advance diet to full liquid. Evelio Olvera MD [facility] [place] /[id number] cc: Aleks Combs MD
[2019-08-04] MEDS: PANTOPRAZOL 40MG/SOD CHL 0.9% 50 ML IV SCH ×2 (13:27→18:27)
[2019-08-04] MEDS: METOPROLOL SUCCINATE 25 MG TAB XL PO SCH ×2 (13:27→17:24)
[2019-08-04] MEDS: METOCLOPRAMIDE HCL 10 MG/2ML VIAL IV SCH (17:25)
[2019-08-04] MEDS ORDERED: PROPOFOL IV EMULSION 10 MG/ML 20 ML VIAL ONE (19:22)
[2019-08-04] MEDS ORDERED: LIDOCAINE HCL 2% LOCAL INJ 5 ML SDV VIAL INJ ONE (19:22)
[2019-08-05] VITALS: BP 102/68
[2019-08-05] MEDS: METOCLOPRAMIDE HCL 10 MG/2ML VIAL IV SCH
[2019-08-05 04:00] VITALS: BP 111/81
[2019-08-05] MEDS: PANTOPRAZOL 40MG/SOD CHL 0.9% 50 ML IV SCH ×2 (04:30)
== END 2019-08-05 06:30 | disposition home or self-care (01) ==
LOC: ER 15:25 → ERHOLD 18:25 → MED/SURG 22:56
DX: K31.7 Polyp of stomach and duodenum (principal); K22.2 Esophageal obstruction; K29.70 Gastritis, unspecified, without bleeding; M06.9 Rheumatoid arthritis, unspecified
CPT/HCPCS: 36415 ×2; 43239; 43248; 71045; 71250; 80048; 80053; 82948 ×2; 85025 ×2; 87635; 88305; 88312; 93005; 96361; 99284; C9113; G0378 ×3; J2001; J2270 ×2; J2405 ×2; J2704; J2765; J3010; J7030 ×2; 43450

== ENCOUNTER → 2019-12-12 | Day surgery (SDC) | payer OTHER ==
[2019-12-07 11:14] LABS: CALCIUM 8.8 mg/dL (8.4-10.2); CREATININE, SERUM 1.14 mg/dL (0.57-1.11)
[~2019-12-12] VITALS: Ht 160 cm; Wt 99.8 kg
[~2019-12-12] MED LIST changes: +AMBIEN10 MG PO; +AMITRIPTYLINE H25 MG PO; +ATIVAN1 MG PO; +CLINDAMYCIN PHOS 900MG/ 50ML 50 ML IV ONE; +DEXAMETHASONE SOD PHOS INJ 4 MG/ML VIAL ONE; +EPINEPHRINE 1 MG/ML 30ML VIAL ONE; +FENTANYL CITRATE/PF 100MCG/2 ML INJ ONE; +JARDIANCE25 MG PO; +KETOROLAC TROMETHAMINE 30 MG/ML VIAL ONE; +LIDOCAINE 2%/ EPINEPHRINE 20ML MDV ONE; +LIDOCAINE HCL 2% JELLY 5 ML TUBE ONE; +LIDOCAINE HCL 2% LOCAL INJ 5 ML SDV VIAL INJ ONE; +LISINOPRIL2.5 MG PO; +MIDAZOLAM HCL 2 MG/2 ML VIAL ONE; +ONDANSETRON HCL INJ 2MG/ML 2ML 2 MG/ML VIAL ONE; +PROPOFOL IV EMULSION 10 MG/ML 20 ML VIAL ONE; +ROCURONIUM BROMIDE 10 MG/ML 5ML VIAL IV ONE; +ROPIVACAINE 0.5% 5 MG/ML 30 ML SDV ONE; +SEVOFLURANE INHAL SOLN 250 ML PEN BTL ONE
[2019-12-12 11:30] VITALS: BP 105/68
--- NOTE | 2019-12-17 21:09 | Operative Report ---
DATE OF PROCEDURE: SURGEON: Edward Long MD PREOPERATIVE DIAGNOSES: 1. Right shoulder chronic impingement. 2. Right shoulder acromioclavicular joint arthrosis. POSTOPERATIVE DIAGNOSES: 1. Right shoulder chronic impingement. 2. Right shoulder acromioclavicular joint arthrosis. OPERATIONS AND PROCEDURES PERFORMED: The patient underwent a right shoulder exam under anesthesia, right shoulder arthroscopy, right shoulder debridement of intra-articular synovitis, right shoulder arthroscopic subacromial decompression and acromioplasty and a right shoulder arthroscopic distal clavicle resection. ALUMNI RELATIONS OFFICER: There was no freezer assistant. ANESTHESIA: General endotracheal intubation anesthesia. IV FLUIDS: Per the anesthesia record. BRIEF DESCRIPTION OF THE PATIENT'S OPERATIVE PROCEDURE: Ms. Montoya was taken to the operating room and placed in a supine position on the operating table. Following induction of general anesthesia as well as endotracheal intubation, patient's right upper extremity was examined under anesthesia. She was found to have a normal-appearing shoulder. The patient's upper extremity was prepped and draped in standard surgical fashion. Passive range of motion of the shoulder joint demonstrated full range of motion without evidence of instability. The patient's upper extremity was prepped and draped in surgical fashion. Standard posterolateral and anterior portal was created without difficulty. Scope was placed within the shoulder joint atraumatically. Examination of the glenohumeral articulation demonstrated no evidence of chondromalacia of the articulating surfaces. There was moderate synovitis in the shoulder joint. There were no loose bodies in the shoulder. A probe was placed in the shoulder and the biceps tendon was found to be firmly attached at the superior rim of the labrum. The labrum was also firmly attached about the glenoid. There was minimal wear to the articular surface of the rotator cuff. A shaver was placed within the shoulder joint and the patient's synovitis was debrided. The shoulder was inflated with sterile normal saline. The scope was then transferred to the subacromial space and significant bursal inflammation was encountered. A lateral portal was created with an outside-in technique. A shaver was placed in the shoulder joint and a bursectomy was performed. The patient did have several adhesions within the shoulder, which were taken down at this time. She additionally had a downward sloping acromion. There was some mild wear of the bursal surface of the rotator cuff. An acromioplasty was performed at this time. The coracoacromial ligament was also resected at this time. Attention was then turned to the acromioclavicular joint. The shaver was used to isolate the AC joint. The anterior portal was transferred into the subacromial space and the shaver was transferred to the anterior portal. The shaver was then used to resect a 1 cm section of the distal clavicle. The scope was used to confirm complete resection of the distal aspect of the clavicle. The shoulder was inflated with sterile normal saline. The portal sites were closed and sterile dressings were applied. The patient was provided a sling and was awakened and taken to the postanesthesia care unit in stable condition. MD SERENA Herndon/BANDAR /[id number]
== END | disposition home or self-care (01) ==
LOC: OR 06:28
PROVIDERS: ATTEND Specialist
DX: M75.111 Incomplete rotator cuff tear or rupture of right shoulder, not specified as traumatic (principal); M19.011 Primary osteoarthritis, right shoulder; M65.811 Other synovitis and tenosynovitis, right shoulder; M06.9 Rheumatoid arthritis, unspecified; E11.9 Type 2 diabetes mellitus without complications; I10 Essential (primary) hypertension; F41.8 Other specified anxiety disorders; E78.5 Hyperlipidemia, unspecified; K21.9 Gastro-esophageal reflux disease without esophagitis; K50.90 Crohn's disease, unspecified, without complications; F95.9 Tic disorder, unspecified; K28.9 Gastrojejunal ulcer, unspecified as acute or chronic, without hemorrhage or perforation; Z88.1 Allergy status to other antibiotic agents; Z88.0 Allergy status to penicillin; Z88.8 Allergy status to other drugs, medicaments and biological substances; Z01.810 Encounter for preprocedural cardiovascular examination; Z01.812 Encounter for preprocedural laboratory examination; Z11.59 Encounter for screening for other viral diseases; Z68.37 Body mass index [BMI] 37.0-37.9, adult
CPT/HCPCS: 29824; 29826; 29827; 36415 ×2; 80048; 82948; 93005; J1100; J1885; J2001 ×3; J2250; J2405; J2704; J2795; J3010; U0002

== ENCOUNTER → 2020-01-25 | Day surgery (SDC) | payer OTHER ==
[~2020-01-25] MED LIST changes: -CLINDAMYCIN PHOS 900MG/ 50ML 50 ML IV ONE; -DEXAMETHASONE SOD PHOS INJ 4 MG/ML VIAL ONE; +DEXILANT30 MG; -EPINEPHRINE 1 MG/ML 30ML VIAL ONE; -FENTANYL CITRATE/PF 100MCG/2 ML INJ ONE; -KETOROLAC TROMETHAMINE 30 MG/ML VIAL ONE; -LIDOCAINE 2%/ EPINEPHRINE 20ML MDV ONE; -LIDOCAINE HCL 2% JELLY 5 ML TUBE ONE; -LIDOCAINE HCL 2% LOCAL INJ 5 ML SDV VIAL INJ ONE; -MIDAZOLAM HCL 2 MG/2 ML VIAL ONE; -ONDANSETRON HCL INJ 2MG/ML 2ML 2 MG/ML VIAL ONE; -PROPOFOL IV EMULSION 10 MG/ML 20 ML VIAL ONE; -ROCURONIUM BROMIDE 10 MG/ML 5ML VIAL IV ONE; -ROPIVACAINE 0.5% 5 MG/ML 30 ML SDV ONE; -SEVOFLURANE INHAL SOLN 250 ML PEN BTL ONE
[2020-01-25 08:25] VITALS: BP 121/71
--- NOTE | 2020-01-25 10:21 | Operative Report ---
DATE OF PROCEDURE: 01/25/2020 SURGEON: Evelio Olvera MD PROCEDURE: EGD with polypectomy and esophageal dilatation. INDICATIONS FOR PROCEDURE: Dysphagia. MEDICATIONS: The patient was done under MAC, please see anesthesiologist's note. PROCEDURE IN DETAIL: With the patient in left lateral decubitus position, flexible fiberoptic Olympus gastroscope was introduced into the esophagus under direct visualization without any difficulty. The esophagus appeared to be within normal limits. There was a mild stricture noted at the GE junction that was traversed with the scope and the mucosa overlying the antrum and the body revealed some patchy areas of erythema. Several hyperplastic-appearing polyps were noted in the body and the fundus and somewhat partially excised with the cold biopsy forceps. Pylorus was of normal contour and shape, was intubated with ease and the scope, advanced all the way to the second portion of the duodenum. The scope was then withdrawn slowly and mucosa overlying the proximal second portion and the duodenal bulb appeared to be within normal limits. The scope was then withdrawn back into the stomach and retroflexed and the mucosa overlying the fundus and cardia grossly appeared to be within normal limits. The scope was then straightened out. The stomach was decompressed. The scope was subsequently withdrawn. The esophagus was then dilated at size 60-Amharic Fan. The patient tolerated procedure well. IMPRESSION: 1. Esophageal stricture GE junction, dilated to size 60-Amharic Fan. 2. Gastritis, mild. 3. Gastric polyps, hyperplastic appearing, some partially excised with the cold biopsy forceps. PLAN: Follow up histology. Continue Dexilant 60 mg one p.o. q.a.m. a.c. MD XOCHITL Castañeda/BANDAR /[id number] cc: Kobi Olvera MD
== END | disposition home or self-care (01) ==
LOC: ENDO 05:49
PROVIDERS: ATTEND Internal Medicine Gastroenterology
DX: K22.2 Esophageal obstruction (principal); K31.7 Polyp of stomach and duodenum; K29.70 Gastritis, unspecified, without bleeding; K50.90 Crohn's disease, unspecified, without complications; K28.9 Gastrojejunal ulcer, unspecified as acute or chronic, without hemorrhage or perforation; E78.5 Hyperlipidemia, unspecified; I10 Essential (primary) hypertension; R00.0 Tachycardia, unspecified; E11.9 Type 2 diabetes mellitus without complications; M06.9 Rheumatoid arthritis, unspecified; F41.9 Anxiety disorder, unspecified; Z88.1 Allergy status to other antibiotic agents; Z88.0 Allergy status to penicillin; Z88.2 Allergy status to sulfonamides; Z01.812 Encounter for preprocedural laboratory examination; Z20.828 Contact with and (suspected) exposure to other viral communicable diseases; Z79.4 Long term (current) use of insulin; Z68.39 Body mass index [BMI] 39.0-39.9, adult; Z80.0 Family history of malignant neoplasm of digestive organs
CPT/HCPCS: 36415; 43239; 43450; 82948; U0002

== ENCOUNTER → 2020-06-28 | Day surgery (SDC) | payer OTHER ==
[~2020-06-28] MED LIST changes: -DEXILANT30 MG; +DEXILANT30 MG PO; +FENTANYL CITRATE/PF 100MCG/2 ML INJ ONE; +MIDAZOLAM HCL 5 MG/ML VIAL ONE; +PROPOFOL IV EMULSION 10 MG/ML 20 ML VIAL ONE
== END | disposition home or self-care (01) ==
LOC: OR 06:31
PROVIDERS: ATTEND Internal Medicine Gastroenterology
DX: K22.2 Esophageal obstruction (principal); K29.70 Gastritis, unspecified, without bleeding; K20.90 Esophagitis, unspecified without bleeding; E11.43 Type 2 diabetes mellitus with diabetic autonomic (poly)neuropathy; K31.84 Gastroparesis; I10 Essential (primary) hypertension; M06.9 Rheumatoid arthritis, unspecified; Z01.810 Encounter for preprocedural cardiovascular examination; Z01.812 Encounter for preprocedural laboratory examination; Z20.822 Contact with and (suspected) exposure to COVID-19; Z80.0 Family history of malignant neoplasm of digestive organs
CPT/HCPCS: 36415; 43450; 82948; 93005; J2704; U0002; J2250; J3010

== ENCOUNTER → 2020-12-06 | Day surgery (SDC) | payer OTHER ==
[~2020-12-06] MED LIST changes: +DEXTROSE 5% 250ML 250 ML IV ONE; -FENTANYL CITRATE/PF 100MCG/2 ML INJ ONE; +LANTUS 3ML100 UNITS/ SQ; -MIDAZOLAM HCL 5 MG/ML VIAL ONE; -PROPOFOL IV EMULSION 10 MG/ML 20 ML VIAL ONE
[2020-12-06 16:00] VITALS: BP 126/82
== END | disposition home or self-care (01) ==
LOC: ENDO 11:37
PROVIDERS: ATTEND Internal Medicine Gastroenterology
DX: K20.90 Esophagitis, unspecified without bleeding (principal); K29.70 Gastritis, unspecified, without bleeding; K31.7 Polyp of stomach and duodenum; R14.0 Abdominal distension (gaseous); Z68.42 Body mass index [BMI] 45.0-49.9, adult; I10 Essential (primary) hypertension; E11.9 Type 2 diabetes mellitus without complications; K57.90 Diverticulosis of intestine, part unspecified, without perforation or abscess without bleeding; M06.9 Rheumatoid arthritis, unspecified; M19.90 Unspecified osteoarthritis, unspecified site; E66.01 Morbid (severe) obesity due to excess calories; F41.9 Anxiety disorder, unspecified; G47.33 Obstructive sleep apnea (adult) (pediatric); K21.9 Gastro-esophageal reflux disease without esophagitis; K50.90 Crohn's disease, unspecified, without complications; Z90.49 Acquired absence of other specified parts of digestive tract; Z88.1 Allergy status to other antibiotic agents; Z88.0 Allergy status to penicillin; Z88.8 Allergy status to other drugs, medicaments and biological substances; Z01.810 Encounter for preprocedural cardiovascular examination
CPT/HCPCS: 36415; 43239; 43450; 82948; 93005; C9113; J7070

== ENCOUNTER → 2021-07-25 | Day surgery (SDC) | payer OTHER ==
[~2021-07-25] MED LIST changes: -DEXTROSE 5% 250ML 250 ML IV ONE; +FENTANYL CITRATE/PF 100MCG/2 ML INJ ONE; +GLYCOPYRROLATE INJ 0.2 MG/ML VIAL ONE; +MIDAZOLAM HCL 2 MG/2 ML VIAL ONE; +PROPOFOL IV EMULSION 10 MG/ML 20 ML VIAL ONE; +SYNJARDY 12.5-1 EACH PO
[2021-07-25 13:35] VITALS: BP 125/77
== END | disposition home or self-care (01) ==
LOC: ENDO 11:10
PROVIDERS: ATTEND Internal Medicine Gastroenterology
DX: K20.90 Esophagitis, unspecified without bleeding (principal); K31.7 Polyp of stomach and duodenum; K29.70 Gastritis, unspecified, without bleeding; K21.9 Gastro-esophageal reflux disease without esophagitis; G47.33 Obstructive sleep apnea (adult) (pediatric); I10 Essential (primary) hypertension; E66.01 Morbid (severe) obesity due to excess calories; E11.9 Type 2 diabetes mellitus without complications; R00.0 Tachycardia, unspecified; F41.9 Anxiety disorder, unspecified; Z88.0 Allergy status to penicillin; Z01.810 Encounter for preprocedural cardiovascular examination; Z01.812 Encounter for preprocedural laboratory examination; Z20.822 Contact with and (suspected) exposure to COVID-19; Z79.4 Long term (current) use of insulin; Z79.899 Other long term (current) drug therapy
CPT/HCPCS: 36415; 43239; 43450; 82948; 93005; C9113; J2250; J2704; J3010; U0002

== ENCOUNTER → 2021-08-08 | Day surgery (SDC) | payer OTHER ==
[2021-08-07 10:57] LABS: BASOPHILS % 0.5 % (0.0-1.0); EOSINOPHILS # (AUTO) 0.2 (0.0-0.4); EOSINOPHILS % 2.7 % (0.0-6.0); HEMATOCRIT 44.4 % (34.2-44.1); HEMOGLOBIN 14.2 g/dL (12.0-16.0); LYMPHOCYTES # (AUTO) 2.7 (1.0-3.2); LYMPHOCYTES % 34.8 % (18.0-39.1); MEAN CORPUSCULAR HEMOGLOBIN 26.6 pg (28-32); MEAN CORPUSCULAR VOLUME 83.3 fL (81-99); MONOCYTES # (AUTO) 0.7 (0.2-0.8); MONOCYTES % 8.9 % (4.4-11.3); NEUTROPHILS # (AUTO) 4.1 (2.1-6.9); NEUTROPHILS % 52.8 % (38.7-80.0); PLATELET COUNT 235 x10e3/uL (140-360); RED BLOOD COUNT 5.33 x10e6/uL (3.6-5.1); RED CELL DISTRIBUTION WIDTH 14.8 % (11.7-14.4)
[2021-08-07 11:19] LABS: ANION GAP 18.2 mmol/L (8-16); CALCIUM 9.3 mg/dL (8.4-10.2); CREATININE, SERUM 0.77 mg/dL (0.57-1.11); POTASSIUM 4.2 mmol/L (3.5-5.1)
[~2021-08-08] MED LIST changes: +GLUCAGON FOR INJ 1 MG VIAL ONE; -GLYCOPYRROLATE INJ 0.2 MG/ML VIAL ONE; +METOCLOPRAMIDE HCL 10 MG/2ML VIAL ONE; +PROVENTIL HFA6.7 GM INH
[2021-08-08 13:28] LABS: WBC,FECAL (FECAL LACTOFERRIN) POSITIVE (NEGATIVE)
[2021-08-08 13:55] VITALS: BP 109/67
[2021-08-08 15:43] LABS: C DIFFICILE TOXIN A&B AMP PROB NEGATIVE (NEGATIVE)
== END | disposition home or self-care (01) ==
LOC: OR 11:03
PROVIDERS: ATTEND Internal Medicine Gastroenterology
DX: K52.9 Noninfective gastroenteritis and colitis, unspecified (principal); Z86.010 Personal history of colon polyps; K62.89 Other specified diseases of anus and rectum; K64.8 Other hemorrhoids; K29.60 Other gastritis without bleeding; K21.9 Gastro-esophageal reflux disease without esophagitis; Z71.3 Dietary counseling and surveillance; G47.33 Obstructive sleep apnea (adult) (pediatric); J45.909 Unspecified asthma, uncomplicated; R00.0 Tachycardia, unspecified; I10 Essential (primary) hypertension; M06.9 Rheumatoid arthritis, unspecified; E11.9 Type 2 diabetes mellitus without complications; Z88.1 Allergy status to other antibiotic agents; Z88.0 Allergy status to penicillin; Z88.8 Allergy status to other drugs, medicaments and biological substances; Z01.812 Encounter for preprocedural laboratory examination; Z20.822 Contact with and (suspected) exposure to COVID-19; Z79.4 Long term (current) use of insulin; Z79.899 Other long term (current) drug therapy; Z68.41 Body mass index [BMI] 40.0-44.9, adult
CPT/HCPCS: 36415 ×2; 45380; 80048; 82948; 83630; 83993; 85025; 87045; 87177; 87328; 87493; C9113; J1610; J2250; J2704; J2765; J3010; U0002

== ENCOUNTER 2021-11-05 10:50 | Emergency (ER) | payer OTHER ==
[~2021-11-05] VITALS: Ht 160 cm; Wt 92.5 kg
[~2021-11-05 10:50] MED LIST changes: -FENTANYL CITRATE/PF 100MCG/2 ML INJ ONE; -GLUCAGON FOR INJ 1 MG VIAL ONE; -METOCLOPRAMIDE HCL 10 MG/2ML VIAL ONE; -MIDAZOLAM HCL 2 MG/2 ML VIAL ONE; -PROPOFOL IV EMULSION 10 MG/ML 20 ML VIAL ONE
[2021-11-05] MEDS ORDERED: SODIUM CHLORIDE 0.9% 1000ML 1,000 ML IV STA (11:12)
[2021-11-05] MEDS ORDERED: Morphine 4mg INJECTION 4 MG/ML INJ IV STA (11:12)
[2021-11-05] MEDS ORDERED: ONDANSETRON HCL INJ 2MG/ML 2ML 2 MG/ML VIAL IV STA (11:12)
[2021-11-05] MEDS ORDERED: SODIUM CHLORIDE FLUSH 10 ML SYR IV PRN (11:15)
[2021-11-05 11:37] LABS: BASOPHILS # (AUTO) 0.1 (0.0-0.1); BASOPHILS % 0.7 % (0.0-1.0); EOSINOPHILS # (AUTO) 0.3 (0.0-0.4); HEMATOCRIT 44.3 % (34.2-44.1); HEMOGLOBIN 14.1 g/dL (12.0-16.0); LYMPHOCYTES # (AUTO) 3.4 (1.0-3.2); LYMPHOCYTES % 32.5 % (18.0-39.1); MEAN CORPUSCULAR HEMOGLOBIN 25.9 pg (28-32); MEAN CORPUSCULAR HGB CONC 31.8 g/dL (31-35); MEAN CORPUSCULAR VOLUME 81.4 fL (81-99); MONOCYTES # (AUTO) 0.8 (0.2-0.8); MONOCYTES % 7.9 % (4.4-11.3); NEUTROPHILS # (AUTO) 5.9 (2.1-6.9); NEUTROPHILS % 55.7 % (38.7-80.0); PLATELET COUNT 247 x10e3/uL (140-360); RED BLOOD COUNT 5.44 x10e6/uL (3.6-5.1); RED CELL DISTRIBUTION WIDTH 14.9 % (11.7-14.4)
[2021-11-05] MEDS ORDERED: DIATRIZOATE MEGL/DIATRIZOA SOD 30 ML BTL PO ONE (11:37)
[2021-11-05 11:59] LABS: CLARITY,URINE TURBID (CLEAR); COLOR,URINE YELLOW (YELLOW); KETONES,URINE NEGATIVE (NEGATIVE); LEUKOCYTE ESTERASE ,URINE MODERATE (NEGATIVE); NITRITE,URINE NEGATIVE (NEGATIVE); PROTEIN,URINE DIPSTICK NEGATIVE (NEGATIVE); URINE UROBILINOGEN 0.2 mg/dL (0.2 - 1)
[2021-11-05 12:09] LABS: BACTERIA,URINE FEW /HPF; EPITHELIAL CELLS,URINE MANY /LPF; RBC,URINE 0-5 /HPF (0-5); TRANSITIONAL EPI CELLS,URINE FEW; WBC,URINE (MAN) >50 /HPF (0-5)
[2021-11-05 12:15] LABS: ANION GAP 17.7 mmol/L (8-16); CREATININE, SERUM 0.75 mg/dL (0.57-1.11); POTASSIUM 4.7 mmol/L (3.5-5.1)
[2021-11-05] MEDS ORDERED: CEFTRIAXONE 1 GM VIAL IM ONE (12:45)
[2021-11-05] MEDS ORDERED: IOPAMIDOL 370 MG/ML 100 ML INFUS..BTL INJ ONE (15:58)
== END 2021-11-05 14:12 | disposition home or self-care (01) ==
LOC: ER 11:09
DX: R10.30 Lower abdominal pain, unspecified (principal); N39.0 Urinary tract infection, site not specified; R11.2 Nausea with vomiting, unspecified; E11.65 Type 2 diabetes mellitus with hyperglycemia; I10 Essential (primary) hypertension; E78.5 Hyperlipidemia, unspecified; K21.9 Gastro-esophageal reflux disease without esophagitis; M06.9 Rheumatoid arthritis, unspecified; N80.9 Endometriosis, unspecified; M54.9 Dorsalgia, unspecified; G89.29 Other chronic pain
CPT/HCPCS: 36415; 74177; 80053; 81001; 83690; 85025; 99284; J0696; J2270; J2405; J7030; Q9963; Q9967

== ENCOUNTER → 2021-11-21 | Day surgery (SDC) | payer OTHER ==
[~2021-11-21] MED LIST changes: +CEPHALEXIN 500 MG CAP ONE; +CIPROFLOXACIN 500 MG TAB ONE; +CIPROFLOXACIN 500 MG TAB PO ONE; +FENTANYL CITRATE/PF 100MCG/2 ML INJ ONE; +MIDAZOLAM HCL 2 MG/2 ML VIAL ONE; +MULTI-VITAMIN1 EACH PO; +ONDANSETRON HCL INJ 2MG/ML 2ML 2 MG/ML VIAL ONE; +PROPOFOL IV EMULSION 10 MG/ML 20 ML VIAL ONE
[2021-11-21 17:20] VITALS: BP 126/78
== END | disposition home or self-care (01) ==
LOC: ENDO 14:08
PROVIDERS: ATTEND Internal Medicine Gastroenterology
DX: K20.90 Esophagitis, unspecified without bleeding (principal); K29.60 Other gastritis without bleeding; K21.9 Gastro-esophageal reflux disease without esophagitis; K50.90 Crohn's disease, unspecified, without complications; Z71.3 Dietary counseling and surveillance; G47.33 Obstructive sleep apnea (adult) (pediatric); E11.9 Type 2 diabetes mellitus without complications; I10 Essential (primary) hypertension; M06.9 Rheumatoid arthritis, unspecified; F41.9 Anxiety disorder, unspecified; Z88.1 Allergy status to other antibiotic agents; Z88.0 Allergy status to penicillin; Z88.8 Allergy status to other drugs, medicaments and biological substances; Z01.810 Encounter for preprocedural cardiovascular examination; Z79.4 Long term (current) use of insulin; Z79.899 Other long term (current) drug therapy; Z68.41 Body mass index [BMI] 40.0-44.9, adult; Z80.0 Family history of malignant neoplasm of digestive organs
CPT/HCPCS: 36415; 43239; 43450; 82948; 93005; C9113; J2250; J2405; J2704; J3010

== ENCOUNTER → 2022-04-24 | Day surgery (SDC) | payer OTHER ==
[~2022-04-24] MED LIST changes: -CEPHALEXIN 500 MG CAP ONE; -CIPROFLOXACIN 500 MG TAB ONE; -CIPROFLOXACIN 500 MG TAB PO ONE; -FENTANYL CITRATE/PF 100MCG/2 ML INJ ONE; +LIDOCAINE HCL 2% LOCAL INJ 5 ML SDV VIAL INJ ONE; +METOCLOPRAMIDE HCL 10 MG/2ML VIAL ONE; -MIDAZOLAM HCL 2 MG/2 ML VIAL ONE; +POVIDONE IODINE 0.05% 0.05 % ML PO ONE
[2022-04-24 13:45] VITALS: BP 103/67
== END | disposition home or self-care (01) ==
LOC: ENDO 10:48
PROVIDERS: ATTEND Internal Medicine Gastroenterology
DX: R13.10 Dysphagia, unspecified (principal); K29.70 Gastritis, unspecified, without bleeding; K21.9 Gastro-esophageal reflux disease without esophagitis; K50.90 Crohn's disease, unspecified, without complications; G47.33 Obstructive sleep apnea (adult) (pediatric); J45.909 Unspecified asthma, uncomplicated; E11.9 Type 2 diabetes mellitus without complications; M06.9 Rheumatoid arthritis, unspecified; M19.90 Unspecified osteoarthritis, unspecified site; F41.9 Anxiety disorder, unspecified; Z88.1 Allergy status to other antibiotic agents; Z88.0 Allergy status to penicillin; Z88.2 Allergy status to sulfonamides; Z01.810 Encounter for preprocedural cardiovascular examination; Z79.4 Long term (current) use of insulin; Z79.84 Long term (current) use of oral hypoglycemic drugs; Z79.899 Other long term (current) drug therapy
CPT/HCPCS: 36415; 43239; 43450; 82948; 93005; C9113; J2001; J2405; J2704; J2765

== ENCOUNTER → 2022-07-29 | Day surgery (SDC) | payer OTHER ==
[~2022-07-29] MED LIST changes: +DEXTROSE 5% 250ML 250 ML IV ONE; +LACTATED RINGER'S 1,000 ML ONE; -METOCLOPRAMIDE HCL 10 MG/2ML VIAL ONE; -ONDANSETRON HCL INJ 2MG/ML 2ML 2 MG/ML VIAL ONE
[2022-07-29 08:15] VITALS: BP 116/72; PULSE 68; RESP 14; O2SAT 98
== END | disposition home or self-care (01) ==
LOC: ENDO 08:47
PROVIDERS: ATTEND Internal Medicine Gastroenterology
DX: K22.2 Esophageal obstruction (principal); K31.7 Polyp of stomach and duodenum; K29.70 Gastritis, unspecified, without bleeding; K20.90 Esophagitis, unspecified without bleeding; K21.9 Gastro-esophageal reflux disease without esophagitis; G47.33 Obstructive sleep apnea (adult) (pediatric); E78.5 Hyperlipidemia, unspecified; J45.909 Unspecified asthma, uncomplicated; M06.9 Rheumatoid arthritis, unspecified; E11.9 Type 2 diabetes mellitus without complications; Z79.4 Long term (current) use of insulin; Z79.84 Long term (current) use of oral hypoglycemic drugs; Z79.899 Other long term (current) drug therapy; Z86.16 Personal history of COVID-19
CPT/HCPCS: 36415; 43239; 43450; 82948; C9113; J2001; J2704; J7070; J7121

== ENCOUNTER 2023-07-11 11:49 | Emergency (ER) | payer OTHER ==
[~2023-07-11] VITALS: Ht 160 cm; Wt 98.0 kg
[~2023-07-11 11:49] MED LIST changes: -DEXTROSE 5% 250ML 250 ML IV ONE; -LACTATED RINGER'S 1,000 ML ONE; -LIDOCAINE HCL 2% LOCAL INJ 5 ML SDV VIAL INJ ONE; -POVIDONE IODINE 0.05% 0.05 % ML PO ONE; -PROPOFOL IV EMULSION 10 MG/ML 20 ML VIAL ONE
[2023-07-11 12:37] LABS: BASOPHILS # (AUTO) 0.1 (0.0-0.1); BASOPHILS % 0.5 % (0.0-1.0); EOSINOPHILS # (AUTO) 0.3 (0.0-0.4); EOSINOPHILS % 3.3 % (0.0-6.0); HEMATOCRIT 44.9 % (34.2-44.1); HEMOGLOBIN 15.3 g/dL (12.0-16.0); LYMPHOCYTES # (AUTO) 2.9 (1.0-3.2); LYMPHOCYTES % 31.1 % (18.0-39.1); MEAN CORPUSCULAR HEMOGLOBIN 25.9 pg (28-32); MEAN CORPUSCULAR HGB CONC 34.1 g/dL (31-35); MEAN CORPUSCULAR VOLUME 76.1 fL (81-99); MONOCYTES # (AUTO) 0.7 (0.2-0.8); NEUTROPHILS # (AUTO) 5.3 (2.1-6.9); NEUTROPHILS % 56.9 % (38.7-80.0); PLATELET COUNT 216 x10e3/uL (140-360); RED CELL DISTRIBUTION WIDTH 13.9 % (11.7-14.4); WHITE BLOOD COUNT 9.29 x10e3/uL (4.8-10.8)
[2023-07-11 13:00] LABS: ALANINE AMINOTRANSFERASE 41 IU/L (0-55); ALBUMIN 4.4 g/dL (3.5-5.0); ALBUMIN/GLOBULIN RATIO 1.3 (0.8-2.0); ALKALINE PHOSPHATASE 84 IU/L (40-150); BILIRUBIN,TOTAL 0.8 mg/dL (0.2-1.2); BLOOD UREA NITROGEN 12 mg/dL (7-26); BUN/CREATININE RATIO 16 (6-25); CALCIUM 9.5 mg/dL (8.4-10.2); CARBON DIOXIDE 25 mmol/L (22-29); CHLORIDE 105 mmol/L (98-107); CREATINE KINASE 154 IU/L (29-168); CREATININE, SERUM 0.76 mg/dL (0.57-1.11); EST GLOMERULAR FILTRATION RATE 98 ML/MIN (>=60); GLUCOSE 176 mg/dL (74-118); SODIUM 142 mmol/L (136-145); TOTAL PROTEIN 7.8 g/dL (6.5-8.1)
[2023-07-11 13:06] LABS: HCG,QUANTITATIVE < 1.20 mIU/mL (0-10); TROPONIN I 0.016 ng/mL (0-0.300)
[2023-07-11] MEDS ORDERED: IOPAMIDOL 370 MG/ML 100 ML INFUS..BTL INJ ONE (13:34)
[2023-07-11 16:15] VITALS: BP 141/70; PULSE 75; RESP 19; O2SAT 97
== END 2023-07-11 16:16 | disposition home or self-care (01) ==
LOC: ER 12:05
DX: J02.9 Acute pharyngitis, unspecified (principal); R14.0 Abdominal distension (gaseous); R10.9 Unspecified abdominal pain; K57.90 Diverticulosis of intestine, part unspecified, without perforation or abscess without bleeding
CPT/HCPCS: 36415; 71045; 74177; 80053; 82550; 83735; 84484; 84702; 85025; 93005; 99285; Q9967

== ENCOUNTER 2023-10-09 23:01 | Inpatient (IN) | payer OTHER ==
[~2023-10-09] VITALS: Ht 160 cm; Wt 93.9 kg
[~2023-10-09 23:01] MED LIST changes: +CEFDINIR300 MG PO; +LEVSIN-SL0.125 MG SL; +METRONIDAZOLE500 MG PO; +ONDANSETRON ODT4 MG PO
[2023-10-09 23:36] LABS: BASOPHILS # (AUTO) 0.1 (0.0-0.1); BASOPHILS % 0.6 % (0.0-1.0); EOSINOPHILS # (AUTO) 0.3 (0.0-0.4); EOSINOPHILS % 3.2 % (0.0-6.0); HEMATOCRIT 43.2 % (34.2-44.1); HEMOGLOBIN 14.2 g/dL (12.0-16.0); LYMPHOCYTES # (AUTO) 3.3 (1.0-3.2); LYMPHOCYTES % 32.3 % (18.0-39.1); MEAN CORPUSCULAR HEMOGLOBIN 25.9 pg (28-32); MEAN CORPUSCULAR HGB CONC 32.9 g/dL (31-35); MEAN CORPUSCULAR VOLUME 78.8 fL (81-99); MONOCYTES # (AUTO) 0.9 (0.2-0.8); MONOCYTES % 9.1 % (4.4-11.3); NEUTROPHILS # (AUTO) 5.5 (2.1-6.9); PLATELET COUNT 244 x10e3/uL (140-360); RED BLOOD COUNT 5.48 x10e6/uL (3.6-5.1); RED CELL DISTRIBUTION WIDTH 15.4 % (11.7-14.4); WHITE BLOOD COUNT 10.16 x10e3/uL (4.8-10.8)
[2023-10-09] MEDS: SODIUM CHLORIDE 0.9% 1000ML 2,000 ML IV STA (23:39)
[2023-10-09 23:40] VITALS: PULSE 76; RESP 18; O2SAT 100
[2023-10-09 23:45] LABS: BILIRUBIN,URINE NEGATIVE (NEGATIVE); CLARITY,URINE CLEAR (CLEAR); COLOR,URINE YELLOW (YELLOW); EPITHELIAL CELLS,URINE FEW /LPF; GLUCOSE, URINE 500 (NEGATIVE); KETONES,URINE NEGATIVE (NEGATIVE); LEUKOCYTE ESTERASE ,URINE NEGATIVE (NEGATIVE); NITRITE,URINE NEGATIVE (NEGATIVE); PH,URINE 6 (5 - 7); PROTEIN,URINE DIPSTICK NEGATIVE (NEGATIVE); RBC,URINE 0-5 /HPF (0-5); URINE UROBILINOGEN 0.2 mg/dL (0.2 - 1)
[2023-10-09 23:46] LABS: PREGNANCY TEST, URINE NEGATIVE (NEGATIVE)
[2023-10-09 23:54] LABS: BACTERIA,URINE MODERATE /HPF; WBC,URINE (MAN) 21-50 /HPF (0-5)
[2023-10-09 23:56] LABS: ANION GAP 15.6 mmol/L (8-16); BILIRUBIN,TOTAL 0.5 mg/dL (0.2-1.2); CALCIUM 9.9 mg/dL (8.4-10.2); CREATININE, SERUM 0.9 mg/dL (0.57-1.11); POTASSIUM 4.6 mmol/L (3.5-5.1); TOTAL PROTEIN 7.9 g/dL (6.5-8.1)
[2023-10-10] VITALS (12 sets, daily range): BP systolic 143–179; BP diastolic 93–105; PULSE 70–93; RESP 16–19; TEMP 98.2–99.1; O2SAT 95–100
[2023-10-10] MEDS ORDERED: IOPAMIDOL 370 MG/ML 100 ML INFUS..BTL INJ ONE (00:08)
[2023-10-10] MEDS: Morphine 4mg INJECTION 4 MG/ML INJ IV PRN (00:43)
[2023-10-10] MEDS: ONDANSETRON HCL INJ 2MG/ML 2ML 2 MG/ML VIAL IV PRN (00:44)
[2023-10-10] MEDS: SODIUM CHLORIDE 0.9% 1000ML 1,000 ML IV SCH (02:12)
[2023-10-10] MEDS: HYDROMORPHONE 1MG/1ML INJ IV STA (03:16)
[2023-10-10] MEDS: ALBUTEROL SULF 0.083% NEB SOLN 3 ML NEB NEB PRN (05:03)
[2023-10-10 07:47] LABS: BASOPHILS % 0.4 % (0.0-1.0); EOSINOPHILS # (AUTO) 0.3 (0.0-0.4); EOSINOPHILS % 3.3 % (0.0-6.0); HEMATOCRIT 40.8 % (34.2-44.1); HEMOGLOBIN 13.3 g/dL (12.0-16.0); LYMPHOCYTES # (AUTO) 3.1 (1.0-3.2); LYMPHOCYTES % 33.8 % (18.0-39.1); MEAN CORPUSCULAR HEMOGLOBIN 25.6 pg (28-32); MEAN CORPUSCULAR HGB CONC 32.6 g/dL (31-35); MEAN CORPUSCULAR VOLUME 78.5 fL (81-99); MONOCYTES % 10.4 % (4.4-11.3); NEUTROPHILS # (AUTO) 4.7 (2.1-6.9); NEUTROPHILS % 51.7 % (38.7-80.0); PLATELET COUNT 214 x10e3/uL (140-360); RED CELL DISTRIBUTION WIDTH 15.3 % (11.7-14.4); WHITE BLOOD COUNT 9.11 x10e3/uL (4.8-10.8)
[2023-10-10 08:05] LABS: ALBUMIN 3.9 g/dL (3.5-5.0); ALBUMIN/GLOBULIN RATIO 1.1 (0.8-2.0); ANION GAP 13.7 mmol/L (8-16); BILIRUBIN,TOTAL 0.5 mg/dL (0.2-1.2); CALCIUM 9.1 mg/dL (8.4-10.2); CREATININE, SERUM 0.75 mg/dL (0.57-1.11); POTASSIUM 3.7 mmol/L (3.5-5.1); TOTAL PROTEIN 7.4 g/dL (6.5-8.1)
[2023-10-10] MEDS ORDERED: BENADRYL25 M1 PO (11:34)
[2023-10-10] MEDS ORDERED: AMBIEN5 MG PO (11:34)
[2023-10-10] MEDS: METRONIDAZOLE 500MG/NS 100ML 0 ML IV ONE (14:58)
[2023-10-10] MEDS: METRONIDAZOLE 500MG/NS 100ML 100 ML IV SCH (15:01)
[2023-10-10] MEDS ORDERED: DEXTROSE 50% SYRINGE 50 ML IV PRN (16:00)
[2023-10-10] MEDS: INSULIN LISPRO 100 UNIT/1 ML 3ML VIAL SQ SCH (16:30)
[2023-10-10] MEDS ORDERED: CEFDINIR 300 MG CAP PO SCH (17:00)
[2023-10-10] MEDS ORDERED: HYDRALAZINE HCL 20 MG/ML VIAL IV PRN (17:15)
[2023-10-10] MEDS: ZOLPIDEM TARTRATE 5 MG TAB PO PRN (20:46)
[2023-10-10] MEDS: LISINOPRIL 2.5 MG TAB PO SCH (20:49)
[2023-10-10] MEDS ORDERED: DIPHENHYDRAMINE HCL INJ 50 MG/ML VIAL IV PRN (23:30)
[2023-10-10] MEDS: DIPHENHYDRAMINE HCL INJ 50 MG/ML VIAL IV PRN (23:57)
[2023-10-10] MEDS: SUCRALFATE 1 GM/10 ML SUSP NG ONE (23:59)
[2023-10-11] VITALS (9 sets, daily range): BP systolic 123–145; BP diastolic 81–97; PULSE 65–76; RESP 16–18; TEMP 97.5–99.5; O2SAT 95–100
[2023-10-11 06:06] LABS: BASOPHILS % 0.5 % (0.0-1.0); EOSINOPHILS # (AUTO) 0.2 (0.0-0.4); EOSINOPHILS % 3.2 % (0.0-6.0); HEMATOCRIT 41.8 % (34.2-44.1); HEMOGLOBIN 13.3 g/dL (12.0-16.0); LYMPHOCYTES # (AUTO) 2.7 (1.0-3.2); LYMPHOCYTES % 34.9 % (18.0-39.1); MEAN CORPUSCULAR HEMOGLOBIN 25.6 pg (28-32); MEAN CORPUSCULAR HGB CONC 31.8 g/dL (31-35); MEAN CORPUSCULAR VOLUME 80.4 fL (81-99); MONOCYTES # (AUTO) 0.7 (0.2-0.8); MONOCYTES % 9.2 % (4.4-11.3); NEUTROPHILS # (AUTO) 3.9 (2.1-6.9); NEUTROPHILS % 51.5 % (38.7-80.0); PLATELET COUNT 232 x10e3/uL (140-360); RED CELL DISTRIBUTION WIDTH 15.6 % (11.7-14.4); WHITE BLOOD COUNT 7.59 x10e3/uL (4.8-10.8)
[2023-10-11 06:48] LABS: ALBUMIN 3.6 g/dL (3.5-5.0); ALBUMIN/GLOBULIN RATIO 1.1 (0.8-2.0); ANION GAP 12.7 mmol/L (8-16); BILIRUBIN,TOTAL 0.7 mg/dL (0.2-1.2); CALCIUM 8.5 mg/dL (8.4-10.2); CREATININE, SERUM 0.7 mg/dL (0.57-1.11); MAGNESIUM 1.7 MG/DL (1.3-2.1); POTASSIUM 3.7 mmol/L (3.5-5.1); TOTAL PROTEIN 6.9 g/dL (6.5-8.1)
[2023-10-11] MEDS: METOPROLOL SUCCINATE 25 MG TAB XL PO SCH (09:10)
[2023-10-11] MEDS: SUCRALFATE 1 GM/10 ML SUSP NG SCH (09:10)
[2023-10-11] MEDS: ALBUTEROL/IPRATROPIUM 3 ML NEB NEB PRN (12:55)
[2023-10-11] MEDS: ENOXAPARIN SOD INJ 40 MG/0.4 ML SYR SC SCH (17:48)
[2023-10-12 00:56] VITALS: BP 140/90; PULSE 69; RESP 18; TEMP 98.9; O2SAT 100
[2023-10-12 04:57] VITALS: BP 110/79; PULSE 69; RESP 16; TEMP 98.4; O2SAT 99
[2023-10-12 05:52] LABS: BASOPHILS # (AUTO) 0.1 (0.0-0.1); BASOPHILS % 0.6 % (0.0-1.0); EOSINOPHILS # (AUTO) 0.3 (0.0-0.4); EOSINOPHILS % 3.2 % (0.0-6.0); HEMOGLOBIN 14.6 g/dL (12.0-16.0); LYMPHOCYTES # (AUTO) 3.4 (1.0-3.2); LYMPHOCYTES % 38.3 % (18.0-39.1); MEAN CORPUSCULAR HEMOGLOBIN 25.7 pg (28-32); MEAN CORPUSCULAR HGB CONC 32.4 g/dL (31-35); MEAN CORPUSCULAR VOLUME 79.4 fL (81-99); MONOCYTES # (AUTO) 0.9 (0.2-0.8); MONOCYTES % 9.9 % (4.4-11.3); NEUTROPHILS # (AUTO) 4.2 (2.1-6.9); NEUTROPHILS % 47.7 % (38.7-80.0); PLATELET COUNT 249 x10e3/uL (140-360); RED BLOOD COUNT 5.67 x10e6/uL (3.6-5.1); RED CELL DISTRIBUTION WIDTH 15.5 % (11.7-14.4); WHITE BLOOD COUNT 8.75 x10e3/uL (4.8-10.8)
[2023-10-12 06:32] LABS: ALBUMIN 3.9 g/dL (3.5-5.0); ALBUMIN/GLOBULIN RATIO 1.1 (0.8-2.0); ANION GAP 14.5 mmol/L (8-16); BILIRUBIN,TOTAL 0.8 mg/dL (0.2-1.2); CALCIUM 8.7 mg/dL (8.4-10.2); CREATININE, SERUM 0.74 mg/dL (0.57-1.11); MAGNESIUM 1.9 MG/DL (1.3-2.1); POTASSIUM 3.5 mmol/L (3.5-5.1); TOTAL PROTEIN 7.6 g/dL (6.5-8.1)
[2023-10-12 07:08] VITALS: PULSE 69; RESP 16; O2SAT 94
[2023-10-12 08:30] VITALS: BP 134/85; PULSE 60; RESP 16; TEMP 98.1; O2SAT 100
[2023-10-12 08:31] VITALS: BP 134/85; PULSE 60; RESP 16; TEMP 98.1; O2SAT 100
[2023-10-12 12:38] VITALS: BP 136/74; PULSE 63; RESP 20; TEMP 98.6; O2SAT 100
[2023-10-12] MEDS ORDERED: SUCRALFATE1 GM PO (14:59)
== END 2023-10-12 16:04 | disposition home or self-care (01) | DRG 392 ==
LOC: ER 23:07 → ERHOLD 23:44 → MED/SURG2 10-10 08:35
PROVIDERS: ADMIT Internal Medicine; ATTEND Internal Medicine
DX: K57.32 Diverticulitis of large intestine without perforation or abscess without bleeding (principal); K50.90 Crohn's disease, unspecified, without complications; R13.19 Other dysphagia; E78.2 Mixed hyperlipidemia; E11.9 Type 2 diabetes mellitus without complications; K21.9 Gastro-esophageal reflux disease without esophagitis; M54.50 Low back pain, unspecified; M06.9 Rheumatoid arthritis, unspecified; E66.01 Morbid (severe) obesity due to excess calories; Z68.36 Body mass index [BMI] 36.0-36.9, adult; R11.2 Nausea with vomiting, unspecified; M19.90 Unspecified osteoarthritis, unspecified site; Z11.52 Encounter for screening for COVID-19; Z79.4 Long term (current) use of insulin; Z79.84 Long term (current) use of oral hypoglycemic drugs; Z90.49 Acquired absence of other specified parts of digestive tract; Z90.710 Acquired absence of both cervix and uterus; Z88.1 Allergy status to other antibiotic agents; Z88.2 Allergy status to sulfonamides; Z88.0 Allergy status to penicillin; Z88.8 Allergy status to other drugs, medicaments and biological substances
CPT/HCPCS: 36415; 74177; 80053; 81001; 81025; 82948; 83690; 83735; 85025; 87086; 94640; 94799; 99284; J0360; J0696; J1170; J1200; J1650; J2270; J2405; J2470; J7030; Q9967; U0002

== ENCOUNTER 2024-01-20 11:40 | Inpatient (IN) | payer OTHER ==
[2024-01-20] VITALS (11 sets, daily range): BP systolic 155–173; BP diastolic 88–92; PULSE 59–79; RESP 16–20; TEMP 98.2–98.4; O2SAT 96–100
[~2024-01-20] VITALS: Ht 160 cm; Wt 93.9 kg
[~2024-01-20 11:40] MED LIST changes: +AMBIEN5 MG PO; +SUCRALFATE1 GM PO
[2024-01-20 12:22] LABS: BASOPHILS # (AUTO) 0.1 (0.0-0.1); BASOPHILS % 0.6 % (0.0-1.0); EOSINOPHILS # (AUTO) 0.3 (0.0-0.4); EOSINOPHILS % 3.5 % (0.0-6.0); HEMATOCRIT 47.9 % (34.2-44.1); HEMOGLOBIN 15.4 g/dL (12.0-16.0); LYMPHOCYTES # (AUTO) 3.2 (1.0-3.2); MEAN CORPUSCULAR HGB CONC 32.2 g/dL (31-35); MEAN CORPUSCULAR VOLUME 80.8 fL (81-99); MONOCYTES # (AUTO) 0.7 (0.2-0.8); MONOCYTES % 8.1 % (4.4-11.3); NEUTROPHILS # (AUTO) 4.1 (2.1-6.9); NEUTROPHILS % 49.7 % (38.7-80.0); PLATELET COUNT 217 x10e3/uL (140-360); RED BLOOD COUNT 5.93 x10e6/uL (3.6-5.1); RED CELL DISTRIBUTION WIDTH 13.6 % (11.7-14.4); WHITE BLOOD COUNT 8.31 x10e3/uL (4.8-10.8)
[2024-01-20] MEDS ORDERED: DIATRIZOATE MEGL/DIATRIZOA SOD 120 ML BTL PO ONE (12:32)
[2024-01-20 12:49] LABS: ALBUMIN 4.5 g/dL (3.5-5.0); ALBUMIN/GLOBULIN RATIO 1.2 (0.8-2.0); ANION GAP 17.4 mmol/L (8-16); BILIRUBIN,TOTAL 0.9 mg/dL (0.2-1.2); CREATININE, SERUM 0.76 mg/dL (0.57-1.11); TOTAL PROTEIN 8.3 g/dL (6.5-8.1)
[2024-01-20 12:50] LABS: POTASSIUM 3.4 mmol/L (3.5-5.1)
[2024-01-20 12:55] LABS: TROPONIN I 0.029 ng/mL (0-0.300)
[2024-01-20] MEDS: ONDANSETRON HCL INJ 2MG/ML 2ML 2 MG/ML VIAL IV STA (13:20)
[2024-01-20] MEDS ORDERED: BELLADONNA ALK/PHENOBARBITAL 5 ML UDC PO STA (13:23)
[2024-01-20] MEDS ORDERED: ONDANSETRON HCL INJ 2MG/ML 2ML 2 MG/ML VIAL ONE (13:24)
[2024-01-20] MEDS ORDERED: LIDOCAINE VISC 2% SOLN 15 ML UDC PO ONE (13:30)
[2024-01-20] MEDS ORDERED: MAGNESIUM/ALUMINUM/SIMETHICONE 30 ML UDC PO ONE (13:30)
[2024-01-20] MEDS: DONNATAL/LIDOCAINE/MAALOX 30 ML SUSP PO ONE (14:29)
[2024-01-20] MEDS: SODIUM CHLORIDE 0.9% 1000ML 1,000 ML IV SCH (14:47)
[2024-01-20] MEDS ORDERED: phenergan PO (15:34)
[2024-01-20] MEDS: Morphine 4mg INJECTION 4 MG/ML INJ IV PRN (15:56)
[2024-01-20] MEDS: POTASSIUM CHLORIDE 10MEQ/100ML 100 ML IV SCH (16:40)
[2024-01-20] MEDS ORDERED: DEXTROSE 50% SYRINGE 50 ML IV PRN (18:00)
[2024-01-20] MEDS ORDERED: INSULIN REGULAR, HUMAN 100 UNIT/1 ML SQ SCH (18:00)
[2024-01-20] MEDS: INSULIN REGULAR, HUMAN 100 UNIT/1 ML SQ SCH (20:00)
[2024-01-20] MEDS: INSULIN GLARGINE 100 UNITS/ML VIAL SQ SCH (20:52)
[2024-01-20] MEDS: DIPHENHYDRAMINE HCL INJ 50 MG/ML VIAL IV ONE (21:52)
[2024-01-20] MEDS: POTASSIUM CHLORIDE 10MEQ/100ML 100 ML IV ONE (21:52)
[2024-01-21] VITALS (8 sets, daily range): BP systolic 146–163; BP diastolic 85–99; PULSE 68–94; RESP 18–20; TEMP 98–98.7; O2SAT 98–100
[2024-01-21] MEDS: METOCLOPRAMIDE HCL 10 MG/2ML VIAL IV SCH (01:28)
[2024-01-21] MEDS: ONDANSETRON HCL INJ 2MG/ML 2ML 2 MG/ML VIAL IV PRN (10:14)
[2024-01-21] MEDS ORDERED: LACTATED RINGER'S 1,000 ML ONE (14:40)
[2024-01-21] MEDS ORDERED: INSULIN REGULAR, HUMAN 100 UNIT/1 ML SQ SCH (21:00)
[2024-01-21] MEDS: DIPHENHYDRAMINE HCL INJ 50 MG/ML VIAL IV PRN (22:14)
[2024-01-22] VITALS: BP 154/92; PULSE 82; RESP 18; TEMP 98.2; O2SAT 100
[2024-01-22 04:00] VITALS: BP 131/88; PULSE 71; RESP 18; TEMP 98.1; O2SAT 100
[2024-01-22 08:03] VITALS: BP 147/84; PULSE 72; RESP 18; TEMP 98.2; O2SAT 100
[2024-01-22 09:00] VITALS: BP 147/84; PULSE 72; RESP 18; TEMP 98.2; O2SAT 100
[2024-01-22] MEDS: INSULIN REGULAR, HUMAN 100 UNIT/1 ML SQ SCH (09:07)
[2024-01-22 12:05] VITALS: BP 149/89; PULSE 71; RESP 18; TEMP 98.5; O2SAT 99
== END 2024-01-22 15:34 | disposition home or self-care (01) | DRG 392 ==
LOC: ER 12:03 → ERHOLD 14:24 → MED/SURG3 15:20 → OBSVTOIN 01-21 19:48
PROVIDERS: ADMIT Internal Medicine; ATTEND Internal Medicine
PROC: 0D728ZZ Dilation of Middle Esophagus, Via Natural or Artificial Opening Endoscopic (ICD-10-PCS; principal; 2024-01-21 08:43)
PROC: 0DB68ZZ Excision of Stomach, Via Natural or Artificial Opening Endoscopic (ICD-10-PCS; 2024-01-21 08:43)
DX: K22.2 Esophageal obstruction (principal); K50.90 Crohn's disease, unspecified, without complications; K44.9 Diaphragmatic hernia without obstruction or gangrene; K31.7 Polyp of stomach and duodenum; K29.70 Gastritis, unspecified, without bleeding; E11.9 Type 2 diabetes mellitus without complications; Z79.4 Long term (current) use of insulin; E66.09 Other obesity due to excess calories; Z68.36 Body mass index [BMI] 36.0-36.9, adult; K21.9 Gastro-esophageal reflux disease without esophagitis; E78.5 Hyperlipidemia, unspecified; M06.9 Rheumatoid arthritis, unspecified; Z88.1 Allergy status to other antibiotic agents; Z88.2 Allergy status to sulfonamides
CPT/HCPCS: 36415; 43239; 43450; 74220; 80053; 82948; 84484; 85025; 88305; 93005; 94799; 99284; G0378; J1200; J2270; J2405; J2470; J2765; J3480; J7030